=== PATIENT | male | born 1955 | race Caucasian/White ===

== ENCOUNTER 2017-05-30 13:00 | Outpatient (RCR) | payer MEDICARE, SELFPAY ==
--- NOTE | 2017-04-16 14:27 | HP.PTEVAL_ITS ---
Patient's Visit Information FERNIE DVOE SR is a 62 year old M referred to Physical Therapy by Vladislav Colunga DO with a diagnosis of LE weakness. 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 Pt reports he was very functional and mobile until having a surgery secondary to MRSA in R groin that lasted 7 mos until it healed. Since then, Pt reports he has become very weak and has difficulty with transferring from a sitting position to a standing position. Pt also notes he has weakness in the L LE secondary to not walking on it much. Pt reports he feels as though he has generally become debilitated since all of this stuff has happened. No T or N in L LE. Pt does report having phantom pain in his R LE which can become debilitating at times. No pain at rest currently - Pain L knee Pain Intensity (Out of 10): 0 R LE phantom Pain Intensity (Out of 10): 0 - Objective Neuro: B LE sensation is WNL where appropriate. L pat tendon reflex= 1/3. MMT: B LE MMT is grossly 4-/5 throughout with all testing where appropriate. Transfers: Pt is SBA with sit to stand and pivot transfers at this time. Gait: Will be assessed next visit when pt dons prosthetic leg - Goals Goal 1:: Increase B LE strength x 1 grade to aid with improving ease with transfers Goal Time Frame: 4-6 Weeks Goal 2:: Pt will be able to ambulate greater than 400' with WW and prosthetic limb to aid with community ambulation Goal Time Frame: 4-6 Weeks Goal 3:: Pt will be I with all transfers Goal Time Frame: 4-6 Weeks Goal 4:: I with HEP Goal Time Frame: 4-6 Weeks - Rehabilitation Potential Physical Therapy Diagnosis: Pt has LE weakness, difficulty with transfers, and limitations with gait secondary to debilitation Rehabilitation Potential: Good - Anticipated Interventions Patient/Client Instruction: Educate patient on: Condition, Plan of Care For the Purpose of:: To improve self management Therapeutic Exercise to Include: Strength training, Endurance training, Balance training, Postural training, Flexibilty training, Gait and locomotor training, Dynamic Lumbar Stabilization For the Purpose of:: To decrease pain, To increase ROM, To improve muscle performance and motor function Thank you for the opportunity to evaluate your patient. For Medicare and Medicare HMO plans, please review the plan of care and approve it. It will need to be FAXED BACK to us at [phone] for Medicare purposes. Please let me know if there are questions or concerns regarding this plan of care. Physician Signature: Date:
--- NOTE | 2017-05-30 13:53 | HP.PTREVAL_ITS ---
Vladislav Colunga, , It has been my pleasure to treat FERNIE FERNÁNDEZS Sr. over the last 9 visits for LE weakness. Please see the progress note below for an update on the physical therapy plan of care! Subjective: Pt notes pain on his residual limb secondary to walking a lot Objective/Function: Gait: Pt is able to ambulate 309' with SBA and WW untill needing to sit down secondary to R LE pain. Pt is I with all transfers. MMT: B LE grossly 4+/5 throughout. Pt is progressing well toward Rx goals Plan Plan: B LE strengthening, balance and proprio, transfer training, gait training , and HEP Goals Goal 1:: Increase B LE strength x 1 grade to aid with improving ease with transfers Goal Time Frame: 4-6 Weeks Goal Progress: Goal Met Goal 2:: Pt will be able to ambulate greater than 400' with WW and prosthetic limb to aid with community ambulation Goal Time Frame: 4-6 Weeks Goal Progress: Progressing Goal 3:: Pt will be I with all transfers Goal Time Frame: 4-6 Weeks Goal Progress: Goal Met Goal 4:: I with HEP Goal Time Frame: 4-6 Weeks Goal Progress: Progressing Anticipated Interventions Patient/Client Instruction: Educate patient on: Condition, Plan of Care For the Purpose of:: To improve self management Therapeutic Exercise to Include: Strength training, Endurance training, Balance training, Postural training, Flexibilty training, Gait and locomotor training, Dynamic Lumbar Stabilization For the Purpose of:: To decrease pain, To increase ROM, To improve muscle performance and motor function Please do not hesitate to contact me at [phone] by phone or Fax: if you have questions or concerns regarding this new plan of care! Sincerely, Ryan Savage, PT,
--- NOTE | 2017-08-07 15:48 | HP.PT.NRP ---
HP - Discharge Summary (1) - Patient Information FERNIE DOVE SrCraig was seen in my office for initial evaluation on 04/16/17. The following Plan of Care was established for this patient: Initial Frequency: 2-3x /Week Initial Duration: 6 Weeks - Anticipated Interventions Patient/Client Instruction: Educate patient on: Condition, Plan of Care For the Purpose of:: To improve self management Therapeutic Exercise to Include: Strength training, Endurance training, Balance training, Postural training, Flexibilty training, Gait and locomotor training, Dynamic Lumbar Stabilization For the Purpose of:: To decrease pain, To increase ROM, To improve muscle performance and motor function This patient was last seen in our office . Pertinent comments regarding their Physical therapy will appear below: Pt was last treated for gait difficulty on the date of 05/30/17. Pt has not returned through todays date, and is therefore discontinued at this time. At this point I will be discontinuing this patient from physical therapy. I would be happy to see this patient again in the future if found appropriate by the physician. Thank you! Ryan Savage, PT,
== END 2017-05-30 19:00 | disposition home or self-care (01) ==
LOC: PT 13:00
PROVIDERS: Family Provider Family Medicine; PCP Family Medicine; Visit Provider Family Medicine
DX: M17.9 Osteoarthritis of knee, unspecified (principal); Z89.611 Acquired absence of right leg above knee
CPT/HCPCS: 97110; 97162; 97116; 97530; G8978; G8979

== ENCOUNTER 2017-11-18 13:30 | Outpatient (RCR) | payer MEDICARE, SELFPAY ==
--- NOTE | 2017-10-30 14:02 | HP.PTEVAL_ITS ---
Patient's Visit Information FERNIE DOVE Sr. is a 62 year old M referred to Physical Therapy by Vladislav Colunga DO with a diagnosis of L knee OA. Date of Evaluation: 10/30/17 Physical Therapist: Ryan Savage, PT, - Visit Plan Frequency: 2x /Week Duration: 1 Week Plan: Issue HEP for L LE strengthening, core stab, gait training - Subjective Subjective: Pt reports fitting issues with prosthetic on R leg. Pt would like to strengthen LE. Reports a meniscus tear in the L leg. Physician wants to do a cortisone injection. Has pain when twisting and turning the L lower leg when getting out of bed. Pt reports a sharp tearing pain 9/10 in the last week that lasted for a few minutes and went away with straigthening out the leg. Pain is better with rest and not performing provocative movements. Pt has neuropathy in L foot due to diabetes. Pt denies other numbness and tingling. MRI results determined a L medial meniscus tear. - Pain L knee Pain Intensity (Out of 10): 0 Pain Intensity Range: 9 - Objective Neuro: all sensation to light tough intact on L LE. Reflexes 2+. Palpation: TTP on medial joint line, TTP over pes anserine. ROM: knee ext 3-0-114. MMT: limited due to pain, flex: 3+, ext 3. Special tests: McMurrays (-), posterior drawer (-), lachmans (-). Gait training: pt amb for 170' w/ wheeled walker - Goals Goal 1:: I with HEP Goal Time Frame: 1 Week - Rehabilitation Potential Physical Therapy Diagnosis: L knee pain, weakness, and limited ability to ambulate secondary to debilitation Rehabilitation Potential: Good - Anticipated Interventions Patient/Client Instruction: Educate patient on: Condition, Plan of Care Therapeutic Exercise to Include: Strength training, Endurance training, Balance training, Gait and locomotor training, Active ROM, Dynamic Lumbar Stabilization For the Purpose of:: To decrease pain, To increase ROM, To improve muscle performance and motor function Thank you for the opportunity to evaluate your patient. For Medicare and Medicare HMO plans, please review the plan of care and approve it. It will need to be FAXED BACK to us at [phone] for Medicare purposes. Please let me know if there are questions or concerns regarding this plan of care. Physician Signature: Date:
--- NOTE | 2017-11-18 13:30 | DT_ITS ---
This patient was seen during an EMR downtime November 17, 2017 - November 24, 2017. This patient may have a combination of paper and electronic documentation or all paper documentation. All documentation is viewable within the e-chart portion of [facility] for each patient visit.
--- NOTE | 2018-01-15 16:38 | HP.PT.NRP ---
HP - Discharge Summary (1) - Patient Information FERNIE DOVE was seen in my office for initial evaluation on 10/30/17. The following Plan of Care was established for this patient: Initial Frequency: 2x /Week Initial Duration: 1 Week - Anticipated Interventions Patient/Client Instruction: Educate patient on: Condition, Plan of Care Therapeutic Exercise to Include: Strength training, Endurance training, Balance training, Gait and locomotor training, Active ROM, Dynamic Lumbar Stabilization For the Purpose of:: To decrease pain, To increase ROM, To improve muscle performance and motor function This patient was last seen in our office . Pertinent comments regarding their Physical therapy will appear below: Pt was last treated for his knee pain on the date of 11/18/17. Pt has not returned through todays date, and is therefore discontinued at this time. At this point I will be discontinuing this patient from physical therapy. I would be happy to see this patient again in the future if found appropriate by the physician. Thank you! Ryan Savage, PT,
== END 2017-11-18 19:00 | disposition home or self-care (01) ==
LOC: PT 13:30
PROVIDERS: Family Provider Family Medicine; PCP Family Medicine; Visit Provider Family Medicine
DX: M06.9 Rheumatoid arthritis, unspecified (principal); M17.9 Osteoarthritis of knee, unspecified; Z89.611 Acquired absence of right leg above knee
CPT/HCPCS: 97110; 97161

== ENCOUNTER → 2017-12-31 14:15 | Outpatient (CLI) | payer MEDICARE, SELFPAY ==
--- NOTE | 2017-12-31 14:26 | RAD_ITS ---
STUDY: X-RAY - LEFT SHOULDER REASON FOR EXAM: Male, 62 years old. Left shoulder pain TECHNIQUE: 4 view(s) of the shoulder. COMPARISON: None. FINDINGS: There is mild degenerative arthrosis of the glenohumeral articulation. There is degenerative arthrosis of the acromioclavicular joint without inferior osseous spur formation. Normal acromion. Normal humeral head and visualized proximal humerus. The soft tissue structures are unremarkable. Normal visualized pulmonary apex. RAD/Shoulder min 2 Views IMPRESSION: Mild degenerative changes without acute findings Electronically Signed: Ming Cortes DO at 7:18 EDT Tel , Service support ,
--- NOTE | 2017-12-31 14:39 | RAD_ITS ---
STUDY: X-RAY - LEFT KNEE REASON FOR EXAM: Male, 62 years old. Left knee pain TECHNIQUE: 4 view(s) of the knee. COMPARISON: None. FINDINGS: Normal visualized distal femur. Normal visualized proximal tibia and fibula. Normal proximal tibiofibular articulation. There is mild degenerative arthrosis of the medial femorotibial compartment. Normal lateral femorotibial compartment. Normal patellofemoral articulation. Lateral compartment chondrocalcinosis. There are atherosclerotic calcifications. RAD/Knee 4 or More Views IMPRESSION: Degenerative arthrosis. Electronically Signed: Ming Cortes DO at 15:16 EDT Tel , Service support ,
== END ==
PROVIDERS: Family Provider Family Medicine; PCP Family Medicine; Visit Provider Family Medicine
DX: M25.512 Pain in left shoulder (principal); M25.562 Pain in left knee
CPT/HCPCS: 73030; 73564

== ENCOUNTER → 2018-01-14 12:57 | Outpatient (CLI) | payer MEDICARE, SELFPAY ==
[2018-01-14 14:00] LABS: Absolute Lymphocyte Count 0.75 X10^3/ul (0.83-4.51); Absolute Neutrophil Count 3.4 X10^3/uL (2.0-7.7); Basophil# 0.03 X10^3/uL; Basophil% 0.6 % (0-1); Eosinophil# 0.45 X10^3/uL; Eosinophils% 9.2 % (0-5); Hematocrit 43.3 % (40-54); Hemoglobin 14.9 g/dl (13.0-16.5); Lymphocyte # 0.75 X10^3/ul (4.0); Lymphocyte % 15.3 % (19-41); Mean Corp Hgb Conc 34.4 g/gl (32-36); Mean Corpuscular Hgb 32.9 pg (27.0-32.0); Mean Corpuscular Volume 95.6 fL (80-94); Mean Platelet Vol. 10.7 fl (6.2-12.0); Monocyte# 0.31 X10^3/uL; Monocyte% 6.3 % (0-10); Neutrophil # 3.35 X10^3/uL (2.7-7.7); Neutrophil % 68.4 % (47-70); Platelet Count 54 K/mm3 (150-450); RBC Distribution Width CV 14.8 % (11.6-14.6); RBC Distribution Width SD 51.5 fl (35.1-43.9); Red Blood Count 4.53 M/mm3 (4.6-6.2); White Blood Count 4.9 K/mm3 (4.4-11.0)
[2018-01-14 14:02] LABS: POSITIVE COUNT NO; POSITIVE DIFFERENTIAL NO; POSITIVE MORPHOLOGY NO
[2018-01-14 14:19] LABS: Vitamin B12 1341 pg/mL (211-911)
[2018-01-14 14:20] LABS: ALB/GLOB Ratio 0.6 RATIO (0.9-2.4); AST(SGOT) 15 U/L (15-37); Alanine Aminotransfer ALT/SGPT 15 U/L (16-61); Albumin, Serum 2.9 g/dL (3.2-5.0); Alkaline Phosphatase 102 U/L (45-117); Anion Gap 5 (5-15); BUN 23 mg/dL (7-18); BUN/Creat Ratio 13.9 RATIO (10-20); Chloride 100 mmol/L (98-107); Cholesterol 192 mg/dL (200); Creatinine, Serum 1.66 mg/dL (0.70-1.30); EST Glomerular Filtration Rate 45 mL/min (>60); Est Glom Filt Rate - Afr Amer 54 mL/min (>60); Ferritin 50 ng/mL (26-388); Glucose 355 mg/dL (74-106); High Density Lipoprotein 51 mg/dL; Iron 122 ug/dL (65-175); Potassium 4.2 mmol/L (3.5-5.1); Protein, Total 7.9 g/dL (6.4-8.2); Sodium Level 135 mmol/L (136-145); Triglycerides 314 mg/dL; Very Low Density Lipoprotein 63 mg/dL (5-40)
[2018-01-15 12:51] LABS: Microalbumin:Creatinine Ratio 1154.5 mg/g CRE (<30 mg/g CRE)
[2018-01-15 16:51] LABS: AFP, Tumor Marker 1.4 ng/mL (0.0-8.3)
== END ==
PROVIDERS: Family Provider Family Medicine; PCP Family Medicine; Visit Provider Family Medicine
DX: E11.49 Type 2 diabetes mellitus with other diabetic neurological complication (principal); E11.65 Type 2 diabetes mellitus with hyperglycemia; M06.9 Rheumatoid arthritis, unspecified; K74.60 Unspecified cirrhosis of liver; E11.22 Type 2 diabetes mellitus with diabetic chronic kidney disease; N18.3 Chronic kidney disease, stage 3 (moderate); D64.9 Anemia, unspecified; Z51.81 Encounter for therapeutic drug level monitoring; E03.9 Hypothyroidism, unspecified
CPT/HCPCS: 36415; 80053; 80061; 82043; 82105; 82570; 82607; 82728; 83540; 84443; 85025

== ENCOUNTER → 2018-02-13 07:29 | Outpatient (CLI) | payer MEDICARE, SELFPAY ==
[2018-02-13 08:54] LABS: International Normalized Ratio 1.2; Prothrombin Time (Protime)PT. 15.2 SECONDS (11.7-14.9)
[2018-02-13 09:21] LABS: ALB/GLOB Ratio 0.6 RATIO (0.9-2.4); AST(SGOT) 18 U/L (15-37); Alanine Aminotransfer ALT/SGPT 18 U/L (16-61); Albumin, Serum 2.9 g/dL (3.2-5.0); Alkaline Phosphatase 106 U/L (45-117); Anion Gap 8 (5-15); BUN 20 mg/dL (7-18); BUN/Creat Ratio 12.1 RATIO (10-20); Calcium,Total 8.4 mg/dL (8.5-10.1); Chloride 107 mmol/L (98-107); Creatinine, Serum 1.65 mg/dL (0.70-1.30); EST Glomerular Filtration Rate 45 mL/min (>60); Est Glom Filt Rate - Afr Amer 54 mL/min (>60); Glucose 205 mg/dL (74-106); Protein, Total 7.9 g/dL (6.4-8.2); Sodium Level 140 mmol/L (136-145)
[2018-02-16 12:44] LABS: AFP, Tumor Marker 1.4 ng/mL (0.0-8.3)
== END ==
PROVIDERS: Family Provider Family Medicine; PCP Family Medicine; Visit Provider Family Medicine
DX: E11.49 Type 2 diabetes mellitus with other diabetic neurological complication (principal); E11.65 Type 2 diabetes mellitus with hyperglycemia; E11.22 Type 2 diabetes mellitus with diabetic chronic kidney disease; N18.3 Chronic kidney disease, stage 3 (moderate); E03.9 Hypothyroidism, unspecified; G89.4 Chronic pain syndrome
CPT/HCPCS: 36415; 80053; 82105; 84443; 85610

== ENCOUNTER → 2018-07-10 08:28 | Outpatient (CLI) | payer MEDICARE, SELFPAY ==
[2018-07-10 09:03] LABS: Absolute Lymphocyte Count 0.47 X10^3/ul (0.83-4.51); Absolute Neutrophil Count 3.5 X10^3/uL (2.0-7.7); Basophil# 0.02 X10^3/uL; Basophil% 0.5 % (0-1); Eosinophil# 0.16 X10^3/uL; Eosinophils% 3.6 % (0-5); Hematocrit 40.6 % (40-54); Hemoglobin 13.7 g/dl (13.0-16.5); Lymphocyte # 0.47 X10^3/ul (4.0); Lymphocyte % 10.7 % (19-41); Mean Corp Hgb Conc 33.7 g/gl (32-36); Mean Corpuscular Hgb 32.4 pg (27.0-32.0); Mean Platelet Vol. 9.8 fl (6.2-12.0); Monocyte# 0.26 X10^3/uL; Monocyte% 5.9 % (0-10); Neutrophil # 3.47 X10^3/uL (2.7-7.7); Neutrophil % 79.1 % (47-70); Platelet Count 51 K/mm3 (150-450); RBC Distribution Width SD 55.2 fl (35.1-43.9); Red Blood Count 4.23 M/mm3 (4.6-6.2); White Blood Count 4.4 K/mm3 (4.4-11.0)
[2018-07-10 09:04] LABS: Differential Indicated SCAN CRITERIA MET; POSITIVE COUNT NO; POSITIVE DIFFERENTIAL YES; POSITIVE MORPHOLOGY NO
--- NOTE | 2018-07-10 09:10 | RAD_ITS ---
STUDY: X-RAY - CERVICAL SPINE REASON FOR EXAM: Male, 63 years old. Neck pain radiating to left arm. TECHNIQUE: 5 view(s) of the cervical spine were obtained. COMPARISON: None FINDINGS: Normal anterior atlantoaxial articulation. Normal odontoid process. There is straightening of the normal cervical lordosis. There is multi-level endplate spondylosis. There is mild disc space narrowing of C5-C6. There is a 4 mm anterolisthesis of C3 over C4. The neural foramina are grossly unremarkable but suboptimally evaluated on this exam. There is no prevertebral soft tissue swelling. RAD/Cerv Spine 4 or 5 Views IMPRESSION: 1. Straightening of the cervical spine which could be due to muscle spasm. 2. Degenerative changes of the cervical spine as described above. 3. If symptoms persist, MRI of the cervical spine is recommended. Electronically Signed: Burno Vazquez MD at 8:40 EST Tel , Service support ,
[2018-07-10 09:23] LABS: Hemoglobin A1c 7.9 % (4.2-6.3)
[2018-07-10 09:32] LABS: Differential Comment SCANNED
[2018-07-10 09:55] LABS: ALB/GLOB Ratio 0.6 RATIO (0.9-2.4); AST(SGOT) 20 U/L (15-37); Alanine Aminotransfer ALT/SGPT 18 U/L (16-61); Albumin, Serum 2.9 g/dL (3.2-5.0); Alkaline Phosphatase 105 U/L (45-117); Anion Gap 8 (5-15); BUN 21 mg/dL (7-18); BUN/Creat Ratio 12.8 RATIO (10-20); Calcium,Total 8.8 mg/dL (8.5-10.1); Chloride 106 mmol/L (98-107); Creatinine, Serum 1.64 mg/dL (0.70-1.30); EST Glomerular Filtration Rate 45 mL/min (>60); Est Glom Filt Rate - Afr Amer 55 mL/min (>60); Globulin 4.8 g/dL (2.2-4.2); Glucose 213 mg/dL (74-106); Potassium 4.5 mmol/L (3.5-5.1); Protein, Total 7.7 g/dL (6.4-8.2); Rheumatoid Factor < 10.0 IU/mL (<15); Sodium Level 137 mmol/L (136-145); Thyroid Stim Hormone (TSH) 0.14 uIU/mL (0.358-3.74)
== END ==
PROVIDERS: Family Provider Family Medicine; PCP Family Medicine; Referring Provider Family Medicine; Visit Provider Family Medicine
DX: M06.9 Rheumatoid arthritis, unspecified (principal); E11.49 Type 2 diabetes mellitus with other diabetic neurological complication; E11.65 Type 2 diabetes mellitus with hyperglycemia; K74.60 Unspecified cirrhosis of liver; E11.22 Type 2 diabetes mellitus with diabetic chronic kidney disease; I12.9 Hypertensive chronic kidney disease with stage 1 through stage 4 chronic kidney disease, or unspecified chronic kidney disease; N18.3 Chronic kidney disease, stage 3 (moderate); E05.90 Thyrotoxicosis, unspecified without thyrotoxic crisis or storm; M54.12 Radiculopathy, cervical region
CPT/HCPCS: 36415; 72050; 80053; 83036; 84443; 85025; 86140; 86431

== ENCOUNTER 2018-09-25 13:00 | Outpatient (RCR) | payer MEDICARE, SELFPAY ==
--- NOTE | 2018-08-26 16:00 | HP.PTEVAL_ITS ---
Patient's Visit Information FERNIE DOVE Sr. is a 63 year old M referred to Physical Therapy by Vladislav Colunga DO with a diagnosis of L shoulder pain and general debilitation.. Date of Evaluation: 08/26/18 Physical Therapist: Ryan Savage, PT, ATC - Visit Plan Frequency: 2x /Week Duration: 4-6 Weeks Plan: L shoulder strengthening (rot cuff) scap stab ex's, UBE, HEP, ambulation for distance - Subjective Findings: Pt reports he has had L shoulder pain for several months. Pt reports he has had 2 cortisone injectionis into his L shoulder. Pt reports the first injection had no benefit, but pt notes the second injection has taken away all of his pain. Pt reports he has a lot of weakness in his L shoulder at this time. Pt notes he also feels very debilitated overall secondary to not being able to do much activity secondary to pain. Pt reports he has had xrays which revealed rotator cuff damage. No tingling or numbness in L UE. Occasional sleep difficulty secondary to pain. Pt is R hand dominant. 1/10 pain at rest, 9/10 at worst - Pain L shoulder Pain Intensity (Out of 10): 0 Pain Intensity Range: 9 - Objective Neuro: B UE sensation is WNL to light touch. B bicepital reflex= 1/3. ROM: R shoulder flex= 140, abd= 115, ER= 55, IR WNL. L shoulder flex= 85, abd= 80, ER= 25, IR min limited. MMT: L shoulder is grossly rated at 3-/5 and painful with all testing. R shoulder 5/5 throughout. Palpation: Pain is mostly along the distribution of the supraspinatus tendon. No obvious deformity. Gait: - Goals Goal 1:: Decrease L shoulder pain x 50% to aid with sleep Goal Time Frame: 4-6 Weeks Goal 2:: Increase L shoulder strength x 1 grade to aid with IADL's Goal Time Frame: 4-6 Weeks Goal 3:: Increase L shoulder ROM flex and abd x 30 degrees to aid with overhead activity Goal Time Frame: 4-6 Weeks Goal 4:: I with HEP Goal Time Frame: 4-6 Weeks - Rehabilitation Potential Physical Therapy Diagnosis: Pt has L shoulder pain, weakness, and limited ROM secondary to debilitation of L supraspinatus Rehabilitation Potential: Good - Anticipated Interventions Patient/Client Instruction: Educate patient on: Condition, Plan of Care For the Purpose of:: To improve self management Therapeutic Exercise to Include: Strength training, Endurance training, Balance training, Gait and locomotor training, Active ROM, Scapular Strength/Sta bilization For the Purpose of:: To decrease pain, To increase ROM, To improve muscle performance and motor function Cryotherapy (ice pack, ice massage): Yes For the Purpose of:: To decrease pain Thank you for the opportunity to evaluate your patient. For Medicare and Medicare HMO plans, please review the plan of care and approve it. It will need to be FAXED BACK to us at [phone] for Medicare purposes. For Medicare only, by signing this I certify the plan of care. Please let me know if there are questions or concerns regarding this plan of care. Physician Signature: Date:
--- NOTE | 2018-09-16 15:39 | HP.PTEVAL2 ---
Patient's Visit Information FERNIE DOVE Sr. is a 63 year old M referred to Physical Therapy by Vladislav Colunga DO with a diagnosis of L shoulder pain. Date of Evaluation: 09/16/18 Physical Therapist: Ryan Savage, PT, ATC - Visit Plan Frequency: 2x /Week Duration: 3 Weeks Plan: L shoulder strengthening (rot cuff), scap stab ex's, UBE, HEP - Subjective Findings: Pt reports his L shoulder has been sore for 1-2 months. Pt reports he picked up a heavy box and heard something snap. Pt reports it was really sore that night, but even more sore the next day. Pt went tot the dr's 3 weeks later and they told him he maybe has a pinched nerve. Pt reports this date he believes it is coming from the shoulder. Pt is ambidextrious. 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 Pt reports he has difficulty with reaching overhead secondary to pain. Sig sleep difficulty secondary to pain. 2/10 at rest, 10/10 at worst. - Pain L shoulder pain Intensity: 2 Pain Intensity Range: 10 - Objective Objective: Neuro: B UE sensation is WNL to light touch. B bicepital reflex= 2/3. Palpation: Pt is very sore along the distribution of the supraspinatus muscle. No obvious deformity present. ROM: R shoulder flex= 130, abd= 130, ER= 70, IR WNL; L shoulder flex= 50, abd= 50, ER= 60, IR WNL. MMT: R shoulder is 5/5 throughout. L shoulder is 2+/5 and painful with all testing. Special tests: pos empty can - Goals Goal 1:: Decrease L shoulder pain x 50% to aid with sleep Goal Time Frame: 2-4 Weeks Goal 2:: Increase L shoulder flex and abd ROM x 40 degrees to aid with overhead lifting Goal Time Frame: 4-6 Weeks Goal 3:: Increase L shoulder strength x 1 grade to aid with IADL's Goal Time Frame: 2-4 Weeks Goal 4:: I with HEP Goal Time Frame: 4-6 Weeks - Rehabilitation Potential Physical Therapy Diagnosis: L shoulder pain, weakness, and limited ROM secondary to L rot cuff syndrome Rehabilitation Potential: Good - Anticipated Interventions Patient/Client Instruction: Educate patient on: Condition, Plan of Care For the Purpose of:: To improve self management, To prevent re-injury Therapeutic Exercise to Include: Strength training, Endurance training, Active ROM, Scapular Strength/Stabilization For the Purpose of:: To decrease pain, To increase ROM, To improve muscle performance and motor function Cryotherapy (ice pack, ice massage): Yes For the Purpose of:: To decrease pain Thank you for the opportunity to evaluate your patient. For Medicare and Medicare HMO plans, please review the plan of care and approve it. It will need to be FAXED BACK to us at [phone] for Medicare purposes. For Medicare only, by signing this I certify the plan of care. Please let me know if there are questions or concerns regarding this plan of care. Physician Signature: Date:
--- NOTE | 2019-03-10 12:51 | HP.PT.NRP(2) ---
HP - Discharge Summary (2) - Patient Information FERNIE DOVE was seen in my office for initial evaluation on 09/16/18. The following Plan of Care was established for this patient: Initial Frequency: 2x /Week Initial Duration: 3 Weeks Plan from Re-Evaluation: L rot cuff strengthening - Anticipated Interventions Patient/Client Instruction: Educate patient on: Condition, Plan of Care For the Purpose of:: To improve self management, To prevent re-injury Therapeutic Exercise to Include: Strength training, Endurance training, Active ROM, Scapular Strength/Stabilization For the Purpose of:: To decrease pain, To increase ROM, To improve muscle performance and motor function Cryotherapy (ice pack, ice massage): Yes For the Purpose of:: To decrease pain This patient was last seen in our office . Pertinent comments regarding their Physical therapy will appear below: Pt was treated for PT visits for his L shoulder pain and general debility through the date of 10/05/18. Pt has not returned through todays date and is therefore discontinued at this time. At this point I will be discontinuing this patient from physical therapy. I would be happy to see this patient again in the future if found appropriate by the physician. Thank you! Ryan Savage, PT, ATC
== END 2018-09-25 19:00 | disposition home or self-care (01) ==
LOC: PT 13:00
PROVIDERS: Family Provider Family Medicine; PCP Family Medicine; Referring Provider Family Medicine; Visit Provider Family Medicine
DX: R29.818 Other symptoms and signs involving the nervous system (principal); Z89.611 Acquired absence of right leg above knee
CPT/HCPCS: 97110; 97161

== ENCOUNTER 2018-10-27 15:51 | Observation (INO) | payer MEDICARE, SELFPAY ==
[2018-10-27] VITALS (9 sets, daily range): BP systolic 148–184; BP diastolic 69–83; PULSE 68–84; RESP 11–19; TEMP 36.2–36.9; O2SAT 92–97; BMI 25.8; BMI 24.3; BMI 24.4
--- NOTE | 2018-10-27 16:06 | RAD_ITS ---
STUDY: X-RAY CHEST REASON FOR EXAM: Male, 63 years old. Increased weakness and stroke 2 weeks ago. TECHNIQUE: Single AP portable view of the chest. COMPARISON: March 03, 2017. FINDINGS: Telemetry wires overlie the chest. The lungs are clear and expanded. There is no demonstrated pleural abnormality. Normal size heart. Normal mediastinum and douglas. Normal visualized pulmonary arteries. Normal visualized aortic arch and descending thoracic aorta. There are diffuse degenerative changes of the visualized thoracic spine. There is degenerative osteoarthritis of the bilateral shoulders. There is no demonstrated abnormality of the visualized soft tissue structures of the upper abdomen. RAD/Chest 1 View IMPRESSION: 1. Degenerative changes of the shoulders and lumbar spine. 2. No acute cardiopulmonary disease or interval change. Electronically Signed: Chuck Friedman DO at 16:56 EDT Tel [phone], Service support ,
--- NOTE | 2018-10-27 16:06 | EKG12_ITS ---
Test Reason : AM EKG Blood Pressure : / mmHG Vent. Rate : 068 BPM Atrial Rate : 068 BPM P-R Int : 156 ms QRS Dur : 116 ms QT Int : 466 ms P-R-T Axes : 049 -07 069 degrees QTc Int : 495 ms Normal sinus rhythm Incomplete right bundle branch block Nonspecific ST abnormality Prolonged QT Abnormal ECG When compared with ECG of 27-OCT-2018 16:15, MANUAL COMPARISON REQUIRED, DATA IS UNCONFIRMED Confirmed by JENNYFER QUINTERO ([id number]), newspaper or periodical editor DENNYS GRACIA ([id number]) on 11/02/2018 4:46:50 PM Referred By: Parth Tejada Confirmed By:CARLYLE QUINTERO
--- NOTE | 2018-10-27 16:06 | CT_ITS ---
STUDY: CT BRAIN WITHOUT CONTRAST REASON FOR EXAM: Male, 63 years old. Weakness and CVA 2 weeks ago. History of cirrhosis and renal disease. RADIATION DOSAGE (If Supplied By Facility): CTDIvol = ( 44.99 ) mGy, DLP = ( 779.24 ) mGycm TECHNIQUE: Transaxial CT imaging of the brain was performed without administration of intravenous contrast material. Individualized dose optimization techniques were used for this CT. COMPARISON: No relevant priors. FINDINGS: Normal soft tissue structures. Normal calvarium. Normal size ventricles and extra-axial spaces for the patient's age. There are areas of decreased attenuation within the white matter tracts of the supratentorial brain, consistent with microvascular disease changes. Normal basal ganglia and thalami. Normal brainstem. Normal cerebellum. There is a large arachnoid cyst in the left posterior fossa. There is no intracranial hemorrhage. There are no findings of an acute ischemic infarction. There is mucoperiosteal reaction in the right maxillary sinus and ethmoid air cells. CT/Brain/Head without Contrast IMPRESSION: 1. No acute intracranial or calvarial abnormality. 2. Posterior fossa arachnoid cyst. 3. Sinusitis. Electronically Signed: Chuck Friedman DO at 17:24 EDT Tel [phone], Service support ,
[2018-10-27 16:46] LABS: Bedside Glucose 310 mg/dL (70-110)
[2018-10-27 16:52] LABS: Absolute Lymphocyte Count 0.61 X10^3/ul (0.83-4.51); Absolute Neutrophil Count 4.7 X10^3/uL (2.0-7.7); Basophil# 0.03 X10^3/uL; Basophil% 0.5 % (0-1); Eosinophil# 0.33 X10^3/uL; Eosinophils% 5.4 % (0-5); Hematocrit 40.2 % (40-54); Hemoglobin 13.6 g/dl (13.0-16.5); Lymphocyte # 0.61 X10^3/ul (4.0); Mean Corp Hgb Conc 33.8 g/gl (32-36); Mean Corpuscular Hgb 32.7 pg (27.0-32.0); Mean Corpuscular Volume 96.6 fL (80-94); Mean Platelet Vol. 10.4 fl (6.2-12.0); Monocyte# 0.46 X10^3/uL; Monocyte% 7.5 % (0-10); Neutrophil # 4.65 X10^3/uL (2.7-7.7); Neutrophil % 76.1 % (47-70); Platelet Count 74 K/mm3 (150-450); RBC Distribution Width CV 15.8 % (11.6-14.6); RBC Distribution Width SD 53.1 fl (35.1-43.9); Red Blood Count 4.16 M/mm3 (4.6-6.2); White Blood Count 6.1 K/mm3 (4.4-11.0)
[2018-10-27 17:03] LABS: POSITIVE COUNT NO; POSITIVE DIFFERENTIAL NO; POSITIVE MORPHOLOGY NO
[2018-10-27 17:12] LABS: ALB/GLOB Ratio 0.6 RATIO (0.9-2.4); AST(SGOT) 25 U/L (15-37); Alanine Aminotransfer ALT/SGPT 17 U/L (16-61); Albumin, Serum 2.7 g/dL (3.2-5.0); Alkaline Phosphatase 114 U/L (45-117); Anion Gap 4 (5-15); BUN 20 mg/dL (7-18); BUN/Creat Ratio 13.1 RATIO (10-20); Calcium,Total 8.3 mg/dL (8.5-10.1); Chloride 105 mmol/L (98-107); Creatinine, Serum 1.53 mg/dL (0.70-1.30); EST Glomerular Filtration Rate 49 mL/min (>60); Est Glom Filt Rate - Afr Amer 59 mL/min (>60); Estimated Creatinine Clearance 50.36 ml/min; Globulin 4.8 g/dL (2.2-4.2); Glucose 332 mg/dL (74-106); Potassium 3.9 mmol/L (3.5-5.1); Protein, Total 7.5 g/dL (6.4-8.2); Sodium Level 138 mmol/L (136-145)
--- NOTE | 2018-10-27 17:41 | CASEMGMT ---
RN CM Assessment Introduced role of RN CM to patient and patient Christin at bedside.? Patient is alert, oriented and able?to participate in RN CM Assessment. ?Care providers, pharmacy, and demographics verified. Presentation: Weakness Re-Admit: No Barriers/Issues: None PCP: Vladislav Colunga Specialists: None Preferred Pharmacy: [facility] Insurance: [employer] [facility] PPO Rx Benefit:?Yes LNOK: Christin Crocker LW/HPOA: No, Declines offered information Living Arrangements:? Lives with in a [place] home, Ramp to enter ADL?s: Prior to this episode x1 week ago was able to ambulate with walker, the past week has had to use WC. Prior Independent with ADL's, this past week has needed help with all ADL's. Transportation: Patient normally drives, to transport on [place] DME: Walker, WC, Glucometer, Shower Chair, BS Commode, Nebulizer HHC: Past SNF: Past- [facility] Goal: Patient states would like to return home, however is open to what they recommend. States if SNF recommended, no Preference. If HHC recommended, No Preference on Agency. DC PLAN: Home with HH PT Vs SNF. GEORGE Gan
--- NOTE | 2018-10-27 18:00 | ED.VISSUMM ---
- ER Visit Summary Date of Service: 10/27/18 Chief Complaint: Weakness History of Present Illness: The patient is a 63 M with left-sided weakness that started between 1 to 2 weeks ago. It started when he woke up. He notices left arm and left leg were weak. He also reports decreased sensation in his left arm but also some decreased sensation in his right hand. He never had this before. His family doctor thought this might be a stroke, and he referred him to the ED. Patient has a history of diabetes and right leg [id number] amputation. Because of his weakness and prior amputation, he is having difficulty ambulating and transferring. His is having difficulty caring for him. He denies any other symptoms like facial droop, speech changes. He denies any chest pain or shortness of breath. Denies any GI symptoms or urinary symptoms. Physical Examination: Afebrile and vital signs unremarkable. Alert and oriented. No acute distress. Cardiac exam regular. No respiratory distress. Abdomen soft and nontender. Cranial nerves grossly intact. Patient has drift in his left arm but is otherwise unremarkable. He reports subjective decreased sensation in his left arm and left lower leg. Normal neurologic testing otherwise when able. NIH stroke scale is 2. Test Results: Patient has an EKG that shows sinus rhythm at a rate of [address] depression. This appears to be new since 2017. Platelets stable at 74. Glucose 332. BUN 20 and creatinine 1.53. Ammonia 58. Total bilirubin 1.3. Coags pending. Urinalysis pending. Troponin 0 0.176. Chest x-ray showed chronic changes. CT brain noncontrast showed no acute findings. He does have a posterior fossa arachnoid cyst. Emergency Department Course and Treatment: Patient did not meet criteria for a stroke team or TPA. Stroke work-up was pursued. I also checked an ammonia level given his history of alcoholic liver disease. Patient has an indeterminate troponin and nonspecific EKG changes. He will be monitored. No change in his neurologic exam. His CT brain showed no sign of hemorrhage or other acute process. Patient will be admitted for further evaluation. He was advised that he may need placement if he is unable to ambulate at home and cannot arrange for help at home. Treatment Plan: As above Disposition: Admission Impression: 1. Left sided weakness 2. Elevated troponin This note was generated with [employer] software. It may contain incorrect words, spelling, and punctuation that were not noted in review of the chart prior to signing ED Disposition - Plan for ED Patient: Referrals: Vladislav Colunga DO [Primary Care Provider] -
--- NOTE | 2018-10-27 18:04 | ED.DCSUM_ITS ---
- ER Visit Summary Date of Service: 10/27/18 Chief Complaint: Weakness History of Present Illness: The patient is a 63 M with left-sided weakness that started between 1 to 2 weeks ago. It started when he woke up. He notices left arm and left leg were weak. He also reports decreased sensation in his left arm but also some decreased sensation in his right hand. He never had this before. His family doctor thought this might be a stroke, and he referred him to the ED. Patient has a history of diabetes and right leg [id number] amputation. Because of his weakness and prior amputation, he is having difficulty ambulating and transferring. His is having difficulty caring for him. He denies any other symptoms like facial droop, speech changes. He denies any chest pain or shortness of breath. Denies any GI symptoms or urinary symptoms. Physical Examination: Afebrile and vital signs unremarkable. Alert and oriented. No acute distress. Cardiac exam regular. No respiratory distress. Abdomen soft and nontender. Cranial nerves grossly intact. Patient has drift in his left arm but is otherwise unremarkable. He reports subjective decreased sensation in his left arm and left lower leg. Normal neurologic testing otherwise when able. NIH stroke scale is 2. Test Results: Patient has an EKG that shows sinus rhythm at a rate of [address] depression. This appears to be new since 2017. Platelets stable at 74. Glucose 332. BUN 20 and creatinine 1.53. Ammonia 58. Total bilirubin 1.3. Coags pending. Urinalysis pending. Troponin 0 0.176. Chest x-ray showed chronic changes. CT brain noncontrast showed no acute fin dings. He does have a posterior fossa arachnoid cyst. Emergency Department Course and Treatment: Patient did not meet criteria for a stroke team or TPA. Stroke work-up was pursued. I also checked an ammonia level given his history of alcoholic liver disease. Patient has an indeterminate troponin and nonspecific EKG changes. He will be monitored. No change in his neurologic exam. His CT brain showed no sign of hemorrhage or other acute process. Patient will be admitted for further evaluation. He was advised that he may need placement if he is unable to ambulate at home and cannot arrange for help at home. Treatment Plan: As above Disposition: Admission Impression: 1. Left sided weakness 2. Elevated troponin This note was generated with [employer] software. It may contain incorrect words, spelling, and punctuation that were not noted in review of the chart prio r to signing ED Disposition - Plan for ED Patient: Referrals: Vladislav Colunga DO [Primary Care Provider] -
--- NOTE | 2018-10-27 18:05 | ED.RN ---
ATTEMPTED TO OBTAIN URINE, PT UNABLE TO URINATE
[2018-10-27 18:17] LABS: International Normalized Ratio 1.2; Prothrombin Time (Protime)PT. 15.3 SECONDS (11.7-14.9)
--- NOTE | 2018-10-27 18:27 | HP.PCM_ITS ---
Problem List (1) Stage III chronic kidney disease Status: Chronic (2) Status post above knee amputation of right lower extremity Status: Chronic (3) COPD (chronic obstructive pulmonary disease) Status: Chronic (4) TIA (transient ischemic attack) Status: Chronic (5) GERD (gastroesophageal reflux disease) Status: Chronic (6) Alcoholic liver disease Status: Chronic Comment: cirrhosis Portal hypertension esophageal varices stage III (7) DM type 2 (diabetes mellitus, type 2) Status: Chronic (8) Alcohol abuse Status: Chronic Comment: 6-12 drinks/day (9) Hypothyroidism Status: Chronic (10) Chronic blood loss anemia Status: Chronic Comment: required 3 units of PRBC's- prior workup for this showed no etiology History of Present Illness Date of Admission: 10/27/18 Chief Complaint: Left-sided body weakness. The patient is a 63 year old M with past medical history as mentioned above was referred to the emergency department by his PCP for evaluation of left-sided body weakness. The patient symptoms started around 2 weeks ago with left-sided body weakness, both upper and lower extremity, has been having difficulty ambulating and using his left hand and left leg and his primary care physician has been trying to do a CT scan brain as outpatient because he was concerned about stroke. Apparently, there was a problem with the insurance getting the CT scan brain approved and today, patient went to his PCPs office who asked him to come to the emergency department. Since that time, patient has been having difficulties using his left upper and lower extremity. He denies any associated symptoms such as blurred vision, slurred speech or loss of consciousness. He did mention that he has numbness and tingling in both hands from the wrist down. He denies mechanical fall or trauma. He denied chest pain or shortness of breath. He had a history of type 2 diabetes mellitus, has been on NovoLog sliding scale at home and his most recent hemoglobin A1c was 7.9 on June,. He has history of alcoholic liver cirrhosis and he has been on rifampin, Senokot, Colace and Dulcolax. He had a history of hypothyroidism and he has been on very high dose of levothyroxine and his TSH was 0.14 on December,. In the emergency department, his blood pressure was slightly elevated, other vital signs were stable. Routine blood work was remarkable for chronic thrombocytopenia, creatinine of 1.53, otherwise unremarkable. LFT revealed bilirubin of 1.3 which is also chronic, liver transaminases and alkaline phosphatase were normal. Ammonia level was 58. EKG revealed normal sinus rhythm, prolonged QTC, T wave inversion and ST segment depression in leads V1 and V2, T wave inversion in lead V3 and those changes are new compared to EKG from February,. CT scan brain showed no acute infarct or hemorrhage. Chest x-ray showed no acute infiltrate, consolidation or effusion. He is being admitted for left-sided body weakness/strokelike symptoms as well as abnormal cardiac enzymes and EKG changes. 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) COPD (chronic obstructive pulmonary disease) (Chronic) TIA (transient ischemic attack) (Chronic) GERD (gastroesophageal reflux disease) (Chronic) Alcoholic liver disease (Chronic) cirrhosis Portal hypertension esophageal varices stage III DM type 2 (diabetes mellitus, type 2) (Chronic) Alcohol abuse (Chronic) 6-12 drinks/day Hypothyroidism (Chronic) Chronic blood loss anemia (Chronic) required 3 units of PRBC's- prior workup for this showed no etiology Allergies acetaminophen [From Percocet] Allergy (Verified 10/27/18 15:53) Rash codeine Allergy (Verified 10/27/18 15:53) Hives hydrocodone Allergy (Verified 10/27/18 15:53) Hives hydromorphone HCl [From Dilaudid] Allergy (Verified 10/27/18 15:53) Itching oxycodone [From Percocet] Allergy (Verified 10/27/18 15:53) Rash atorvastatin [From Lipitor] Adverse Reaction (Severe, Verified 10/27/18 15:53) RHABDOMYALYSIS Home Medications: Ambulatory Orders Medication Instructions Recorded Amlodipine [Norvasc] 10 mg PO DAILY 06/13/14 Albuterol Aerosols [Ventolin 2.5 mg INHALATION Q2H PRN PRN #0 03/17/15 Aerosols] vial.neb. Ipratropium/Albuterol Sulfate 3 ml INHALATION Q6H.RT ampul.neb 03/17/15 [Duoneb] Alprazolam [Xanax Xr] 0.5 mg PO TID 09/11/16 Bisacodyl [Dulcolax] 10 mg RECTAL DAILY PRN PRN 09/11/16 Rifampin [Rifadin] 150 mg PO BID 09/11/16 Sennosides/Docusate Sodium 2 each PO DAILY 09/11/16 [Senna-Docusate Sodium Tablet] Levothyroxine [Synthroid] 300 mcg PO DAILY 03/03/17 Docusate Sodium [Colace] 100 mg PO BID PRN PRN 10/27/18 Guaifenesin/Dextromethorphan 1 each PO Q12H PRN 10/27/18 [Mucinex Dm ER 600-30 mg Tablet] Hydromorphone HCl 4 mg PO Q6H PRN PRN 10/27/18 Insulin Aspart [Novolog Flexpen See Protocol SC TIDCM 10/27/18 ([facility])] Pantoprazole Sodium [Protonix] 40 mg PO BID 10/27/18 Pregabalin [Lyrica] 100 mg PO BID 10/27/18 Promethazine HCl 25 mg PO TID PRN 10/27/18 Sertraline HCl 25 mg PO DAILY 10/27/18 Sertraline HCl 50 mg PO DAILY 10/27/18 Sertraline HCl 100 mg PO DAILY 10/27/18 Tamsulosin HCl 0.4 mg PO DAILY 10/27/18 Surgical History: tonsillectomy, - - Right above-knee amputation secondary to peripheral vascular disease 2003, knee surgery secondary to torn meniscus Psychiatric History: Depression Lives: Spouse/ Significant Other Smoking Status: Current every day smoker Alcohol: None Drugs: None - *Family History Maternal History Items: No pertinent history Sibling History Items: No pertinent history Paternal History Items: Stroke Review of Systems Constitutional: Reports: Weakness. Denies: Anorexia, Chills, Fever Eyes: Denies: Blurred vision, Double vision, Drainage, Redness, Vision Change HEENT: Denies: Difficulty Hearing, Dysphasia, Ear Pain, Eye Pain, Head Aches, Nasal Congestion, Sore Throat Cardiovascular: Denies: Chest Pain, Chest Pressure, Chest Tightness, Heaviness, Light Headedness, Palpitations, Syncope Respiratory: Denies: Cough, Pleuritic Pain, Shortness of Breath, Sputum production, Wheezing Gastrointestinal: Denies: Abdominal Pain, Constipation, Diarrhea, Nausea, Vomiting Genitourinary: Denies: Dysuria, Frequency, Hematuria Musculoskeletal: Denies: Arm Pain, Back Pain, Foot Pain Skin: Denies: Dryness, Rash Neurological: Reports: Balance problems, Focal weakness, Incoordination. Denies: Double vision, Change in Speech, Slurred speech, Confusion, Numbness Psychiatric: Reports: Depression. Denies: Anxiety Endocrine: Denies: Change in Body Habitus, Polydipsia VTE Information - Inpt Only VTE Present on Admission: No VTE Mechan Device Prophylaxis: SCD's VTE Pharm Prophylaxis ordered?: No - Physical Exam General: Alert, Oriented x3, Cooperative, No apparent distress HEENT: Atraumatic, PERRLA, EOMI, Normocephalic Oral: Moist Mucosa, No Gingival or Mucosal Lesions/ Ulcerations Neck: Supple, No JVD, Negative Carotid Bruits, Trachea Midline, Thyroid Normal Size and Texture Lungs: No rhonchi, No wheeze, No rales, Diminished, - - Decreased breath sounds bilateral, otherwise clear. Cardiovascular: Regular rate, Regular Rhythm, Normal S1, Normal S2, PMI Normal Abdomen: Bowel Sounds Present, Soft, Non Tender, No Hepato-splenomegaly, Distended Extremities: No clubbing, No cyanosis, No edema Skin: No rashes, No breakdown Musculoskeletal: - - Status above right knee amputation. Lymphatic: No Cervical, Supraclavicular, or Inguinal Adenopathy Neurological: Cranial nerves II-XII grossly intact, - - Power on the left upper and lower extremities is 4 x 5. Power on the right side is 5 x 5. Psych/Mental Status: Normal Affect, Appropriate, Alert and oriented to time, place, person, mood and affect Vital Signs Temp Pulse Resp BP Pulse Ox 97.1 F L 78 18 148/75 H 94 10/27/18 15:53 10/27/18 17:30 10/27/18 17:30 10/27/18 17:30 10/27/18 17:30 Oxygen Delivery Method Room Air Weight: 180 lb Body Mass Index (BMI) 25.8 Finger Stick Blood Glucose 310 Laboratory Tests Past 24 Hrs 10/27/18 10/27/18 10/27/18 16:25 16:25 16:25 WBC 6.1 RBC 4.16 L Hgb 13.6 Hct 40.2 MCV 96.6 H MCH 32.7 H MCHC 33.8 RDW 15.8 H RDW Differential 53.1 H Plt Count 74 L MPV 10.4 Immature Gran % (Auto) 0.500 Neut % (Auto) 76.1 H Lymph % (Auto) 10.0 L [place] % (Auto) 7.5 Eos % (Auto) 5.4 H Baso % (Auto) 0.5 Absolute Neuts (auto) 4.7 Absolute Lymphs (auto) 0.61 L Total Counted Not Reportable PT Pending INR Pending APTT Pending Sodium 138 Potassium 3.9 Chloride 105 Carbon Dioxide 29.0 Anion Gap 4 L BUN 20 H Creatinine 1.53 H Estim Creat Clear Calc 50.36 Est GFR (MDRD) Af Amer 59 L Est GFR (MDRD) Non-Af 49 L BUN/Creatinine Ratio 13.1 Glucose 332 H Calcium 8.3 L Total Bilirubin 1.30 H AST 25 ALT 17 Alkaline Phosphatase 114 Ammonia Troponin I 0.176 H Total Protein 7.5 Albumin 2.7 L Globulin 4.8 H Albumin/Globulin Ratio 0.6 L 10/27/18 16:35 WBC RBC Hgb Hct MCV MCH MCHC RDW RDW Differential Plt Count MPV Immature Gran % (Auto) Neut % (Auto) Lymph % (Auto) [place] % (Auto) Eos % (Auto) Baso % (Auto) Absolute Neuts (auto) Absolute Lymphs (auto) Total Counted PT INR APTT Sodium Potassium Chloride Carbon Dioxide Anion Gap BUN Creatinine Estim Creat Clear Calc Est GFR (MDRD) Af Amer Est GFR (MDRD) Non-Af BUN/Creatinine Ratio Glucose Calcium Total Bilirubin AST ALT Alkaline Phosphatase Ammonia 58.0 H Troponin I Total Protein Albumin Globulin Albumin/Globulin Ratio POC Glucose 10/27/18 16:38 POC Glucose 310 H Clinical Impression(s) from Imaging Studies Brain CT 10/27/18 16:06 IMPRESSION: 1. No acute intracranial or calvarial abnormality. 2. Posterior fossa arachnoid cyst. 3. Sinusitis. Electronically Signed: Chuck Friedman DO at 17:24 EDT Tel [phone], Service support , Chest X-Ray 10/27/18 16:06 IMPRESSION: 1. Degenerative changes of the shoulders and lumbar spine. 2. No acute cardiopulmonary disease or interval change. Electronically Signed: Chuck Friedman DO at 16:56 EDT Tel [phone], Service support , Assessment/Plan This is a 63 years old male patient was referred to the ED by his PCP for evaluation of left-sided body weakness that has been going on for 2 weeks with concern of acute stroke, found to have abnormal EKG and abnormal cardiac enzymes and he is being admitted for evaluation and treatment. #1 left-sided body weakness/strokelike symptoms: On examination, he does have left-sided hemiparesis. CT scan brain showed no acute findings. Blood pressure slightly elevated, other vital signs are stable. EKG reviewed as above. Plan: Admit to PCU, cardiac monitoring, NIH stroke scale, start aspirin, patient is allergic to Lipitor, MRI brain, 2D echocardiogram, bilateral carotid Doppler, neurology consult, repeat CBC and BMP tomorrow morning, PT OT evaluation and treatment. #2 abnormal cardiac enzymes/EKG changes: Compared to EKG from February,, no changes are ST segment depression and T wave inversion in leads V1 and V2, more prominent in V2 and also there is T wave inversion in leads V3. Troponin is indeterminate. Patient denies any chest pain. He had no history of CAD or cardiac interventions in the past. Plan: Cardiac enzymes, cardiac monitoring, repeat EKG tomorrow morning, aspirin, 2D echocardiogram, cardiology consult. #3 stage III chronic kidney disease: Baseline creatinine has been around 1.6 to 2.4 mg/dL admission creatinine is 1.53, stable at baseline.. #4 COPD: DuoNeb every 6 hours, albuterol as needed, incentive spirometer. Chest x-ray reviewed as above, no acute findings. #5 alcoholic liver cirrhosis: Ammonia level was 58, no evidence of acute hepatic encephalopathy. Patient is alert and oriented x3. He uses rifampin, Dulcolax, Senokot and Colace at home. He is not on lactulose. Plan to continue rifampin, continue laxative, start lactulose, repeat ammonia tomorrow morning. #6 type 2 diabetes mellitus: ADA diet, Accu-Cheks, insulin sliding scale, continue home doses of NovoLog insulin. #7 hypothyroidism: TSH was 0.24 on June, which is very low. Patient is taking very high dose of levothyroxine. Plan to continue levothyroxine, check TSH. If the TSH still low, we need to decrease the dose of the levothyroxine. #8 peripheral vascular disease/status post above right knee amputation: Stable, start aspirin. #9 DVT prophylaxis: SCDs, no chemical prophylaxis because of thrombocytopenia. This note was generated with [employer] software. It may contain incorrect words, spelling, and punctuation that were not noted in checking the note before signing. Code Visit Inpatient E&M: 42308 Init Hosp L3
--- NOTE | 2018-10-27 18:48 | CDU_ITS ---
Reason For Study: CVA Rt. Velocities/BP Lt. Velocities/BP Prox CCA 92/14 cm/sec. Prox CCA 63/12 cm/sec. Mid CCA 61/10 cm/sec. Mid CCA 53/12 cm/sec. Dist CCA 57/13 cm/sec. Dist CCA 66/15 cm/sec. Prox ICA 71/15 cm/sec. Prox ICA 44/8 cm/sec. Mid ICA 51/14 cm/sec. Mid ICA 52/16 cm/sec. Dist ICA 63/17 cm/sec. Dist ICA 77/26 cm/sec. Rt. ICA/CCA = 1.2. Lt. ICA/CCA = 1.5. Prox ECA 154/14 cm/sec. Prox ECA 397/26 cm/sec. Rt. Vert. 37/9 cm/sec. Lt. Vert. 37/7 cm/sec. Right Extracranial There is heterogeneous, smooth atherosclerotic plaque noted in the right common carotid artery. There is heterogeneous, smooth atherosclerotic plaque noted in the right internal carotid artery. There is heterogeneous, smooth atherosclerotic plaque noted in the right external carotid artery. Antegrade flow is noted in the right vertebral artery. Left Extracranial There is heterogeneous, irregular atherosclerotic plaque noted in the left common carotid artery. There is heterogeneous, irregular atherosclerotic plaque noted in the left internal carotid artery. There is heterogeneous, irregular atherosclerotic plaque noted in the left external carotid artery. Antegrade flow is noted in the left vertebral artery. Procedure Carotid Duplex 85158. Exam performed portable in patient room. 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
--- NOTE | 2018-10-27 18:48 | ECHOD_ITS ---
Reason For Study: TIA/CVA Procedure This was a 2D Doppler, Color Flow transthoracic echocardiogram. Exam performed portable in patient room. Left Ventricle Mild concentric left ventricular hypertrophy. The estimated ejection fraction is 75 %. Stage 1 diastolic dysfunction. No regional wall motion abnormalities noted. Right Ventricle Mildly dilated right ventricle. Normal systolic function. Atria Normal left atrium. Normal right atrium. Normal atrial septum. Mitral Valve The mitral valve is structurally normal. No prolapse or stenosis seen. Tricuspid Valve Normal tricuspid valve. Unable to estimate RV systolic pressure due to inadequate jet, pulmonary artery pressure probably normal. Aortic Valve Trisinus/trileaflet aortic valve. Moderate focal aortic valve thickening. Moderate restriction of the aortic valve. Moderate aortic stenosis. Peak aortic valve gradient 43 mmHg. Mean aortic valve gradient 22 mmHg. Calculated aortic valve area (continuity equation) is 1.3 cm2. Trivial aortic valve insufficiency. Pulmonic Valve Normal pulmonic valve. Great Vessels Normal aortic root. Normal arch. Normal inferior vena cava. Inferior vena cava collapse with sniff. Pericardium/Pleural No pericardial effusion. Medication Previously negative bubble study. MMode/2D Measurements & Calculations LVIDd: 4.4 cm IVSd: 1.3 cm LVOT diam: 2.0 cm LVIDs: 2.7 cm LVPWd: 1.1 cm RVDd: 3.9 cm FS: 39.0 % LVOT area: 3.2 cm2 Ao root diam: 2.5 cm LAV(MOD-bp): 74.1 ml Aortic Valve Planimetry: 1.3 cm2 LAV(MOD-bp) Indexed: 38.1 ml/m2 LAV(MOD-sp2): 81.7 ml LAV(MOD-sp4): 52.2 ml LA dimension(2D): 4.0 cm LA A4 area: 18.2 cm2 RA A4 area: 11.1 cm2 Time Measurements MV dec time: 0.37 sec Doppler Measurements & Calculations MV E max markus: 82.4 cm/sec Ao V2 max: 321.6 cm/sec LV V1 max: 124.0 cm/sec MV A max markus: 115.4 cm/sec Ao max P.4 mmHg LV V1 max P.2 mmHg MV E/A: 0.71 Ao V2 mean: 225.9 cm/sec LV V1 mean P.5 mmHg Ao mean P.7 mmHg LV V1 mean: 88.0 cm/sec Ao V2 VTI: 66.4 cm LV V1 VTI: 29.0 cm SADIA(I,D): 1.4 cm2 SADIA(V,D): 1.2 cm2 SV(LVOT): 91.8 ml Interpretation Summary Mild concentric left ventricular hypertrophy. The estimated ejection fraction is 75 %. Stage 1 diastolic dysfunction. Mildly dilated right ventricle. Unable to estimate RV systolic pressure due to inadequate jet, pulmonary artery pressure probably normal. Moderate restriction of the aortic valve. Moderate aortic stenosis. Peak aortic valve gradient 43 mmHg. Mean aortic valve gradient 22 mmHg. Calculated aortic valve area (continuity equation) is 1.3 cm2. Compared to echo report dated 03/14/2015, LV function has remained the same. Aortic stenosis has gone from mild to moderate. Ordering Physician: Parth Tejada Referring Physician: JOSE ELIAS MAIN Performed By: Yessi Marino, DEVEN, RVT
--- NOTE | 2018-10-27 18:48 | MRI_ITS ---
STUDY: MRI BRAIN WITHOUT CONTRAST REASON FOR EXAM: Male, 63 years old. Left-sided weakness TECHNIQUE: Standardized multiplanar fat and water weighted pulse sequences were obtained. COMPARISON: CT head 10/27/2018 and MRI 06/02/2012. FINDINGS: There is moderate cerebral atrophy with widening of the extra-axial spaces and ventricular dilatation. There are a limited number of small white matter hyperintensities, distributed throughout the deep white matter tracts of the cerebral hemispheres, consistent with mild chronic white matter ischemic changes. Stable left posterior fossa arachnoid cyst measures 5.4 x 2.5 cm. Normal bilateral basal ganglia. Normal thalami. There is no extra-axial fluid accumulation. Normal flow voids within the major intracranial circulation suggesting patency by spin echo criteria. Normal sella turcica, pituitary gland, infundibular stalk, optic chiasm and hypothalamus. Normal tectal plate and pineal gland. Normal midbrain, fidencio and medulla. Normal cerebellum. Normal basal cisterns. Normal bilateral temporal bones. Normal bilateral internal auditory canals. No demonstrated orbital abnormality, within the constraints of a routine brain study. There is marked opacification of the right maxillary sinus. There is mild opacification of the bilateral anterior ethmoid air cells.. Normal calvarium and skull base. Normal visualized soft tissue structures. Normal visualized upper cervical spine. MRI/Brain without Contrast IMPRESSION: No acute intracranial abnormality. Stable chronic findings described above. Electronically Signed: Parul Cr, at 9:58 EDT Tel , Service support ,
[2018-10-27 19:02] LABS: Partial Thromboplast Time 32.1 Seconds (24.1-36.2)
[2018-10-27 19:14] LABS: Thyroid Stim Hormone (TSH) 1.48 uIU/mL (0.358-3.74)
[2018-10-27 19:56] LABS: Bacteria 0 SEEN /hpf (None Seen); Mucous, Urine 0 SEEN /hpf (<or=2+)
[2018-10-27 19:59] LABS: Color, Urine Yellow (Yellow); Glucose, Dipstick 250 mg/dl (Normal); Ketone-Dipstick Negative (Negative); Leukocyte Esterase-Dipstick Negative /ul (Negative); Nitrite-Dipstick Negative (Negative); Occult Blood-Urine 150 /ul (Negative); Protein-Dipstick 100 mg/dl (Negative); Specific Gravity, Urine 1.015 (1.002-1.030); Urine Bilirubin Dipstick 1 mg/dL (Negative); Urine Clarity Clear (Clear); Urine Urobilinogen 4 mg/dl (Normal)
[2018-10-27] MEDS: 0.9% Normal Saline 1,000 ML 75 ML IV (20:02)
[2018-10-27] MEDS: 0.9% NaCl Peripheral Flush Adult/Peds IV (20:03)
[2018-10-27 20:05] LABS: Squamous Epithelial Cells - UA 0-5 SEEN /hpf (0-5)
[2018-10-27 20:06] LABS: Red Blood Cells-Urine 0-5 SEEN /hpf (0-5)
[2018-10-27 20:07] LABS: White Blood Cells 0-5 SEEN /hpf (0-5)
[2018-10-27 20:08] LABS: Hyaline Cast 0-5 SEEN /lpf (0-5)
[2018-10-27] MEDS: Ipratropium/Albuterol Sulfate 3 ML AMPUL.NEB INHALATION (20:24)
[2018-10-27] MEDS: Insulin Lispro 100 UNIT/ML INSULN.PEN SC (22:11)
[2018-10-27] MEDS: Pantoprazole Sodium 40 MG Tablet PO (22:12)
[2018-10-27] MEDS: RIFAMPIN 150 MG CAPSULE PO (22:13)
[2018-10-27] MEDS: Pregabalin 50 MG Capsule 100 MG PO (22:13)
[2018-10-27 22:40] LABS: Bedside Glucose 330 mg/dL (70-110)
[2018-10-28] VITALS (15 sets, daily range): BP systolic 137–174; BP diastolic 71–79; PULSE 67–82; RESP 16–18; TEMP 36.6–37.6; O2SAT 91–94; BMI 24.3
[2018-10-28] MEDS: Ipratropium/Albuterol Sulfate 3 ML AMPUL.NEB INHALATION ×4 (01:24→18:54)
[2018-10-28 05:37] LABS: Absolute Lymphocyte Count 0.56 X10^3/ul (0.83-4.51); Absolute Neutrophil Count 2.9 X10^3/uL (2.0-7.7); Basophil# 0.03 X10^3/uL; Basophil% 0.7 % (0-1); Eosinophil# 0.29 X10^3/uL; Eosinophils% 6.9 % (0-5); Hematocrit 38.7 % (40-54); Hemoglobin 12.9 g/dl (13.0-16.5); Lymphocyte # 0.56 X10^3/ul (4.0); Lymphocyte % 13.3 % (19-41); Mean Corp Hgb Conc 33.3 g/gl (32-36); Mean Corpuscular Hgb 32.4 pg (27.0-32.0); Mean Corpuscular Volume 97.2 fL (80-94); Mean Platelet Vol. 10.2 fl (6.2-12.0); Monocyte# 0.44 X10^3/uL; Monocyte% 10.4 % (0-10); Neutrophil # 2.89 X10^3/uL (2.7-7.7); Neutrophil % 68.5 % (47-70); Platelet Count 69 K/mm3 (150-450); RBC Distribution Width CV 16.1 % (11.6-14.6); RBC Distribution Width SD 53.6 fl (35.1-43.9); Red Blood Count 3.98 M/mm3 (4.6-6.2); White Blood Count 4.2 K/mm3 (4.4-11.0)
[2018-10-28 05:44] LABS: Differential Indicated SCAN CRITERIA MET; POSITIVE COUNT NO; POSITIVE DIFFERENTIAL YES; POSITIVE MORPHOLOGY NO
[2018-10-28 05:51] LABS: Anion Gap 5 (5-15); BUN 18 mg/dL (7-18); BUN/Creat Ratio 13.3 RATIO (10-20); Calcium,Total 8.3 mg/dL (8.5-10.1); Chloride 108 mmol/L (98-107); Cholesterol 166 mg/dL (200); Creatinine, Serum 1.35 mg/dL (0.70-1.30); EST Glomerular Filtration Rate 56 mL/min (>60); Est Glom Filt Rate - Afr Amer 68 mL/min (>60); Estimated Creatinine Clearance 57.08 ml/min; Glucose 246 mg/dL (74-106); High Density Lipoprotein 52 mg/dL; Potassium 3.7 mmol/L (3.5-5.1); Sodium Level 141 mmol/L (136-145); Triglycerides 170 mg/dL; Very Low Density Lipoprotein 34 mg/dL (5-40)
--- NOTE | 2018-10-28 05:55 | EKG12_ITS ---
Test Reason : WEAKNESS Blood Pressure : / mmHG Vent. Rate : 083 BPM Atrial Rate : 083 BPM P-R Int : 156 ms QRS Dur : 110 ms QT Int : 408 ms P-R-T Axes : 031 016 069 degrees QTc Int : 479 ms Sinus rhythm with Fusion complexes Incomplete right bundle branch block Borderline ECG Confirmed by ALEM DUDLEY ([id number]), newspaper editor DENNYS GRACIA ([id number]) on 11/02/2018 3:32:42 PM Referred By: Parth Tejada Confirmed By:ALEM DUDLEY
[2018-10-28] MEDS: Levothyroxine 100 MCG Tablet 300 MCG PO (06:12)
[2018-10-28 06:28] LABS: Differential Comment SCANNED
[2018-10-28] MEDS: Insulin Lispro 100 UNIT/ML INSULN.PEN SC ×4 (06:39→22:00)
[2018-10-28 06:45] LABS: Bedside Glucose 253 mg/dL (70-110)
[2018-10-28] MEDS: Tamsulosin HCl 0.4 MG Capsule PO (08:12)
[2018-10-28] MEDS: Aspirin 81 MG TAB.CHEW PO (08:12)
[2018-10-28] MEDS: Pantoprazole Sodium 40 MG Tablet PO ×2 (08:12→21:57)
[2018-10-28] MEDS: Pregabalin 50 MG Capsule 100 MG PO ×2 (08:12→21:57)
[2018-10-28] MEDS: amLODIPine 10 MG Tablet PO (08:12)
[2018-10-28] MEDS: Sertraline 100 MG Tablet PO (08:13)
[2018-10-28] MEDS: RIFAMPIN 150 MG CAPSULE PO ×2 (08:13→21:58)
[2018-10-28] MEDS: ALPRAZolam 0.5 MG Tablet PO ×2 (08:13→22:03)
--- NOTE | 2018-10-28 08:30 | CON.PCM_ITS ---
Reason for Consult Date of Consultation: 10/28/18 Reason for Consultation: Left-sided weakness History of Present Illness: The patient is a 63 year old M right-handed male who presents for a 2-week history of left-sided weakness. He has multiple medical problems including diabetes, right lower extremity amputation presumably due to diabetes, chronic liver disease ultimately from alcohol but he has been abstinent for a number of years, stable hyperammonemia, who says he awoke with left-sided weakness and found difficulty using his walker. He denies any language, speech, or vision problems, denies any new pain. Denies any loss of sensation except for below the knee intermittently in his left lower extremity. He says his Xanax dose was increased but the increase was made after the symptoms started. He does admit to significant stress and anxiety but may be contributing to all of this but does not think that this is the cause of his left-sided weakness. I evaluated the patient in the MRI hallway immediately after the MRI scan. per admit note:The patient is a 63 year old M with past medical history as mentioned above was referred to the emergency department by his PCP for evaluation of left-sided body weakness. The patient symptoms started around 2 weeks ago with left-sided body weakness, both upper and lower extremity, has been having difficulty ambulating and using his left hand and left leg and his primary care physician has been trying to do a CT scan brain as outpatient because he was concerned about stroke. Apparently, there was a problem with the insurance getting the CT scan brain approved and today, patient went to his PCPs office who asked him to come to the emergency department. Since that time, patient has been having difficulties using his left upper and lower extremity. He denies any associated symptoms such as blurred vision, slurred speech or loss of consciousness. He did mention that he has numbness and tingling in both hands from the wrist down. He denies mechanical fall or trauma. He denied chest pain or shortness of breath. He had a history of type 2 diabetes mellitus, has been on NovoLog sliding scale at home and his most recent hemoglobin A1c was 7.9 on June,. He has history of alcoholic liver cirrhosis and he has been on rifampin, Senokot, Colace and Dulcolax. He had a history of hypothyroidism and he has been on very high dose of levothyroxine and his TSH was 0.14 on December,. In the emergency department, his blood pressure was slightly elevated, other vital signs were stable. Routine blood work was remarkable for chronic thrombocytopenia, creatinine of 1.53, otherwise unremarkable. LFT revealed bilirubin of 1.3 which is also chronic, liver transaminases and alkaline phosphatase were normal. Ammonia level was 58. EKG revealed normal sinus rhythm, prolonged QTC, T wave inversion and ST segment depression in leads V1 and V2, T wave inversion in lead V3 and those changes are new compared to EKG from February,. CT scan brain showed no acute infarct or hemorrhage. Chest x-ray showed no acute infiltrate, consolidation or effusion. He is being admitted for left-sided body weakness/strokelike symptoms as well as abnormal cardiac enzymes and EKG changes. 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) COPD (chronic obstructive pulmonary disease) (Chronic) TIA (transient ischemic attack) (Chronic) GERD (gastroesophageal reflux disease) (Chronic) Alcoholic liver disease (Chronic) cirrhosis Portal hypertension esophageal varices stage III DM type 2 (diabetes mellitus, type 2) (Chronic) Alcohol abuse (Chronic) 6-12 drinks/day Hypothyroidism (Chronic) Chronic blood loss anemia (Chronic) required 3 units of PRBC's- prior workup for this showed no etiology Allergies acetaminophen [From Percocet] Allergy (Verified 10/27/18 15:53) Rash codeine Allergy (Verified 10/27/18 15:53) Hives hydrocodone Allergy (Verified 10/27/18 15:53) Hives hydromorphone HCl [From Dilaudid] Allergy (Verified 10/27/18 15:53) Itching oxycodone [From Percocet] Allergy (Verified 10/27/18 15:53) Rash atorvastatin [From Lipitor] Adverse Reaction (Severe, Verified 10/27/18 15:53) RHABDOMYALYSIS Home Medications: Ambulatory Orders Medication Instructions Recorded Amlodipine [Norvasc] 10 mg PO DAILY 06/13/14 Albuterol Aerosols [Ventolin 2.5 mg INHALATION Q2H PRN PRN #0 03/17/15 Aerosols] vial.neb. Ipratropium/Albuterol Sulfate 3 ml INHALATION Q6H.RT ampul.neb 03/17/15 [Duoneb] Bisacodyl [Dulcolax] 10 mg RECTAL DAILY PRN PRN 09/11/16 Rifampin [Rifadin] 150 mg PO BID 09/11/16 Levothyroxine [Synthroid] 300 mcg PO DAILY 03/03/17 ALPRAZolam [Xanax] 0.5 mg PO TID PRN PRN 10/27/18 DiphenhydrAMINE [Benadryl] 25 mg PO TID PRN PRN 10/27/18 Docusate Sodium [Colace] 100 mg PO BID PRN PRN 10/27/18 Ferrous Sulfate [High Potency Iron] 27 mg PO DAILY 10/27/18 Guaifenesin/Dextromethorphan 1 each PO Q12H PRN 10/27/18 [Mucinex Dm ER 600-30 mg Tablet] Hydromorphone HCl 4 mg PO Q6H PRN PRN 10/27/18 Insulin Aspart [Novolog Flexpen 10 units SC TIDCM 10/27/18 ([facility])] Insulin Aspart [Novolog Flexpen See Protocol SC TIDCM 10/27/18 ([facility])] Pantoprazole Sodium [Protonix] 40 mg PO BID 10/27/18 Pregabalin [Lyrica] 100 mg PO BID 10/27/18 Promethazine HCl 25 mg PO TID PRN 10/27/18 Sertraline HCl 100 mg PO DAILY 10/27/18 Tamsulosin HCl 0.4 mg PO DAILY 10/27/18 Surgical History: tonsillectomy, - - Right above-knee amputation secondary to peripheral vascular disease 2003, knee surgery secondary to torn meniscus Psychiatric History: Depression Lives: Spouse/ Significant Other Smoking Status: Current every day smoker Tobacco Use: Cigarettes Alcohol: None Drugs: None - *Family History Maternal History Items: No pertinent history Sibling History Items: No pertinent history Paternal History Items: Stroke Review of Systems Constitutional: Denies: Chills, Fever, Weight Change HEENT: Denies: Head Aches, Sinus Congestion, Sinus Drainage Cardiovascular: Denies: Chest Pain, Palpitations Respiratory: Denies: Cough, Shortness of breath at rest, Sputum production Gastrointestinal: Denies: Abdominal Pain, Nausea, Vomiting Genitourinary: Denies: Dysuria Musculoskeletal: Reports: Arm Pain, Back Pain, Joint Pain Neurological: Reports: Balance problems, Focal weakness, Numbness. Denies: Blurred vision, Double vision, Change in Speech, Slurred speech, Confusion, Difficulty swallowing, Headaches, Tremor, Seizures Psychiatric: Reports: Anxiety Objective: On examination he is awake and alert, cranial nerves are intact. Both upper extremities are mildly weak but there is no drift. There is mild decreased coordination with finger tapping bilaterally. Sensation is intact in both upper extremities and there is no sensory level. There is a right [id number] amputation The left lower extremity is weak, hip flexors and extensors are 1/5, knee flexors and extensors are 1/5, dorsiflexors are 2/5 and plantar flexors are 4/5 There is decreased sensation in the left leg below the knee to light touch Deep tendon reflexes are suppressed everywhere - Physical Exam Vital Signs Temp Pulse Resp BP Pulse Ox 36.6 C 67 16 164/71 H 92 10/28/18 04:15 10/28/18 07:30 10/28/18 04:15 10/28/18 04:15 10/28/18 04:20 Oxygen Flow Rate (L/min) 1 Oxygen Delivery Method Nasal Cannula Weight: 77.1 kg Body Mass Index (BMI) 24.3 Finger Stick Blood Glucose 310 Intake and Output for Last 24 Hours 10/26/18 10/27/18 10/28/18 23:59 23:59 23:59 Intake Total 519 / 519 480 / 480 Output Total 275 / 275 175 / 175 Balance 244 / 244 305 / 305 Laboratory Tests Past 24 Hrs 10/27/18 10/27/18 10/27/18 16:25 16:25 16:25 WBC 6.1 RBC 4.16 L Hgb 13.6 Hct 40.2 MCV 96.6 H MCH 32.7 H MCHC 33.8 RDW 15.8 H RDW Differential 53.1 H Plt Count 74 L MPV 10.4 Immature Gran % (Auto) 0.500 Neut % (Auto) 76.1 H Lymph % (Auto) 10.0 L [place] % (Auto) 7.5 Eos % (Auto) 5.4 H Baso % (Auto) 0.5 Absolute Neuts (auto) 4.7 Absolute Lymphs (auto) 0.61 L Total Counted Not Reportable Differential Comment Diff Path Review PT 15.3 H INR 1.2 APTT 32.1 Sodium 138 Potassium 3.9 Chloride 105 Carbon Dioxide 29.0 Anion Gap 4 L BUN 20 H Creatinine 1.53 H Estim Creat Clear Calc 50.36 Est GFR (MDRD) Af Amer 59 L Est GFR (MDRD) Non-Af 49 L BUN/Creatinine Ratio 13.1 Glucose 332 H Calcium 8.3 L Total Bilirubin 1.30 H AST 25 ALT 17 Alkaline Phosphatase 114 Ammonia Troponin I 0.176 H Total Protein 7.5 Albumin 2.7 L Globulin 4.8 H Albumin/Globulin Ratio 0.6 L Triglycerides Cholesterol LDL Cholesterol VLDL Cholesterol HDL Cholesterol TSH Urine Color Urine Clarity Urine pH Ur Specific [place] Urine Protein Urine Glucose (UA) Urine Ketones Urine Occult Blood Urine Nitrite Urine Bilirubin Urine Urobilinogen Ur Leukocyte Esterase Urine RBC Urine WBC Ur Squamous Epith Cells Urine Bacteria Hyaline Casts Urine Mucus 10/27/18 10/27/18 10/27/18 16:25 16:35 19:45 WBC RBC Hgb Hct MCV MCH MCHC RDW RDW Differential Plt Count MPV Immature Gran % (Auto) Neut % (Auto) Lymph % (Auto) [place] % (Auto) Eos % (Auto) Baso % (Auto) Absolute Neuts (auto) Absolute Lymphs (auto) Total Counted Differential Comment Diff Path Review PT INR APTT Sodium Potassium Chloride Carbon Dioxide Anion Gap BUN Creatinine Estim Creat Clear Calc Est GFR (MDRD) Af Amer Est GFR (MDRD) Non-Af BUN/Creatinine Ratio Glucose Calcium Total Bilirubin AST ALT Alkaline Phosphatase Ammonia 58.0 H Troponin I Total Protein Albumin Globulin Albumin/Globulin Ratio Triglycerides Cholesterol LDL Cholesterol VLDL Cholesterol HDL Cholesterol TSH 1.48 Urine Color Yellow Urine Clarity Clear Urine pH 6.0 Ur Specific [place] 1.015 Urine Protein 100 H Urine Glucose (UA) 250 H Urine Ketones Negative Urine Occult Blood 150 H Urine Nitrite Negative Urine Bilirubin 1 H Urine Urobilinogen 4 H Ur Leukocyte Esterase Negative Urine RBC 0-5 SEEN Urine WBC 0-5 SEEN Ur Squamous Epith Cells 0-5 SEEN Urine Bacteria 0 SEEN Hyaline Casts 0-5 SEEN Urine Mucus 0 SEEN 10/27/18 10/28/18 10/28/18 19:55 05:15 05:15 WBC RBC Hgb Hct MCV MCH MCHC RDW RDW Differential Plt Count MPV Immature Gran % (Auto) Neut % (Auto) Lymph % (Auto) [place] % (Auto) Eos % (Auto) Baso % (Auto) Absolute Neuts (auto) Absolute Lymphs (auto) Total Counted Differential Comment Diff Path Review PT INR APTT Sodium 141 Potassium 3.7 Chloride 108 H Carbon Dioxide 28.0 Anion Gap 5 BUN 18 Creatinine 1.35 H Estim Creat Clear Calc 57.08 Est GFR (MDRD) Af Amer 68 Est GFR (MDRD) Non-Af 56 L BUN/Creatinine Ratio 13.3 Glucose 246 H Calcium 8.3 L Total Bilirubin AST ALT Alkaline Phosphatase Ammonia 49.0 H Troponin I 0.156 H Total Protein Albumin Globulin Albumin/Globulin Ratio Triglycerides 170 Cholesterol 166 LDL Cholesterol 80 VLDL Cholesterol 34 HDL Cholesterol 52 TSH Urine Color Urine Clarity Urine pH Ur Specific [place] Urine Protein Urine Glucose (UA) Urine Ketones Urine Occult Blood Urine Nitrite Urine Bilirubin Urine Urobilinogen Ur Leukocyte Esterase Urine RBC Urine WBC Ur Squamous Epith Cells Urine Bacteria Hyaline Casts Urine Mucus 10/28/18 05:15 WBC 4.2 L RBC 3.98 L Hgb 12.9 L Hct 38.7 L MCV 97.2 H MCH 32.4 H MCHC 33.3 RDW 16.1 H RDW Differential 53.6 H Plt Count 69 L MPV 10.2 Immature Gran % (Auto) 0.200 Neut % (Auto) 68.5 Lymph % (Auto) 13.3 L [place] % (Auto) 10.4 H Eos % (Auto) 6.9 H Baso % (Auto) 0.7 Absolute Neuts (auto) 2.9 Absolute Lymphs (auto) 0.56 L Total Counted Not Reportable Differential Comment SCANNED Diff Path Review May foll PT INR APTT Sodium Potassium Chloride Carbon Dioxide Anion Gap BUN Creatinine Estim Creat Clear Calc Est GFR (MDRD) Af Amer Est GFR (MDRD) Non-Af BUN/Creatinine Ratio Glucose Calcium Total Bilirubin AST ALT Alkaline Phosphatase Ammonia Troponin I Total Protein Albumin Globulin Albumin/Globulin Ratio Triglycerides Cholesterol LDL Cholesterol VLDL Cholesterol HDL Cholesterol TSH Urine Color Urine Clarity Urine pH Ur Specific [place] Urine Protein Urine Glucose (UA) Urine Ketones Urine Occult Blood Urine Nitrite Urine Bilirubin Urine Urobilinogen Ur Leukocyte Esterase Urine RBC Urine WBC Ur Squamous Epith Cells Urine Bacteria Hyaline Casts Urine Mucus POC Glucose 10/28/18 10/27/18 10/27/18 06:38 22:11 16:38 POC Glucose 253 H 330 H 310 H MRI of the brain reviewed, no acute Assessment/Plan The weakness on my exam is primarily in his left lower extremity, which may be a peroneal neuropathy however there are multiple confounding factors including likely underlying peripheral neuropathy, possible ataxia from his hyperammonemia although his liver disease appears stable, stress and anxiety, and joint pain. The MRI of his brain is negative. The examination of his upper extremities is symmetric, I suspect he may have had a peroneal neuropathy in his left leg. I will ask for a nerve conduction study of the left lower extremity to further evaluate this. This may also be compounded by some of his medications although the Xanax was only increased after the symptoms started. I would recommend physical therapy and Occupational Therapy. He may be a candidate for or ECF placement if he is unable to return home.
--- NOTE | 2018-10-28 12:25 | CASEMGMT ---
Addendum entered by Katja Irby 10/28/18 13:05: Received call from Alaina in TCU and she will have a bed for patient. WILLIAM notified patient and his daughter. Alaina will start the pre-cert. Plan: [facility] pending insurance approval. Katja CANELA Original Note: Patient did not do well with therapy. WILLIAM spoke with patient and his daughter. Introduced self and role at [facility]. Patient was hesitant to going somewhere for rehab, but he was open to [facility]. WILLIAM told him WILLIAM will check to see if they have any available beds. When WILLIAM finds out WILLIAM will notify him. WILLIAM called Alaina in TCU and left her a voice mail with patient's name. Await return call from Alaina. Katja CANELA
--- NOTE | 2018-10-28 12:58 | PCM.CONS.C ---
Problem List (1) Troponin I above reference range Status: Acute (2) Stage III chronic kidney disease Status: Chronic (3) Status post above knee amputation of right lower extremity Status: Chronic (4) Alcoholic liver disease Status: Chronic Comment: cirrhosis Portal hypertension esophageal varices stage III (5) DM type 2 (diabetes mellitus, type 2) Status: Chronic Reason for Consult Date of Consultation: 10/28/18 Reason for Consultation: Indeterminate troponin, aortic stenosis, chronic kidney insufficiency, diabetes, stage IV liver failure History of Present Illness: The patient is a 63 year old M, with diabetes, current smoker, overall [id number] smoker, quit for 16 years but then resumed a couple years ago, previous alcoholic quit alcohol about 4 years ago with subsequent stage IV liver failure, and ascites. He also has chronic renal insufficiency of stage III. He also is a vasculopath requiring several surgeries of his right lower extremity finally giving way to right lower extremity amputation. The patient notes that he has had progressively worsening left lower extremity weakness over the last 2 weeks, getting to the point where his was unable to adequately transfer him from chair to chair. Patient previously walk with a walker, but has difficulty doing so now. He sought medical attention at [facility] ER for possible TIA/CVA. In the emergency room his EKG showed normal sinus rhythm with right bundle branch block and possible old inferior wall myocardial infarction. For some reason, despite him not having any cardiac symptoms, a troponin was obtained as part of his work-up which was found to be 0.156. At no time has the patient had any chest pain, angina, shortness of breath or dyspnea although his mobility is somewhat limited given his amputation and weakened left leg. On further history the patient is known for a while that he has not heart murmur, an echocardiogram done today showed hyperdynamic LV function with an EF of 75%, mild LVH, and at least moderate aortic stenosis with an estimated aortic valve area of around 1.3 to 1.4 cm?. On further history he denies any positional leg tenderness, dizziness, presyncope or syncope. Neurology consult was obtained and a MRI was obtained of his head which was essentially negative for acute CVA. He is being evaluated by Dr. Gaffney and may undergo a nerve conduction study of his left lower extremity. [] Past Medical History Allergies/Adverse Reactions: Allergies acetaminophen [From Percocet] Allergy (Verified 10/27/18 15:53) Rash codeine Allergy (Verified 10/27/18 15:53) Hives hydrocodone Allergy (Verified 10/27/18 15:53) Hives hydromorphone HCl [From Dilaudid] Allergy (Verified 10/27/18 15:53) Itching oxycodone [From Percocet] Allergy (Verified 10/27/18 15:53) Rash atorvastatin [From Lipitor] Adverse Reaction (Severe, Verified 10/27/18 15:53) RHABDOMYALYSIS Home Medications: Ambulatory Orders Medication Instructions Recorded Amlodipine [Norvasc] 10 mg PO DAILY 06/13/14 Albuterol Aerosols [Ventolin 2.5 mg INHALATION Q2H PRN PRN #0 03/17/15 Aerosols] vial.neb. Ipratropium/Albuterol Sulfate 3 ml INHALATION Q6H.RT ampul.neb 03/17/15 [Duoneb] Bisacodyl [Dulcolax] 10 mg RECTAL DAILY PRN PRN 09/11/16 Rifampin [Rifadin] 150 mg PO BID 09/11/16 Levothyroxine [Synthroid] 300 mcg PO DAILY 03/03/17 ALPRAZolam [Xanax] 0.5 mg PO TID PRN PRN 10/27/18 DiphenhydrAMINE [Benadryl] 25 mg PO TID PRN PRN 10/27/18 Docusate Sodium [Colace] 100 mg PO BID PRN PRN 10/27/18 Ferrous Sulfate [High Potency Iron] 27 mg PO DAILY 10/27/18 Guaifenesin/Dextromethorphan 1 each PO Q12H PRN 10/27/18 [Mucinex Dm ER 600-30 mg Tablet] Hydromorphone HCl 4 mg PO Q6H PRN PRN 10/27/18 Insulin Aspart [Novolog Flexpen 10 units SC TIDCM 10/27/18 ([facility])] Insulin Aspart [Novolog Flexpen See Protocol SC TIDCM 10/27/18 ([facility])] Pantoprazole Sodium [Protonix] 40 mg PO BID 10/27/18 Pregabalin [Lyrica] 100 mg PO BID 10/27/18 Promethazine HCl 25 mg PO TID PRN 10/27/18 Sertraline HCl 100 mg PO DAILY 10/27/18 Tamsulosin HCl 0.4 mg PO DAILY 10/27/18 Past Medical History (Chronic Problems): Chronic Problems Stage III chronic kidney disease (Chronic) Status post above knee amputation of right lower extremity (Chronic) COPD (chronic obstructive pulmonary disease) (Chronic) TIA (transient ischemic attack) (Chronic) GERD (gastroesophageal reflux disease) (Chronic) Alcoholic liver disease (Chronic) cirrhosis Portal hypertension esophageal varices stage III DM type 2 (diabetes mellitus, type 2) (Chronic) Alcohol abuse (Chronic) 6-12 drinks/day Hypothyroidism (Chronic) Chronic blood loss anemia (Chronic) required 3 units of PRBC's- prior workup for this showed no etiology Surgical History: tonsillectomy, - - Right above-knee amputation secondary to peripheral vascular disease 2003, knee surgery secondary to torn meniscus Psychiatric History: Depression - *Family History Maternal History Items: No pertinent history Sibling History Items: No pertinent history Paternal History Items: Stroke Lives: Spouse/ Significant Other Smoking Status: Current every day smoker Tobacco Use: Cigarettes Alcohol: None Drugs: None Review of Systems - Review of Systems General: Denies: Fever, Night Sweats, Fatigue Cardiovascular: Denies: Chest Discomfort, Shortness of Breath, Orthopnea, PND, Peripheral Edema, Palpitations, Lightheadedness, Dizziness, Near Syncope, Syncope Respiratory: Denies: Cough, Sputum Production, Hemoptysis Gastrointestinal: Denies: Hematemesis, Hematochezia, Melena Genitourinary: Denies: Dysuria, Hematuria Skin: Denies: Rash Subjectve: Patient resting comfortably, family at the bedside. No acute distress. Objective: Vital Signs Temp Pulse Resp BP Pulse Ox 98.1 F 78 18 155/78 H 93 10/28/18 08:00 10/28/18 08:00 10/28/18 08:00 10/28/18 08:00 10/28/18 08:00 Oxygen Flow Rate (L/min) 1 Oxygen Delivery Method Room Air Weight: 169 lb 15.622 oz Body Mass Index (BMI) 24.3 Finger Stick Blood Glucose 310 Intake and Output for Last 24 Hours 10/26/18 10/27/18 10/28/18 23:59 23:59 23:59 Intake Total 519 / 519 960 / 960 Output Total 275 / 275 350 / 350 Balance 244 / 244 610 / 610 General: Awake, Alert, Oriented x 3 HEENT: PERRL, EOMI, Sclera Non Icteric Neck: Supple, Good ROM, No Lymph Node Enlargement Lungs: Clear to auscultation Cardiovascular: Regular Rhythm, Normal S2, No Rubs, No Gallops Murmur Murmur: Grade 3/6, Crescendo-Decrescendo Vascular: No Carotid Bruits, Normal Femoral Pulses, Normal Radial Pulses, Normal Dorsalis Pedal Pulse, Normal Posterior Tibial Pulses Abdomen: Bowel Sounds Present, Soft, Non Tender, No HSM, No Organomegaly Extremities: No Cyanosis, No Clubbing, No edema Neurological: No Focal Motor or Sensory Deficit 10/27/18 16:25: WBC 6.1, RBC 4.16 L, Hgb 13.6, Hct 40.2, MCV 96.6 H, MCH 32.7 H, MCHC 33.8, RDW 15.8 H, RDW Differential 53.1 H, Plt Count 74 L, MPV 10.4, Immature Gran % (Auto) 0.500, Neut % (Auto) 76.1 H, Lymph % (Auto) 10.0 L, [place] % (Auto) 7.5, Eos % (Auto) 5.4 H, Baso % (Auto) 0.5, Absolute Neuts (auto) 4.7, Total Counted Not Reportable 10/27/18 16:25: PT 15.3 H, INR 1.2, APTT 32.1 10/27/18 16:25: Sodium 138, Potassium 3.9, Chloride 105, Carbon Dioxide 29.0, Anion Gap 4 L, BUN 20 H, Creatinine 1.53 H, Est GFR (MDRD) Af Amer 59 L, Est GFR (MDRD) Non-Af 49 L, BUN/Creatinine Ratio 13.1, Glucose 332 H, Calcium 8.3 L, Total Bilirubin 1.30 H, Troponin I 0.176 H 10/27/18 19:45: Urine Color Yellow, Urine Clarity Clear, Urine pH 6.0, Ur Specific [place] 1.015, Urine Protein 100 H, Urine Glucose (UA) 250 H, Urine Ketones Negative, Urine Occult Blood 150 H, Urine Nitrite Negative, Urine Bilirubin 1 H, Urine Urobilinogen 4 H, Ur Leukocyte Esterase Negative, Urine RBC 0-5 SEEN, Urine WBC 0-5 SEEN 10/27/18 19:55: Troponin I 0.156 H 10/28/18 05:15: Sodium 141, Potassium 3.7, Chloride 108 H, Carbon Dioxide 28.0, Anion Gap 5, BUN 18, Creatinine 1.35 H, Est GFR (MDRD) Af Amer 68, Est GFR (MDRD) Non-Af 56 L, BUN/Creatinine Ratio 13.3, Glucose 246 H, Calcium 8.3 L, Triglycerides 170, Cholesterol 166, LDL Cholesterol 80, VLDL Cholesterol 34, HDL Cholesterol 52 10/28/18 05:15: WBC 4.2 L, RBC 3.98 L, Hgb 12.9 L, Hct 38.7 L, MCV 97.2 H, MCH 32.4 H, MCHC 33.3, RDW 16.1 H, RDW Differential 53.6 H, Plt Count 69 L, MPV 10.2, Immature Gran % (Auto) 0.200, Neut % (Auto) 68.5, Lymph % (Auto) 13.3 L, [place] % (Auto) 10.4 H, Eos % (Auto) 6.9 H, Baso % (Auto) 0.7, Absolute Neuts (auto) 2.9, Total Counted Not Reportable Rhythm: EKG: ECHO: Stress Test: Cardiac Cath: PCI: CT Surgery: Holter monitor: EPS: PPM: CXR: Chest CT Scan: Assessment/Plan 1. Indeterminate troponin: The patient is completely asymptomatic from a anginal standpoint and denies any chest pain, angina, shortness of breath over his baseline, presyncope or syncope. His troponin is 0.156, and his LV function demonstrates that it is hyperdynamic in the face of moderate aortic stenosis. At this point given the patient's lack of cardiac symptoms, normal LV function, peripheral vasculopathy, chronic renal insufficiency, and significant hepatic insufficiency with ascites, I would have a very high threshold for additional evaluation of cardiac abnormalities. I would not recommend stress testing or catheterization at this time. I recommend continuing baby aspirin 81 mg p.o. daily. I would recommend cautious use of beta-blockers given his moderate aortic stenosis. However, should the patient develop any exertional anginal symptoms, chest pain, presyncope or syncope, he may require more aggressive evaluation of his aortic valve in the form of a diagnostic left heart catheterization and right heart catheterization for estimating his pulmonary pressures. At this point the patient is a very poor surgical candidate given his liver disease and chronic hyper ammonium syndrome. 2. Aortic stenosis: The patient has at least moderate aortic stenosis by echocardiogram today but I do not believe he has reached the criteria or threshold for aortic valve replacement. He has essentially a sedentary lifestyle, and has had no sentinel events such as presyncope or syncope. Would not recommend any additional therapy at this time. 3. Hyperlipidemia: His LDL is 80 and his HDL is 52. Given his chronic liver insufficiency I would hold off on aggressive statin based medications to avoid additional liver damage. 4. Thank you very much for the opportunity to participate in the cardiac care of your patient. We will sign off. Please call with any questions. Code Visit Inpatient E&M: 01056 Init Hosp L2
[2018-10-28 13:02] LABS: Bedside Glucose 286 mg/dL (70-110)
--- NOTE | 2018-10-28 13:07 | PN_ITS ---
<Meli Ortiz - Last Filed: 10/28/18 13:08> Patient Problems: Active and Suspected Problems Troponin I above reference range (Acute) Subjective: Patient seen and examined. Drowsy this morning. Left lower extremity with mild weakness. Otherwise denies new neurologic symptoms or focal deficits. Denies chest pain. Denies other complaints. - Physical Exam General: Alert, Oriented x3, Cooperative HEENT: Atraumatic, PERRLA, EOMI, Normocephalic Neck: Supple, No JVD, Negative Carotid Bruits Lungs: Clear to auscultation, Diminished Cardiovascular: Regular rate, Regular Rhythm, Normal S1, Normal S2 Abdomen: Bowel Sounds Present, Soft, Non Tender, Non-Distended Extremities: No clubbing, No cyanosis, No edema, Capillary Refill Less than 3 Seconds Skin: No rashes, No breakdown Musculoskeletal: No Tenderness to Palpation of Joints or Extremities, - - Right AKA Neurological: Cranial nerves II-XII grossly intact, Neuro grossly intact, - - Minimal left lower extremity weakness 4/5. Psych/Mental Status: Normal Affect, Appropriate Vital Signs Temp Pulse Resp BP Pulse Ox 98.1 F 78 18 155/78 H 93 10/28/18 08:00 10/28/18 08:00 10/28/18 08:00 10/28/18 08:00 10/28/18 08:00 Oxygen Flow Rate (L/min) 1 Oxygen Delivery Method Room Air Weight: 169 lb 15.622 oz Body Mass Index (BMI) 24.3 Finger Stick Blood Glucose 310 Intake and Output for Last 24 Hours 10/26/18 10/27/18 10/28/18 23:59 23:59 23:59 Intake Total 519 / 519 960 / 960 Output Total 275 / 275 350 / 350 Balance 244 / 244 610 / 610 Laboratory Tests Past 24 Hrs 10/27/18 10/27/18 10/27/18 16:25 16:25 16:25 WBC 6.1 RBC 4.16 L Hgb 13.6 Hct 40.2 MCV 96.6 H MCH 32.7 H MCHC 33.8 RDW 15.8 H RDW Differential 53.1 H Plt Count 74 L MPV 10.4 Immature Gran % (Auto) 0.500 Neut % (Auto) 76.1 H Lymph % (Auto) 10.0 L [place] % (Auto) 7.5 Eos % (Auto) 5.4 H Baso % (Auto) 0.5 Absolute Neuts (auto) 4.7 Absolute Lymphs (auto) 0.61 L Total Counted Not Reportable Differential Comment Diff Path Review PT 15.3 H INR 1.2 APTT 32.1 Sodium 138 Potassium 3.9 Chloride 105 Carbon Dioxide 29.0 Anion Gap 4 L BUN 20 H Creatinine 1.53 H Estim Creat Clear Calc 50.36 Est GFR (MDRD) Af Amer 59 L Est GFR (MDRD) Non-Af 49 L BUN/Creatinine Ratio 13.1 Glucose 332 H Calcium 8.3 L Total Bilirubin 1.30 H AST 25 ALT 17 Alkaline Phosphatase 114 Ammonia Troponin I 0.176 H Total Protein 7.5 Albumin 2.7 L Globulin 4.8 H Albumin/Globulin Ratio 0.6 L Triglycerides Cholesterol LDL Cholesterol VLDL Cholesterol HDL Cholesterol TSH Urine Color Urine Clarity Urine pH Ur Specific [place] Urine Protein Urine Glucose (UA) Urine Ketones Urine Occult Blood Urine Nitrite Urine Bilirubin Urine Urobilinogen Ur Leukocyte Esterase Urine RBC Urine WBC Ur Squamous Epith Cells Urine Bacteria Hyaline Casts Urine Mucus 10/27/18 10/27/18 10/27/18 16:25 16:35 19:45 WBC RBC Hgb Hct MCV MCH MCHC RDW RDW Differential Plt Count MPV Immature Gran % (Auto) Neut % (Auto) Lymph % (Auto) [place] % (Auto) Eos % (Auto) Baso % (Auto) Absolute Neuts (auto) Absolute Lymphs (auto) Total Counted Differential Comment Diff Path Review PT INR APTT Sodium Potassium Chloride Carbon Dioxide Anion Gap BUN Creatinine Estim Creat Clear Calc Est GFR (MDRD) Af Amer Est GFR (MDRD) Non-Af BUN/Creatinine Ratio Glucose Calcium Total Bilirubin AST ALT Alkaline Phosphatase Ammonia 58.0 H Troponin I Total Protein Albumin Globulin Albumin/Globulin Ratio Triglycerides Cholesterol LDL Cholesterol VLDL Cholesterol HDL Cholesterol TSH 1.48 Urine Color Yellow Urine Clarity Clear Urine pH 6.0 Ur Specific [place] 1.015 Urine Protein 100 H Urine Glucose (UA) 250 H Urine Ketones Negative Urine Occult Blood 150 H Urine Nitrite Negative Urine Bilirubin 1 H Urine Urobilinogen 4 H Ur Leukocyte Esterase Negative Urine RBC 0-5 SEEN Urine WBC 0-5 SEEN Ur Squamous Epith Cells 0-5 SEEN Urine Bacteria 0 SEEN Hyaline Casts 0-5 SEEN Urine Mucus 0 SEEN 10/27/18 10/28/1819 19:55 05:15 05:15 WBC RBC Hgb Hct MCV MCH MCHC RDW RDW Differential Plt Count MPV Immature Gran % (Auto) Neut % (Auto) Lymph % (Auto) [place] % (Auto) Eos % (Auto) Baso % (Auto) Absolute Neuts (auto) Absolute Lymphs (auto) Total Counted Differential Comment Diff Path Review PT INR APTT Sodium 141 Potassium 3.7 Chloride 108 H Carbon Dioxide 28.0 Anion Gap 5 BUN 18 Creatinine 1.35 H Estim Creat Clear Calc 57.08 Est GFR (MDRD) Af Amer 68 Est GFR (MDRD) Non-Af 56 L BUN/Creatinine Ratio 13.3 Glucose 246 H Calcium 8.3 L Total Bilirubin AST ALT Alkaline Phosphatase Ammonia 49.0 H Troponin I 0.156 H Total Protein Albumin Globulin Albumin/Globulin Ratio Triglycerides 170 Cholesterol 166 LDL Cholesterol 80 VLDL Cholesterol 34 HDL Cholesterol 52 TSH Urine Color Urine Clarity Urine pH Ur Specific [place] Urine Protein Urine Glucose (UA) Urine Ketones Urine Occult Blood Urine Nitrite Urine Bilirubin Urine Urobilinogen Ur Leukocyte Esterase Urine RBC Urine WBC Ur Squamous Epith Cells Urine Bacteria Hyaline Casts Urine Mucus 10/28/18 05:15 WBC 4.2 L RBC 3.98 L Hgb 12.9 L Hct 38.7 L MCV 97.2 H MCH 32.4 H MCHC 33.3 RDW 16.1 H RDW Differential 53.6 H Plt Count 69 L MPV 10.2 Immature Gran % (Auto) 0.200 Neut % (Auto) 68.5 Lymph % (Auto) 13.3 L [place] % (Auto) 10.4 H Eos % (Auto) 6.9 H Baso % (Auto) 0.7 Absolute Neuts (auto) 2.9 Absolute Lymphs (auto) 0.56 L Total Counted Not Reportable Differential Comment SCANNED Diff Path Review May foll PT INR APTT Sodium Potassium Chloride Carbon Dioxide Anion Gap BUN Creatinine Estim Creat Clear Calc Est GFR (MDRD) Af Amer Est GFR (MDRD) Non-Af BUN/Creatinine Ratio Glucose Calcium Total Bilirubin AST ALT Alkaline Phosphatase Ammonia Troponin I Total Protein Albumin Globulin Albumin/Globulin Ratio Triglycerides Cholesterol LDL Cholesterol VLDL Cholesterol HDL Cholesterol TSH Urine Color Urine Clarity Urine pH Ur Specific [place] Urine Protein Urine Glucose (UA) Urine Ketones Urine Occult Blood Urine Nitrite Urine Bilirubin Urine Urobilinogen Ur Leukocyte Esterase Urine RBC Urine WBC Ur Squamous Epith Cells Urine Bacteria Hyaline Casts Urine Mucus POC Glucose 10/28/18 10/27/18 10/27/18 06:38 22:11 16:38 POC Glucose 253 H 330 H 310 H Medical Necessity - Tobacco Use Smoking Status: Current every day smoker Tobacco Use: Cigarettes Assessment/Plan All Active Problems Troponin I above reference range (Acute) 1. Left-sided weakness, CVA ruled out-neurology following. MRI of brain showed no acute abnormality. Echocardiogram with EF 75%, stage I diastolic dysfunction , moderate aortic stenosis. Compared to prior study in 2015, LV function is the same, aortic stenosis has gone from mild to moderate. 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 Neurology recommending nerve conduction studies. Carotid ultrasound pending. PT/OT. 2. Abnormal troponin-echocardiogram as noted above. Cardiology consult pending. Continue aspirin. Patient denies chest pain. 3. Stage III chronic kidney disease-at baseline, trend BMP. 4. Chronic COPD-no acute exacerbation. Chest x-ray admission without acute process. 5. Chronic alcoholic liver cirrhosis-continue home rifampin, Dulcolax, Senokot and Colace regimen. Initiated on lactulose. Ammonia improved. No evidence of encephalopathy. 6. Type 2 diabetes [id number] AC at bedtime with sliding scale insulin. 7. Hypothyroidism-continue Synthroid regimen. 8. Peripheral vascular disease/status post right [id number] amputation- 9. BPH-continue Flomax regimen. 10. Hypertension-stable, continue home amlodipine regimen. 11. Depression/anxiety-continue sertraline, as needed Xanax regimen. DVT prophylaxis- SCDs Discharge planning: TCU pending further cardiac evaluation and pre-cert. This patient was seen by ALIDA Raya under the supervision of Dr. Ibrahim. <Blake Ibrahim F - Last Filed: 10/28/18 15:24> - Physical Exam Vital Signs Temp Pulse Resp BP Pulse Ox 98.1 F 75 18 137/72 H 94 10/28/18 14:00 10/28/18 14:00 10/28/18 14:00 10/28/18 14:00 10/28/18 14:00 Oxygen Flow Rate (L/min) 1 Oxygen Delivery Method Room Air Weight: 169 lb 15.622 oz Body Mass Index (BMI) 24.3 Finger Stick Blood Glucose 310 Intake and Output for Last 24 Hours 10/26/18 10/27/18 10/28/18 23:59 23:59 23:59 Intake Total 519 / 519 960 / 960 Output Total 275 / 275 350 / 350 Balance 244 / 244 610 / 610 Laboratory Tests Past 24 Hrs 10/27/18 10/27/18 10/27/18 16:25 16:25 16:25 WBC 6.1 RBC 4.16 L Hgb 13.6 Hct 40.2 MCV 96.6 H MCH 32.7 H MCHC 33.8 RDW 15.8 H RDW Differential 53.1 H Plt Count 74 L MPV 10.4 Immature Gran % (Auto) 0.500 Neut % (Auto) 76.1 H Lymph % (Auto) 10.0 L [place] % (Auto) 7.5 Eos % (Auto) 5.4 H Baso % (Auto) 0.5 Absolute Neuts (auto) 4.7 Absolute Lymphs (auto) 0.61 L Total Counted Not Reportable Differential Comment Diff Path Review PT 15.3 H INR 1.2 APTT 32.1 Sodium 138 Potassium 3.9 Chloride 105 Carbon Dioxide 29.0 Anion Gap 4 L BUN 20 H Creatinine 1.53 H Estim Creat Clear Calc 50.36 Est GFR (MDRD) Af Amer 59 L Est GFR (MDRD) Non-Af 49 L BUN/Creatinine Ratio 13.1 Glucose 332 H Calcium 8.3 L Total Bilirubin 1.30 H AST 25 ALT 17 Alkaline Phosphatase 114 Ammonia Troponin I 0.176 H Total Protein 7.5 Albumin 2.7 L Globulin 4.8 H Albumin/Globulin Ratio 0.6 L Triglycerides Cholesterol LDL Cholesterol VLDL Cholesterol HDL Cholesterol TSH Urine Color Urine Clarity Urine pH Ur Specific [place] Urine Protein Urine Glucose (UA) Urine Ketones Urine Occult Blood Urine Nitrite Urine Bilirubin Urine Urobilinogen Ur Leukocyte Esterase Urine RBC Urine WBC Ur Squamous Epith Cells Urine Bacteria Hyaline Casts Urine Mucus 10/27/18 10/27/18 10/27/18 16:25 16:35 19:45 WBC RBC Hgb Hct MCV MCH MCHC RDW RDW Differential Plt Count MPV Immature Gran % (Auto) Neut % (Auto) Lymph % (Auto) [place] % (Auto) Eos % (Auto) Baso % (Auto) Absolute Neuts (auto) Absolute Lymphs (auto) Total Counted Differential Comment Diff Path Review PT INR APTT Sodium Potassium Chloride Carbon Dioxide Anion Gap BUN Creatinine Estim Creat Clear Calc Est GFR (MDRD) Af Amer Est GFR (MDRD) Non-Af BUN/Creatinine Ratio Glucose Calcium Total Bilirubin AST ALT Alkaline Phosphatase Ammonia 58.0 H Troponin I Total Protein Albumin Globulin Albumin/Globulin Ratio Triglycerides Cholesterol LDL Cholesterol VLDL Cholesterol HDL Cholesterol TSH 1.48 Urine Color Yellow Urine Clarity Clear Urine pH 6.0 Ur Specific [place] 1.015 Urine Protein 100 H Urine Glucose (UA) 250 H Urine Ketones Negative Urine Occult Blood 150 H Urine Nitrite Negative Urine Bilirubin 1 H Urine Urobilinogen 4 H Ur Leukocyte Esterase Negative Urine RBC 0-5 SEEN Urine WBC 0-5 SEEN Ur Squamous Epith Cells 0-5 SEEN Urine Bacteria 0 SEEN Hyaline Casts 0-5 SEEN Urine Mucus 0 SEEN 10/27/18 10/28/18 10/28/18 19:55 05:15 05:15 WBC RBC Hgb Hct MCV MCH MCHC RDW RDW Differential Plt Count MPV Immature Gran % (Auto) Neut % (Auto) Lymph % (Auto) [place] % (Auto) Eos % (Auto) Baso % (Auto) Absolute Neuts (auto) Absolute Lymphs (auto) Total Counted Differential Comment Diff Path Review PT INR APTT Sodium 141 Potassium 3.7 Chloride 108 H Carbon Dioxide 28.0 Anion Gap 5 BUN 18 Creatinine 1.35 H Estim Creat Clear Calc 57.08 Est GFR (MDRD) Af Amer 68 Est GFR (MDRD) Non-Af 56 L BUN/Creatinine Ratio 13.3 Glucose 246 H Calcium 8.3 L Total Bilirubin AST ALT Alkaline Phosphatase Ammonia 49.0 H Troponin I 0.156 H Total Protein Albumin Globulin Albumin/Globulin Ratio Triglycerides 170 Cholesterol 166 LDL Cholesterol 80 VLDL Cholesterol 34 HDL Cholesterol 52 TSH Urine Color Urine Clarity Urine pH Ur Specific [place] Urine Protein Urine Glucose (UA) Urine Ketones Urine Occult Blood Urine Nitrite Urine Bilirubin Urine Urobilinogen Ur Leukocyte Esterase Urine RBC Urine WBC Ur Squamous Epith Cells Urine Bacteria Hyaline Casts Urine Mucus 10/28/18 05:15 WBC 4.2 L RBC 3.98 L Hgb 12.9 L Hct 38.7 L MCV 97.2 H MCH 32.4 H MCHC 33.3 RDW 16.1 H RDW Differential 53.6 H Plt Count 69 L MPV 10.2 Immature Gran % (Auto) 0.200 Neut % (Auto) 68.5 Lymph % (Auto) 13.3 L [place] % (Auto) 10.4 H Eos % (Auto) 6.9 H Baso % (Auto) 0.7 Absolute Neuts (auto) 2.9 Absolute Lymphs (auto) 0.56 L Total Counted Not Reportable Differential Comment SCANNED Diff Path Review Reviewed PT INR APTT Sodium Potassium Chloride Carbon Dioxide Anion Gap BUN Creatinine Estim Creat Clear Calc Est GFR (MDRD) Af Amer Est GFR (MDRD) Non-Af BUN/Creatinine Ratio Glucose Calcium Total Bilirubin AST ALT Alkaline Phosphatase Ammonia Troponin I Total Protein Albumin Globulin Albumin/Globulin Ratio Triglycerides Cholesterol LDL Cholesterol VLDL Cholesterol HDL Cholesterol TSH Urine Color Urine Clarity Urine pH Ur Specific [place] Urine Protein Urine Glucose (UA) Urine Ketones Urine Occult Blood Urine Nitrite Urine Bilirubin Urine Urobilinogen Ur Leukocyte Esterase Urine RBC Urine WBC Ur Squamous Epith Cells Urine Bacteria Hyaline Casts Urine Mucus POC Glucose 10/28/18 10/28/18 10/27/18 11:32 06:38 22:11 POC Glucose 286 H 253 H 330 H 10/27/18 16:38 POC Glucose 310 H Code Visit Addendum: Dr. Ibrahim I personally examined the patient and reviewed the chart. I agree with the above. 63-year-old male who presented to the emergency department from his PCP for evaluation of his left body weakness. He states there is been about 2 weeks. He had an MRI on admission which was normal and an elevated troponin which given the fact that he is asymptomatic from a chest pain and his echo did not show any wall motion abnormality, no further intervention was performed. He does have some left-sided deficits and will likely need to be transferred [place] a [place] [facility] for [facility] as an outpatient. His care is complicated by his moderate aortic stenosis as well as his chronic elevated liver function tests with an elevated total bilirubin and chronically elevated ammonia. Neurology feels that he could have a peroneal neuropathy and may need a nerve conduction study. OBSV E&M: [id number] Initial observation care L2
[2018-10-28 13:23] LABS: Pathologist Review Reviewed
[2018-10-28 18:20] LABS: Bedside Glucose 329 mg/dL (70-110)
[2018-10-28 22:20] LABS: Bedside Glucose 225 mg/dL (70-110)
[2018-10-29] VITALS (15 sets, daily range): BP systolic 159–176; BP diastolic 60–80; PULSE 73–85; RESP 16–20; TEMP 37.1–37.6; O2SAT 92–96
[2018-10-29] MEDS: Levothyroxine 100 MCG Tablet 300 MCG PO (05:22)
[2018-10-29 06:10] LABS: Hematocrit 38.6 % (40-54); Hemoglobin 12.9 g/dl (13.0-16.5); Mean Corp Hgb Conc 33.4 g/gl (32-36); Mean Corpuscular Hgb 32.3 pg (27.0-32.0); Mean Corpuscular Volume 96.5 fL (80-94); Platelet Count 73 K/mm3 (150-450); RBC Distribution Width CV 15.7 % (11.6-14.6); RBC Distribution Width SD 53.2 fl (35.1-43.9); White Blood Count 4.7 K/mm3 (4.4-11.0)
[2018-10-29 06:21] LABS: Scan Indicated on CBC? Y/N NO
[2018-10-29 06:34] LABS: Anion Gap 5 (5-15); BUN 18 mg/dL (7-18); BUN/Creat Ratio 12.7 RATIO (10-20); Calcium,Total 8.7 mg/dL (8.5-10.1); Chloride 110 mmol/L (98-107); Creatinine, Serum 1.42 mg/dL (0.70-1.30); EST Glomerular Filtration Rate 53 mL/min (>60); Est Glom Filt Rate - Afr Amer 64 mL/min (>60); Estimated Creatinine Clearance 54.26 ml/min; Glucose 171 mg/dL (74-106); Potassium 3.8 mmol/L (3.5-5.1); Sodium Level 143 mmol/L (136-145)
[2018-10-29] MEDS: Insulin Lispro 100 UNIT/ML INSULN.PEN SC ×4 (06:53→21:57)
[2018-10-29] MEDS: Ipratropium/Albuterol Sulfate 3 ML AMPUL.NEB INHALATION ×2 (06:54→19:42)
[2018-10-29 07:06] LABS: Bedside Glucose 195 mg/dL (70-110)
[2018-10-29] MEDS: Aspirin 81 MG TAB.CHEW PO (07:41)
[2018-10-29] MEDS: Tamsulosin HCl 0.4 MG Capsule PO (07:41)
[2018-10-29] MEDS: RIFAMPIN 150 MG CAPSULE PO ×2 (09:19→21:53)
[2018-10-29] MEDS: Pantoprazole Sodium 40 MG Tablet PO ×2 (09:19→21:53)
[2018-10-29] MEDS: amLODIPine 10 MG Tablet PO (09:19)
[2018-10-29] MEDS: Sertraline 100 MG Tablet PO (09:19)
[2018-10-29] MEDS: Pregabalin 50 MG Capsule 100 MG PO ×2 (10:04→21:53)
[2018-10-29 10:40] LABS: Bedside Glucose 351 mg/dL (70-110)
--- NOTE | 2018-10-29 12:29 | CASEMGMT ---
This RN CM to room with DAVIES form, explanation done-pt voices understanding, and consents to assessment at this time. Original to chart and copy to pt at this time. Pt voices no further questions/concerns/needs at this time. SStaten VALARIE CM
--- NOTE | 2018-10-29 14:00 | PCM.DC.SUM ---
<Fred Otero - Last Filed: 10/30/18 10:00> Discharge Date and Diagnosis - Problem List Patient Problems: Active and Suspected Problems Troponin I above reference range (Acute) Date of Admission: 10/27/18 Date of Discharge: 10/29/18 - Primary Discharge Diagnosis Active and Suspected Problems Left sided weakness, unclear etiology CVA ruled out Abnormal troponin, unclear etiology, doubt cardiac Carotid stenosis CKDIII Moderate HLD DMt2 with peripheral neuropathy BPH PVD, prior AKA right Depression/Anx HTN COPD no exacerbation Alcoholic liver cirrhosis - Secondary Discharge Diagnosis Chronic Problems Stage III chronic kidney disease (Chronic) 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 The estimated ejection fraction is 75 %. Stage 1 diastolic dysfunction. Mildly dilated right ventricle. Unable to estimate RV systolic pressure due to inadequate jet, pulmonary artery pressure probably normal. Moderate restriction of the aortic valve. Moderate aortic stenosis. Peak aortic valve gradient 43 mmHg. Mean aortic valve gradient 22 mmHg. Calculated aortic valve area (continuity equation) is 1.3 cm2. Compared to echo report dated 03/14/2015, LV function has remained the same. Aortic stenosis has gone from mild to moderate. MRI/Brain without Contrast IMPRESSION: No acute intracranial abnormality. Stable chronic findings described above. Carotid US Interpretation Summary Heterogenous plague at the proximal right internal and external carotid arteries <50% stenosis right internal carotid <50% stenosis right external carotid Calcific irregular plague left common carotid Irregular plague at the proximal left internal and external carotids <50% stenosis left proximal internal carotid 50-99% stenosis left external carotid Patent and antegrade vertebrals bilaterally Consults: Sheets - neuro Pisano - cardiology Operations: None Procedures: 2-D Echocardiogram Summary of Care Provided: Hospital course: The patient is a 63 year old M with past medical history of alcoholic liver cirrhosis, CKD stage III, COPD, type 2 diabetes with peripheral neuropathy, peripheral vascular disease with prior right-sided AKA, BPH, hypertension, hyperlipidemia, depression anxiety, who presented to the emergency room with left-sided weakness worsening for about 2 weeks, upper and lower extremity, with difficulty ambulating, and increased numbness and tingling in the stocking glove distribution. CT the brain was negative in the ER. Troponin was indeterminate. Ammonia was somewhat elevated. He did not appear to have encephalopathy. He is admitted to the PCU on telemetry for suspected CVA. Neurology and cardiology were consulted. MRI of the brain was obtained which did not show stroke. Carotid ultrasound demonstrated 50 to 99% stenosis of the left external carotid. Neurology felt this might be a peripheral neuropathy. The patient's symptoms are improving without further intervention. Echocardiogram was obtained which demonstrated moderate aortic stenosis and EF of 75%. Cardiology did not feel that further cardiac work-up is indicated at this time. Patient remained without chest pain or other cardiac symptoms. As the patient remains significantly debilitated is felt that he would benefit from placement in prison. Patient was agreeable. He was discharged to prison in stable condition. He will need follow-up with cardiology as directed, follow-up with neurology in 3 to 4 weeks. He will need to follow-up with his PCP in 2 weeks as well. This patient was seen by Fred Otero PA-C under the supervision of Doctor Ibrahim. [] Patient Problems: Active and Suspected Problems Troponin I above reference range (Acute) - Physical Exam General: Alert, Oriented x3, Cooperative HEENT: Atraumatic, PERRLA, EOMI, Normocephalic Neck: Supple, No JVD, Negative Carotid Bruits Lungs: Clear to auscultation, Normal air movement Cardiovascular: Regular rate, Murmur - 3 out of 6 systolic murmur best heard over the left sternal border at second intercostal space Abdomen: Bowel Sounds Present, Soft, Non Tender Extremities: No edema, Capillary Refill Less than 3 Seconds Skin: No rashes, No breakdown Musculoskeletal: No Tenderness to Palpation of Joints or Extremities, - - Right sided AKA Neurological: Cranial nerves II-XII grossly intact Psych/Mental Status: Normal Affect, Appropriate, Alert and oriented to time, place, person, mood and affect Vital Signs Temp Pulse Resp BP Pulse Ox 99.0 F 82 16 159/80 H 92 05/16/19 09:54 10/29/18 11:53 10/29/18 09:54 10/29/18 09:54 10/29/18 09:54 Oxygen Flow Rate (L/min) 1 Oxygen Delivery Method Room Air Weight: 169 lb 15.622 oz Body Mass Index (BMI) 24.3 Finger Stick Blood Glucose 310 Intake and Output for Last 24 Hours 10/27/18 10/28/18 10/29/18 23:59 23:59 23:59 Intake Total 519 / 519 1440 / 1440 420 / 420 Output Total 275 / 275 725 / 725 Balance 244 / 244 715 / 715 420 / 420 Laboratory Tests Past 24 Hrs 10/29/18 10/29/18 05:15 05:15 WBC 4.7 RBC 4.00 L Hgb 12.9 L Hct 38.6 L MCV 96.5 H MCH 32.3 H MCHC 33.4 RDW 15.7 H RDW Differential 53.2 H Plt Count 73 L MPV 10.0 Sodium 143 Potassium 3.8 Chloride 110 H Carbon Dioxide 28.0 Anion Gap 5 BUN 18 Creatinine 1.42 H Estim Creat Clear Calc 54.26 Est GFR (MDRD) Af Amer 64 Est GFR (MDRD) Non-Af 53 L BUN/Creatinine Ratio 12.7 Glucose 171 H Calcium 8.7 Iron Cancelled Ferritin Cancelled POC Glucose 10/29/18 10/29/18 10/28/18 10:37 06:51 21:55 POC Glucose 351 H 195 H 225 H 10/28/18 18:05 POC Glucose 329 H Discharge Diet: Low fat/ Low Cholesterol, 1800 Calorie Control Diet, 2000 mg Sodium Diet Discharge Activity: Return to Normal Activity Home Medications: Medications to take at Discharge Amlodipine [Norvasc] 10 mg PO DAILY 06/13/14 Ipratropium/Albuterol Sulfate [Duoneb] 3 ml INHALATION Q6H.RT ampul.neb 03/17/15 Bisacodyl [Dulcolax] 10 mg RECTAL DAILY PRN PRN 09/11/16 Rifampin [Rifadin] 150 mg PO BID 09/11/16 Levothyroxine [Synthroid] 300 mcg PO DAILY 03/03/17 Docusate Sodium [Colace] 100 mg PO BID PRN PRN 10/27/18 Ferrous Sulfate [High Potency Iron] 27 mg PO DAILY 10/27/18 Insulin Aspart [Novolog Flexpen] 10 units SC TIDCM 10/27/18 Pantoprazole Sodium [Protonix] 40 mg PO BID 10/27/18 Pregabalin [Lyrica] 100 mg PO BID 10/27/18 Promethazine HCl 25 mg PO TID PRN 10/27/18 Sertraline HCl 100 mg PO DAILY 10/27/18 Tamsulosin HCl 0.4 mg PO DAILY 10/27/18 ALPRAZolam [Xanax] 0.5 mg PO TID PRN 3 Days #9 tab 10/30/18 Albuterol Aerosols [Ventolin Aerosols] 2.5 mg INHALATION Q2H PRN PRN vial.neb. 10/30/18 Glucerna Shake 120 ml PO 4X/DAY liquid 10/30/18 Insulin Lispro [Humalog KwikPen] See Protocol SC ACHS #0 insuln.pen 10/30/18 Lactulose [Chronulac] 20 gm PO BID udc 10/30/18 Following Prescrptions Were Given to Patient: ALPRAZolam [Xanax] 0.5 mg PO TID PRN 3 Days #9 tab PRN Reason: ANXIETY Primary Care Physician: Vladislav Colunga DO [Primary Care Provider] - Please follow up with your Primary Care Physician in: 2 weeks Please Follow Up With: Huang Sheets MD When: 3-4 weeks Please Follow Up With: Roni Pisano MD When: As directed Disposition: Long Term facility Minutes spent on discharge:: 40 Patient Condition:: Stable Medical Necessity - Tobacco Use Smoking Status: Current every day smoker Tobacco Use: Cigarettes Meaningful Use Info Meaningful Use Diagnoses (Choose all that apply): None applicable <Blake Ibrahim - Last Filed: 10/30/18 11:01> Discharge Date and Diagnosis - Primary Discharge Diagnosis Active and Suspected Problems Troponin I above reference range (Acute) - Secondary Discharge Diagnosis Chronic Problems Iron deficiency (Chronic) Peripheral neuropathy (Chronic) BPH (benign prostatic hyperplasia) (Chronic) Carotid stenosis (Chronic) Aortic stenosis (Chronic) HLD (hyperlipidemia) (Chronic) Anxiety (Chronic) HTN (hypertension) (Chronic) Stage III chronic kidney disease (Chronic) Status post above knee amputation of right lower extremity (Chronic) COPD (chronic obstructive pulmonary disease) (Chronic) TIA (transient ischemic attack) (Chronic) GERD (gastroesophageal reflux disease) (Chronic) Alcoholic liver disease (Chronic) cirrhosis Portal hypertension esophageal varices stage III DM type 2 (diabetes mellitus, type 2) (Chronic) Alcohol abuse (Chronic) 6-12 drinks/day Hypothyroidism (Chronic) Chronic blood loss anemia (Chronic) required 3 units of PRBC's- prior workup for this showed no etiology Hospital Course and Treatment Summary of Care Provided: The patient is a 63 year old M [] - Physical Exam Vital Signs Temp Pulse Resp BP Pulse Ox 98.3 F 79 16 135/79 H 94 10/30/18 08:50 10/30/18 08:50 10/30/18 08:50 10/30/18 08:50 10/30/18 08:50 Oxygen Flow Rate (L/min) 1 Oxygen Delivery Method Room Air Weight: 169 lb 15.622 oz Body Mass Index (BMI) 24.3 Finger Stick Blood Glucose 310 Intake and Output for Last 24 Hours 10/28/18 10/29/18 10/30/18 23:59 23:59 23:59 Intake Total 1440 / 1440 1020 / 1020 120 / 120 Output Total 725 / 725 400 / 400 500 / 500 Balance 715 / 715 620 / 620 -380 / -380 POC Glucose 10/30/18 10/29/18 10/29/18 06:50 21:56 15:52 POC Glucose 187 H 202 H 338 H Code Visit Addendum: Dr. Ibrahim I personally examined the patient and reviewed the chart. I agree with the above. 63-year-old male who presented to the emergency department from his PCP for evaluation of his left body weakness. He states there is been about 2 weeks. He had an MRI on admission which was normal and an elevated troponin which given the fact that he is asymptomatic from a chest pain and his echo did not show any wall motion abnormality, no further intervention was performed. He does have some left-sided deficits and will likely need to be transferred to a prison facility for rehab as an outpatient. His care is complicated by his moderate aortic stenosis as well as his chronic elevated liver function tests with an elevated total bilirubin and chronically elevated ammonia. Neurology feels that he could have a peroneal neuropathy and may need a nerve conduction study. Plan will be to discharge to transitional care unit for rehab today. OBSV E&M: 70446 Observation care discharge
--- NOTE | 2018-10-29 14:08 | DS.PCM_ITS ---
Addendum entered and electronically signed by HENRY Meadows 10/30/18 10:01: Code Visit Addendum: Discharge occurred on 10/30, this Summary will serve for this date instead of 10/29. Original Note: <Fred Otero - Last Filed: 10/30/18 10:00> Discharge Date and Diagnosis - Problem List Patient Problems: Active and Suspected Problems Troponin I above reference range (Acute) Date of Admission: 10/27/18 Date of Discharge: 10/29/18 - Primary Discharge Diagnosis Active and Suspected Problems Left sided weakness, unclear etiology CVA ruled out Abnormal troponin, unclear etiology, doubt cardiac Carotid stenosis CKDIII Moderate HLD DMt2 with peripheral neuropathy BPH PVD, prior AKA right Depression/Anx HTN COPD no exacerbation Alcoholic liver cirrhosis - Secondary Discharge Diagnosis Chronic Problems Stage III chronic kidney disease (Chronic) 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 The estimated ejection fraction is 75 %. Stage 1 diastolic dysfunction. Mildly dilated right ventricle. Unable to estimate RV systolic pressure due to inadequate jet, pulmonary artery pressure probably normal. Moderate restriction of the aortic valve. Moderate aortic stenosis. Peak aortic valve gradient 43 mmHg. Mean aortic valve gradient 22 mmHg. Calculated aortic valve area (continuity equation) is 1.3 cm2. Compared to echo report dated 03/14/2015, LV function has remained the same. Aortic stenosis has gone from mild to moderate. MRI/Brain without Contrast IMPRESSION: No acute intracranial abnormality. Stable chronic findings described above. Carotid US Interpretation Summary Heterogenous plague at the proximal right internal and external carotid arteries <50% stenosis right internal carotid <50% stenosis right external carotid Calcific irregular plague left common carotid Irregular plague at the proximal left internal and external carotids <50% stenosis left proximal internal carotid 50-99% stenosis left external carotid Patent and antegrade vertebrals bilaterally Consults: Sudeep - neuro Pisano - cardiology Operations: None Procedures: 2-D Echocardiogram Summary of Care Provided: Hospital course: The patient is a 63 year old M with past medical history of alcoholic liver cirrhosis, CKD stage III, COPD, type 2 diabetes with peripheral neuropathy, peripheral vascular disease with prior right-sided AKA, BPH, hypertension, hyperlipidemia, depression anxiety, who presented to the emergency room with left-sided weakness worsening for about 2 weeks, upper and lower extremity, with difficulty ambulating, and increased numbness and tingling in the stocking glove distribution. CT the brain was negative in the ER. Troponin was indeterminate. Ammonia was somewhat elevated. He did not appear to have encephalopathy. He is admitted to the PCU on telemetry for suspected CVA. Neurology and cardiology were consulted. MRI of the brain was obtained which did not show stroke. Carotid ultrasound demonstrated 50 to 99% stenosis of the left external carotid. Neurology felt this might be a peripheral neuropathy. The patient's symptoms are improving without further intervention. Echocardiogram was obtained which demonstrated moderate aortic stenosis and EF of 75%. Cardiology did not feel that further cardiac work-up is indicated at this time. Patient remained without chest pain or other cardiac symptoms. As the patient remains significantly debilitated is felt that he would benefit from placement in residential. Patient was agreeable. He was discharged to residential in stable condition. He will need follow-up with cardiology as directed, follow-up with neurology in 3 to 4 weeks. He will need to follow-up with his PCP in 2 weeks as well. This patient was seen by Fred Otero PA-C under the supervision of Doctor Ibrahim. [] Patient Problems: Active and Suspected Problems Troponin I above reference range (Acute) - Physical Exam General: Alert, Oriented x3, Cooperative HEENT: Atraumatic, PERRLA, EOMI, Normocephalic Neck: Supple, No JVD, Negative Carotid Bruits Lungs: Clear to auscultation, Normal air movement Cardiovascular: Regular rate, Murmur - 3 out of 6 systolic murmur best heard over the left sternal border at second intercostal space Abdomen: Bowel Sounds Present, Soft, Non Tender Extremities: No edema, Capillary Refill Less than 3 Seconds Skin: No rashes, No breakdown Musculoskeletal: No Tenderness to Palpation of Joints or Extremities, - - Right sided AKA Neurological: Cranial nerves II-XII grossly intact Psych/Mental Status: Normal Affect, Appropriate, Alert and oriented to time, place, person, mood and affect Vital Signs Temp Pulse Resp BP Pulse Ox 99.0 F 82 16 159/80 H 92 10/29/18 09:54 10/29/18 11:53 10/29/18 09:54 10/29/18 09:54 10/29/18 09:54 Oxygen Flow Rate (L/min) 1 Oxygen Delivery Method Room Air Weight: 169 lb 15.622 oz Body Mass Index (BMI) 24.3 Finger Stick Blood Glucose 310 Intake and Output for Last 24 Hours 10/27/18 10/28/18 10/29/18 23:59 23:59 23:59 Intake Total 519 / 519 1440 / 1440 420 / 420 Output Total 275 / 275 725 / 725 Balance 244 / 244 715 / 715 420 / 420 Laboratory Tests Past 24 Hrs 10/29/18 10/29/18 05:15 05:15 WBC 4.7 RBC 4.00 L Hgb 12.9 L Hct 38.6 L MCV 96.5 H MCH 32.3 H MCHC 33.4 RDW 15.7 H RDW Differential 53.2 H Plt Count 73 L MPV 10.0 Sodium 143 Potassium 3.8 Chloride 110 H Carbon Dioxide 28.0 Anion Gap 5 BUN 18 Creatinine 1.42 H Estim Creat Clear Calc 54.26 Est GFR (MDRD) Af Amer 64 Est GFR (MDRD) Non-Af 53 L BUN/Creatinine Ratio 12.7 Glucose 171 H Calcium 8.7 Iron Cancelled Ferritin Cancelled POC Glucose 10/29/18 10/29/18 10/28/18 10:37 06:51 21:55 POC Glucose 351 H 195 H 225 H 10/28/18 18:05 POC Glucose 329 H Discharge Diet: Low fat/ Low Cholesterol, 1800 Calorie Control Diet, 2000 mg Sodium Diet Discharge Activity: Return to Normal Activity Home Medications: Medications to take at Discharge Amlodipine [Norvasc] 10 mg PO DAILY 06/13/14 Ipratropium/Albuterol Sulfate [Duoneb] 3 ml INHALATION Q6H.RT ampul.neb 10/0 07/31 Bisacodyl [Dulcolax] 10 mg RECTAL DAILY PRN PRN 09/11/16 Rifampin [Rifadin] 150 mg PO BID 09/11/16 Levothyroxine [Synthroid] 300 mcg PO DAILY 03/03/17 Docusate Sodium [Colace] 100 mg PO BID PRN PRN 10/27/18 Ferrous Sulfate [High Potency Iron] 27 mg PO DAILY 10/27/18 Insulin Aspart [Novolog Flexpen] 10 units SC TIDCM 10/27/18 Pantoprazole Sodium [Protonix] 40 mg PO BID 10/27/18 Pregabalin [Lyrica] 100 mg PO BID 10/27/18 Promethazine HCl 25 mg PO TID PRN 10/27/18 Sertraline HCl 100 mg PO DAILY 10/27/18 Tamsulosin HCl 0.4 mg PO DAILY 10/27/18 ALPRAZolam [Xanax] 0.5 mg PO TID PRN 3 Days #9 tab 10/30/18 Albuterol Aerosols [Ventolin Aerosols] 2.5 mg INHALATION Q2H PRN PRN vial.neb. 10/30/18 Glucerna Shake 120 ml PO 4X/DAY liquid 10/30/18 Insulin Lispro [Humalog KwikPen] See Protocol SC ACHS #0 insuln.pen 10/30/18 Lactulose [Chronulac] 20 gm PO BID udc 10/30/18 Following Prescrptions Were Given to Patient: ALPRAZolam [Xanax] 0.5 mg PO TID PRN 3 Days #9 tab PRN Reason: ANXIETY Primary Care Physician: Vladislav Colunga DO [Primary Care Provider] - Please follow up with your Primary Care Physician in: 2 weeks Please Follow Up With: Huang Sheets MD When: 3-4 weeks Please Follow Up With: Roni Pisano MD When: As directed Disposition: Assisted facility Minutes spent on discharge:: 40 Patient Condition:: Stable Medical Necessity - Tobacco Use Smoking Status: Current every day smoker Tobacco Use: Cigarettes Meaningful Use Info Meaningful Use Diagnoses (Choose all that apply): None applicable <Blake Ibrahim - Last Filed: 10/30/18 11:01> Discharge Date and Diagnosis - Primary Discharge Diagnosis Active and Suspected Problems Troponin I above reference range (Acute) - Secondary Discharge Diagnosis Chronic Problems Iron deficiency (Chronic) Peripheral neuropathy (Chronic) BPH (benign prostatic hyperplasia) (Chronic) Carotid stenosis (Chronic) Aortic stenosis (Chronic) HLD (hyperlipidemia) (Chronic) Anxiety (Chronic) HTN (hypertension) (Chronic) Stage III chronic kidney disease (Chronic) Status post above knee amputation of right lower extremity (Chronic) COPD (chronic obstructive pulmonary disease) (Chronic) TIA (transient ischemic attack) (Chronic) GERD (gastroesophageal reflux disease) (Chronic) Alcoholic liver disease (Chronic) cirrhosis Portal hypertension esophageal varices stage III DM type 2 (diabetes mellitus, type 2) (Chronic) Alcohol abuse (Chronic) 6-12 drinks/day Hypothyroidism (Chronic) Chronic blood loss anemia (Chronic) required 3 units of PRBC's- prior workup for this showed no etiology Hospital Course and Treatment Summary of Care Provided: The patient is a 63 year old M [] - Physical Exam Vital Signs Temp Pulse Resp BP Pulse Ox 98.3 F 79 16 135/79 H 94 10/30/18 08:50 10/30/18 08:50 10/30/18 08:50 10/30/18 08:50 10/30/18 08:50 Oxygen Flow Rate (L/min) 1 Oxygen Delivery Method Room Air Weight: 169 lb 15.622 oz Body Mass Index (BMI) 24.3 Finger Stick Blood Glucose 310 Intake and Output for Last 24 Hours 10/28/18 10/29/18 10/30/18 23:59 23:59 23:59 Intake Total 1440 / 1440 1020 / 1020 120 / 120 Output Total 725 / 725 400 / 400 500 / 500 Balance 715 / 715 620 / 620 -380 / -380 POC Glucose 10/30/18 10/29/18 10/29/18 06:50 21:56 15:52 POC Glucose 187 H 202 H 338 H Code Visit Addendum: Dr. Ibrahim I personally examined the patient and reviewed the chart. I agree with the above. 63-year-old male who presented to the emergency department from his PCP for evaluation of his left body weakness. He states there is been about 2 weeks. He had an MRI on admission which was normal and an elevated troponin which given the fact that he is asymptomatic from a chest pain and his echo did not show any wall motion abnormality, no further intervention was performed. He does have some left-sided deficits and will likely need to be transferred to a residential facility for rehab as an outpatient. His care is complicated by his moderate aortic stenosis as well as his chronic elevated liver function tests with an elevated total bilirubin and chronically elevated ammonia. Neurology feels that he could have a peroneal neuropathy and may need a nerve conduction study. Plan will be to discharge to transitional care unit for rehab today. OBSV E&M: [id number] Observation care discharge
--- NOTE | 2018-10-29 14:14 | PN_ITS ---
<Fred Otero - Last Filed: 10/29/18 14:10> Patient Problems: Active and Suspected Problems Troponin I above reference range (Acute) Subjective: No complaints. Resting comfortably in bed semi-romo no acute distress. No shortness of breath, chest pain, lightheadedness or dizziness, palpitations. No abdominal pain. He does not appear confused. Son is present he has no questions. He does complain of ongoing peripheral neuropathy in his fingertips and toes. He states this is somewhat improved. He feels like his Lyrica is no longer working as well as it used to. He is trialed gabapentin the past with no success. His weakness in his left lower extremity has improved, he does not feel it is back to normal completely. He has no double vision, headache, slurred speech, difficulty swallowing. No abdominal pain. - Physical Exam General: Alert, Oriented x3, Cooperative HEENT: Atraumatic, PERRLA, EOMI, Normocephalic Neck: Supple, No JVD, Negative Carotid Bruits Lungs: Clear to auscultation, Normal air movement Cardiovascular: Regular rate, Murmur - 3 out of 6 systolic murmur best over the left sternal border at the second intercostal space. Abdomen: Bowel Sounds Present, Soft, Non Tender Extremities: No edema, Capillary Refill Less than 3 Seconds Skin: No rashes, No breakdown Musculoskeletal: No Tenderness to Palpation of Joints or Extremities Neurological: Cranial nerves II-XII grossly intact Psych/Mental Status: Normal Affect, Appropriate, Alert and oriented to time, place, person, mood and affect Vital Signs Temp Pulse Resp BP Pulse Ox 99.0 F 82 16 159/80 H 92 10/29/18 09:54 10/29/18 11:53 10/29/18 09:54 10/29/18 09:54 10/29/18 09:54 Oxygen Flow Rate (L/min) 1 Oxygen Delivery Method Room Air Weight: 169 lb 15.622 oz Body Mass Index (BMI) 24.3 Finger Stick Blood Glucose 310 Intake and Output for Last 24 Hours 10/27/18 10/28/18 10/29/18 23:59 23:59 23:59 Intake Total 519 / 519 1440 / 1440 420 / 420 Output Total 275 / 275 725 / 725 Balance 244 / 244 715 / 715 420 / 420 Laboratory Tests Past 24 Hrs 10/29/18 10/29/18 05:15 05:15 WBC 4.7 RBC 4.00 L Hgb 12.9 L Hct 38.6 L MCV 96.5 H MCH 32.3 H MCHC 33.4 RDW 15.7 H RDW Differential 53.2 H Plt Count 73 L MPV 10.0 Sodium 143 Potassium 3.8 Chloride 110 H Carbon Dioxide 28.0 Anion Gap 5 BUN 18 Creatinine 1.42 H Estim Creat Clear Calc 54.26 Est GFR (MDRD) Af Amer 64 Est GFR (MDRD) Non-Af 53 L BUN/Creatinine Ratio 12.7 Glucose 171 H Calcium 8.7 Iron Cancelled Ferritin Cancelled POC Glucose 10/29/18 10/29/18 10/28/18 10:37 06:51 21:55 POC Glucose 351 H 195 H 225 H 10/28/18 18:05 POC Glucose 329 H Medical Necessity - Tobacco Use Smoking Status: Current every day smoker Tobacco Use: Cigarettes Assessment/Plan All Active Problems Troponin I above reference range (Acute) 1. CVA-ruled out. Neurology following. Presumed peripheral neuropathy. Continue Lyrica. 2. Elevated troponin-no further work-up or cardiology. Continue aspirin. 3. alcoholic liver cirrhosis-continue lactulose, rifampin. 4. CKD stage III-stable 5. Moderate aortic stenosis-we will need follow-up echo. 6. COPD-no acute exacerbation. PRN albuterol 7. Type 2 diabetes-continue current therapy. 8. BPH-Flomax 9. Peripheral vascular disease with prior AKA. 10. Per carotid ultrasound external carotid stenosis. This will need work-up as an outpatient 11. Depression anxiety-stable 12. Hypertension-running high-monitor and adjust if needed. DVT prophylaxis: SCDs Discharge planning he is waiting for presurgical to TCU. This patient was seen by Fred Otero PA-C under the supervision of Doctor Elodia chaudhary. <Blake Ibrahim F - Last Filed: 10/29/18 15:44> - Physical Exam Vital Signs Temp Pulse Resp BP Pulse Ox 99.2 F H 82 16 164/66 H 96 10/29/18 15:12 10/29/18 15:12 10/29/18 15:12 10/29/18 15:12 10/29/18 15:12 Oxygen Flow Rate (L/min) 1 Oxygen Delivery Method Room Air Weight: 169 lb 15.622 oz Body Mass Index (BMI) 24.3 Finger Stick Blood Glucose 310 Intake and Output for Last 24 Hours 10/27/18 10/28/18 10/29/18 23:59 23:59 23:59 Intake Total 519 / 519 1440 / 1440 420 / 420 Output Total 275 / 275 725 / 725 Balance 244 / 244 715 / 715 420 / 420 Laboratory Tests Past 24 Hrs 10/29/18 10/29/18 05:15 05:15 WBC 4.7 RBC 4.00 L Hgb 12.9 L Hct 38.6 L MCV 96.5 H MCH 32.3 H MCHC 33.4 RDW 15.7 H RDW Differential 53.2 H Plt Count 73 L MPV 10.0 Sodium 143 Potassium 3.8 Chloride 110 H Carbon Dioxide 28.0 Anion Gap 5 BUN 18 Creatinine 1.42 H Estim Creat Clear Calc 54.26 Est GFR (MDRD) Af Amer 64 Est GFR (MDRD) Non-Af 53 L BUN/Creatinine Ratio 12.7 Glucose 171 H Calcium 8.7 Iron Cancelled Ferritin Cancelled POC Glucose 10/29/18 10/29/18 10/28/18 10:37 06:51 21:55 POC Glucose 351 H 195 H 225 H 10/28/18 18:05 POC Glucose 329 H Code Visit Addendum: Dr. Ibrahim I personally examined the patient and reviewed the chart. I agree with the above. 63-year-old male who presented to the emergency department from his PCP for evaluation of his left body weakness. He states there is been about 2 weeks. He had an MRI on admission which was normal and an elevated troponin which given the fact that he is asymptomatic from a chest pain and his echo did not show any wall motion abnormality, no further intervention was performed. He does have some left-sided deficits and will likely need to be transferred to a [facility] facility for rehab as an outpatient. His care is complicated by his moderate aortic stenosis as well as his chronic elevated liver function tests with an elevated total bilirubin and chronically elevated ammonia. Neurology feels that he could have a peroneal neuropathy and may need a nerve co nduction study. Plan will be to discharge to transitional care unit for rehab following pre-CERT. OBSV E&M: [id number] Initial observation care L2
[2018-10-29 16:00] LABS: Bedside Glucose 338 mg/dL (70-110)
[2018-10-29 22:05] LABS: Bedside Glucose 202 mg/dL (70-110)
[2018-10-30 03:00] VITALS: BP 181/83; PULSE 75; RESP 16; TEMP 36.7; O2SAT 92
[2018-10-30 03:32] VITALS: PULSE 72
[2018-10-30] MEDS: ALPRAZolam 0.5 MG Tablet PO (05:32)
[2018-10-30] MEDS: Levothyroxine 100 MCG Tablet 300 MCG PO (05:32)
[2018-10-30] MEDS: Insulin Lispro 100 UNIT/ML INSULN.PEN SC ×2 (06:51→11:35)
[2018-10-30 06:55] LABS: Bedside Glucose 187 mg/dL (70-110)
[2018-10-30 07:00] VITALS: PULSE 71
[2018-10-30] MEDS: Ipratropium/Albuterol Sulfate 3 ML AMPUL.NEB INHALATION (07:05)
[2018-10-30 07:06] VITALS: PULSE 74; RESP 16; O2SAT 95
[2018-10-30 08:50] VITALS: BP 135/79; PULSE 79; RESP 16; TEMP 36.8; O2SAT 94
[2018-10-30] MEDS: Aspirin 81 MG TAB.CHEW PO (09:44)
[2018-10-30] MEDS: Tamsulosin HCl 0.4 MG Capsule PO (09:44)
[2018-10-30] MEDS: amLODIPine 10 MG Tablet PO (09:45)
[2018-10-30] MEDS: RIFAMPIN 150 MG CAPSULE PO (09:46)
[2018-10-30] MEDS: Sertraline 100 MG Tablet PO (09:46)
[2018-10-30] MEDS: Pantoprazole Sodium 40 MG Tablet PO (09:48)
[2018-10-30] MEDS: Pregabalin 50 MG Capsule 100 MG PO (09:51)
--- NOTE | 2018-10-30 10:01 | CASEMGMT ---
Patient was approved to go to [facility] TCU. SW notified PA. Await orders. Katja CANELA
--- NOTE | 2018-10-30 10:27 | TREXTCA.CO_ITS ---
Addendum entered and electronically signed by HENRY Meadows 10/30/18 11:31: Code Visit Addendum: please also follow up with Dr. King (vascular surgery) as an outpatient in 1-2 weeks. Original Note: - Diet 10/27/18 18:48 Diet: Cardiac: Calorie-Controlled Food consistency:: Regular Liquid Consistency:: Regular/Thin How many daily calories?: 1800 calorie - Routine Orders/Code Status Suppository Type: Dulcolax 10mg Suppository Frequency: Daily PRN Routine Lab Work: CBC - 5 days, BMP - 5 days - Wound(s) left knee Wound Type: Skin Tear left coccyx Wound Type: Pressure Injury - Therapies Physical Therapy: Eval and Treat Occupational Therapy: Eval and Treat - Problem/Diagnosis (1) Troponin I above reference range Status: Acute Current Visit: Yes (2) Peripheral neuropathy Status: Chronic Current Visit: Yes (3) Iron deficiency Status: Chronic Current Visit: Yes (4) BPH (benign prostatic hyperplasia) Status: Chronic Current Visit: Yes (5) Carotid stenosis Status: Chronic Current Visit: Yes (6) Aortic stenosis Status: Chronic Current Visit: Yes (7) HLD (hyperlipidemia) Status: Chronic Current Visit: Yes (8) Anxiety Status: Chronic Current Visit: Yes (9) HTN (hypertension) Status: Chronic Current Visit: Yes (10) Stage III chronic kidney disease Status: Chronic Current Visit: Yes (11) Status post above knee amputation of right lower extremity Status: Chronic Current Visit: Yes (12) COPD (chronic obstructive pulmonary disease) Status: Chronic Current Visit: Yes (13) GERD (gastroesophageal reflux disease) Status: Chronic Current Visit: No (14) Alcoholic liver disease Status: Chronic Comment: cirrhosis Portal hypertension esophageal varices stage III Current Visit: No (15) DM type 2 (diabetes mellitus, type 2) Status: Chronic Current Visit: No (16) Hypothyroidism Status: Chronic Current Visit: No - Allergies/Procedures Done in Hospital Allergies/Adverse Reactions: Allergies acetaminophen [From Percocet] Allergy (Verified 10/27/18 15:53) Rash codeine Allergy (Verified 10/27/18 15:53) Hives hydrocodone Allergy (Verified 10/27/18 15:53) Hives hydromorphone HCl [From Dilaudid] Allergy (Verified 10/27/18 15:53) Itching oxycodone [From Percocet] Allergy (Verified 10/27/18 15:53) Rash atorvastatin [From Lipitor] Adverse Reaction (Severe, Verified 10/27/18 15:53) RHABDOMYALYSIS Procedures: 2-D Echocardiogram - Type of Care/Length of Stay Estimated LOS: Convalescent Care Less Than 30 days Type of Care Needed: Skilled Rehab Potential: Fair Prognosis: Fair - Additional Orders/Day of Discharge Day of Discharge: 10/30/18 - Dietary and Speech Recommendations Dietitian Recommendations/Changes: Rec diet change to CHO Controlled, low sodium. Encourge Glucerna ONS w/ medpass if PO intake at meals remains poor. - Follow Up Care Primary Care Physician: Vladislav Colunga DO [Primary Care Provider] - Please follow up with your Primary Care Physician in: 2 weeks Please Follow Up With: Huang Sheets MD When: 3-4 weeks Please Follow Up With: Roni Pisano MD When: As directed
--- NOTE | 2018-10-30 10:51 | CASEMGMT ---
SW went to let patient know he was approved to go to TCU. When SW went into the room patient was crying. SW asked what was wrong and he said he is Depressed. SW sat down and talked with patient for awhile. SW listened and provided emotional support. SW encouraged him and let him know he was approved to go to TCU. WILLIAM explained now he is 1 step closer to getting home. He was pleased to hear this. He said he would call his . He told SW about his dogs and how much he loves them. SW encouraged him to keep his chin up and work hard in TCU so he can get home. He thanked WILLIAM. Plan: [facility] TCU under skilled level of care. Katja AMARO MSW
--- NOTE | 2018-10-30 11:25 | PHA.DC.MR ---
Pharmacy Service has performed discharge medication reconciliation for this patient for transfer to TCU The patient's discharge medication list was reviewed for discrepancies and discrepancies were resolved. Home Medications Amlodipine [Norvasc] 10 mg PO DAILY 06/13/14 Ipratropium/Albuterol Sulfate [Duoneb] 3 ml INHALATION Q6H.RT ampul.neb 03/17/15 Bisacodyl [Dulcolax] 10 mg RECTAL DAILY PRN PRN 09/11/16 Rifampin [Rifadin] 150 mg PO BID 09/11/16 Levothyroxine [Synthroid] 300 mcg PO DAILY 03/03/17 Docusate Sodium [Colace] 100 mg PO BID PRN PRN 10/27/18 Ferrous Sulfate [High Potency Iron] 27 mg PO DAILY 10/27/18 Insulin Aspart [Novolog Flexpen] 10 units SC TIDCM 10/27/18 Pantoprazole Sodium [Protonix] 40 mg PO BID 10/27/18 Pregabalin [Lyrica] 100 mg PO BID 10/27/18 Promethazine HCl 25 mg PO TID PRN 10/27/18 Sertraline HCl 100 mg PO DAILY 10/27/18 Tamsulosin HCl 0.4 mg PO DAILY 10/27/18 ALPRAZolam [Xanax] 0.5 mg PO TID PRN 3 Days #9 tab 10/30/18 Albuterol Aerosols [Ventolin Aerosols] 2.5 mg INHALATION Q2H PRN PRN vial.neb. 10/30/18 Glucerna Shake 120 ml PO 4X/DAY liquid 10/30/18 Insulin Lispro [Humalog KwikPen] See Protocol SC ACHS #0 insuln.pen 10/30/18 Lactulose [Chronulac] 20 gm PO BID udc 10/30/18
--- NOTE | 2018-10-30 11:29 | NURSING ---
REPORT CALLED TO EARL SHEPPARD ON TCU. EARL REQUESTED THAT PATIENT EAT LUNCH HERE ON PCU AND THEN TRANSFER.
[2018-10-30 11:46] LABS: Bedside Glucose 330 mg/dL (70-110)
== END 2018-10-30 10:27 | disposition skilled nursing facility (03) ==
LOC: ED 16:36 → PCU 10-28 07:20
PROVIDERS: Nurse Practitioner Family; Admitting Provider Hospitalist; Emergency Provider Emergency Medicine; Family Provider Family Medicine; PCP Family Medicine; Referring Provider Hospitalist; Visit Provider Family Medicine
DX: R53.1 Weakness (principal); E11.22 Type 2 diabetes mellitus with diabetic chronic kidney disease; E78.5 Hyperlipidemia, unspecified; E11.51 Type 2 diabetes mellitus with diabetic peripheral angiopathy without gangrene; N18.3 Chronic kidney disease, stage 3 (moderate); J44.9 Chronic obstructive pulmonary disease, unspecified; N40.0 Benign prostatic hyperplasia without lower urinary tract symptoms; I12.9 Hypertensive chronic kidney disease with stage 1 through stage 4 chronic kidney disease, or unspecified chronic kidney disease; F32.9 Major depressive disorder, single episode, unspecified; F41.9 Anxiety disorder, unspecified; K70.30 Alcoholic cirrhosis of liver without ascites; K21.9 Gastro-esophageal reflux disease without esophagitis; D50.0 Iron deficiency anemia secondary to blood loss (chronic); E03.9 Hypothyroidism, unspecified; I85.00 Esophageal varices without bleeding; Z79.899 Other long term (current) drug therapy; Z79.4 Long term (current) use of insulin; Z89.611 Acquired absence of right leg above knee; K76.6 Portal hypertension; D69.6 Thrombocytopenia, unspecified; F17.210 Nicotine dependence, cigarettes, uncomplicated; E11.40 Type 2 diabetes mellitus with diabetic neuropathy, unspecified; I35.0 Nonrheumatic aortic (valve) stenosis; I65.23 Occlusion and stenosis of bilateral carotid arteries
CPT/HCPCS: 36415; 70450; 70551; 71045; 80048; 80053; 80061; 81001; 82140; 82962; 84443; 84484; 85025; 85027; 85610; 85730; 93005; 93306; 93880; 94640; 96360; 96361; 97163; 97166; 97530; 97802; 99218; 99285; 99406; J7030; A4216; G0378

== ENCOUNTER 2018-10-30 13:29 | Inpatient (IN) | payer MEDICARE, SELFPAY ==
[2018-10-28 02:21] VITALS: BMI 24.3
[2018-10-30 14:03] VITALS: BP 130/67; PULSE 80; RESP 16; TEMP 37; O2SAT 94
--- NOTE | 2018-10-30 14:05 | NURSING ---
pt arrived from PCU via bed at [id number]
--- NOTE | 2018-10-30 14:14 | PCM.HP.STD ---
Problem List (1) TIA (transient ischemic attack) Status: Acute (2) Left hemiparesis Status: Acute (3) Neuropathy of left peroneal nerve Status: Acute (4) Chronic kidney disease Status: Chronic (5) Alcohol dependence Status: Chronic (6) Benzodiazepine dependence Status: Chronic (7) Opioid dependence Status: Chronic (8) Diabetic polyneuropathy Status: Chronic (9) Depression Status: Chronic (10) PAOD (peripheral arterial occlusive disease) Status: Chronic (11) BPH (benign prostatic hyperplasia) Status: Chronic (12) COPD (chronic obstructive pulmonary disease) Status: Chronic (13) GERD (gastroesophageal reflux disease) Status: Chronic (14) Alcoholic liver disease Status: Chronic Comment: cirrhosis Portal hypertension esophageal varices stage III (15) DM type 2 (diabetes mellitus, type 2) Status: Chronic (16) Hypothyroidism Status: Chronic History of Present Illness Date of Admission: 10/30/18 Chief Complaint: Here for rehabilitation, strengthening, prior to discharge home with spouse. The patient is a 63 year old Male with below past medical history presented to [facility] Emergency Department 10/27/2018 with weakness. 10/27/2018 CT brain posterior fossa arachnoid cyst, sinusitis. 10/27/2018 Chest X-ray showed shoulder, lumbar spine arthritis. Left sided weakness x 1 to 2 weeks. Decreased sensation left arm, right hand. EKG normal sinus rhythm, nonspecific ST depression. Platelet 74, Glucose 332, BUN 20, Cr 1.53. Ammonia 58, history of alcoholic liver disease. Troponin 0.0176. Does not meet criteria for TPA. 10/27/2018 Admit to Hospital. Consult Neurology for stroke. Rule out ME with cardiac enzymes. 10/27/2018 MRI brain no acute findings. 10/27/2018 Carotid doppler showed mild to moderate carotid stenosis. 10/28/2018 Echo showed mild concentric left ventricular hypertrophy. EF 75% Stage 1 diastolic dysfunction. Moderate aortic stenosis. 10/28/2018 Dr. Sheets thought symptoms related to left peroneal neuropathy. 10/28/2018 Dr. Pisano recommended medical management of indeterminate troponin. 10/30/2018 Admit to TCU with debility, here for rehabilitation, strengthening, prior to discharge home with spouse. Past Medical History Past Medical History (Chronic Problems): Chronic Problems Iron deficiency (Chronic) Peripheral neuropathy (Chronic) BPH (benign prostatic hyperplasia) (Chronic) Carotid stenosis (Chronic) Aortic stenosis (Chronic) HLD (hyperlipidemia) (Chronic) Anxiety (Chronic) HTN (hypertension) (Chronic) Chronic kidney disease (Chronic) Alcohol dependence (Chronic) Benzodiazepine dependence (Chronic) Opioid dependence (Chronic) Diabetic polyneuropathy (Chronic) Depression (Chronic) PAOD (peripheral arterial occlusive disease) (Chronic) Stage III chronic kidney disease (Chronic) Status post above knee amputation of right lower extremity (Chronic) COPD (chronic obstructive pulmonary disease) (Chronic) TIA (transient ischemic attack) (Chronic) GERD (gastroesophageal reflux disease) (Chronic) Alcoholic liver disease (Chronic) cirrhosis Portal hypertension esophageal varices stage III DM type 2 (diabetes mellitus, type 2) (Chronic) Alcohol abuse (Chronic) 6-12 drinks/day Hypothyroidism (Chronic) Chronic blood loss anemia (Chronic) required 3 units of PRBC's- prior workup for this showed no etiology Allergies acetaminophen [From Percocet] Allergy (Verified 10/27/18 15:53) Rash codeine Allergy (Verified 10/27/18 15:53) Hives hydrocodone Allergy (Verified 10/27/18 15:53) Hives hydromorphone HCl [From Dilaudid] Allergy (Verified 10/27/18 15:53) Itching oxycodone [From Percocet] Allergy (Verified 10/27/18 15:53) Rash atorvastatin [From Lipitor] Adverse Reaction (Severe, Verified 10/27/18 15:53) RHABDOMYALYSIS Home Medications: Ambulatory Orders Medication Instructions Recorded Amlodipine [Norvasc] 10 mg PO DAILY 06/13/14 Bisacodyl [Dulcolax] 10 mg RECTAL DAILY PRN PRN 09/11/16 Rifampin [Rifadin] 150 mg PO BID 09/11/16 Levothyroxine [Synthroid] 300 mcg PO DAILY 03/03/17 Docusate Sodium [Colace] 100 mg PO BID PRN PRN 10/27/18 Ferrous Sulfate [High Potency Iron] 27 mg PO DAILY 10/27/18 Insulin Aspart [Novolog Flexpen] 10 units SC TIDCM 10/27/18 Pantoprazole Sodium [Protonix] 40 mg PO BID 10/27/18 Pregabalin [Lyrica] 100 mg PO BID 10/27/18 Promethazine HCl 25 mg PO TID PRN 10/27/18 Sertraline HCl 100 mg PO DAILY 10/27/18 Tamsulosin HCl 0.4 mg PO DAILY 10/27/18 ALPRAZolam [Xanax] 0.5 mg PO TID PRN 3 Days #9 tab 10/30/18 Albuterol Aerosols [Ventolin 2.5 mg INHALATION Q2H PRN PRN 10/30/18 Aerosols] vial.neb. Glucerna Shake 120 ml PO 4X/DAY 10/30/18 Ipratropium/Albuterol Sulfate 3 ml INHALATION Q6H.RT 10/30/18 [Duoneb] Lactulose [Chronulac] 20 gm PO BID 10/30/18 Surgical History: tonsillectomy, - - Right above-knee amputation secondary to peripheral vascular disease 2003, knee surgery secondary to torn meniscus Psychiatric History: Depression Lives: Spouse/ Significant Other Smoking Status: Current every day smoker Tobacco Use: Cigarettes Alcohol: None Drugs: None - *Family History Maternal History Items: No pertinent history Sibling History Items: No pertinent history Paternal History Items: Stroke Review of Systems Constitutional: Denies: Chills, Fever, Weight Change HEENT: Denies: Head Aches, Sinus Congestion, Sinus Drainage Cardiovascular: Denies: Chest Pain, Palpitations Respiratory: Denies: Cough, Shortness of breath at rest, Sputum production Gastrointestinal: Denies: Abdominal Pain, Nausea, Vomiting Genitourinary: Denies: Dysuria Musculoskeletal: Denies: Joint Pain, Joint Tenderness Skin: Denies: Rash, Wounds Neurological: Denies: Numbness, Tingling, Focal weakness Psychiatric: Denies: Anxiety, Depression, Homicidal Ideations, Suicidal Ideations Hematologic/ Lymphatic: Denies: Easy Bruising, Easy Bleeding VTE Information - Inpt Only VTE Present on Admission: No VTE Mechan Device Prophylaxis: Knee High BULMARO Hose VTE Pharm Prophylaxis ordered?: Yes Patient Problems: Active and Suspected Problems TIA (transient ischemic attack) (Acute) Left hemiparesis (Acute) Neuropathy of left peroneal nerve (Acute) - Physical Exam General: Alert, Oriented x3, Cooperative HEENT: Atraumatic, PERRLA, EOMI, Normocephalic Neck: Supple, No JVD, Negative Carotid Bruits Lungs: Clear to auscultation, Normal air movement Cardiovascular: Regular rate, No murmurs Abdomen: Bowel Sounds Present, Soft, Non Tender, Distended Extremities: No edema, Capillary Refill Less than 3 Seconds, - - Right above knee amputation. Skin: No rashes, No breakdown Musculoskeletal: No Tenderness to Palpation of Joints or Extremities Neurological: Cranial nerves II-XII grossly intact Psych/Mental Status: Normal Affect, Appropriate Vital Signs Temp Pulse Resp BP Pulse Ox 98.6 F 80 16 130/67 H 94 10/30/18 14:03 10/30/18 14:03 10/30/18 14:03 10/30/18 14:03 10/30/18 14:03 Oxygen Delivery Method Room Air Weight: 75.7 kg Body Mass Index (BMI) 24.3 Finger Stick Blood Glucose 310 Assessment/Plan All Active Problems Troponin I above reference range (Acute) TIA (transient ischemic attack) (Acute) Left hemiparesis (Acute) Neuropathy of left peroneal nerve (Acute) 63 year old male with below past medical history hospitalized for left hemiparesis, secondary to TIA versus left peroneal neuropathy, complicated by indeterminate troponin, admitted to TCU with debility, here for rehabilitation, strengthening, prior to discharge home with spouse. Debility - PT/OT. Pain - monitor. Bowel - Miralax 17GM daily, Senokot 1 tablet BID, Dulcolax 10MG FL daily PRN. Pneumonia vaccination - Administer Prevnar 13 and/or Pneumovax 23 as necessary. DVT prophylaxis - Lovenox 40MG SC daily. COPD - Duoneb 3ML Q6H, Albuterol 2.5MG Q2H PRN. 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 Hypertension - Amlodipine 10MG daily. Iron deficiency anemia - Ferrex 150MG daily. Nutrition - Glucerna 120ML 4x/day. Diabetes Mellitus II - Humalog 10 units TIDAC. Hepatic encephalopathy - Xifaxan 550MG twice daily, stop Lactulose due to resident unable to tolerate. Hypothyroidism - Levothyroxine 300MCG daily. GERD - Pantoprazole 40MG twice daily. Diabetic Neuropathy - Lyrica 100MG BID. Nausea - Phenergan 25MG TID PRN. Depression - Sertraline 100MG daily. BPH - Tamsulosin 0.4MG daily. Left peroneal neuropathy - Medrol dose nayana. Left rotator cuff syndrome - Medrol dose nayana.
--- NOTE | 2018-10-30 14:23 | HP.PCM_ITS ---
Problem List (1) TIA (transient ischemic attack) Status: Acute (2) Left hemiparesis Status: Acute (3) Neuropathy of left peroneal nerve Status: Acute (4) Chronic kidney disease Status: Chronic (5) Alcohol dependence Status: Chronic (6) Benzodiazepine dependence Status: Chronic (7) Opioid dependence Status: Chronic (8) Diabetic polyneuropathy Status: Chronic (9) Depression Status: Chronic (10) PAOD (peripheral arterial occlusive disease) Status: Chronic (11) BPH (benign prostatic hyperplasia) Status: Chronic (12) COPD (chronic obstructive pulmonary disease) Status: Chronic (13) GERD (gastroesophageal reflux disease) Status: Chronic (14) Alcoholic liver disease Status: Chronic Comment: cirrhosis Portal hypertension esophageal varices stage III (15) DM type 2 (diabetes mellitus, type 2) Status: Chronic (16) Hypothyroidism Status: Chronic History of Present Illness Date of Admission: 10/30/18 Chief Complaint: Here for rehabilitation, strengthening, prior to discharge home with spouse. The patient is a 63 year old Male with below past medical history presented to [facility] Emergency Department 10/27/2018 with weakness. 10/27/2018 CT brain posterior fossa arachnoid cyst, sinusitis. 10/27/2018 Chest X-ray showed shoulder, lumbar spine arthritis. Left sided weakness x 1 to 2 weeks. Decreased sensation left arm, right hand. EKG normal sinus rhythm, nonspecific ST depression. Platelet 74, Glucose 332, BUN 20, Cr 1.53. Ammonia 58, history of alcoholic liver disease. Troponin 0.0176. Does not meet criteria for TPA. 10/27/2018 Admit to Hospital. Consult Neurology for stroke. Rule out PA with cardiac enzymes. 10/27/2018 MRI brain no acute findings. 10/27/2018 Carotid doppler showed mild to moderate carotid stenosis. 10/28/2018 Echo showed mild concentric left ventricular hypertrophy. EF 75% Stage 1 diastolic dysfunction. Moderate aortic stenosis. 10/28/2018 Dr. Sheets thought symptoms related to left peroneal neuropathy. 10/28/2018 Dr. Pisano recommended medical management of indeterminate troponin. 10/30/2018 Admit to TCU with debility, here for rehabilitation, strengthening, prior to discharge home with spouse. Past Medical History Past Medical History (Chronic Problems): Chronic Problems Iron deficiency (Chronic) Peripheral neuropathy (Chronic) BPH (benign prostatic hyperplasia) (Chronic) Carotid stenosis (Chronic) Aortic stenosis (Chronic) HLD (hyperlipidemia) (Chronic) Anxiety (Chronic) HTN (hypertension) (Chronic) Chronic kidney disease (Chronic) Alcohol dependence (Chronic) Benzodiazepine dependence (Chronic) Opioid dependence (Chronic) Diabetic polyneuropathy (Chronic) Depression (Chronic) PAOD (peripheral arterial occlusive disease) (Chronic) Stage III chronic kidney disease (Chronic) Status post above knee amputation of right lower extremity (Chronic) COPD (chronic obstructive pulmonary disease) (Chronic) TIA (transient ischemic attack) (Chronic) GERD (gastroesophageal reflux disease) (Chronic) Alcoholic liver disease (Chronic) cirrhosis Portal hypertension esophageal varices stage III DM type 2 (diabetes mellitus, type 2) (Chronic) Alcohol abuse (Chronic) 6-12 drinks/day Hypothyroidism (Chronic) Chronic blood loss anemia (Chronic) required 3 units of PRBC's- prior workup for this showed no etiology Allergies acetaminophen [From Percocet] Allergy (Verified 10/27/18 15:53) Rash codeine Allergy (Verified 10/27/18 15:53) Hives hydrocodone Allergy (Verified 10/27/18 15:53) Hives hydromorphone HCl [From Dilaudid] Allergy (Verified 10/27/18 15:53) Itching oxycodone [From Percocet] Allergy (Verified 10/27/18 15:53) Rash atorvastatin [From Lipitor] Adverse Reaction (Severe, Verified 10/27/18 15:53) RHABDOMYALYSIS Home Medications: Ambulatory Orders Medication Instructions Recorded Amlodipine [Norvasc] 10 mg PO DAILY 06/13/14 Bisacodyl [Dulcolax] 10 mg RECTAL DAILY PRN PRN 09/11/16 Rifampin [Rifadin] 150 mg PO BID 09/11/16 Levothyroxine [Synthroid] 300 mcg PO DAILY 03/03/17 Docusate Sodium [Colace] 100 mg PO BID PRN PRN 10/27/18 Ferrous Sulfate [High Potency Iron] 27 mg PO DAILY 10/27/18 Insulin Aspart [Novolog Flexpen] 10 units SC TIDCM 10/27/18 Pantoprazole Sodium [Protonix] 40 mg PO BID 10/27/18 Pregabalin [Lyrica] 100 mg PO BID 10/27/18 Promethazine HCl 25 mg PO TID PRN 10/27/18 Sertraline HCl 100 mg PO DAILY 10/27/18 Tamsulosin HCl 0.4 mg PO DAILY 10/27/18 ALPRAZolam [Xanax] 0.5 mg PO TID PRN 3 Days #9 tab 10/30/18 Albuterol Aerosols [Ventolin 2.5 mg INHALATION Q2H PRN PRN 10/30/18 Aerosols] vial.neb. Glucerna Shake 120 ml PO 4X/DAY 10/30/18 Ipratropium/Albuterol Sulfate 3 ml INHALATION Q6H.RT 10/30/18 [Duoneb] Lactulose [Chronulac] 20 gm PO BID 10/30/18 Surgical History: tonsillectomy, - - Right above-knee amputation secondary to peripheral vascular disease 2003, knee surgery secondary to torn meniscus Psychiatric History: Depression Lives: Spouse/ Significant Other Smoking Status: Current every day smoker Tobacco Use: Cigarettes Alcohol: None Drugs: None - *Family History Maternal History Items: No pertinent history Sibling History Items: No pertinent history Paternal History Items: Stroke Review of Systems Constitutional: Denies: Chills, Fever, Weight Change HEENT: Denies: Head Aches, Sinus Congestion, Sinus Drainage Cardiovascular: Denies: Chest Pain, Palpitations Respiratory: Denies: Cough, Shortness of breath at rest, Sputum production Gastrointestinal: Denies: Abdominal Pain, Nausea, Vomiting Genitourinary: Denies: Dysuria Musculoskeletal: Denies: Joint Pain, Joint Tenderness Skin: Denies: Rash, Wounds Neurological: Denies: Numbness, Tingling, Focal weakness Psychiatric: Denies: Anxiety, Depression, Homicidal Ideations, Suicidal Ideations Hematologic/ Lymphatic: Denies: Easy Bruising, Easy Bleeding VTE Information - Inpt Only VTE Present on Admission: No VTE Mechan Device Prophylaxis: Knee High BULMARO Hose VTE Pharm Prophylaxis ordered?: Yes Patient Problems: Active and Suspected Problems TIA (transient ischemic attack) (Acute) Left hemiparesis (Acute) Neuropathy of left peroneal nerve (Acute) - Physical Exam General: Alert, Oriented x3, Cooperative HEENT: Atraumatic, PERRLA, EOMI, Normocephalic Neck: Supple, No JVD, Negative Carotid Bruits Lungs: Clear to auscultation, Normal air movement Cardiovascular: Regular rate, No murmurs Abdomen: Bowel Sounds Present, Soft, Non Tender, Distended Extremities: No edema, Capillary Refill Less than 3 Seconds, - - Right above knee amputation. Skin: No rashes, No breakdown Musculoskeletal: No Tenderness to Palpation of Joints or Extremities Neurological: Cranial nerves II-XII grossly intact Psych/Mental Status: Normal Affect, Appropriate Vital Signs Temp Pulse Resp BP Pulse Ox 98.6 F 80 16 130/67 H 94 10/30/18 14:03 10/30/18 14:03 10/30/18 14:03 10/30/18 14:03 10/30/18 14:03 Oxygen Delivery Method Room Air Weight: 75.7 kg Body Mass Index (BMI) 24.3 Finger Stick Blood Glucose 310 Assessment/Plan All Active Problems Troponin I above reference range (Acute) TIA (transient ischemic attack) (Acute) Left hemiparesis (Acute) Neuropathy of left peroneal nerve (Acute) 63 year old male with below past medical history hospitalized for left hemiparesis, secondary to TIA versus left peroneal neuropathy, complicated by indeterminate troponin, admitted to TCU with debility, here for rehabilitation, strengthening, prior to discharge home with spouse. * Debility - PT/OT. * Pain - monitor. * Bowel - Miralax 17GM daily, Senokot 1 tablet BID, Dulcolax 10MG LA daily PRN. * Pneumonia vaccination - Administer Prevnar 13 and/or Pneumovax 23 as necessary. * DVT prophylaxis - Lovenox 40MG SC daily. * COPD - Duoneb 3ML Q6H, Albuterol 2.5MG Q2H PRN. * Anxiety - Xanax 0.5MG TID PRN, chronic [facility] use of [facility], consider [facility] as outpatient. * Hypertension - Amlodipine 10MG daily. * Iron deficiency anemia - Ferrex 150MG daily. * Nutrition - Glucerna 120ML 4x/day. * Diabetes Mellitus II - Humalog 10 units TIDAC. * Hepatic encephalopathy - Xifaxan 550MG twice daily, stop Lactulose due to resident unable to tolerate. * Hypothyroidism - Levothyroxine 300MCG daily. * GERD - Pantoprazole 40MG twice daily. * Diabetic Neuropathy - Lyrica 100MG BID. * Nausea - Phenergan 25MG TID PRN. * Depression - Sertraline 100MG daily. * BPH - Tamsulosin 0.4MG daily. * Left peroneal neuropathy - Medrol dose nayana. * Left rotator cuff syndrome - Medrol dose nayana.
[2018-10-30 14:29] VITALS: BMI 23.9
[2018-10-30 14:36] VITALS: BMI 23.9
[2018-10-30 16:45] LABS: Bedside Glucose 187 mg/dL (70-110)
[2018-10-30] MEDS: MethylPREDNISolone DosePak 4 MG BOX PO ×2 (17:39→20:37)
[2018-10-30] MEDS: Pantoprazole Sodium 40 MG Tablet PO (17:40)
[2018-10-30] MEDS: Senna Tablet 1 TABLET PO (17:41)
[2018-10-30] MEDS: rifAXIMin 550 MG Tablet PO (17:41)
[2018-10-30] MEDS: Glucerna Shake 120 ML LIQUID PO (17:50)
[2018-10-30] MEDS: Pregabalin 50 MG Capsule 100 MG PO (17:50)
[2018-10-30] MEDS: Insulin Lispro 100 UNIT/ML INSULN.PEN 10 UNIT SC (17:51)
[2018-10-30 18:44] VITALS: PULSE 88; RESP 20
[2018-10-30] MEDS: Ipratropium/Albuterol Sulfate 3 ML AMPUL.NEB INHALATION (18:44)
[2018-10-30] MEDS: Menthol/Lanolin/Calamine/Znox 113 GM Tube 1 APPLIC TOPICAL (20:35)
[2018-10-30 20:51] LABS: Bedside Glucose 213 mg/dL (70-110)
[2018-10-30] MEDS: morphine (oral solution) 10MG/0.5ML Syringe 5 MG PO (21:57)
[2018-10-31] MEDS: ALPRAZolam 0.5 MG Tablet PO ×2 (01:56→23:38)
[2018-10-31] MEDS: Menthol/Lanolin/Calamine/Znox 113 GM Tube 1 APPLIC TOPICAL ×2 (05:05→21:18)
[2018-10-31] MEDS: Polyethylene Glycol 3350 17 GM PACKET PO (05:05)
[2018-10-31] MEDS: Levothyroxine 100 MCG Tablet 300 MCG PO (05:07)
[2018-10-31] MEDS: rifAXIMin 550 MG Tablet PO ×2 (05:08→17:59)
[2018-10-31] MEDS: Sertraline 100 MG Tablet PO (05:08)
[2018-10-31] MEDS: Senna Tablet 1 TABLET PO ×2 (05:08→17:59)
[2018-10-31] MEDS: amLODIPine 10 MG Tablet PO (05:08)
[2018-10-31] MEDS: Enoxaparin 40 MG/0.4 ML Syringe SC (05:09)
[2018-10-31] MEDS: Pantoprazole Sodium 40 MG Tablet PO ×2 (05:09→17:58)
[2018-10-31 06:41] LABS: Bedside Glucose 220 mg/dL (70-110)
[2018-10-31 06:59] VITALS: PULSE 68; RESP 20
[2018-10-31] MEDS: Ipratropium/Albuterol Sulfate 3 ML AMPUL.NEB INHALATION ×3 (06:59→20:05)
[2018-10-31 07:37] LABS: Absolute Lymphocyte Count 0.67 X10^3/ul (0.83-4.51); Basophil# 0.02 X10^3/uL; Basophil% 0.4 % (0-1); Eosinophils% 3.8 % (0-5); Hematocrit 37.8 % (40-54); Hemoglobin 12.7 g/dl (13.0-16.5); Lymphocyte # 0.67 X10^3/ul (4.0); Lymphocyte % 12.6 % (19-41); Mean Corp Hgb Conc 33.6 g/gl (32-36); Mean Corpuscular Hgb 32.4 pg (27.0-32.0); Mean Corpuscular Volume 96.4 fL (80-94); Monocyte# 0.39 X10^3/uL; Monocyte% 7.3 % (0-10); Neutrophil # 4.04 X10^3/uL (2.7-7.7); Neutrophil % 75.7 % (47-70); Platelet Count 64 K/mm3 (150-450); RBC Distribution Width CV 15.1 % (11.6-14.6); RBC Distribution Width SD 52.8 fl (35.1-43.9); Red Blood Count 3.92 M/mm3 (4.6-6.2); White Blood Count 5.3 K/mm3 (4.4-11.0)
[2018-10-31 07:40] LABS: POSITIVE COUNT NO; POSITIVE DIFFERENTIAL NO; POSITIVE MORPHOLOGY NO
[2018-10-31 07:49] LABS: Anion Gap 5 (5-15); BUN 28 mg/dL (7-18); BUN/Creat Ratio 21.1 RATIO (10-20); Calcium,Total 8.4 mg/dL (8.5-10.1); Chloride 107 mmol/L (98-107); Creatinine, Serum 1.33 mg/dL (0.70-1.30); EST Glomerular Filtration Rate 57 mL/min (>60); Est Glom Filt Rate - Afr Amer 69 mL/min (>60); Estimated Creatinine Clearance 57.94 ml/min; Glucose 184 mg/dL (74-106); Potassium 4.1 mmol/L (3.5-5.1); Sodium Level 137 mmol/L (136-145)
[2018-10-31] MEDS: Iron Polysaccharide Complex 150 MG CAPSULE PO (08:01)
[2018-10-31] MEDS: Insulin Lispro 100 UNIT/ML INSULN.PEN 10 UNIT SC ×3 (08:01→17:52)
[2018-10-31] MEDS: Tamsulosin HCl 0.4 MG Capsule PO (08:02)
[2018-10-31] MEDS: MethylPREDNISolone DosePak 4 MG BOX PO ×4 (08:15→21:17)
[2018-10-31] MEDS: Tuberculin,Purif.prot.deriv. 50 TU/ML Vial 5 ML ID (10:32)
[2018-10-31 11:20] LABS: Bedside Glucose 293 mg/dL (70-110)
[2018-10-31 13:19] VITALS: PULSE 70; RESP 20
[2018-10-31 14:09] VITALS: BP 131/68; PULSE 78; RESP 20; TEMP 37.2; O2SAT 90
[2018-10-31 16:46] LABS: Bedside Glucose 311 mg/dL (70-110)
[2018-10-31] MEDS: Pregabalin 50 MG Capsule 100 MG PO (17:58)
[2018-10-31 20:05] VITALS: PULSE 73; RESP 18; O2SAT 93
[2018-10-31 20:46] LABS: Bedside Glucose 291 mg/dL (70-110)
[2018-10-31] MEDS: morphine (oral solution) 10MG/0.5ML Syringe 5 MG PO (21:13)
--- NOTE | 2018-10-31 21:25 | NURSING ---
5ml Roxanol wasted with Ab Barr RN.
[2018-11-01] MEDS: morphine (oral solution) 10MG/0.5ML Syringe 5 MG PO ×2 (03:21→21:06)
[2018-11-01] MEDS: Menthol/Lanolin/Calamine/Znox 113 GM Tube 1 APPLIC TOPICAL ×2 (06:18→21:05)
[2018-11-01] MEDS: Pregabalin 50 MG Capsule 100 MG PO ×2 (06:18→17:32)
[2018-11-01] MEDS: Levothyroxine 100 MCG Tablet 300 MCG PO (06:19)
[2018-11-01] MEDS: Pantoprazole Sodium 40 MG Tablet PO ×2 (06:20→17:32)
[2018-11-01] MEDS: amLODIPine 10 MG Tablet PO (06:20)
[2018-11-01] MEDS: Sertraline 100 MG Tablet PO (06:21)
[2018-11-01] MEDS: rifAXIMin 550 MG Tablet PO ×2 (06:21→17:32)
[2018-11-01] MEDS: Senna Tablet 1 TABLET PO ×2 (06:21→17:32)
[2018-11-01] MEDS: Insulin Lispro 100 UNIT/ML INSULN.PEN 10 UNIT SC ×2 (06:26→11:58)
[2018-11-01 06:36] LABS: Bedside Glucose 217 mg/dL (70-110)
[2018-11-01 06:54] VITALS: PULSE 69; RESP 18
[2018-11-01] MEDS: Ipratropium/Albuterol Sulfate 3 ML AMPUL.NEB INHALATION ×3 (06:54→19:45)
[2018-11-01] MEDS: Tamsulosin HCl 0.4 MG Capsule PO (07:37)
[2018-11-01] MEDS: Iron Polysaccharide Complex 150 MG CAPSULE PO (07:37)
[2018-11-01] MEDS: MethylPREDNISolone DosePak 4 MG BOX PO ×4 (07:38→21:05)
[2018-11-01 10:00] VITALS: PULSE 70; RESP 18; O2SAT 94
[2018-11-01 11:06] LABS: Bedside Glucose 277 mg/dL (70-110)
[2018-11-01 13:16] VITALS: PULSE 67; RESP 18
[2018-11-01 16:00] VITALS: BP 163/79; PULSE 71; RESP 18; TEMP 37; O2SAT 91
[2018-11-01 17:11] LABS: Bedside Glucose 298 mg/dL (70-110)
[2018-11-01] MEDS: Insulin Lispro 100 UNIT/ML INSULN.PEN 13 UNIT SC (17:31)
[2018-11-01 19:45] VITALS: PULSE 70; RESP 16; O2SAT 91
[2018-11-01 21:11] LABS: Bedside Glucose 333 mg/dL (70-110)
[2018-11-01] MEDS: ALPRAZolam 0.5 MG Tablet PO (23:19)
[2018-11-01 23:30] LABS: Bedside Glucose 305 mg/dL (70-110)
[2018-11-02] MEDS: morphine (oral solution) 10MG/0.5ML Syringe 5 MG PO ×4 (03:50→21:26)
[2018-11-02] MEDS: Pregabalin 50 MG Capsule 100 MG PO ×2 (05:25→17:45)
[2018-11-02] MEDS: Menthol/Lanolin/Calamine/Znox 113 GM Tube 1 APPLIC TOPICAL ×2 (05:25→21:28)
[2018-11-02] MEDS: Levothyroxine 100 MCG Tablet 300 MCG PO (05:27)
[2018-11-02] MEDS: rifAXIMin 550 MG Tablet PO ×2 (05:27→17:47)
[2018-11-02] MEDS: Pantoprazole Sodium 40 MG Tablet PO ×2 (05:27→17:46)
[2018-11-02] MEDS: amLODIPine 10 MG Tablet PO (05:28)
[2018-11-02] MEDS: Senna Tablet 1 TABLET PO ×2 (05:28→17:46)
[2018-11-02] MEDS: Sertraline 100 MG Tablet PO (05:28)
[2018-11-02 06:30] LABS: Bedside Glucose 242 mg/dL (70-110)
[2018-11-02] MEDS: Insulin Lispro 100 UNIT/ML INSULN.PEN 13 UNIT SC (06:33)
[2018-11-02 07:10] VITALS: PULSE 68; RESP 18; O2SAT 92
[2018-11-02] MEDS: Ipratropium/Albuterol Sulfate 3 ML AMPUL.NEB INHALATION (07:10)
[2018-11-02] MEDS: MethylPREDNISolone DosePak 4 MG BOX PO ×3 (08:23→21:28)
[2018-11-02] MEDS: Iron Polysaccharide Complex 150 MG CAPSULE PO (08:24)
[2018-11-02] MEDS: Tamsulosin HCl 0.4 MG Capsule PO (08:24)
--- NOTE | 2018-11-02 10:45 | PCM.PN.RX ---
<Darshan Lopez D - Last Filed: 11/02/18 10:45> Progress Note - Pharmacy Subjective: TCU Admission Objective: Allergies acetaminophen [From Percocet] Allergy (Verified 10/27/18 15:53) Rash codeine Allergy (Verified 10/27/18 15:53) Hives hydrocodone Allergy (Verified 10/27/18 15:53) Hives hydromorphone HCl [From Dilaudid] Allergy (Verified 10/27/18 15:53) Itching oxycodone [From Percocet] Allergy (Verified 10/27/18 15:53) Rash atorvastatin [From Lipitor] Adverse Reaction (Severe, Verified 10/27/18 15:53) RHABDOMYALYSIS Current Medications Generic Name Dose Route Start Last Admin Trade Name Freq PRN Reason Stop Dose Admin Albuterol Sulfate 2.5 mg 10/30/18 14:00 Ventolin Aerosols INHALATION Q2H PRN PRN Shortness of breath, wheezing Albuterol Sulfate 2 puff 11/02/18 07:45 Ventolin Hfa (Sp) INHALATION Q4H PRN PRN sob/wheezing Alprazolam 0.5 mg 10/30/18 14:00 11/01/18 23:19 Xanax PO 0.5 mg TID PRN Administration ANXIETY Amlodipine Besylate 10 mg 10/31/18 06:00 11/02/18 05:28 Norvasc PO 10 mg DAILY [facility] Administration Bisacodyl 10 mg 10/30/18 14:00 Dulcolax RECTAL DAILY PRN PRN Constipation Calamine/Phenol 1 applic 10/30/18 22:00 11/02/18 05:25 Calmoseptine Ointment TOPICAL 1 applicatio 0600,2200 [facility] Administration Protocol Insulin Glargine 25 units 11/02/18 16:30 11/02/18 08:29 Lantus (Bk) SC 25 u BIDAC [facility] Administration Insulin Human Lispro 17 unit 11/02/18 11:45 Humalog Kwikpen ([facility]) SC TIDAC [facility] Levothyroxine Sodium 300 mcg 10/31/18 06:00 11/02/18 05:27 Synthroid PO 300 mcg DAILY [facility] Administration Methylprednisolone 4 mg 10/30/18 17:00 11/02/18 08:23 Medrol Dosepak PO 11/04/18 08:59 4 mg 0800,1200,2200 [facility] Administration Taper Morphine Sulfate 5 mg 10/30/18 21:22 11/02/18 09:45 Roxanol (Ir Oral Solution) PO 5 mg Q4H PRN PRN Administration SEVERE PAIN (6-10/10) Pantoprazole Sodium 40 mg 10/30/18 18:00 11/02/18 05:27 Protonix PO 40 mg BID [facility] Administration Polyethylene Glycol 17 gm 10/31/18 06:00 11/02/18 05:26 Miralax PO Not Given DAILY [facility] Polysaccharide Iron Complex 150 mg 10/31/18 08:00 11/02/18 08:24 Ferrex 150 PO 150 mg DAILYCM [facility] Administration Pregabalin 100 mg 10/30/18 18:00 11/02/18 05:25 Lyrica PO 100 mg BID [facility] Administration Promethazine HCl 25 mg 10/30/18 14:00 Phenergan Tablet PO TID PRN NAUSEA Rifaximin 550 mg 10/30/18 18:00 11/02/18 05:27 Xifaxan PO 550 mg BID [facility] Administration Senna 1 tablet 10/30/18 18:00 11/02/18 05:28 Senokot PO 1 tablet BID [facility] Administration Sertraline HCl 100 mg 10/31/18 06:00 11/02/18 05:28 Zoloft PO 100 mg DAILY [facility] Administration Tamsulosin HCl 0.4 mg 10/31/18 08:30 11/02/18 08:24 Flomax PO 0.4 mg DAILY@0830 [facility] Administration Tuberculin PPD 5 tu 11/07/18 10:00 Tubersol, Aplisol, Ppd ID 11/07/18 10:01 X1 ONE Problem List TIA (transient ischemic attack) (Acute) Left hemiparesis (Acute) Neuropathy of left peroneal nerve (Acute) Chronic kidney disease (Chronic) Alcohol dependence (Chronic) Benzodiazepine dependence (Chronic) Opioid dependence (Chronic) Diabetic polyneuropathy (Chronic) Depression (Chronic) PAOD (peripheral arterial occlusive disease) (Chronic) Vital Signs Temp Pulse Resp BP Pulse Ox 98.6 F 68 18 163/79 H 92 11/01/18 16:00 11/02/18 07:10 11/02/18 07:10 11/01/18 16:00 11/02/18 07:10 Oxygen Delivery Method Room Air Weight: 75.7 kg Body Mass Index (BMI) 23.9 Finger Stick Blood Glucose 310 Sodium 137 mmol/L (136-145) 10/31/18 06:53 Potassium 4.1 mmol/L (3.5-5.1) 10/31/18 06:53 Chloride 107 mmol/L (98-107) 10/31/18 06:53 Carbon Dioxide 25.0 mmol/L (21.0-32.0) 10/31/18 06:53 Anion Gap 5 (5-15) 10/31/18 06:53 BUN 28 mg/dL (7-18) H 10/31/18 06:53 Creatinine 1.33 mg/dL (0.70-1.30) H 10/31/18 06:53 Est GFR (MDRD) Af Amer 69 mL/min (>60) 10/31/18 06:53 Est GFR (MDRD) Non-Af 57 mL/min (>60) L 10/31/18 06:53 BUN/Creatinine Ratio 21.1 RATIO (10-20) H 10/31/18 06:53 Glucose 184 mg/dL (74-106) H 10/31/18 06:53 Assessment/Plan: 1) Pain Pregabalin, methylprednisolone, morphine for severe pain. Continue to monitor daily pain scores, prn medication use. 2) HTN Amlodipine. Continue to monitor BP/HR. 3) DM2 Insulin glargine, lispro with meals. Continue to monitor BGT, s/s hyper/hypoglycemia. 4) Tamsulosin. Continue to monitor for urinary symptoms. 5) GI Pantoprazole, promethazine for nausea. Continue to monitor prn medication use, s/s GI distress. 6) Hypothyroidism Levothyroxine. Continue to monitor s/s hyper/hypothyroidism. 7) Encephalopathy Rifaximin. Continue to monitor clinically. Psychotropic Medications: 8) Depression/Anxiety Sertraline, alprazolam prn. Continue to monitor s/s depression/anxiety, prn medication use. Unnecessary Medications: None Bowel Regimen: 9) Senna, PEG, prn bisacodyl. Continue to monitor prn mediation use, for constipation/diarrhea. Date of Note:: 11/02/18 - Provider Comments Provider responsibility: Provider responsible to enter orders to implement recommendations <Victorino,Ant Chi - Last Filed: 11/02/18 17:04> Progress Note - Pharmacy Subjective: [] Objective: Allergies acetaminophen [From Percocet] Allergy (Verified 10/27/18 15:53) Rash codeine Allergy (Verified 10/27/18 15:53) Hives hydrocodone Allergy (Verified 10/27/18 15:53) Hives hydromorphone HCl [From Dilaudid] Allergy (Verified 10/27/18 15:53) Itching oxycodone [From Percocet] Allergy (Verified 10/27/18 15:53) Rash atorvastatin [From Lipitor] Adverse Reaction (Severe, Verified 10/27/18 15:53) RHABDOMYALYSIS Current Medications Generic Name Dose Route Start Last Admin Trade Name Freq PRN Reason Stop Dose Admin Albuterol Sulfate 2.5 mg 10/30/18 14:00 Ventolin Aerosols INHALATION Q2H PRN PRN Shortness of breath, wheezing Albuterol Sulfate 2 puff 11/02/18 07:45 11/02/18 10:46 Ventolin Hfa (Sp) INHALATION 2 puff Q4H PRN PRN Administration sob/wheezing Alprazolam 0.5 mg 10/30/18 14:00 11/01/18 23:19 Xanax PO 0.5 mg TID PRN Administration ANXIETY Amlodipine Besylate 10 mg 10/31/18 06:00 11/02/18 05:28 Norvasc PO 10 mg DAILY [facility] Administration Bisacodyl 10 mg 10/30/18 14:00 Dulcolax RECTAL DAILY PRN PRN Constipation Calamine/Phenol 1 applic 10/30/18 22:00 11/02/18 05:25 Calmoseptine Ointment TOPICAL 1 applicatio 0600,2200 [facility] Administration Protocol Insulin Glargine 25 units 11/02/18 16:30 11/02/18 08:29 Lantus (Bk) SC 25 u BIDAC [facility] Administration Insulin Human Lispro 17 unit 11/02/18 11:45 11/02/18 11:31 Humalog Kwikpen (Bk) SC 17 u TIDAC [facility] Administration Levothyroxine Sodium 300 mcg 10/31/18 06:00 11/02/18 05:27 Synthroid PO 300 mcg DAILY [facility] Administration Methylprednisolone 4 mg 10/30/18 17:00 11/02/18 11:29 Medrol Dosepak PO 11/04/18 08:59 4 mg 0800,1200,2200 [facility] Administration Taper Morphine Sulfate 5 mg 10/30/18 21:22 11/02/18 13:49 Roxanol (Ir Oral Solution) PO 5 mg Q4H PRN PRN Administration SEVERE PAIN (6-10/10) Nutritional Formula (Lactose Free) 120 ml 11/02/18 12:00 11/02/18 11:29 Ensure Enlive PO Not Given 4X/DAY [facility] Pantoprazole Sodium 40 mg 10/30/18 18:00 11/02/18 05:27 Protonix PO 40 mg BID [facility] Administration Polyethylene Glycol 17 gm 10/31/18 06:00 11/02/18 05:26 Miralax PO Not Given DAILY [facility] Polysaccharide Iron Complex 150 mg 10/31/18 08:00 11/02/18 08:24 Ferrex 150 PO 150 mg DAILYCM [facility] Administration Pregabalin 100 mg 10/30/18 18:00 11/02/18 05:25 Lyrica PO 100 mg BID [facility] Administration Promethazine HCl 25 mg 10/30/18 14:00 Phenergan Tablet PO TID PRN NAUSEA Rifaximin 550 mg 10/30/18 18:00 11/02/18 05:27 Xifaxan PO 550 mg BID [facility] Administration Senna 1 tablet 10/30/18 18:00 11/02/18 05:28 Senokot PO 1 tablet BID [facility] Administration Sertraline HCl 100 mg 10/31/18 06:00 11/02/18 05:28 Zoloft PO 100 mg DAILY [facility] Administration Tamsulosin HCl 0.4 mg 10/31/18 08:30 11/02/18 08:24 Flomax PO 0.4 mg DAILY@0830 [facility] Administration Tuberculin PPD 5 tu 11/07/18 10:00 Tubersol, Aplisol, Ppd ID 11/07/18 10:01 X1 ONE Problem List TIA (transient ischemic attack) (Acute) Left hemiparesis (Acute) Neuropathy of left peroneal nerve (Acute) Chronic kidney disease (Chronic) Alcohol dependence (Chronic) Benzodiazepine dependence (Chronic) Opioid dependence (Chronic) Diabetic polyneuropathy (Chronic) Depression (Chronic) PAOD (peripheral arterial occlusive disease) (Chronic) Vital Signs Temp Pulse Resp BP Pulse Ox 97.7 F L 69 18 139/68 H 92 11/02/18 15:38 11/02/18 15:38 11/02/18 15:38 11/02/18 15:38 11/02/18 15:38 Oxygen Delivery Method Room Air Weight: 75.7 kg Body Mass Index (BMI) 23.9 Finger Stick Blood Glucose 310 Sodium 137 mmol/L (136-145) 10/31/18 06:53 Potassium 4.1 mmol/L (3.5-5.1) 10/31/18 06:53 Chloride 107 mmol/L (98-107) 10/31/18 06:53 Carbon Dioxide 25.0 mmol/L (21.0-32.0) 10/31/18 06:53 Anion Gap 5 (5-15) 10/31/18 06:53 BUN 28 mg/dL (7-18) H 10/31/18 06:53 Creatinine 1.33 mg/dL (0.70-1.30) H 10/31/18 06:53 Est GFR (MDRD) Af Amer 69 mL/min (>60) 10/31/18 06:53 Est GFR (MDRD) Non-Af 57 mL/min (>60) L 10/31/18 06:53 BUN/Creatinine Ratio 21.1 RATIO (10-20) H 10/31/18 06:53 Glucose 184 mg/dL (74-106) H 10/31/18 06:53 Assessment/Plan: Psychotropic Medications: Unnecessary Medications: Bowel Regimen: - Provider Comments Provider responsibility: Provider responsible to enter orders to implement recommendations Provider Comments to Recommendations by Pharmacy: Agree
[2018-11-02 10:55] LABS: Bedside Glucose 287 mg/dL (70-110)
--- NOTE | 2018-11-02 10:56 | PHA.CONS_ITS ---
<Darshan Lopez D - Last Filed: 11/02/18 10:45> Progress Note - Pharmacy Subjective: TCU Admission Objective: Allergies acetaminophen [From Percocet] Allergy (Verified 10/27/18 15:53) Rash codeine Allergy (Verified 10/27/18 15:53) Hives hydrocodone Allergy (Verified 10/27/18 15:53) Hives hydromorphone HCl [From Dilaudid] Allergy (Verified 10/27/18 15:53) Itching oxycodone [From Percocet] Allergy (Verified 10/27/18 15:53) Rash atorvastatin [From Lipitor] Adverse Reaction (Severe, Verified 10/27/18 15:53) RHABDOMYALYSIS Current Medications Generic Name Dose Route Start Last Admin Trade Name Freq PRN Reason Stop Dose Admin Albuterol Sulfate 2.5 mg 10/30/18 14:00 Ventolin Aerosols INHALATION Q2H PRN PRN Shortness of breath, wheezing Albuterol Sulfate 2 puff 11/02/18 07:45 Ventolin Hfa (Sp) INHALATION Q4H PRN PRN sob/wheezing Alprazolam 0.5 mg 10/30/18 14:00 11/01/18 23:19 Xanax PO 0.5 mg TID PRN Administration ANXIETY Amlodipine Besylate 10 mg 10/31/18 06:00 11/02/18 05:28 Norvasc PO 10 mg DAILY [facility] Administration Bisacodyl 10 mg 10/30/18 14:00 Dulcolax RECTAL DAILY PRN PRN Constipation Calamine/Phenol 1 applic 10/30/18 22:00 11/02/18 05:25 Calmoseptine Ointment TOPICAL 1 applicatio 0600,2200 [facility] Administration Protocol Insulin Glargine 25 units 11/02/18 16:30 11/02/18 08:29 Lantus (Bk) SC 25 u BIDAC [facility] Administration Insulin Human Lispro 17 unit 11/02/18 11:45 Humalog Kwikpen ([facility]) SC TIDAC [facility] Levothyroxine Sodium 300 mcg 10/31/18 06:00 11/02/18 05:27 Synthroid PO 300 mcg DAILY [facility] Administration Methylprednisolone 4 mg 10/30/18 17:00 11/02/18 08:23 Medrol Dosepak PO 11/04/18 08:59 4 mg 0800,1200,2200 [facility] Administration Taper Morphine Sulfate 5 mg 10/30/18 21:22 11/02/18 09:45 Roxanol (Ir Oral Solution) PO 5 mg Q4H PRN PRN Administration SEVERE PAIN (6-10/10) Pantoprazole Sodium 40 mg 10/30/18 18:00 11/02/18 05:27 Protonix PO 40 mg BID [facility] Administration Polyethylene Glycol 17 gm 10/31/18 06:00 11/02/18 05:26 Miralax PO Not Given DAILY [facility] Polysaccharide Iron Complex 150 mg 10/31/18 08:00 11/02/18 08:24 Ferrex 150 PO 150 mg DAILYCM [facility] Administration Pregabalin 100 mg 10/30/18 18:00 11/02/18 05:25 Lyrica PO 100 mg BID [facility] Administration Promethazine HCl 25 mg 10/30/18 14:00 Phenergan Tablet PO TID PRN NAUSEA Rifaximin 550 mg 10/30/18 18:00 11/02/18 05:27 Xifaxan PO 550 mg BID [facility] Administration Senna 1 tablet 10/30/18 18:00 11/02/18 05:28 Senokot PO 1 tablet BID [facility] Administration Sertraline HCl 100 mg 10/31/18 06:00 11/02/18 05:28 Zoloft PO 100 mg DAILY [facility] Administration Tamsulosin HCl 0.4 mg 10/31/18 08:30 11/02/18 08:24 Flomax PO 0.4 mg DAILY@0830 [facility] Administration Tuberculin PPD 5 tu 11/07/18 10:00 Tubersol, Aplisol, Ppd ID 11/07/18 10:01 X1 ONE Problem List TIA (transient ischemic attack) (Acute) Left hemiparesis (Acute) Neuropathy of left peroneal nerve (Acute) Chronic kidney disease (Chronic) Alcohol dependence (Chronic) Benzodiazepine dependence (Chronic) Opioid dependence (Chronic) Diabetic polyneuropathy (Chronic) Depression (Chronic) PAOD (peripheral arterial occlusive disease) (Chronic) Vital Signs Temp Pulse Resp BP Pulse Ox 98.6 F 68 18 163/79 H 92 11/01/18 16:00 11/02/18 07:10 11/02/18 07:10 11/01/18 16:00 11/02/18 07:10 Oxygen Delivery Method Room Air Weight: 75.7 kg Body Mass Index (BMI) 23.9 Finger Stick Blood Glucose 310 Sodium 137 mmol/L (136-145) 10/31/18 06:53 Potassium 4.1 mmol/L (3.5-5.1) 10/31/18 06:53 Chloride 107 mmol/L (98-107) 10/31/18 06:53 Carbon Dioxide 25.0 mmol/L (21.0-32.0) 10/31/18 06:53 Anion Gap 5 (5-15) 10/31/18 06:53 BUN 28 mg/dL (7-18) H 10/31/18 06:53 Creatinine 1.33 mg/dL (0.70-1.30) H 10/31/18 06:53 Est GFR (MDRD) Af Amer 69 mL/min (>60) 10/31/18 06:53 Est GFR (MDRD) Non-Af 57 mL/min (>60) L 10/31/18 06:53 BUN/Creatinine Ratio 21.1 RATIO (10-20) H 10/31/18 06:53 Glucose 184 mg/dL (74-106) H 10/31/18 06:53 Assessment/Plan: 1) Pain Pregabalin, methylprednisolone, morphine for severe pain. Continue to monitor daily pain scores, prn medication use. 2) HTN Amlodipine. Continue to monitor BP/HR. 3) DM2 Insulin glargine, lispro with meals. Continue to monitor BGT, s/s h yper/hypoglycemia. 4) Tamsulosin. Continue to monitor for urinary symptoms. 5) GI Pantoprazole, promethazine for nausea. Continue to monitor prn medication use, s/s GI distress. 6) Hypothyroidism Levothyroxine. Continue to monitor s/s hyper/hypothyroidism. 7) Encephalopathy Rifaximin. Continue to monitor clinically. Psychotropic Medications: 8) Depression/Anxiety Sertraline, alprazolam prn. Continue to monitor s/s depression/anxiety, prn medication use. Unnecessary Medications: None Bowel Regimen: 9) Senna, PEG, prn bisacodyl. Continue to monitor prn mediation use, for constipation/diarrhea. Date of Note:: 11/02/18 - Provider Comments Provider responsibility: Provider responsible to enter orders to implement recommendations <Victorino,Ant Chi - Last Filed: 11/02/18 17:04> Progress Note - Pharmacy Subjective: [] Objective: Allergies acetaminophen [From Percocet] Allergy (Verified 10/27/18 15:53) Rash codeine Allergy (Verified 10/27/18 15:53) Hives hydrocodone Allergy (Verified 10/27/18 15:53) Hives hydromorphone HCl [From Dilaudid] Allergy (Verified 10/27/18 15:53) Itching oxycodone [From Percocet] Allergy (Verified 10/27/18 15:53) Rash atorvastatin [From Lipitor] Adverse Reaction (Severe, Verified 10/27/18 15:53) RHABDOMYALYSIS Current Medications Generic Name Dose Route Start Last Admin Trade Name Freq PRN Reason Stop Dose Admin Albuterol Sulfate 2.5 mg 10/30/18 14:00 Ventolin Aerosols INHALATION Q2H PRN PRN Shortness of breath, wheezing Albuterol Sulfate 2 puff 11/02/18 07:45 11/02/18 10:46 Ventolin Hfa (Sp) INHALATION 2 puff Q4H PRN PRN Administration sob/wheezing Alprazolam 0.5 mg 10/30/18 14:00 11/01/18 23:19 Xanax PO 0.5 mg TID PRN Administration ANXIETY Amlodipine Besylate 10 mg 10/31/18 06:00 11/02/18 05:28 Norvasc PO 10 mg DAILY [facility] Administration Bisacodyl 10 mg 10/30/18 14:00 Dulcolax RECTAL DAILY PRN PRN Constipation Calamine/Phenol 1 applic 10/30/18 22:00 11/02/18 05:25 Calmoseptine Ointment TOPICAL 1 applicatio 0600,2200 [facility] Administration Protocol Insulin Glargine 25 units 11/02/18 16:30 11/02/18 08:29 Lantus (Bk) SC 25 u BIDAC [facility] Administration Insulin Human Lispro 17 unit 11/02/18 11:45 11/02/18 11:31 Humalog Kwikpen (Bk) SC 17 u TIDAC [facility] Administration Levothyroxine Sodium 300 mcg 10/31/18 06:00 11/02/18 05:27 Synthroid PO 300 mcg DAILY [facility] Administration Methylprednisolone 4 mg 10/30/18 17:00 11/02/18 11:29 Medrol Dosepak PO 11/04/18 08:59 4 mg 0800,1200,2200 [facility] Administration Taper Morphine Sulfate 5 mg 10/30/18 21:22 11/02/18 13:49 Roxanol (Ir Oral Solution) PO 5 mg Q4H PRN PRN Administration SEVERE PAIN (6-10/10) Nutritional Formula (Lactose Free) 120 ml 11/02/18 12:00 11/02/18 11:29 Ensure Enlive PO Not Given 4X/DAY [facility] Pantoprazole Sodium 40 mg 10/30/18 18:00 11/02/18 05:27 Protonix PO 40 mg BID [facility] Administration Polyethylene Glycol 17 gm 10/31/18 06:00 11/02/18 05:26 Miralax PO Not Given DAILY [facility] Polysaccharide Iron Complex 150 mg 10/31/18 08:00 11/02/18 08:24 [facility] Pregabalin 100 mg 10/30/18 18:00 11/02/18 05:25 Lyrica PO 100 mg BID [facility] Administration Promethazine HCl 25 mg 10/30/18 14:00 Phenergan Tablet PO TID PRN NAUSEA Rifaximin 550 mg 10/30/18 18:00 11/02/18 05:27 Xifaxan PO 550 mg BID [facility] Administration Senna 1 tablet 10/30/18 18:00 11/02/18 05:28 Senokot PO 1 tablet BID [facility] Administration Sertraline HCl 100 mg 10/31/18 06:00 11/02/18 05:28 Zoloft PO 100 mg DAILY [facility] Administration Tamsulosin HCl 0.4 mg 10/31/18 08:30 11/02/18 08:24 Flomax PO 0.4 mg DAILY@0830 [facility] Administration Tuberculin PPD 5 tu 11/07/18 10:00 Tubersol, Aplisol, Ppd ID 11/07/18 10:01 X1 ONE Problem List TIA (transient ischemic attack) (Acute) Left hemiparesis (Acute) Neuropathy of left peroneal nerve (Acute) Chronic kidney disease (Chronic) Alcohol dependence (Chronic) Benzodiazepine dependence (Chronic) Opioid dependence (Chronic) Diabetic polyneuropathy (Chronic) Depression (Chronic) PAOD (peripheral arterial occlusive disease) (Chronic) Vital Signs Temp Pulse Resp BP Pulse Ox 97.7 F L 69 18 139/68 H 92 11/02/18 15:38 11/02/18 15:38 11/02/18 15:38 11/02/18 15:38 11/02/18 15:38 Oxygen Delivery Method Room Air Weight: 75.7 kg Body Mass Index (BMI) 23.9 Finger Stick Blood Glucose 310 Sodium 137 mmol/L (136-145) 10/31/18 06:53 Potassium 4.1 mmol/L (3.5-5.1) 10/31/18 06:53 Chloride 107 mmol/L (98-107) 10/31/18 06:53 Carbon Dioxide 25.0 mmol/L (21.0-32.0) 10/31/18 06:53 Anion Gap 5 (5-15) 10/31/18 06:53 BUN 28 mg/dL (7-18) H 10/31/18 06:53 Creatinine 1.33 mg/dL (0.70-1.30) H 10/31/18 06:53 Est GFR (MDRD) Af Amer 69 mL/min (>60) 10/31/18 06:53 Est GFR (MDRD) Non-Af 57 mL/min (>60) L 10/31/18 06:53 BUN/Creatinine Ratio 21.1 RATIO (10-20) H 10/31/18 06:53 Glucose 184 mg/dL (74-106) H 10/31/18 06:53 Assessment/Plan: Psychotropic Medications: Unnecessary Medications: Bowel Regimen: - Provider Comments Provider responsibility: Provider responsible to enter orders to implement recommendations Provider Comments to Recommendations by Pharmacy: Agree
--- NOTE | 2018-11-02 10:59 | NURSING ---
MEPILEX CHANGED TO PT LEFT HEEL AND BOTTOM. BANDAID TO LEFT KNEE. REPORTED TO VAALRIE ESPINOZA
[2018-11-02] MEDS: Insulin Lispro 100 UNIT/ML INSULN.PEN 17 UNIT SC ×2 (11:31→17:50)
[2018-11-02 13:40] VITALS: PULSE 76; RESP 18; O2SAT 92
[2018-11-02 15:38] VITALS: BP 139/68; PULSE 69; RESP 18; TEMP 36.5; O2SAT 92
--- NOTE | 2018-11-02 16:25 | CHAPLAIN ---
Type of Pastoral Visit _x__ Initial Visit ___ Follow-up Visit ___ On-call Visit ___ General Patient Visit ___ Spiritual Assessment ___ Family Conference ___ Bereavement ___ Rapid Response ___ Code Blue ___ Other (describe below) Pastoral Care Referral From _x__ Patient ___ Family ___ Nurse ___ Physician ___ Management Services Technician ___ Erp Business Analyst ___ Other (describe below) Sacrament/Intervention _x__ Active listening ___ Anointing ___ Mandaen ___ Bereavement ___ Communion _x__ Amber exploration ___ ___ Life review _x__ Prayer ___ Reconciliation ___ Sacrament of Sick ___ Supportive presence ___ Wedding ___ Other (describe below) Pastoral Comments
[2018-11-02 17:46] LABS: Bedside Glucose 170 mg/dL (70-110)
[2018-11-02 21:01] LABS: Bedside Glucose 163 mg/dL (70-110)
[2018-11-03] MEDS: ALPRAZolam 0.5 MG Tablet PO ×2 (00:14→20:58)
[2018-11-03] MEDS: Pregabalin 50 MG Capsule 100 MG PO ×2 (06:02→17:44)
[2018-11-03] MEDS: amLODIPine 10 MG Tablet PO (06:03)
[2018-11-03] MEDS: Senna Tablet 1 TABLET PO ×2 (06:03→17:44)
[2018-11-03] MEDS: Pantoprazole Sodium 40 MG Tablet PO ×2 (06:03→17:44)
[2018-11-03] MEDS: Sertraline 100 MG Tablet PO (06:03)
[2018-11-03] MEDS: rifAXIMin 550 MG Tablet PO ×2 (06:03→17:50)
[2018-11-03] MEDS: Levothyroxine 100 MCG Tablet 300 MCG PO (06:03)
[2018-11-03] MEDS: Menthol/Lanolin/Calamine/Znox 113 GM Tube 1 APPLIC TOPICAL ×2 (06:04→20:53)
[2018-11-03 06:46] LABS: Bedside Glucose 117 mg/dL (70-110)
[2018-11-03] MEDS: Insulin Lispro 100 UNIT/ML INSULN.PEN 13 UNIT SC ×3 (08:50→17:46)
[2018-11-03] MEDS: MethylPREDNISolone DosePak 4 MG BOX PO ×2 (08:53→20:54)
[2018-11-03] MEDS: Tamsulosin HCl 0.4 MG Capsule PO (08:53)
[2018-11-03] MEDS: Iron Polysaccharide Complex 150 MG CAPSULE PO (08:53)
[2018-11-03] MEDS: morphine (oral solution) 10MG/0.5ML Syringe 5 MG PO ×2 (09:35→14:08)
[2018-11-03 10:55] LABS: Bedside Glucose 138 mg/dL (70-110)
[2018-11-03 16:00] VITALS: BP 144/71; PULSE 72; RESP 18; TEMP 36.7; O2SAT 93
[2018-11-03 16:51] LABS: Bedside Glucose 139 mg/dL (70-110)
[2018-11-03 20:15] LABS: Bedside Glucose 60 mg/dL (70-110)
--- NOTE | 2018-11-03 20:29 | NURSING ---
Addendum entered by Shirley Woods 11/03/18 21:43: BS rechecked 84 pt states, feeling better. 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 Stated felt jittering and starving and I usually feel like this when my blood sugar low. INSURANCE COUNSELOR checked BS 60 given protein to eat and will recheck. INSURANCE COUNSELOR notified this nurse.
[2018-11-03 20:41] LABS: Bedside Glucose 84 mg/dL (70-110)
[2018-11-03 21:00] VITALS: PULSE 72; RESP 18; O2SAT 96
[2018-11-04 02:21] LABS: Bedside Glucose 212 mg/dL (70-110)
[2018-11-04] MEDS: rifAXIMin 550 MG Tablet PO ×2 (04:59→17:03)
[2018-11-04] MEDS: Pregabalin 50 MG Capsule 100 MG PO ×2 (04:59→17:03)
[2018-11-04] MEDS: Menthol/Lanolin/Calamine/Znox 113 GM Tube 1 APPLIC TOPICAL ×2 (04:59→20:11)
[2018-11-04] MEDS: Senna Tablet 1 TABLET PO (05:00)
[2018-11-04] MEDS: Levothyroxine 100 MCG Tablet 300 MCG PO (05:00)
[2018-11-04] MEDS: Sertraline 100 MG Tablet PO (05:00)
[2018-11-04] MEDS: amLODIPine 10 MG Tablet PO (05:00)
[2018-11-04] MEDS: Pantoprazole Sodium 40 MG Tablet PO ×2 (05:00→17:03)
[2018-11-04 07:00] LABS: Bedside Glucose 209 mg/dL (70-110)
[2018-11-04] MEDS: MethylPREDNISolone DosePak 4 MG BOX PO (08:45)
[2018-11-04] MEDS: Iron Polysaccharide Complex 150 MG CAPSULE PO (08:45)
[2018-11-04] MEDS: Tamsulosin HCl 0.4 MG Capsule PO (08:46)
--- NOTE | 2018-11-04 10:30 | CASEMGMT ---
Social Work Plan of care meeting held today with pt and present. Pt is receiving PT/OT and progressing. Pt continues to required Mod A x2 for transfers, ambulation and toileting. PT lives at home with his and plans to return there upon d/c. Pt uses a wheelchair in the home for mobility however, pt and stating chair was purchased in 2003 and is falling apart. SW will work with therapy and family to order pt new and appropriate wheelchair at time of d/c. Pt stating he would like to complete HCPOA while here. SW will follow up. No d/c date set at this time. Pt and notified that insurance update is due 11/06 and continued stay is not guaranteed. Will continue with treatment plan at this time. LEANA Saleem
[2018-11-04 11:35] LABS: Bedside Glucose 254 mg/dL (70-110)
--- NOTE | 2018-11-04 15:07 | NURSING ---
wound photo: left heel
[2018-11-04 15:33] VITALS: BP 126/59; PULSE 60; RESP 14; TEMP 36.5; O2SAT 91
[2018-11-04 16:56] LABS: Bedside Glucose 235 mg/dL (70-110)
[2018-11-04] MEDS: morphine (oral solution) 10MG/0.5ML Syringe 5 MG PO (20:11)
[2018-11-04 20:40] VITALS: PULSE 70; RESP 18; O2SAT 93
[2018-11-04] MEDS: Albuterol 2.5 MG/3 ML VIAL.NEB. INHALATION (20:40)
[2018-11-04 21:11] LABS: Bedside Glucose 284 mg/dL (70-110)
[2018-11-04 22:10] VITALS: PULSE 76; RESP 16; O2SAT 97
[2018-11-04] MEDS: ALPRAZolam 0.5 MG Tablet PO (23:36)
[2018-11-05] MEDS: morphine (oral solution) 10MG/0.5ML Syringe 5 MG PO ×2 (01:18→11:12)
[2018-11-05] MEDS: Senna Tablet 1 TABLET PO ×2 (05:55→17:27)
[2018-11-05] MEDS: Pregabalin 50 MG Capsule 100 MG PO ×2 (05:55→17:26)
[2018-11-05] MEDS: Levothyroxine 100 MCG Tablet 300 MCG PO (05:56)
[2018-11-05] MEDS: rifAXIMin 550 MG Tablet PO ×2 (05:56→17:27)
[2018-11-05] MEDS: Pantoprazole Sodium 40 MG Tablet PO ×2 (05:56→17:27)
[2018-11-05] MEDS: amLODIPine 10 MG Tablet PO (05:56)
[2018-11-05] MEDS: Sertraline 100 MG Tablet PO (05:58)
[2018-11-05] MEDS: Menthol/Lanolin/Calamine/Znox 113 GM Tube 1 APPLIC TOPICAL ×2 (05:59→20:09)
[2018-11-05 06:46] LABS: Bedside Glucose 189 mg/dL (70-110)
[2018-11-05] MEDS: Tamsulosin HCl 0.4 MG Capsule PO (08:13)
[2018-11-05] MEDS: Iron Polysaccharide Complex 150 MG CAPSULE PO (08:13)
[2018-11-05 10:00] VITALS: PULSE 70; RESP 18; O2SAT 95
[2018-11-05 11:11] LABS: Bedside Glucose 229 mg/dL (70-110)
[2018-11-05 15:51] VITALS: BP 128/63; PULSE 63; RESP 16; TEMP 36.6; O2SAT 92
[2018-11-05 17:31] LABS: Bedside Glucose 275 mg/dL (70-110)
[2018-11-05 21:16] LABS: Bedside Glucose 164 mg/dL (70-110)
[2018-11-06] MEDS: Menthol/Lanolin/Calamine/Znox 113 GM Tube 1 APPLIC TOPICAL ×2 (05:17→20:08)
[2018-11-06] MEDS: Pregabalin 50 MG Capsule 100 MG PO ×2 (05:17→18:03)
[2018-11-06] MEDS: Sertraline 100 MG Tablet PO (05:17)
[2018-11-06] MEDS: Pantoprazole Sodium 40 MG Tablet PO ×2 (05:18→18:02)
[2018-11-06] MEDS: Senna Tablet 1 TABLET PO ×2 (05:18→18:02)
[2018-11-06] MEDS: amLODIPine 10 MG Tablet PO (05:18)
[2018-11-06] MEDS: Levothyroxine 100 MCG Tablet 300 MCG PO (05:18)
[2018-11-06] MEDS: rifAXIMin 550 MG Tablet PO ×2 (05:20→18:02)
[2018-11-06 06:26] LABS: Bedside Glucose 203 mg/dL (70-110)
[2018-11-06] MEDS: Tamsulosin HCl 0.4 MG Capsule PO (08:21)
[2018-11-06] MEDS: Iron Polysaccharide Complex 150 MG CAPSULE PO (08:21)
[2018-11-06] MEDS: Acetaminophen 500 MG Tablet 1000 MG PO ×2 (08:53→20:14)
[2018-11-06] MEDS: traMADol 50 MG Tablet PO ×2 (08:54→20:14)
--- NOTE | 2018-11-06 09:54 | NURSING ---
NEW MEPILEX TO BOTTOM APPLIED BY THIS NURSE.
[2018-11-06 10:51] LABS: Bedside Glucose 207 mg/dL (70-110)
--- NOTE | 2018-11-06 12:04 | CASEMGMT ---
Insurance Clinical update faxed. Will await continued stay determination. Auth# [id number] LEANA Saleem
[2018-11-06 14:30] VITALS: PULSE 63; RESP 18; O2SAT 95
--- NOTE | 2018-11-06 14:38 | NURSING ---
Sertaline increased to 150mg.
--- NOTE | 2018-11-06 14:54 | CASEMGMT ---
Social Work SW met with pt in the room and completed the PHQ9. Pt stating he is depressed and this is mainly related to his debility and loss of function and independence. Pt was open to talking with SW and expressed feelings regarding family and home situation. Pt indicated that he has thought of suicide but denies intent. SW encouraged verbalization of feelings. Pt has seen a counselor in the past with his and states he had been taking anti depressant at home. Pt inquiring if he is still getting this medication. SW spoke with physician about anti depressant and inforrmed of pts feelings of depression. Discussed with pt advance directives. Explained both living will and health care POA. Pt stating that he is interested in completing the documents but would like time to think about it. Card with AD information provided to pt and SW will followup with pt at a later time. SW will continue to follow for support. LEANA Saleem
[2018-11-06 16:00] VITALS: BP 143/66; PULSE 59; RESP 16; TEMP 36.8; O2SAT 91
--- NOTE | 2018-11-06 16:06 | NURSING ---
Patient with rhonchi to BL lung silverio, reports moist, productive cough with brown sputum. Dr. Gleason updated, NO for CXR, duonebs 3mL [id number] routinely, sputum culture and Zpack.
[2018-11-06 16:40] LABS: Bedside Glucose 257 mg/dL (70-110)
[2018-11-06] MEDS: Azithromycin 250 MG Tablet 500 MG PO (16:44)
--- NOTE | 2018-11-06 17:01 | RAD_ITS ---
STUDY: X-RAY CHEST REASON FOR EXAM: Male, 63 years old. Cough. TECHNIQUE: PA and lateral views of the chest. COMPARISON: October 27, 2018. FINDINGS: The lungs are clear and expanded. There is no demonstrated pleural abnormality. Normal size heart. Normal mediastinum and douglas. Normal visualized pulmonary arteries. Normal visualized aortic arch and descending thoracic aorta. There are diffuse degenerative changes of the visualized thoracic spine. There is degenerative osteoarthritis of the bilateral shoulders. There is no demonstrated abnormality of the visualized soft tissue structures of the upper abdomen. RAD/Chest PA and Lateral IMPRESSION: No acute cardiopulmonary disease or interval change. Electronically Signed: Chuck Friedman DO at 17:49 EDT Tel [phone], Service support ,
[2018-11-06] MEDS: Cefdinir 300 MG Capsule PO (18:02)
[2018-11-06 19:07] VITALS: PULSE 68; RESP 15
[2018-11-06] MEDS: Ipratropium/Albuterol Sulfate 3 ML AMPUL.NEB INHALATION (19:07)
[2018-11-06 22:11] LABS: Bedside Glucose 201 mg/dL (70-110)
[2018-11-06] MEDS: ALPRAZolam 0.5 MG Tablet PO (23:55)
[2018-11-07] MEDS: Pregabalin 50 MG Capsule 100 MG PO ×2 (05:37→17:10)
[2018-11-07] MEDS: Menthol/Lanolin/Calamine/Znox 113 GM Tube 1 APPLIC TOPICAL ×2 (05:38→20:11)
[2018-11-07] MEDS: Cefdinir 300 MG Capsule PO ×2 (05:39→17:10)
[2018-11-07] MEDS: Senna Tablet 1 TABLET PO ×2 (05:39→17:10)
[2018-11-07] MEDS: Pantoprazole Sodium 40 MG Tablet PO ×2 (05:39→17:10)
[2018-11-07] MEDS: Sertraline 100 MG Tablet 150 MG PO (05:40)
[2018-11-07] MEDS: Levothyroxine 100 MCG Tablet 300 MCG PO (05:41)
[2018-11-07] MEDS: amLODIPine 10 MG Tablet PO (05:41)
[2018-11-07] MEDS: rifAXIMin 550 MG Tablet PO ×2 (05:41→17:10)
[2018-11-07 06:02] LABS: Absolute Lymphocyte Count 0.65 X10^3/ul (0.83-4.51); Absolute Neutrophil Count 2.4 X10^3/uL (2.0-7.7); Basophil# 0.02 X10^3/uL; Basophil% 0.5 % (0-1); Eosinophil# 0.23 X10^3/uL; Eosinophils% 6.1 % (0-5); Hematocrit 36.2 % (40-54); Lymphocyte # 0.65 X10^3/ul (4.0); Lymphocyte % 17.2 % (19-41); Mean Corp Hgb Conc 33.1 g/gl (32-36); Mean Corpuscular Hgb 31.9 pg (27.0-32.0); Mean Corpuscular Volume 96.3 fL (80-94); Mean Platelet Vol. 11.1 fl (6.2-12.0); Monocyte# 0.45 X10^3/uL; Monocyte% 11.9 % (0-10); Neutrophil % 63.5 % (47-70); Platelet Count 82 K/mm3 (150-450); RBC Distribution Width CV 14.7 % (11.6-14.6); RBC Distribution Width SD 49.3 fl (35.1-43.9); Red Blood Count 3.76 M/mm3 (4.6-6.2); White Blood Count 3.8 K/mm3 (4.4-11.0)
[2018-11-07 06:03] LABS: POSITIVE COUNT NO; POSITIVE DIFFERENTIAL NO; POSITIVE MORPHOLOGY NO
[2018-11-07 06:34] LABS: Anion Gap 5 (5-15); BUN 44 mg/dL (7-18); BUN/Creat Ratio 30.1 RATIO (10-20); Calcium,Total 8.4 mg/dL (8.5-10.1); Chloride 111 mmol/L (98-107); Creatinine, Serum 1.46 mg/dL (0.70-1.30); EST Glomerular Filtration Rate 52 mL/min (>60); Est Glom Filt Rate - Afr Amer 62 mL/min (>60); Estimated Creatinine Clearance 52.78 ml/min; Glucose 189 mg/dL (74-106); Potassium 4.1 mmol/L (3.5-5.1); Sodium Level 142 mmol/L (136-145)
[2018-11-07 06:35] VITALS: PULSE 60; RESP 18; O2SAT 93
[2018-11-07] MEDS: Ipratropium/Albuterol Sulfate 3 ML AMPUL.NEB INHALATION (06:35)
[2018-11-07 06:45] LABS: Bedside Glucose 198 mg/dL (70-110)
[2018-11-07] MEDS: Tamsulosin HCl 0.4 MG Capsule PO (08:19)
[2018-11-07] MEDS: Iron Polysaccharide Complex 150 MG CAPSULE PO (08:19)
[2018-11-07] MEDS: Azithromycin 250 MG Tablet PO (09:42)
[2018-11-07] MEDS: Tuberculin,Purif.prot.deriv. 50 TU/ML Vial 5 ML ID (10:38)
[2018-11-07 10:46] LABS: Bedside Glucose 313 mg/dL (70-110)
[2018-11-07] MEDS: traMADol 50 MG Tablet PO (15:09)
[2018-11-07] MEDS: Acetaminophen 500 MG Tablet 1000 MG PO (15:11)
[2018-11-07 15:34] VITALS: BP 132/69; PULSE 63; RESP 16; TEMP 36.4; O2SAT 93
[2018-11-07 17:00] LABS: Bedside Glucose 245 mg/dL (70-110)
[2018-11-07 20:00] VITALS: PULSE 66; RESP 18; O2SAT 95
--- NOTE | 2018-11-07 20:38 | NURSING ---
Addendum entered by Christiane Burris 11/07/18 20:44: Also to consult Dr. Dent if pt would like. Pt updated on all. Pt stating does not want to see Jaielne d/t using him in the past with no relief. Pt stating he is suppose to set up an appt with Dr. Brower. Original Note: Pt requesting to have Roxanol back for a pain level of 7/[address] Gleason updated. New order for Baclofen 10mg TID. Toradol 60mg IM x1 and Noflex 60mg IM x1.
[2018-11-07] MEDS: Baclofen 10 MG Tablet PO (20:58)
[2018-11-07] MEDS: Ketorolac 60 MG/2 ML Vial IM (20:59)
[2018-11-07] MEDS: Orphenadrine 60 MG/2 ML Ampul IM (21:03)
--- NOTE | 2018-11-07 21:05 | NURSING ---
Patient requesting something stronger for pain. States ultram doesn't work unless I take tylenol with it and that doesn't help much. Same reported to Padilla SHEPPARD. Dr Gleason notified and orders received. Patient given Toradol 60 IM Lot [id number] exp 02/2020 and Norlfex 60 IM lot [id number] exp 06/2020. Will cont to monitor. Patient thought Dr would order morphine. Advised patient to let meds work and we will cont to monitor.
[2018-11-07 21:40] LABS: Bedside Glucose 223 mg/dL (70-110)
[2018-11-08] MEDS: Pregabalin 50 MG Capsule 100 MG PO ×2 (05:35→17:00)
[2018-11-08] MEDS: Menthol/Lanolin/Calamine/Znox 113 GM Tube 1 APPLIC TOPICAL ×2 (05:35→20:32)
[2018-11-08] MEDS: Baclofen 10 MG Tablet PO ×3 (05:36→20:32)
[2018-11-08] MEDS: Senna Tablet 1 TABLET PO ×2 (05:37→17:00)
[2018-11-08] MEDS: Levothyroxine 100 MCG Tablet 300 MCG PO (05:37)
[2018-11-08] MEDS: Sertraline 100 MG Tablet 150 MG PO (05:37)
[2018-11-08] MEDS: Pantoprazole Sodium 40 MG Tablet PO ×2 (05:38→17:00)
[2018-11-08] MEDS: rifAXIMin 550 MG Tablet PO ×2 (05:38→17:00)
[2018-11-08] MEDS: amLODIPine 10 MG Tablet PO (05:38)
[2018-11-08] MEDS: Cefdinir 300 MG Capsule PO ×2 (05:38→17:00)
[2018-11-08 06:56] LABS: Bedside Glucose 200 mg/dL (70-110)
--- NOTE | 2018-11-08 07:18 | NURSING ---
During assessment patient stated that I am seeing a floater in my right eye but my said it's no big deal. This nurse suggest he calls his eye Dr Hernandez at [facility]. When asked how long he has been seeing this floater Patient said O about a week. Will cont to monitor. Same reported to VALARIE Causey. Reminded patient to call eye center at first opportunity.
[2018-11-08] MEDS: Iron Polysaccharide Complex 150 MG CAPSULE PO (08:08)
[2018-11-08] MEDS: Tamsulosin HCl 0.4 MG Capsule PO (08:08)
[2018-11-08] MEDS: Azithromycin 250 MG Tablet PO (08:08)
[2018-11-08 10:51] LABS: Bedside Glucose 312 mg/dL (70-110)
--- NOTE | 2018-11-08 11:29 | NURSING ---
transfered pt from bed to BSC with slide board. Staff doing all work, very difficult. x3 assist to get pt back to bed with much difficulty as well. Pt changed to kaia for staff and pt safety. Pt unable to bear weight on LLE and he is not strong enough to assist with slide board.
[2018-11-08 12:35] VITALS: PULSE 68; RESP 16
[2018-11-08] MEDS: Ipratropium/Albuterol Sulfate 3 ML AMPUL.NEB INHALATION ×2 (12:35→20:04)
[2018-11-08 15:29] VITALS: BP 132/67; PULSE 78; RESP 16; TEMP 36.8; O2SAT 88
[2018-11-08 17:00] LABS: Bedside Glucose 229 mg/dL (70-110)
[2018-11-08 20:00] VITALS: PULSE 78; RESP 18; O2SAT 95
[2018-11-08 20:04] VITALS: PULSE 78; RESP 18; O2SAT 93
[2018-11-08 21:11] LABS: Bedside Glucose 249 mg/dL (70-110)
[2018-11-09] MEDS: ALPRAZolam 0.5 MG Tablet PO (02:38)
[2018-11-09] MEDS: Baclofen 10 MG Tablet PO ×2 (06:21→14:45)
[2018-11-09] MEDS: Pantoprazole Sodium 40 MG Tablet PO ×2 (06:21→17:57)
[2018-11-09] MEDS: Menthol/Lanolin/Calamine/Znox 113 GM Tube 1 APPLIC TOPICAL ×2 (06:21→20:08)
[2018-11-09] MEDS: Cefdinir 300 MG Capsule PO ×2 (06:22→17:57)
[2018-11-09] MEDS: Sertraline 100 MG Tablet 150 MG PO (06:22)
[2018-11-09] MEDS: Levothyroxine 100 MCG Tablet 300 MCG PO (06:23)
[2018-11-09] MEDS: Senna Tablet 1 TABLET PO ×2 (06:23→17:57)
[2018-11-09] MEDS: amLODIPine 10 MG Tablet PO (06:23)
[2018-11-09] MEDS: rifAXIMin 550 MG Tablet PO ×2 (06:23→17:57)
[2018-11-09] MEDS: Pregabalin 50 MG Capsule 100 MG PO ×2 (06:35→18:01)
[2018-11-09 06:36] LABS: Bedside Glucose 231 mg/dL (70-110)
[2018-11-09 07:00] VITALS: PULSE 68; RESP 18; O2SAT 96
[2018-11-09] MEDS: Insulin Lispro 100 UNIT/ML INSULN.PEN 10 UNIT SC ×3 (07:03→17:56)
[2018-11-09] MEDS: Tamsulosin HCl 0.4 MG Capsule PO (08:15)
[2018-11-09] MEDS: Iron Polysaccharide Complex 150 MG CAPSULE PO (08:15)
[2018-11-09] MEDS: Azithromycin 250 MG Tablet PO (09:21)
--- NOTE | 2018-11-09 10:06 | NURSING ---
PT SEEMS TO BE A LITTLE WEAKER TODAY AND ALSO TIRED. PT STATED HE DID NOT SLEEP WELL LAST NIGHT. REPORTED TO VALARIE ESPINOZA
[2018-11-09 11:00] LABS: Bedside Glucose 332 mg/dL (70-110)
[2018-11-09 15:39] VITALS: BP 156/73; PULSE 72; RESP 16; TEMP 36.7; O2SAT 93
[2018-11-09 17:01] LABS: Bedside Glucose 280 mg/dL (70-110)
--- NOTE | 2018-11-09 17:11 | NURSING ---
PT CAME TO THIS NURSE AND STATED THAT THE PT CANT SEEM TO WRITE HIS NAME. THIS NURSE INTO ROOM HAD PT TRY TO WRITE AND PT TRIED AND STATED I CANT DO IT. WRITING LOOKED LIKE CHICKEN SCRATCH,PT ALSO A/O X2. PT ALSO STILL VERY WEAK AND TIERED AFTER SLEEPING MOST OF DAY. VITALS DONE. REPORTED TO FAITH BEASLEY NDRN.
--- NOTE | 2018-11-09 18:07 | NURSING ---
PT HAVING TROUBLE HOLDING ON TO HIS URINAL AND CUPS. VALARIE ESPINOZA AWARE
[2018-11-09 18:12] LABS: Hematocrit 36.6 % (40-54); Hemoglobin 12.4 g/dl (13.0-16.5); Mean Corp Hgb Conc 33.9 g/gl (32-36); Mean Corpuscular Hgb 32.7 pg (27.0-32.0); Mean Corpuscular Volume 96.6 fL (80-94); Mean Platelet Vol. 10.6 fl (6.2-12.0); Platelet Count 82 K/mm3 (150-450); RBC Distribution Width CV 14.9 % (11.6-14.6); Red Blood Count 3.79 M/mm3 (4.6-6.2); White Blood Count 4.7 K/mm3 (4.4-11.0)
[2018-11-09 18:13] LABS: Scan Indicated on CBC? Y/N NO
[2018-11-09 18:25] LABS: Anion Gap 9 (5-15); BUN 46 mg/dL (7-18); BUN/Creat Ratio 28.2 RATIO (10-20); Calcium,Total 8.9 mg/dL (8.5-10.1); Chloride 111 mmol/L (98-107); Creatinine, Serum 1.63 mg/dL (0.70-1.30); EST Glomerular Filtration Rate 45 mL/min (>60); Est Glom Filt Rate - Afr Amer 55 mL/min (>60); Estimated Creatinine Clearance 47.27 ml/min; Glucose 300 mg/dL (74-106); Potassium 4.6 mmol/L (3.5-5.1); Sodium Level 145 mmol/L (136-145)
[2018-11-09] MEDS: Ipratropium/Albuterol Sulfate 3 ML AMPUL.NEB INHALATION (19:58)
[2018-11-09 19:59] VITALS: PULSE 71; RESP 18; O2SAT 94
[2018-11-09 20:30] VITALS: PULSE 79; RESP 18; O2SAT 94
[2018-11-09 21:06] LABS: Bedside Glucose 240 mg/dL (70-110)
[2018-11-09 21:28] VITALS: BP 166/74; PULSE 78; RESP 18; TEMP 36.8; O2SAT 93
[2018-11-09] MEDS: Albuterol 2.5 MG/3 ML VIAL.NEB. INHALATION (22:10)
[2018-11-09 22:11] VITALS: PULSE 73; RESP 18
--- NOTE | 2018-11-09 22:13 | CPS ---
albuterol mdi also given by nurse 20 min after duoneb aero tx.
[2018-11-10] VITALS (7 sets, daily range): BP systolic 147–156; BP diastolic 69–85; PULSE 69–86; RESP 18–20; TEMP 36.4–36.7; O2SAT 88–94
[2018-11-10] MEDS: Pregabalin 50 MG Capsule 100 MG PO ×2 (06:36→17:46)
[2018-11-10] MEDS: Cefdinir 300 MG Capsule PO ×2 (06:37→17:46)
[2018-11-10] MEDS: Sertraline 100 MG Tablet 150 MG PO (06:37)
[2018-11-10] MEDS: Ipratropium/Albuterol Sulfate 3 ML AMPUL.NEB INHALATION ×3 (06:38→19:40)
[2018-11-10] MEDS: Pantoprazole Sodium 40 MG Tablet PO ×2 (06:38→17:46)
[2018-11-10] MEDS: Levothyroxine 100 MCG Tablet 300 MCG PO (06:38)
[2018-11-10] MEDS: amLODIPine 10 MG Tablet PO (06:38)
[2018-11-10] MEDS: Senna Tablet 1 TABLET PO ×2 (06:38→17:46)
[2018-11-10] MEDS: rifAXIMin 550 MG Tablet PO ×2 (06:39→17:46)
[2018-11-10] MEDS: Menthol/Lanolin/Calamine/Znox 113 GM Tube 1 APPLIC TOPICAL ×2 (06:40→20:15)
[2018-11-10 06:50] LABS: Bedside Glucose 230 mg/dL (70-110)
[2018-11-10] MEDS: Insulin Lispro 100 UNIT/ML INSULN.PEN 10 UNIT SC ×3 (07:53→17:45)
[2018-11-10] MEDS: Tamsulosin HCl 0.4 MG Capsule PO (07:53)
[2018-11-10] MEDS: Iron Polysaccharide Complex 150 MG CAPSULE PO (07:53)
--- NOTE | 2018-11-10 08:36 | RAD_ITS ---
STUDY: X-RAY CHEST REASON FOR EXAM: Male, 63 years old. Cough and weakness. TECHNIQUE: AP and lateral views of the chest. COMPARISON: Comparison is made with prior examination dated November 06, 2018. FINDINGS: Mild increased markings at the lung bases suggestive of mild bibasilar atelectasis. There is no demonstrated pleural abnormality. Normal size heart. Normal mediastinum and douglas. Normal visualized pulmonary arteries. There is atherosclerotic tortuosity of the aortic arch and descending thoracic aorta. There are diffuse degenerative changes of the visualized thoracic spine. Normal visualized ribs, clavicles, and shoulders. There is no demonstrated abnormality of the visualized soft tissue structures of the upper abdomen. RAD/Chest PA and Lateral IMPRESSION: Mild degree of increased markings at the lung bases suggestive of bibasilar linear atelectasis Electronically Signed: Boby Rose, at 10:53 EDT , Service support ,
--- NOTE | 2018-11-10 08:37 | RAD_ITS ---
STUDY: X-RAY - ABDOMEN/PELVIS REASON FOR EXAM: Male, 63 years old. Abdominal pain. TECHNIQUE: AP supine and upright views of the abdomen and pelvis. COMPARISON: None. FINDINGS: Mild degree of increased markings at the lung bases suggestive of atelectasis. There is a moderate amount of colonic fecal material. There is no demonstrated free abdominal air. The visualized liver, spleen and kidneys are grossly normal in size and morphology. Normal soft tissue structures. There are diffuse degenerative changes of the visualized lumbar spine. RAD/Abd Decub and/or Erect(Portabl IMPRESSION: Moderate amount of fecal material is seen in the colon. Mild degree of increased markings at the lung bases suggestive of atelectasis. Electronically Signed: Boby Rose, at 10:54 EDT , Service support ,
--- NOTE | 2018-11-10 08:39 | NURSING ---
Addendum entered by Martha Meier 11/10/18 12:16: Lab and Xray results reviewed with Dr. Gleason, new order for magnesium citrate x1 now. Original Note: Patient noted to have increased confusion, weakness, wheezing and incontinence, Dr. Gleason updated. New order for CBC with diff, CMP, UA C&S, CXR, KUB, MRI of brain and 1L bolus NS.
--- NOTE | 2018-11-10 08:50 | NURSING ---
pt remains on ra, c/o slight pain with deep breathS. pulse ox 88%. PLACED ON 2L VIA NASAL CANNULA. RN MADE AWARE.
[2018-11-10 09:22] LABS: Absolute Lymphocyte Count 0.47 X10^3/ul (0.83-4.51); Absolute Neutrophil Count 3.8 X10^3/uL (2.0-7.7); Basophil# 0.02 X10^3/uL; Basophil% 0.4 % (0-1); Eosinophil# 0.11 X10^3/uL; Eosinophils% 2.3 % (0-5); Hematocrit 37.6 % (40-54); Hemoglobin 12.5 g/dl (13.0-16.5); Lymphocyte # 0.47 X10^3/ul (4.0); Mean Corp Hgb Conc 33.2 g/gl (32-36); Mean Corpuscular Hgb 32.4 pg (27.0-32.0); Mean Corpuscular Volume 97.4 fL (80-94); Mean Platelet Vol. 10.5 fl (6.2-12.0); Monocyte# 0.36 X10^3/uL; Monocyte% 7.6 % (0-10); Neutrophil # 3.75 X10^3/uL (2.7-7.7); Neutrophil % 79.5 % (47-70); Platelet Count 75 K/mm3 (150-450); RBC Distribution Width SD 53.6 fl (35.1-43.9); Red Blood Count 3.86 M/mm3 (4.6-6.2); White Blood Count 4.7 K/mm3 (4.4-11.0)
[2018-11-10 09:27] LABS: Differential Indicated SCAN CRITERIA MET; POSITIVE COUNT NO; POSITIVE DIFFERENTIAL YES; POSITIVE MORPHOLOGY NO
--- NOTE | 2018-11-10 09:30 | NURSING ---
93% ON 2L VIA NASAL CANNULA. NO SOB NOTED AT THIS TIME. DENIES PAIN.
--- NOTE | 2018-11-10 09:36 | NURSING ---
off floor to cxray via bed
[2018-11-10 09:42] LABS: ALB/GLOB Ratio 0.6 RATIO (0.9-2.4); AST(SGOT) 23 U/L (15-37); Alanine Aminotransfer ALT/SGPT 27 U/L (16-61); Albumin, Serum 2.9 g/dL (3.2-5.0); Alkaline Phosphatase 87 U/L (45-117); Anion Gap 5 (5-15); BUN 40 mg/dL (7-18); Calcium,Total 9.2 mg/dL (8.5-10.1); Chloride 111 mmol/L (98-107); EST Glomerular Filtration Rate 46 mL/min (>60); Est Glom Filt Rate - Afr Amer 56 mL/min (>60); Estimated Creatinine Clearance 48.16 ml/min; Glucose 293 mg/dL (74-106); Potassium 4.2 mmol/L (3.5-5.1); Protein, Total 7.9 g/dL (6.4-8.2); Sodium Level 142 mmol/L (136-145)
[2018-11-10] MEDS: 0.9% Normal Saline 1,000 ML 500 ML IV (10:54)
[2018-11-10 11:01] LABS: Bedside Glucose 273 mg/dL (70-110)
[2018-11-10] MEDS: Azithromycin 250 MG Tablet PO (11:03)
[2018-11-10 12:16] LABS: Bacteria 0 SEEN /hpf (None Seen); Mucous, Urine 0 SEEN /hpf (<or=2+); Squamous Epithelial Cells - UA 0 SEEN /hpf (0-5); White Blood Cells 0 SEEN /hpf (0-5)
[2018-11-10 12:20] LABS: Color, Urine Yellow (Yellow); Glucose, Dipstick 100 mg/dl (Normal); Ketone-Dipstick Negative (Negative); Leukocyte Esterase-Dipstick Negative /ul (Negative); Nitrite-Dipstick Negative (Negative); Occult Blood-Urine 25 /ul (Negative); Protein-Dipstick 100 mg/dl (Negative); Urine Bilirubin Dipstick Negative (Negative); Urine Clarity Clear (Clear); Urine Urobilinogen Normal (Normal)
[2018-11-10 12:26] LABS: Red Blood Cells-Urine 0-5 SEEN /hpf (0-5)
--- NOTE | 2018-11-10 12:30 | NURSING ---
mepilex soiled. New one applied at this time.
[2018-11-10] MEDS: Magnesium Citrate 300 ML PO (16:36)
[2018-11-10 16:40] LABS: Bedside Glucose 264 mg/dL (70-110)
--- NOTE | 2018-11-10 18:09 | NURSING ---
New order for soap suds enema.
--- NOTE | 2018-11-10 18:10 | NURSING ---
Dr. Gleason reviewed MRI, NNO.
[2018-11-10] MEDS: Acetaminophen 500 MG Tablet 1000 MG PO (20:23)
[2018-11-10 21:10] LABS: Bedside Glucose 277 mg/dL (70-110)
[2018-11-11] MEDS: Pregabalin 50 MG Capsule 100 MG PO ×2 (04:18→17:54)
[2018-11-11] MEDS: Menthol/Lanolin/Calamine/Znox 113 GM Tube 1 APPLIC TOPICAL ×2 (04:18→20:40)
[2018-11-11] MEDS: Polyethylene Glycol 3350 17 GM PACKET PO (04:19)
[2018-11-11] MEDS: Sertraline 100 MG Tablet 150 MG PO (04:20)
[2018-11-11] MEDS: Pantoprazole Sodium 40 MG Tablet PO ×2 (04:21→17:54)
[2018-11-11] MEDS: amLODIPine 10 MG Tablet PO (04:21)
[2018-11-11] MEDS: Levothyroxine 100 MCG Tablet 300 MCG PO (04:21)
[2018-11-11] MEDS: Cefdinir 300 MG Capsule PO ×2 (04:21→17:54)
[2018-11-11] MEDS: Senna Tablet 1 TABLET PO ×2 (04:21→17:54)
[2018-11-11] MEDS: rifAXIMin 550 MG Tablet PO ×2 (04:22→17:54)
[2018-11-11 06:36] LABS: Bedside Glucose 396 mg/dL (70-110)
[2018-11-11] MEDS: Ipratropium/Albuterol Sulfate 3 ML AMPUL.NEB INHALATION ×3 (07:04→20:00)
[2018-11-11 07:05] VITALS: PULSE 74; RESP 18
[2018-11-11] MEDS: Insulin Lispro 100 UNIT/ML INSULN.PEN 10 UNIT SC (07:34)
--- NOTE | 2018-11-11 07:59 | MDS.RN ---
Information for the mds was obtained from review of the medical record, interview of resident, staff, and direct observation of resident's care.
[2018-11-11] MEDS: Tamsulosin HCl 0.4 MG Capsule PO (08:21)
[2018-11-11] MEDS: Iron Polysaccharide Complex 150 MG CAPSULE PO (08:22)
--- NOTE | 2018-11-11 09:39 | NURSING ---
Dr laura MENESES'd sputum culture, unable to produce any sputum
[2018-11-11 11:16] LABS: Bedside Glucose 291 mg/dL (70-110)
[2018-11-11] MEDS: Insulin Lispro 100 UNIT/ML INSULN.PEN 13 UNIT SC ×2 (11:51→17:56)
[2018-11-11 13:10] VITALS: PULSE 71; RESP 16
--- NOTE | 2018-11-11 13:32 | CASEMGMT ---
Insurance Continued stay approved with update due 11/17/18/ Auth # [id number] LEANA Saleem
[2018-11-11 14:44] VITALS: PULSE 79; RESP 18; O2SAT 94
[2018-11-11 15:10] VITALS: BP 130/60; PULSE 81; RESP 16; TEMP 36.9; O2SAT 95
[2018-11-11 16:55] LABS: Bedside Glucose 194 mg/dL (70-110)
[2018-11-11 20:05] VITALS: PULSE 80; RESP 16; O2SAT 96
[2018-11-11] MEDS: Acetaminophen 500 MG Tablet 1000 MG PO (20:47)
[2018-11-11 21:01] LABS: Bedside Glucose 231 mg/dL (70-110)
[2018-11-11] MEDS: ALPRAZolam 0.5 MG Tablet PO (22:20)
[2018-11-12] MEDS: Menthol/Lanolin/Calamine/Znox 113 GM Tube 1 APPLIC TOPICAL ×2 (05:20→21:48)
[2018-11-12] MEDS: Polyethylene Glycol 3350 17 GM PACKET PO (05:21)
[2018-11-12] MEDS: Sertraline 100 MG Tablet 150 MG PO (05:22)
[2018-11-12] MEDS: Levothyroxine 100 MCG Tablet 300 MCG PO (05:23)
[2018-11-12] MEDS: rifAXIMin 550 MG Tablet PO ×2 (05:24→18:11)
[2018-11-12] MEDS: amLODIPine 10 MG Tablet PO (05:24)
[2018-11-12] MEDS: Senna Tablet 1 TABLET PO ×2 (05:24→18:11)
[2018-11-12] MEDS: Cefdinir 300 MG Capsule PO ×2 (05:24→18:10)
[2018-11-12] MEDS: Pantoprazole Sodium 40 MG Tablet PO ×2 (05:25→18:11)
[2018-11-12 06:28] VITALS: PULSE 78; RESP 20
[2018-11-12] MEDS: Ipratropium/Albuterol Sulfate 3 ML AMPUL.NEB INHALATION (06:28)
[2018-11-12] MEDS: Pregabalin 50 MG Capsule 100 MG PO ×2 (06:41→18:10)
[2018-11-12 06:50] LABS: Bedside Glucose 190 mg/dL (70-110)
[2018-11-12] MEDS: Insulin Lispro 100 UNIT/ML INSULN.PEN 13 UNIT SC ×3 (08:21→18:07)
[2018-11-12] MEDS: Iron Polysaccharide Complex 150 MG CAPSULE PO (08:22)
[2018-11-12] MEDS: Tamsulosin HCl 0.4 MG Capsule PO (08:22)
[2018-11-12 11:11] LABS: Bedside Glucose 177 mg/dL (70-110)
--- NOTE | 2018-11-12 14:42 | MDS.RN ---
Pain interview for maddie 11/13/18 completed.
--- NOTE | 2018-11-12 15:32 | CHAPLAIN ---
Type of Pastoral Visit ___ Initial Visit _x__ Follow-up Visit ___ On-call Visit ___ General Patient Visit ___ Spiritual Assessment ___ Family Conference ___ Bereavement ___ Rapid Response ___ Code Blue ___ Other (describe below) Pastoral Care Referral From _x__ Patient ___ Family ___ Nurse ___ Physician ___ Painting And Coating Worker ___ Manager Research ___ Other (describe below) Sacrament/Intervention _x__ Active listening ___ Anointing ___ Alevism ___ Bereavement ___ Communion ___ Amber exploration ___ _x__ Life review _x__ Prayer ___ Reconciliation ___ Sacrament of Sick ___ Supportive presence ___ Wedding ___ Other (describe below) Pastoral Comments
[2018-11-12 15:42] VITALS: BP 126/60; PULSE 79; RESP 16; TEMP 36.4; O2SAT 94
[2018-11-12 17:00] LABS: Bedside Glucose 206 mg/dL (70-110)
[2018-11-12] MEDS: Acetaminophen 500 MG Tablet 1000 MG PO (18:11)
[2018-11-12 21:11] LABS: Bedside Glucose 245 mg/dL (70-110)
[2018-11-12 22:39] VITALS: PULSE 86; RESP 18; O2SAT 93
[2018-11-13] MEDS: Menthol/Lanolin/Calamine/Znox 113 GM Tube 1 APPLIC TOPICAL ×2 (04:56→20:16)
[2018-11-13] MEDS: Polyethylene Glycol 3350 17 GM PACKET PO (04:57)
[2018-11-13] MEDS: amLODIPine 10 MG Tablet PO (04:57)
[2018-11-13] MEDS: Levothyroxine 100 MCG Tablet 300 MCG PO (04:58)
[2018-11-13] MEDS: Senna Tablet 1 TABLET PO ×2 (04:58→17:10)
[2018-11-13] MEDS: Pantoprazole Sodium 40 MG Tablet PO ×2 (04:58→17:10)
[2018-11-13] MEDS: Sertraline 100 MG Tablet 150 MG PO (04:59)
[2018-11-13] MEDS: rifAXIMin 550 MG Tablet PO ×2 (04:59→17:10)
[2018-11-13] MEDS: Cefdinir 300 MG Capsule PO ×2 (05:00→17:10)
[2018-11-13] MEDS: Pregabalin 50 MG Capsule 100 MG PO ×2 (05:00→17:10)
[2018-11-13 06:00] LABS: Bedside Glucose 166 mg/dL (70-110)
[2018-11-13 06:26] VITALS: PULSE 82; RESP 16
[2018-11-13] MEDS: Ipratropium/Albuterol Sulfate 3 ML AMPUL.NEB INHALATION ×3 (06:26→19:50)
[2018-11-13] MEDS: Insulin Lispro 100 UNIT/ML INSULN.PEN 13 UNIT SC ×3 (08:34→18:15)
[2018-11-13] MEDS: Iron Polysaccharide Complex 150 MG CAPSULE PO (08:34)
[2018-11-13] MEDS: Tamsulosin HCl 0.4 MG Capsule PO (08:34)
[2018-11-13 10:00] VITALS: PULSE 84; RESP 18; O2SAT 94
[2018-11-13 11:16] LABS: Bedside Glucose 258 mg/dL (70-110)
[2018-11-13 13:04] VITALS: PULSE 85; RESP 20
--- NOTE | 2018-11-13 15:37 | CASEMGMT ---
Social Work SW met with pt and discussed advance directives. SW assisted pt in completing living will and health care POA. Copy placed on pt chart and originals given to pt with direction to give copy to PCP. BIMS and PHQ9 interviews completed on this date for MDS assessment. LEANA Saleem
[2018-11-13 16:00] VITALS: BP 127/61; PULSE 85; RESP 20; TEMP 37.1; O2SAT 95
[2018-11-13 16:55] LABS: Bedside Glucose 263 mg/dL (70-110)
[2018-11-13 19:50] VITALS: PULSE 82; RESP 18
[2018-11-13] MEDS: Acetaminophen 500 MG Tablet 1000 MG PO (20:14)
[2018-11-13 21:25] LABS: Bedside Glucose 227 mg/dL (70-110)
[2018-11-13] MEDS: ALPRAZolam 0.5 MG Tablet PO (23:09)
[2018-11-14] MEDS: Menthol/Lanolin/Calamine/Znox 113 GM Tube 1 APPLIC TOPICAL ×2 (06:08→22:28)
[2018-11-14] MEDS: Pregabalin 50 MG Capsule 100 MG PO ×2 (06:08→18:05)
[2018-11-14] MEDS: rifAXIMin 550 MG Tablet PO ×2 (06:08→18:01)
[2018-11-14] MEDS: Sertraline 100 MG Tablet 150 MG PO (06:09)
[2018-11-14] MEDS: Pantoprazole Sodium 40 MG Tablet PO ×2 (06:09→18:01)
[2018-11-14] MEDS: Senna Tablet 1 TABLET PO ×2 (06:09→18:01)
[2018-11-14] MEDS: amLODIPine 10 MG Tablet PO (06:09)
[2018-11-14] MEDS: Levothyroxine 100 MCG Tablet 300 MCG PO (06:10)
[2018-11-14 06:31] LABS: Bedside Glucose 168 mg/dL (70-110)
[2018-11-14 07:30] VITALS: PULSE 70; RESP 16
[2018-11-14] MEDS: Ipratropium/Albuterol Sulfate 3 ML AMPUL.NEB INHALATION ×3 (07:30→18:30)
[2018-11-14] MEDS: Iron Polysaccharide Complex 150 MG CAPSULE PO (08:03)
[2018-11-14] MEDS: Tamsulosin HCl 0.4 MG Capsule PO (08:03)
[2018-11-14] MEDS: Insulin Lispro 100 UNIT/ML INSULN.PEN 13 UNIT SC ×3 (08:03→18:01)
[2018-11-14 08:09] LABS: Absolute Neutrophil Count 2.6 X10^3/uL (2.0-7.7); Basophil# 0.02 X10^3/uL; Basophil% 0.5 % (0-1); Differential Indicated SCAN CRITERIA MET; Eosinophil# 0.27 X10^3/uL; Eosinophils% 7.1 % (0-5); Hematocrit 34.4 % (40-54); Hemoglobin 11.5 g/dl (13.0-16.5); Lymphocyte % 13.2 % (19-41); Mean Corp Hgb Conc 33.4 g/gl (32-36); Mean Corpuscular Hgb 32.5 pg (27.0-32.0); Mean Corpuscular Volume 97.2 fL (80-94); Mean Platelet Vol. 11.2 fl (6.2-12.0); Monocyte% 10.5 % (0-10); Neutrophil % 68.4 % (47-70); POSITIVE COUNT NO; POSITIVE DIFFERENTIAL YES; POSITIVE MORPHOLOGY NO; Platelet Count 64 K/mm3 (150-450); RBC Distribution Width CV 14.5 % (11.6-14.6); RBC Distribution Width SD 51.8 fl (35.1-43.9); Red Blood Count 3.54 M/mm3 (4.6-6.2); White Blood Count 3.8 K/mm3 (4.4-11.0)
[2018-11-14 08:17] LABS: Anion Gap 4 (5-15); BUN 57 mg/dL (7-18); Calcium,Total 8.9 mg/dL (8.5-10.1); Chloride 110 mmol/L (98-107); Creatinine, Serum 1.63 mg/dL (0.70-1.30); EST Glomerular Filtration Rate 45 mL/min (>60); Est Glom Filt Rate - Afr Amer 55 mL/min (>60); Estimated Creatinine Clearance 47.27 ml/min; Glucose 165 mg/dL (74-106); Potassium 3.9 mmol/L (3.5-5.1); Sodium Level 142 mmol/L (136-145)
[2018-11-14 11:40] LABS: Bedside Glucose 195 mg/dL (70-110)
[2018-11-14 13:15] VITALS: PULSE 71; RESP 16
[2018-11-14 15:14] VITALS: BP 148/60; PULSE 70; RESP 20; TEMP 36.3; O2SAT 95
[2018-11-14 17:06] LABS: Bedside Glucose 220 mg/dL (70-110)
[2018-11-14 18:30] VITALS: PULSE 79; RESP 18
[2018-11-14 21:25] LABS: Bedside Glucose 178 mg/dL (70-110)
[2018-11-14] MEDS: Acetaminophen 500 MG Tablet 1000 MG PO (22:34)
[2018-11-14] MEDS: ALPRAZolam 0.5 MG Tablet PO (22:34)
[2018-11-15] MEDS: Bisacodyl 10 MG Suppository RECTAL (05:54)
[2018-11-15] MEDS: Pregabalin 50 MG Capsule 100 MG PO ×2 (05:55→18:03)
[2018-11-15] MEDS: rifAXIMin 550 MG Tablet PO ×2 (05:57→17:59)
[2018-11-15] MEDS: Sertraline 100 MG Tablet 150 MG PO (05:57)
[2018-11-15] MEDS: Senna Tablet 1 TABLET PO ×2 (05:58→17:59)
[2018-11-15] MEDS: Pantoprazole Sodium 40 MG Tablet PO ×2 (05:58→17:59)
[2018-11-15] MEDS: Levothyroxine 100 MCG Tablet 300 MCG PO (05:58)
[2018-11-15] MEDS: amLODIPine 10 MG Tablet PO (05:59)
[2018-11-15] MEDS: Menthol/Lanolin/Calamine/Znox 113 GM Tube 1 APPLIC TOPICAL ×2 (05:59→20:24)
[2018-11-15 06:31] LABS: Bedside Glucose 120 mg/dL (70-110)
[2018-11-15 07:53] VITALS: PULSE 81; RESP 16
[2018-11-15] MEDS: Ipratropium/Albuterol Sulfate 3 ML AMPUL.NEB INHALATION ×3 (07:53→19:05)
--- NOTE | 2018-11-15 08:19 | NURSING ---
NEW MEPILEX TO BOTTOM. RASH TO PT LEFT SIDE GROIN AND TESTICLES, PT STATED IT IS ITCHY. REPORTED TO VALARIE ESPINOZA
[2018-11-15] MEDS: Tamsulosin HCl 0.4 MG Capsule PO (08:21)
[2018-11-15] MEDS: Iron Polysaccharide Complex 150 MG CAPSULE PO (08:21)
[2018-11-15] MEDS: Insulin Lispro 100 UNIT/ML INSULN.PEN 13 UNIT SC ×3 (09:00→17:59)
[2018-11-15 10:35] VITALS: PULSE 88; RESP 18; O2SAT 95
[2018-11-15] MEDS: Nystatin Powder 15gm Bottle 1 APPLIC TOPICAL ×2 (10:39→20:26)
[2018-11-15 11:21] LABS: Bedside Glucose 191 mg/dL (70-110)
[2018-11-15 13:35] VITALS: PULSE 72; RESP 16
[2018-11-15 14:05] VITALS: BP 122/62; PULSE 73; RESP 16; TEMP 36.6; O2SAT 92
[2018-11-15 17:11] LABS: Bedside Glucose 200 mg/dL (70-110)
[2018-11-15 19:05] VITALS: PULSE 80; RESP 20
[2018-11-15] MEDS: Acetaminophen 500 MG Tablet 1000 MG PO (20:25)
[2018-11-15] MEDS: ALPRAZolam 0.5 MG Tablet PO (21:46)
[2018-11-16 05:10] LABS: Bedside Glucose 136 mg/dL (70-110)
[2018-11-16] MEDS: Pregabalin 50 MG Capsule 100 MG PO ×2 (05:37→17:00)
[2018-11-16] MEDS: rifAXIMin 550 MG Tablet PO ×2 (05:38→17:01)
[2018-11-16] MEDS: amLODIPine 10 MG Tablet PO (05:38)
[2018-11-16] MEDS: Sertraline 100 MG Tablet 150 MG PO (05:38)
[2018-11-16] MEDS: Pantoprazole Sodium 40 MG Tablet PO ×2 (05:39→17:00)
[2018-11-16] MEDS: Levothyroxine 100 MCG Tablet 300 MCG PO (05:39)
[2018-11-16] MEDS: Senna Tablet 1 TABLET PO ×2 (05:39→17:01)
[2018-11-16] MEDS: Nystatin Powder 15gm Bottle 1 APPLIC TOPICAL ×2 (05:51→20:35)
[2018-11-16] MEDS: Menthol/Lanolin/Calamine/Znox 113 GM Tube 1 APPLIC TOPICAL ×2 (05:51→20:34)
[2018-11-16 06:25] VITALS: PULSE 78; RESP 16
[2018-11-16] MEDS: Ipratropium/Albuterol Sulfate 3 ML AMPUL.NEB INHALATION ×2 (06:25→19:50)
[2018-11-16 06:31] LABS: Bedside Glucose 121 mg/dL (70-110)
[2018-11-16] MEDS: Iron Polysaccharide Complex 150 MG CAPSULE PO (08:20)
[2018-11-16] MEDS: Tamsulosin HCl 0.4 MG Capsule PO (08:20)
[2018-11-16] MEDS: Insulin Lispro 100 UNIT/ML INSULN.PEN 13 UNIT SC ×3 (08:39→18:36)
--- NOTE | 2018-11-16 09:30 | NURSING ---
attempted to call family to notify of changes to Dr. King appt, no voicemail set up
[2018-11-16 11:01] LABS: Bedside Glucose 290 mg/dL (70-110)
[2018-11-16 15:20] VITALS: BP 116/57; PULSE 78; RESP 16; TEMP 36.4; O2SAT 96
[2018-11-16 16:46] LABS: Bedside Glucose 268 mg/dL (70-110)
[2018-11-16] MEDS: Acetaminophen 500 MG Tablet 1000 MG PO (17:18)
[2018-11-16 19:50] VITALS: PULSE 76; RESP 18
[2018-11-16 20:30] VITALS: PULSE 77; RESP 16; O2SAT 95
[2018-11-16 21:16] LABS: Bedside Glucose 185 mg/dL (70-110)
[2018-11-17] MEDS: rifAMPin 300 MG Capsule PO (05:46)
[2018-11-17] MEDS: Pregabalin 50 MG Capsule 100 MG PO ×2 (05:46→17:35)
[2018-11-17] MEDS: Sertraline 100 MG Tablet 150 MG PO (05:46)
[2018-11-17] MEDS: Pantoprazole Sodium 40 MG Tablet PO ×2 (05:48→17:35)
[2018-11-17] MEDS: amLODIPine 10 MG Tablet PO (05:48)
[2018-11-17] MEDS: Levothyroxine 100 MCG Tablet 300 MCG PO (05:51)
[2018-11-17] MEDS: Senna Tablet 1 TABLET PO ×2 (05:52→17:35)
[2018-11-17] MEDS: Nystatin Powder 15gm Bottle 1 APPLIC TOPICAL ×2 (05:52→20:15)
[2018-11-17] MEDS: Menthol/Lanolin/Calamine/Znox 113 GM Tube 1 APPLIC TOPICAL ×2 (05:52→20:14)
[2018-11-17 06:40] VITALS: PULSE 82; RESP 18; O2SAT 95
[2018-11-17] MEDS: Ipratropium/Albuterol Sulfate 3 ML AMPUL.NEB INHALATION (06:40)
[2018-11-17 06:51] LABS: Bedside Glucose 106 mg/dL (70-110)
[2018-11-17] MEDS: Iron Polysaccharide Complex 150 MG CAPSULE PO (08:01)
[2018-11-17] MEDS: Tamsulosin HCl 0.4 MG Capsule PO (08:01)
[2018-11-17] MEDS: Insulin Lispro 100 UNIT/ML INSULN.PEN 7 UNIT SC ×3 (08:47→18:02)
[2018-11-17 11:10] LABS: Bedside Glucose 196 mg/dL (70-110)
--- NOTE | 2018-11-17 11:59 | CASEMGMT ---
Insurance Clinical update faxed on 11/17/18. Will await continued stay determination. Auth #[id number] LEANA Saleem
--- NOTE | 2018-11-17 12:53 | NURSING ---
New Mepilex applied to coccyx per Tan SHEPPARD.
[2018-11-17 15:28] VITALS: BP 139/42; PULSE 77; RESP 18; O2SAT 95
[2018-11-17 17:11] LABS: Bedside Glucose 170 mg/dL (70-110)
[2018-11-17] MEDS: Acetaminophen 500 MG Tablet 1000 MG PO (20:13)
[2018-11-17 21:31] LABS: Bedside Glucose 221 mg/dL (70-110)
[2018-11-17 22:25] VITALS: PULSE 70; RESP 16; O2SAT 95
[2018-11-17] MEDS: ALPRAZolam 0.5 MG Tablet PO (23:28)
[2018-11-18] MEDS: Pregabalin 50 MG Capsule 100 MG PO ×2 (05:50→18:15)
[2018-11-18] MEDS: Menthol/Lanolin/Calamine/Znox 113 GM Tube 1 APPLIC TOPICAL ×2 (05:50→20:58)
[2018-11-18] MEDS: Lactulose 20 GM/30 ML UDC 10 GM PO ×2 (05:51→18:13)
[2018-11-18] MEDS: Polyethylene Glycol 3350 17 GM PACKET PO (05:52)
[2018-11-18] MEDS: amLODIPine 10 MG Tablet PO (05:53)
[2018-11-18] MEDS: Sertraline 100 MG Tablet 150 MG PO (05:53)
[2018-11-18] MEDS: Senna Tablet 1 TABLET PO ×2 (05:53→18:14)
[2018-11-18] MEDS: Levothyroxine 100 MCG Tablet 300 MCG PO (05:53)
[2018-11-18] MEDS: Nystatin Powder 15gm Bottle 1 APPLIC TOPICAL ×2 (05:57→20:58)
[2018-11-18] MEDS: Pantoprazole Sodium 40 MG Tablet PO ×2 (05:58→18:15)
[2018-11-18 06:45] LABS: Bedside Glucose 125 mg/dL (70-110)
[2018-11-18 07:00] VITALS: PULSE 76; RESP 14; O2SAT 94
[2018-11-18] MEDS: Insulin Lispro 100 UNIT/ML INSULN.PEN 7 UNIT SC ×3 (08:32→18:16)
[2018-11-18] MEDS: Iron Polysaccharide Complex 150 MG CAPSULE PO (08:34)
[2018-11-18] MEDS: Tamsulosin HCl 0.4 MG Capsule PO (08:34)
--- NOTE | 2018-11-18 09:43 | NURSING ---
Dr. Gleason reviewed ammonia level, new order to recheck tomorrow.
[2018-11-18 11:05] LABS: Bedside Glucose 169 mg/dL (70-110)
--- NOTE | 2018-11-18 12:45 | CASEMGMT ---
Insurance: Continued stay approved. Next review due 11/25/18. Auth #[id number]
[2018-11-18 15:21] VITALS: BP 148/76; PULSE 72; RESP 18; TEMP 36.7; O2SAT 97
[2018-11-18 16:55] LABS: Bedside Glucose 127 mg/dL (70-110)
[2018-11-18] MEDS: rifAMPin 300 MG Capsule PO (18:15)
[2018-11-18 20:56] LABS: Bedside Glucose 220 mg/dL (70-110)
[2018-11-18] MEDS: Acetaminophen 500 MG Tablet 1000 MG PO (22:07)
[2018-11-18] MEDS: ALPRAZolam 0.5 MG Tablet PO (22:51)
[2018-11-19] MEDS: Pregabalin 50 MG Capsule 100 MG PO ×2 (06:07→17:42)
[2018-11-19] MEDS: Levothyroxine 100 MCG Tablet 300 MCG PO (06:07)
[2018-11-19] MEDS: Sertraline 100 MG Tablet 150 MG PO (06:08)
[2018-11-19] MEDS: amLODIPine 10 MG Tablet PO (06:08)
[2018-11-19] MEDS: Senna Tablet 1 TABLET PO ×2 (06:08→17:43)
[2018-11-19] MEDS: Pantoprazole Sodium 40 MG Tablet PO ×2 (06:08→17:42)
[2018-11-19] MEDS: Menthol/Lanolin/Calamine/Znox 113 GM Tube 1 APPLIC TOPICAL ×2 (06:09→20:55)
[2018-11-19] MEDS: Nystatin Powder 15gm Bottle 1 APPLIC TOPICAL ×2 (06:09→20:19)
[2018-11-19] MEDS: Lactulose 20 GM/30 ML UDC 10 GM PO (06:11)
[2018-11-19 06:55] LABS: Bedside Glucose 99 mg/dL (70-110)
[2018-11-19] MEDS: Iron Polysaccharide Complex 150 MG CAPSULE PO (08:14)
[2018-11-19] MEDS: Tamsulosin HCl 0.4 MG Capsule PO (08:14)
[2018-11-19 10:00] VITALS: PULSE 80; RESP 16; O2SAT 94
[2018-11-19] MEDS: Insulin Lispro 100 UNIT/ML INSULN.PEN 7 UNIT SC ×2 (11:48→17:41)
[2018-11-19 11:50] LABS: Bedside Glucose 159 mg/dL (70-110)
[2018-11-19 15:05] VITALS: BP 144/72; PULSE 68; RESP 16; TEMP 36.3; O2SAT 96
[2018-11-19 17:01] LABS: Bedside Glucose 203 mg/dL (70-110)
[2018-11-19] MEDS: Lactulose 20 GM/30 ML UDC PO (17:41)
[2018-11-19] MEDS: rifAMPin 300 MG Capsule PO (17:42)
[2018-11-19] MEDS: Lactulose 20 GM/30 ML UDC 200 GM RECTAL (20:19)
[2018-11-19 21:10] LABS: Bedside Glucose 182 mg/dL (70-110)
--- NOTE | 2018-11-19 21:35 | NURSING ---
One time lactulose rectal given per doctor order a positive result from it.
[2018-11-20] MEDS: ALPRAZolam 0.5 MG Tablet PO ×2 (02:23→22:06)
[2018-11-20] MEDS: Pregabalin 50 MG Capsule 100 MG PO ×2 (06:28→17:51)
[2018-11-20] MEDS: Polyethylene Glycol 3350 17 GM PACKET PO (06:29)
[2018-11-20] MEDS: Lactulose 20 GM/30 ML UDC PO ×2 (06:29→17:45)
[2018-11-20] MEDS: Levothyroxine 100 MCG Tablet 300 MCG PO (06:33)
[2018-11-20] MEDS: Sertraline 100 MG Tablet 150 MG PO (06:34)
[2018-11-20] MEDS: amLODIPine 10 MG Tablet PO (06:34)
[2018-11-20] MEDS: Senna Tablet 1 TABLET PO ×2 (06:35→17:54)
[2018-11-20] MEDS: Pantoprazole Sodium 40 MG Tablet PO ×2 (06:35→17:46)
[2018-11-20] MEDS: Menthol/Lanolin/Calamine/Znox 113 GM Tube 1 APPLIC TOPICAL ×2 (06:40→20:02)
[2018-11-20] MEDS: Nystatin Powder 15gm Bottle 1 APPLIC TOPICAL ×2 (06:41→20:03)
[2018-11-20 06:46] LABS: Bedside Glucose 123 mg/dL (70-110)
[2018-11-20] MEDS: Iron Polysaccharide Complex 150 MG CAPSULE PO (08:55)
[2018-11-20] MEDS: Insulin Lispro 100 UNIT/ML INSULN.PEN 7 UNIT SC ×3 (08:55→17:53)
[2018-11-20] MEDS: Tamsulosin HCl 0.4 MG Capsule PO (08:55)
--- NOTE | 2018-11-20 10:44 | MDS.RN ---
Information for the mds was obtained from review of the clinical record, interview of resident, staff and direct observation of resident's care.
[2018-11-20 11:16] LABS: Bedside Glucose 141 mg/dL (70-110)
[2018-11-20 12:50] VITALS: PULSE 61; RESP 18; O2SAT 98
[2018-11-20 13:00] VITALS: PULSE 84; RESP 18
[2018-11-20] MEDS: Albuterol 2.5 MG/3 ML VIAL.NEB. INHALATION (13:00)
[2018-11-20 15:01] VITALS: BP 135/63; PULSE 76; RESP 18; TEMP 36.8; O2SAT 94
[2018-11-20 17:01] LABS: Bedside Glucose 151 mg/dL (70-110)
[2018-11-20] MEDS: rifAMPin 300 MG Capsule PO (17:46)
[2018-11-20] MEDS: Acetaminophen 500 MG Tablet 1000 MG PO (20:09)
[2018-11-20 21:16] LABS: Bedside Glucose 177 mg/dL (70-110)
[2018-11-21] MEDS: Polyethylene Glycol 3350 17 GM PACKET PO (05:37)
[2018-11-21] MEDS: Menthol/Lanolin/Calamine/Znox 113 GM Tube 1 APPLIC TOPICAL ×2 (05:37→20:55)
[2018-11-21] MEDS: Pregabalin 50 MG Capsule 100 MG PO ×2 (05:37→18:01)
[2018-11-21] MEDS: Lactulose 20 GM/30 ML UDC PO ×2 (05:37→18:00)
[2018-11-21] MEDS: Levothyroxine 100 MCG Tablet 300 MCG PO (05:38)
[2018-11-21] MEDS: Nystatin Powder 15gm Bottle 1 APPLIC TOPICAL ×2 (05:38→20:55)
[2018-11-21] MEDS: Senna Tablet 1 TABLET PO ×2 (05:38→18:01)
[2018-11-21] MEDS: Pantoprazole Sodium 40 MG Tablet PO ×2 (05:38→18:01)
[2018-11-21] MEDS: Sertraline 100 MG Tablet 150 MG PO (05:39)
[2018-11-21] MEDS: amLODIPine 10 MG Tablet PO (05:41)
[2018-11-21 06:46] LABS: Bedside Glucose 131 mg/dL (70-110)
[2018-11-21] MEDS: Tamsulosin HCl 0.4 MG Capsule PO (07:58)
[2018-11-21] MEDS: Iron Polysaccharide Complex 150 MG CAPSULE PO (07:58)
[2018-11-21] MEDS: Insulin Lispro 100 UNIT/ML INSULN.PEN 7 UNIT SC ×3 (08:25→18:00)
[2018-11-21 09:14] VITALS: PULSE 74; RESP 18; O2SAT 97
[2018-11-21 09:31] VITALS: PULSE 72; RESP 16; O2SAT 96
[2018-11-21] MEDS: Albuterol 2.5 MG/3 ML VIAL.NEB. INHALATION (09:31)
[2018-11-21 10:50] LABS: Bedside Glucose 206 mg/dL (70-110)
--- NOTE | 2018-11-21 11:11 | NURSING ---
Mepilex applied to coccyx per Martha SHEPPARD.
[2018-11-21 15:14] VITALS: BP 143/73; PULSE 78; RESP 16; TEMP 36.7; O2SAT 96
[2018-11-21 16:51] LABS: Bedside Glucose 153 mg/dL (70-110)
[2018-11-21] MEDS: rifAMPin 300 MG Capsule PO (18:01)
[2018-11-21 21:30] LABS: Bedside Glucose 184 mg/dL (70-110)
[2018-11-21] MEDS: ALPRAZolam 0.5 MG Tablet PO (21:58)
[2018-11-21] MEDS: Acetaminophen 500 MG Tablet 1000 MG PO (21:59)
[2018-11-22] MEDS: Menthol/Lanolin/Calamine/Znox 113 GM Tube 1 APPLIC TOPICAL ×2 (05:23→19:48)
[2018-11-22] MEDS: Polyethylene Glycol 3350 17 GM PACKET PO (05:24)
[2018-11-22] MEDS: Pregabalin 50 MG Capsule 100 MG PO ×2 (05:24→17:39)
[2018-11-22] MEDS: Nystatin Powder 15gm Bottle 1 APPLIC TOPICAL ×2 (05:24→19:49)
[2018-11-22] MEDS: Levothyroxine 100 MCG Tablet 300 MCG PO (05:24)
[2018-11-22] MEDS: Sertraline 100 MG Tablet 150 MG PO (05:25)
[2018-11-22] MEDS: Senna Tablet 1 TABLET PO ×2 (05:26→17:38)
[2018-11-22] MEDS: amLODIPine 10 MG Tablet PO (05:26)
[2018-11-22] MEDS: Pantoprazole Sodium 40 MG Tablet PO ×2 (05:26→17:38)
[2018-11-22] MEDS: Lactulose 20 GM/30 ML UDC PO ×2 (05:28→17:36)
[2018-11-22 06:46] LABS: Bedside Glucose 153 mg/dL (70-110)
[2018-11-22] MEDS: Insulin Lispro 100 UNIT/ML INSULN.PEN 7 UNIT SC ×3 (08:01→17:41)
[2018-11-22] MEDS: Tamsulosin HCl 0.4 MG Capsule PO (08:02)
[2018-11-22] MEDS: Iron Polysaccharide Complex 150 MG CAPSULE PO (08:02)
[2018-11-22 10:51] LABS: Bedside Glucose 272 mg/dL (70-110)
[2018-11-22] MEDS: Acetaminophen 500 MG Tablet 1000 MG PO ×2 (13:29→23:06)
[2018-11-22 14:54] VITALS: BP 143/62; PULSE 71; RESP 16; TEMP 36.8; O2SAT 97
[2018-11-22 17:01] LABS: Bedside Glucose 202 mg/dL (70-110)
[2018-11-22] MEDS: rifAMPin 300 MG Capsule PO (17:38)
--- NOTE | 2018-11-22 18:12 | NURSING ---
New order to check ammonia level in morning.
[2018-11-22 20:02] VITALS: PULSE 71; RESP 16; O2SAT 97
[2018-11-22 20:15] LABS: Bedside Glucose 198 mg/dL (70-110)
[2018-11-22 21:25] LABS: Bedside Glucose 174 mg/dL (70-110)
[2018-11-23] MEDS: Pregabalin 50 MG Capsule 100 MG PO ×2 (05:43→18:02)
[2018-11-23] MEDS: Senna Tablet 1 TABLET PO ×2 (05:44→17:56)
[2018-11-23] MEDS: Lactulose 20 GM/30 ML UDC PO ×2 (05:44→17:59)
[2018-11-23] MEDS: Sertraline 100 MG Tablet 150 MG PO (05:44)
[2018-11-23] MEDS: Polyethylene Glycol 3350 17 GM PACKET PO (05:45)
[2018-11-23] MEDS: amLODIPine 10 MG Tablet PO (05:45)
[2018-11-23] MEDS: Levothyroxine 100 MCG Tablet 300 MCG PO (05:45)
[2018-11-23] MEDS: Menthol/Lanolin/Calamine/Znox 113 GM Tube 1 APPLIC TOPICAL ×2 (05:45→20:29)
[2018-11-23] MEDS: Pantoprazole Sodium 40 MG Tablet PO ×2 (05:45→17:56)
[2018-11-23] MEDS: Nystatin Powder 15gm Bottle 1 APPLIC TOPICAL ×2 (05:46→20:29)
[2018-11-23 06:41] LABS: Bedside Glucose 145 mg/dL (70-110)
[2018-11-23] MEDS: Tamsulosin HCl 0.4 MG Capsule PO (08:05)
[2018-11-23] MEDS: Iron Polysaccharide Complex 150 MG CAPSULE PO (08:06)
[2018-11-23] MEDS: Acetaminophen 500 MG Tablet 1000 MG PO ×2 (08:09→20:28)
[2018-11-23] MEDS: Insulin Lispro 100 UNIT/ML INSULN.PEN 7 UNIT SC ×3 (08:10→17:57)
[2018-11-23 10:00] VITALS: PULSE 76; RESP 18; O2SAT 97
[2018-11-23 10:45] LABS: Bedside Glucose 176 mg/dL (70-110)
--- NOTE | 2018-11-23 14:48 | CASEMGMT ---
Social Work Patient requesting to DC this week. Informed pt insurance update 11/25 and continued stay is not guaranteed - pt understood. Therapy is stating pt requires 2 person assist with all ADLs/transfers/bed mobility. Pt lives at home with who is unable to provide hands-on assistance. Discussed Medicaid options or private duty caregiving - pt refused ECF placement. Pt agreeable to private duty care - provided pt list of agencies to call for pricing and availability to set up prior to discharging. Will continue to follow. ROLA CoxW
[2018-11-23 15:08] VITALS: BP 148/70; PULSE 67; RESP 16; TEMP 36.3; O2SAT 97
[2018-11-23 16:50] LABS: Bedside Glucose 127 mg/dL (70-110)
[2018-11-23] MEDS: rifAMPin 300 MG Capsule PO (17:56)
--- NOTE | 2018-11-23 20:24 | PCM.TCUNOT ---
Subjective: Resident seen in room, lying in bed. Resident progressing with therapy, although still requiring moderate to maximal assistance depending on activity. Rifampin has been restarted per request for high ammonia levels. His ammonia levels are elevated but there was little response to Lactulose therapy. Resident eager to go home, crying because she knows she will not be able to care for him. I let resident know he should not leave until insurance cuts him or therapy feels he is no longer progressing. Vitals/I&O's: Vital Signs Temp Pulse Resp BP Pulse Ox 97.3 F L 67 16 148/70 H 97 11/23/18 15:08 11/23/18 15:08 11/23/18 15:08 11/23/18 15:08 11/23/18 15:08 Oxygen Flow Rate (L/min) 2 Oxygen Delivery Method Room Air Weight: 76.43 kg Body Mass Index (BMI) 23.9 Finger Stick Blood Glucose 310 Intake and Output for Last 24 Hours 11/21/18 11/22/18 11/23/18 23:59 23:59 23:59 Intake Total 960 / 960 1560 / 1560 480 / 480 Output Total 400 / 400 425 / 425 Balance 560 / 560 1135 / 1135 480 / 480 Laboratory Results 11/22/18 21:19: POC Glucose 174 H 11/23/18 05:10: Ammonia 87.0 H 11/23/18 06:17: POC Glucose 145 H 11/23/18 10:30: POC Glucose 176 H 11/23/18 16:42: POC Glucose 127 H Past Medical History Past Medical History (Chronic Problems): Chronic Problems (Last Reviewed 11/17/18 @ 11:30 by Elaine Rangel) Iron deficiency (Chronic) Peripheral neuropathy (Chronic) BPH (benign prostatic hyperplasia) (Chronic) Carotid stenosis (Chronic) Aortic stenosis (Chronic) HLD (hyperlipidemia) (Chronic) Anxiety (Chronic) HTN (hypertension) (Chronic) Benzodiazepine dependence (Chronic) Opioid dependence (Chronic) Diabetic polyneuropathy (Chronic) Depression (Chronic) PAOD (peripheral arterial occlusive disease) (Chronic) Stage III chronic kidney disease (Chronic) Status post above knee amputation of right lower extremity (Chronic) COPD (chronic obstructive pulmonary disease) (Chronic) TIA (transient ischemic attack) (Chronic) GERD (gastroesophageal reflux disease) (Chronic) Alcoholic liver disease (Chronic) cirrhosis Portal hypertension esophageal varices stage III DM type 2 (diabetes mellitus, type 2) (Chronic) Alcohol abuse (Chronic) 6-12 drinks/day Hypothyroidism (Chronic) Chronic blood loss anemia (Chronic) required 3 units of PRBC's- prior workup for this showed no etiology Medical History: Medical History (Last Reviewed 11/17/18 @ 11:30 by Elaine Rangel) Troponin I above reference range (Acute) R74.8 Iron deficiency (Chronic) E61.1 Peripheral neuropathy (Chronic) G62.9 Carotid stenosis (Chronic) I65.29 Aortic stenosis (Chronic) I35.0 HLD (hyperlipidemia) (Chronic) E78.5 HTN (hypertension) (Chronic) I10 Left hemiparesis (Acute) G81.94 Benzodiazepine dependence (Chronic) F13.20 Opioid dependence (Chronic) F11.20 Diabetic polyneuropathy (Chronic) E11.42 PAOD (peripheral arterial occlusive disease) (Chronic) I77.9 Stage III chronic kidney disease (Chronic) N18.3 COPD (chronic obstructive pulmonary disease) (Chronic) J44.9 GERD (gastroesophageal reflux disease) (Chronic) K21.9 Alcoholic liver disease (Chronic) K70.9 cirrhosis Portal hypertension esophageal varices stage III DM type 2 (diabetes mellitus, type 2) (Chronic) E11.9 Alcohol abuse (Chronic) F10.10 6-12 drinks/day Hypothyroidism (Chronic) E03.9 Chronic blood loss anemia (Chronic) D50.0 required 3 units of PRBC's- prior workup for this showed no etiology Allergies codeine Allergy (Verified 11/17/18 11:42) Hives hydrocodone Allergy (Verified 11/17/18 11:42) Hives hydromorphone HCl [From Dilaudid] Allergy (Verified 11/17/18 11:42) Itching oxycodone [From Percocet] Allergy (Verified 11/17/18 11:42) Rash atorvastatin [From Lipitor] Adverse Reaction (Severe, Verified 11/17/18 11:42) RHABDOMYALYSIS Home Medications: Ambulatory Orders Medication Instructions Recorded Amlodipine [Norvasc] 10 mg PO DAILY 06/13/14 Bisacodyl [Dulcolax] 10 mg RECTAL DAILY PRN PRN 09/11/16 Rifampin [Rifadin] 150 mg PO BID 09/11/16 Levothyroxine [Synthroid] 300 mcg PO DAILY 03/03/17 Docusate Sodium [Colace] 100 mg PO BID PRN PRN 10/27/18 Ferrous Sulfate [High Potency Iron] 27 mg PO DAILY 10/27/18 Pantoprazole Sodium [Protonix] 40 mg PO BID 10/27/18 Promethazine HCl 25 mg PO TID PRN 10/27/18 Sertraline HCl 100 mg PO DAILY 10/27/18 Tamsulosin HCl 0.4 mg PO DAILY 10/27/18 Albuterol Aerosols [Ventolin 2.5 mg INHALATION Q2H PRN PRN 10/30/18 Aerosols] vial.neb. Glucerna Shake 120 ml PO 4X/DAY 10/30/18 Ipratropium/Albuterol Sulfate 3 ml INHALATION Q6H.RT 10/30/18 [Duoneb] Lactulose [Chronulac] 20 gm PO BID 10/30/18 insulin glargine (U-100) 100 20 unit SC DAILY 11/17/18 unit/mL (3 mL) subcutaneous pen insulin lispro (U- 100) 100 13 unit SC .before meals ml 11/17/18 unit/mL subcutaneous pen pregabalin 50 mg capsule 50 mg PO TID 11/17/18 Surgical History: Surgical History (Last Reviewed 11/17/18 @ 11:30 by Elaine Rangel) Status post above knee amputation of right lower extremity (Chronic) Z89.611 Surgical History: tonsillectomy, - - Right above-knee amputation secondary to peripheral vascular disease 2003, knee surgery secondary to torn meniscus Psychiatric History: Depression Lives: Spouse/ Significant Other Smoking Status: Current every day smoker Tobacco Use: Cigarettes Alcohol: None Drugs: None - *Family History Maternal History Items: No pertinent history Sibling History Items: No pertinent history Paternal History Items: Stroke Capacity - Capacity Assessment Tool Can the patient make a choice & communicate that choice?: Yes Can the patient understand benefits, risks and alternatives?: Yes Can the patient make a logical, rational choice?: Yes Is the choice the patient makes consistent w/ their values?: Yes Is there an impending, emergent risk to the patient?: No Does the patient have an Advance Directive?: No Is there a Surrogate Available?: Yes i.e. HCPOA: Yes i.e. close relative (spouse, child, parent, sibling)?: Yes Review of Systems Constitutional: Denies: Chills, Fever, Weight Change HEENT: Denies: Head Aches, Sinus Congestion, Sinus Drainage Cardiovascular: Denies: Chest Pain, Palpitations Respiratory: Denies: Cough, Shortness of breath at rest, Sputum production Gastrointestinal: Denies: Abdominal Pain, Nausea, Vomiting Genitourinary: Denies: Dysuria Musculoskeletal: Denies: Joint Pain, Joint Tenderness Skin: Denies: Rash, Wounds Neurological: Denies: Numbness, Tingling, Focal weakness Psychiatric: Denies: Anxiety, Depression, Homicidal Ideations, Suicidal Ideations Hematologic/ Lymphatic: Denies: Easy Bruising, Easy Bleeding Patient Problems: Active and Suspected Problems (Last Reviewed 11/17/18 @ 11:30 by Elaine Rangel) Left hemiparesis (Acute) Neuropathy of left peroneal nerve (Acute) - Physical Exam General: Alert, Oriented x3, Cooperative HEENT: Atraumatic, PERRLA, EOMI, Normocephalic Neck: Supple, No JVD, Negative Carotid Bruits Lungs: Clear to auscultation, Normal air movement Cardiovascular: Regular rate, No murmurs Abdomen: Bowel Sounds Present, Soft, Non Tender Extremities: No edema, Capillary Refill Less than 3 Seconds, - - Right above knee amputation. Skin: No rashes, No breakdown Musculoskeletal: No Tenderness to Palpation of Joints or Extremities Neurological: Cranial nerves II-XII grossly intact, - - Left hemiparesis. Psych/Mental Status: Normal Affect, Appropriate Vital Signs Temp Pulse Resp BP Pulse Ox 97.3 F L 67 16 148/70 H 97 11/23/18 15:08 11/23/18 15:08 11/23/18 15:08 11/23/18 15:08 11/23/18 15:08 Oxygen Flow Rate (L/min) 2 Oxygen Delivery Method Room Air Weight: 76.43 kg Body Mass Index (BMI) 23.9 Finger Stick Blood Glucose 310 Intake and Output for Last 24 Hours 11/21/18 11/22/18 11/23/18 23:59 23:59 23:59 Intake Total 960 / 960 1560 / 1560 480 / 480 Output Total 400 / 400 425 / 425 Balance 560 / 560 1135 / 1135 480 / 480 Laboratory Tests Past 24 Hrs 11/23/18 05:10 Ammonia 87.0 H POC Glucose 11/23/18 11/23/18 11/23/18 16:42 10:30 06:17 POC Glucose 127 H 176 H 145 H 11/22/18 21:19 POC Glucose 174 H Assessment/Plan All Active Problems (Last Reviewed 11/17/18 @ 11:30 by Elaine Rangel) Troponin I above reference range (Acute) TIA (transient ischemic attack) (Ruled-out) Left hemiparesis (Acute) Neuropathy of left peroneal nerve (Acute) 63 year old male with below past medical history hospitalized for left hemiparesis, secondary to TIA versus left peroneal neuropathy, complicated by indeterminate troponin, admitted to TCU with debility, here for rehabilitation, strengthening, prior to discharge home with spouse. Debility - PT/OT. Pain - Tylenol 1000MG Q8H PRN mild pain. Bowel - Miralax 17GM daily, Senokot 1 tablet BID, Dulcolax 10MG [place] daily PRN. Pneumonia vaccination - Administer Prevnar 13 and/or Pneumovax 23 as necessary. DVT prophylaxis - Off Lovenox. COPD - Albuterol 2.5MG Q2H PRN, Albuterol MDI 2 puffs BID, 2 puffs Q4H PRN. Anxiety - Xanax 0.5MG TID PRN, chronic penitentiary use of [employer] drug, consider GDR as outpatient. Hypertension - Amlodipine 10MG daily. Iron deficiency anemia - Ferrex 150MG daily. Nutrition - Glucerna 120ML 4x/day, Soren 1 packet BID. Diabetes Mellitus II - Lantus 10 units BID, Humalog 7 units TIDAC. Hepatic encephalopathy - Rifampin 300MG daily, off Lactulose, follow ammonia level. Hypothyroidism - Levothyroxine 300MCG daily. GERD - Pantoprazole 40MG twice daily. Diabetic Neuropathy - Lyrica 100MG BID. Nausea - Phenergan 25MG TID PRN. Depression - Sertraline increased to 150MG daily. BPH - Tamsulosin 0.4MG daily. Tinea Corporis - Nystatin powder BID.
--- NOTE | 2018-11-23 20:29 | PN_ITS ---
Subjective: Resident seen in room, lying in bed. Resident progressing with therapy, although still requiring moderate to maximal assistance depending on activity. Rifampin has been restarted per request for high ammonia levels. His ammonia levels are elevated but there was little response to Lactulose therapy. Resident eager to go home, crying because she knows she will not be able to care for him. I let resident know he should not leave until insurance cuts him or therapy feels he is no longer progressing. Vitals/I&O's: Vital Signs Temp Pulse Resp BP Pulse Ox 97.3 F L 67 16 148/70 H 97 11/23/18 15:08 11/23/18 15:08 11/23/18 15:08 11/23/18 15:08 11/23/18 15:08 Oxygen Flow Rate (L/min) 2 Oxygen Delivery Method Room Air Weight: 76.43 kg Body Mass Index (BMI) 23.9 Finger Stick Blood Glucose 310 Intake and Output for Last 24 Hours 11/21/18 11/22/18 11/23/18 23:59 23:59 23:59 Intake Total 960 / 960 1560 / 1560 480 / 480 Output Total 400 / 400 425 / 425 Balance 560 / 560 1135 / 1135 480 / 480 Laboratory Results 11/22/18 21:19: POC Glucose 174 H 11/23/18 05:10: Ammonia 87.0 H 11/23/18 06:17: POC Glucose 145 H 11/23/18 10:30: POC Glucose 176 H 11/23/18 16:42: POC Glucose 127 H Past Medical History Past Medical History (Chronic Problems): Chronic Problems (Last Reviewed 11/17/18 @ 11:30 by Elaine Rangel) Iron deficiency (Chronic) Peripheral neuropathy (Chronic) BPH (benign prostatic hyperplasia) (Chronic) Carotid stenosis (Chronic) Aortic stenosis (Chronic) HLD (hyperlipidemia) (Chronic) Anxiety (Chronic) HTN (hypertension) (Chronic) Benzodiazepine dependence (Chronic) Opioid dependence (Chronic) Diabetic polyneuropathy (Chronic) Depression (Chronic) PAOD (peripheral arterial occlusive disease) (Chronic) Stage III chronic kidney disease (Chronic) Status post above knee amputation of right lower extremity (Chronic) COPD (chronic obstructive pulmonary disease) (Chronic) TIA (transient ischemic attack) (Chronic) GERD (gastroesophageal reflux disease) (Chronic) Alcoholic liver disease (Chronic) cirrhosis Portal hypertension esophageal varices stage III DM type 2 (diabetes mellitus, type 2) (Chronic) Alcohol abuse (Chronic) 6-12 drinks/day Hypothyroidism (Chronic) Chronic blood loss anemia (Chronic) required 3 units of PRBC's- prior workup for this showed no etiology Medical History: Medical History (Last Reviewed 11/17/18 @ 11:30 by Elaine Rangel) Troponin I above reference range (Acute) R74.8 Iron deficiency (Chronic) E61.1 Peripheral neuropathy (Chronic) G62.9 Carotid stenosis (Chronic) I65.29 Aortic stenosis (Chronic) I35.0 HLD (hyperlipidemia) (Chronic) E78.5 HTN (hypertension) (Chronic) I10 Left hemiparesis (Acute) G81.94 Benzodiazepine dependence (Chronic) F13.20 Opioid dependence (Chronic) F11.20 Diabetic polyneuropathy (Chronic) E11.42 PAOD (peripheral arterial occlusive disease) (Chronic) I77.9 Stage III chronic kidney disease (Chronic) N18.3 COPD (chronic obstructive pulmonary disease) (Chronic) J44.9 GERD (gastroesophageal reflux disease) (Chronic) K21.9 Alcoholic liver disease (Chronic) K70.9 cirrhosis Portal hypertension esophageal varices stage III DM type 2 (diabetes mellitus, type 2) (Chronic) E11.9 Alcohol abuse (Chronic) F10.10 6-12 drinks/day Hypothyroidism (Chronic) E03.9 Chronic blood loss anemia (Chronic) D50.0 required 3 units of PRBC's- prior workup for this showed no etiology Allergies codeine Allergy (Verified 11/17/18 11:42) Hives hydrocodone Allergy (Verified 11/17/18 11:42) Hives hydromorphone HCl [From Dilaudid] Allergy (Verified 11/17/18 11:42) Itching oxycodone [From Percocet] Allergy (Verified 11/17/18 11:42) Rash atorvastatin [From Lipitor] Adverse Reaction (Severe, Verified 11/17/18 11:42) RHABDOMYALYSIS Home Medications: Ambulatory Orders Medication Instructions Recorded Amlodipine [Norvasc] 10 mg PO DAILY 06/13/14 Bisacodyl [Dulcolax] 10 mg RECTAL DAILY PRN PRN 09/11/16 Rifampin [Rifadin] 150 mg PO BID 09/11/16 Levothyroxine [Synthroid] 300 mcg PO DAILY 03/03/17 Docusate Sodium [Colace] 100 mg PO BID PRN PRN 10/27/18 Ferrous Sulfate [High Potency Iron] 27 mg PO DAILY 10/27/18 Pantoprazole Sodium [Protonix] 40 mg PO BID 10/27/18 Promethazine HCl 25 mg PO TID PRN 10/27/18 Sertraline HCl 100 mg PO DAILY 10/27/18 Tamsulosin HCl 0.4 mg PO DAILY 10/27/18 Albuterol Aerosols [Ventolin 2.5 mg INHALATION Q2H PRN PRN 10/30/18 Aerosols] vial.neb. Glucerna Shake 120 ml PO 4X/DAY 10/30/18 Ipratropium/Albuterol Sulfate 3 ml INHALATION Q6H.RT 10/30/18 [Duoneb] Lactulose [Chronulac] 20 gm PO BID 10/30/18 insulin glargine (U-100) 100 20 unit SC DAILY 11/17/18 unit/mL (3 mL) subcutaneous pen insulin lispro (U- 100) 100 13 unit SC .before meals ml 11/17/18 unit/mL subcutaneous pen pregabalin 50 mg capsule 50 mg PO TID 11/17/18 Surgical History: Surgical History (Last Reviewed 11/17/18 @ 11:30 by Elaine Rangel) Status post above knee amputation of right lower extremity (Chronic) Z89.611 Surgical History: tonsillectomy, - - Right above-knee amputation secondary to peripheral vascular disease 2003, knee surgery secondary to torn meniscus Psychiatric History: Depression Lives: Spouse/ Significant Other Smoking Status: Current every day smoker Tobacco Use: Cigarettes Alcohol: None Drugs: None - *Family History Maternal History Items: No pertinent history Sibling History Items: No pertinent history Paternal History Items: Stroke Capacity - Capacity Assessment Tool Can the patient make a choice & communicate that choice?: Yes Can the patient understand benefits, risks and alternatives?: Yes Can the patient make a logical, rational choice?: Yes Is the choice the patient makes consistent w/ their values?: Yes Is there an impending, emergent risk to the patient?: No Does the patient have an Advance Directive?: No Is there a Surrogate Available?: Yes i.e. HCPOA: Yes i.e. close relative (spouse, child, parent, sibling)?: Yes Review of Systems Constitutional: Denies: Chills, Fever, Weight Change HEENT: Denies: Head Aches, Sinus Congestion, Sinus Drainage Cardiovascular: Denies: Chest Pain, Palpitations Respiratory: Denies: Cough, Shortness of breath at rest, Sputum production Gastrointestinal: Denies: Abdominal Pain, Nausea, Vomiting Genitourinary: Denies: Dysuria Musculoskeletal: Denies: Joint Pain, Joint Tenderness Skin: Denies: Rash, Wounds Neurological: Denies: Numbness, Tingling, Focal weakness Psychiatric: Denies: Anxiety, Depression, Homicidal Ideations, Suicidal Ideations Hematologic/ Lymphatic: Denies: Easy Bruising, Easy Bleeding Patient Problems: Active and Suspected Problems (Last Reviewed 11/17/18 @ 11:30 by Elaine Rangel) Left hemiparesis (Acute) Neuropathy of left peroneal nerve (Acute) - Physical Exam General: Alert, Oriented x3, Cooperative HEENT: Atraumatic, PERRLA, EOMI, Normocephalic Neck: Supple, No JVD, Negative Carotid Bruits Lungs: Clear to auscultation, Normal air movement Cardiovascular: Regular rate, No murmurs Abdomen: Bowel Sounds Present, Soft, Non Tender Extremities: No edema, Capillary Refill Less than 3 Seconds, - - Right above knee amputation. Skin: No rashes, No breakdown Musculoskeletal: No Tenderness to Palpation of Joints or Extremities Neurological: Cranial nerves II-XII grossly intact, - - Left hemiparesis. Psych/Mental Status: Normal Affect, Appropriate Vital Signs Temp Pulse Resp BP Pulse Ox 97.3 F L 67 16 148/70 H 97 11/23/18 15:08 11/23/18 15:08 11/23/18 15:08 11/23/18 15:08 11/23/18 15:08 Oxygen Flow Rate (L/min) 2 Oxygen Delivery Method Room Air Weight: 76.43 kg Body Mass Index (BMI) 23.9 Finger Stick Blood Glucose 310 Intake and Output for Last 24 Hours 11/21/18 11/22/18 11/23/18 23:59 23:59 23:59 Intake Total 960 / 960 1560 / 1560 480 / 480 Output Total 400 / 400 425 / 425 Balance 560 / 560 1135 / 1135 480 / 480 Laboratory Tests Past 24 Hrs 11/23/18 05:10 Ammonia 87.0 H POC Glucose 11/23/18 11/23/18 11/23/18 16:42 10:30 06:17 POC Glucose 127 H 176 H 145 H 11/22/18 21:19 POC Glucose 174 H Assessment/Plan All Active Problems (Last Reviewed 11/17/18 @ 11:30 by Elaine Rangel) Troponin I above reference range (Acute) TIA (transient ischemic attack) (Ruled-out) Left hemiparesis (Acute) Neuropathy of left peroneal nerve (Acute) 63 year old male with below past medical history hospitalized for left hemiparesis, secondary to TIA versus left peroneal neuropathy, complicated by indeterminate troponin, admitted to TCU with debility, here for rehabilitation, strengthening, prior to discharge home with spouse. * Debility - PT/OT. * Pain - Tylenol 1000MG Q8H PRN mild pain. * Bowel - Miralax 17GM daily, Senokot 1 tablet BID, Dulcolax 10MG [place] daily PRN. * Pneumonia vaccination - Administer Prevnar 13 and/or Pneumovax 23 as necessary. * DVT prophylaxis - Off Lovenox. * COPD - Albuterol 2.5MG Q2H PRN, Albuterol MDI 2 puffs BID, 2 puffs Q4H PRN. 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 * Hypertension - Amlodipine 10MG daily. * Iron deficiency anemia - Ferrex 150MG daily. * Nutrition - Glucerna 120ML 4x/day, Soren 1 packet BID. * Diabetes Mellitus II - Lantus 10 units BID, Humalog 7 units TIDAC. * Hepatic encephalopathy - Rifampin 300MG daily, off Lactulose, follow ammonia level. * Hypothyroidism - Levothyroxine 300MCG daily. * GERD - Pantoprazole 40MG twice daily. * Diabetic Neuropathy - Lyrica 100MG BID. * Nausea - Phenergan 25MG TID PRN. * Depression - Sertraline increased to 150MG daily. * BPH - Tamsulosin 0.4MG daily. * Tinea Corporis - Nystatin powder BID.
[2018-11-23 21:46] LABS: Bedside Glucose 213 mg/dL (70-110)
[2018-11-24] MEDS: Pregabalin 50 MG Capsule 100 MG PO ×2 (05:03→17:39)
[2018-11-24] MEDS: Pantoprazole Sodium 40 MG Tablet PO ×2 (05:04→17:39)
[2018-11-24] MEDS: amLODIPine 10 MG Tablet PO (05:04)
[2018-11-24] MEDS: Menthol/Lanolin/Calamine/Znox 113 GM Tube 1 APPLIC TOPICAL ×2 (05:04→19:47)
[2018-11-24] MEDS: Sertraline 100 MG Tablet 150 MG PO (05:04)
[2018-11-24] MEDS: Senna Tablet 1 TABLET PO ×2 (05:04→17:39)
[2018-11-24] MEDS: Levothyroxine 100 MCG Tablet 300 MCG PO (05:06)
[2018-11-24] MEDS: Nystatin Powder 15gm Bottle 1 APPLIC TOPICAL ×2 (05:08→19:47)
[2018-11-24 06:41] LABS: Bedside Glucose 144 mg/dL (70-110)
[2018-11-24 07:19] LABS: Absolute Lymphocyte Count 0.56 X10^3/ul (0.83-4.51); Absolute Neutrophil Count 2.3 X10^3/uL (2.0-7.7); Basophil# 0.02 X10^3/uL; Basophil% 0.6 % (0-1); Eosinophil# 0.23 X10^3/uL; Eosinophils% 6.7 % (0-5); Hematocrit 35.5 % (40-54); Hemoglobin 11.7 g/dl (13.0-16.5); Lymphocyte # 0.56 X10^3/ul (4.0); Lymphocyte % 16.2 % (19-41); Mean Corpuscular Hgb 31.6 pg (27.0-32.0); Mean Corpuscular Volume 95.9 fL (80-94); Mean Platelet Vol. 10.6 fl (6.2-12.0); Monocyte# 0.35 X10^3/uL; Monocyte% 10.1 % (0-10); Neutrophil # 2.29 X10^3/uL (2.7-7.7); Neutrophil % 66.4 % (47-70); Platelet Count 66 K/mm3 (150-450); RBC Distribution Width CV 14.4 % (11.6-14.6); RBC Distribution Width SD 50.4 fl (35.1-43.9); White Blood Count 3.5 K/mm3 (4.4-11.0)
[2018-11-24 07:26] LABS: Anion Gap 6 (5-15); BUN 46 mg/dL (7-18); BUN/Creat Ratio 38.7 RATIO (10-20); Calcium,Total 9.2 mg/dL (8.5-10.1); Chloride 112 mmol/L (98-107); Creatinine, Serum 1.19 mg/dL (0.70-1.30); Differential Indicated SCAN CRITERIA MET; EST Glomerular Filtration Rate 65 mL/min (>60); Est Glom Filt Rate - Afr Amer 79 mL/min (>60); Estimated Creatinine Clearance 64.75 ml/min; Glucose 130 mg/dL (74-106); POSITIVE COUNT NO; POSITIVE DIFFERENTIAL YES; POSITIVE MORPHOLOGY NO; Potassium 3.7 mmol/L (3.5-5.1); Sodium Level 144 mmol/L (136-145)
[2018-11-24 07:44] LABS: Platelet Estimate MOD DEC (ADEQ)
[2018-11-24] MEDS: Acetaminophen 500 MG Tablet 1000 MG PO ×2 (08:20→19:45)
[2018-11-24] MEDS: Iron Polysaccharide Complex 150 MG CAPSULE PO (08:20)
[2018-11-24] MEDS: Insulin Lispro 100 UNIT/ML INSULN.PEN 7 UNIT SC ×3 (08:20→17:40)
[2018-11-24] MEDS: Tamsulosin HCl 0.4 MG Capsule PO (08:20)
[2018-11-24 12:06] LABS: Bedside Glucose 138 mg/dL (70-110)
[2018-11-24 16:00] VITALS: BP 145/71; PULSE 96; RESP 16; TEMP 36.4; O2SAT 97
[2018-11-24 17:11] LABS: Bedside Glucose 169 mg/dL (70-110)
[2018-11-24] MEDS: rifAMPin 300 MG Capsule PO (17:39)
[2018-11-24 19:50] VITALS: PULSE 86; RESP 18; O2SAT 97
[2018-11-24 21:01] LABS: Bedside Glucose 272 mg/dL (70-110)
[2018-11-25] MEDS: Menthol/Lanolin/Calamine/Znox 113 GM Tube 1 APPLIC TOPICAL (05:06)
[2018-11-25] MEDS: Pregabalin 50 MG Capsule 100 MG PO (05:06)
[2018-11-25] MEDS: Polyethylene Glycol 3350 17 GM PACKET PO (05:08)
[2018-11-25] MEDS: Levothyroxine 100 MCG Tablet 300 MCG PO (05:08)
[2018-11-25] MEDS: Sertraline 100 MG Tablet 150 MG PO (05:09)
[2018-11-25] MEDS: Senna Tablet 1 TABLET PO (05:10)
[2018-11-25] MEDS: Pantoprazole Sodium 40 MG Tablet PO (05:10)
[2018-11-25] MEDS: Nystatin Powder 15gm Bottle 1 APPLIC TOPICAL (05:10)
[2018-11-25] MEDS: amLODIPine 10 MG Tablet PO (05:10)
[2018-11-25 07:31] LABS: Bedside Glucose 120 mg/dL (70-110)
[2018-11-25] MEDS: Iron Polysaccharide Complex 150 MG CAPSULE PO (08:00)
[2018-11-25] MEDS: Tamsulosin HCl 0.4 MG Capsule PO (08:00)
[2018-11-25] MEDS: Insulin Lispro 100 UNIT/ML INSULN.PEN 7 UNIT SC (08:54)
[2018-11-25 09:19] VITALS: BP 143/84; PULSE 80; RESP 18; TEMP 37; O2SAT 95
--- NOTE | 2018-11-25 09:36 | NURSING ---
Pt noted to have dark red bleeding from rectal, just runs out. pt having brown stool. with large amts of blood in attends and dripping out of rectum. Dr Gleason updated, new order to send to ER. Report called to VALARIE Verde. Vitals stable, pt alert and oriented. updated and will be in.
--- NOTE | 2018-11-25 09:43 | NURSING ---
Pt changed before going to the ER. Pt noted to have large amount of incontinent stool in brief with 2 visible long, dark red clots. Lorie SHEPPARD updated.
--- NOTE | 2018-11-25 17:30 | NURSING ---
Pt on acute side as observation pt at this time
[2018-11-26] MEDS: Menthol/Lanolin/Calamine/Znox 113 GM Tube 1 APPLIC TOPICAL ×2 (09:08→22:12)
[2018-11-26] MEDS: Nystatin Powder 15gm Bottle 1 APPLIC TOPICAL ×2 (09:09→22:11)
[2018-11-26] MEDS: Pantoprazole Sodium 40 MG Tablet PO ×2 (09:12→17:47)
[2018-11-26] MEDS: Polyethylene Glycol 3350 17 GM PACKET PO (09:12)
[2018-11-26] MEDS: amLODIPine 10 MG Tablet PO (09:12)
[2018-11-26] MEDS: Senna Tablet 1 TABLET PO ×2 (09:13→17:48)
[2018-11-26] MEDS: Iron Polysaccharide Complex 150 MG CAPSULE PO (09:13)
[2018-11-26] MEDS: Tamsulosin HCl 0.4 MG Capsule PO (09:13)
[2018-11-26] MEDS: Sertraline 100 MG Tablet 150 MG PO (09:13)
--- NOTE | 2018-11-26 09:17 | NURSING ---
Pt returned from Med Surg unit. Ok to give 6am missed pills at this time per Martha SHEPPARD.
--- NOTE | 2018-11-26 09:43 | NURSING ---
Patient returned from [facility] at 0840.
[2018-11-26 10:56] LABS: Bedside Glucose 190 mg/dL (70-110)
[2018-11-26] MEDS: Insulin Lispro 100 UNIT/ML INSULN.PEN 7 UNIT SC (11:31)
--- NOTE | 2018-11-26 13:25 | CASEMGMT ---
Insurance: Continued stay approved. Next review date due 12/02/18. Auth # [id number].
[2018-11-26 13:55] VITALS: BP 129/65; PULSE 66; RESP 16; TEMP 36.7; O2SAT 95
--- NOTE | 2018-11-26 14:38 | MDS.RN ---
Pain interview for maddie 11/27/18 completed.
--- NOTE | 2018-11-26 16:26 | CASEMGMT ---
Social Work BIMS and PHQ-9 completed on this date for BAKARI 11/27/18. Mayi Horta, COMMUNICATIONS CONTROLLER TAB CARD PRESS OPERATOR
[2018-11-26 17:05] LABS: Bedside Glucose 199 mg/dL (70-110)
--- NOTE | 2018-11-26 17:27 | NURSING ---
Dr. Gleason updated on all medication changes from stay on [facility] for observation.
[2018-11-26] MEDS: Acetaminophen 500 MG Tablet 1000 MG PO (17:51)
[2018-11-26 18:30] VITALS: PULSE 66; RESP 18; O2SAT 99
[2018-11-26] MEDS: Ipratropium/Albuterol Sulfate 3 ML AMPUL.NEB INHALATION (18:30)
[2018-11-26 21:21] LABS: Bedside Glucose 203 mg/dL (70-110)
[2018-11-26] MEDS: Pregabalin 50 MG Capsule PO (22:11)
[2018-11-27] MEDS: ALPRAZolam 0.5 MG Tablet PO ×2 (00:22→22:34)
[2018-11-27] MEDS: Levothyroxine 100 MCG Tablet 300 MCG PO (05:57)
[2018-11-27] MEDS: Pantoprazole Sodium 40 MG Tablet PO ×2 (05:58→18:05)
[2018-11-27] MEDS: Pregabalin 50 MG Capsule PO ×3 (05:58→20:25)
[2018-11-27] MEDS: rifAMPin 300 MG Capsule PO (05:58)
[2018-11-27] MEDS: amLODIPine 10 MG Tablet PO (05:58)
[2018-11-27] MEDS: Senna Tablet 1 TABLET PO ×2 (05:58→18:05)
[2018-11-27] MEDS: Polyethylene Glycol 3350 17 GM PACKET PO (05:58)
[2018-11-27] MEDS: Sertraline 100 MG Tablet PO (05:59)
[2018-11-27] MEDS: Menthol/Lanolin/Calamine/Znox 113 GM Tube 1 APPLIC TOPICAL ×2 (06:02→20:19)
[2018-11-27] MEDS: Nystatin Powder 15gm Bottle 1 APPLIC TOPICAL ×2 (06:03→20:18)
[2018-11-27 06:20] VITALS: PULSE 69; RESP 16
[2018-11-27] MEDS: Ipratropium/Albuterol Sulfate 3 ML AMPUL.NEB INHALATION ×3 (06:20→19:07)
[2018-11-27 06:35] LABS: Bedside Glucose 149 mg/dL (70-110)
[2018-11-27] MEDS: Tamsulosin HCl 0.4 MG Capsule PO (08:37)
[2018-11-27] MEDS: Iron Polysaccharide Complex 150 MG CAPSULE PO (08:37)
[2018-11-27] MEDS: Acetaminophen 500 MG Tablet 1000 MG PO ×2 (08:39→22:33)
[2018-11-27] MEDS: Insulin Lispro 100 UNIT/ML INSULN.PEN 13 UNIT SC ×3 (08:40→18:05)
[2018-11-27 10:46] LABS: Bedside Glucose 121 mg/dL (70-110)
--- NOTE | 2018-11-27 12:13 | CASEMGMT ---
Social Work Spoke with pt and about discharge plans. will receive training on slide board transfers Thursday 11/30 - pt will DC home with on 12/02. Provided pt with Passport resources and Medicaid application to complete to determine eligibility for Medicaid and services in the community/home. Referral made to [facility] for PT/OT/SN and [employer] for specialty cushion, w/c, and leg rests. Plan: DC home w/ 12/02 with C and DME. ROLA CoxW
[2018-11-27 13:15] VITALS: PULSE 72; RESP 16
--- NOTE | 2018-11-27 14:50 | DCINST_ITS ---
- Discharge Diagnoses Current Active Problems: Current Active and Chronic Problems (Last Reviewed 11/25/18 @ 15:45 by Lynette Schmitz PA-C) Left hemiparesis (Acute) Neuropathy of left peroneal nerve (Acute) Benzodiazepine dependence (Chronic) Opioid dependence (Chronic) Diabetic polyneuropathy (Chronic) Depression (Chronic) PAOD (peripheral arterial occlusive disease) (Chronic) You will use the following diet at home:: No restrictions, Regular Your food should be the consistency of: Regular Your liquids should be the consistency of: Regular/Thin Discharge Activity: Return to Normal Activity, May Shower, Use Crutches Weight Bearing Status: Weight bearing as tolerated Call your doctor if you observe: Fever of 101 or Higher, Inability to urinate, Inability to have a bowel movement, Shortness of breath, Chest pain, Uncontrolled pain Allergies/Adverse Reactions: Allergies codeine Allergy (Verified 11/25/18 09:48) Hives hydrocodone Allergy (Verified 11/25/18 09:48) Hives hydromorphone HCl [From Dilaudid] Allergy (Verified 11/25/18 09:48) Itching oxycodone [From Percocet] Allergy (Verified 11/25/18 09:48) Rash atorvastatin [From Lipitor] Adverse Reaction (Severe, Verified 11/25/18 09:48) RHABDOMYALYSIS Medications to take at Discharge Amlodipine [Norvasc] 10 mg PO DAILY 06/13/14 Bisacodyl [Dulcolax] 10 mg RECTAL DAILY PRN PRN 09/11/16 Rifampin [Rifadin] 150 mg PO BID 09/11/16 Levothyroxine [Synthroid] 300 mcg PO DAILY 03/03/17 Pantoprazole Sodium [Protonix] 40 mg PO BID 10/27/18 Promethazine HCl 25 mg PO TID PRN 10/27/18 Sertraline HCl 100 mg PO DAILY 10/27/18 Tamsulosin HCl 0.4 mg PO DAILY 10/27/18 Albuterol Aerosols [Ventolin Aerosols] 2.5 mg INHALATION Q2H PRN PRN vial.neb. 10/30/18 Ipratropium/Albuterol Sulfate [Duoneb] 3 ml INHALATION Q6H.RT 10/30/18 Lactulose [Chronulac] 20 gm PO BID 10/30/18 pregabalin 50 mg capsule 50 mg PO TID 11/17/18 ALPRAZolam [Xanax] 0.5 mg PO TID PRN PRN #21 tab 11/27/18 Acetaminophen [Tylenol] 1,000 mg PO Q8H PRN PRN tablet 11/27/18 Docusate Sodium [Colace] 100 mg PO BID PRN PRN capsule 11/27/18 Insulin Glargine [Lantus SoloStar Pen] 20 units SC BID #1 pen 11/27/18 Insulin Lispro [Humalog KwikPen] 13 unit SC TIDAC #1 insuln.pen 11/27/18 Ipratropium/Albuterol Sulfate [Duoneb] 3 ml INHALATION Q6H.RT ampul.neb 11/27/18 Iron Polysaccharide Complex [Ferrex 150] 150 mg PO DAILYCM #30 capsule 11/27/18 Lactulose [Chronulac] 20 gm PO BID #60 udc 11/27/18 Menthol/Lanolin/Calamine/Znox [Calmoseptine Ointment] 1 applic TOPICAL 0600,2200 tube 11/27/18 Nystatin Powder [Mycostatin Powder] 1 applic TOPICAL 0600,2200 bottle 11/27/18 Polyethylene Glycol 3350 [Miralax] 17 gm PO DAILY #30 packet 11/27/18 Pregabalin [Lyrica] 50 mg PO TID capsule 11/27/18 Rifampin [Rifadin] 300 mg PO DAILY capsule 11/27/18 Senna [Senokot] 1 tablet PO BID tablet 11/27/18 The following prescriptions were given: ALPRAZolam [Xanax] 0.5 mg PO TID PRN PRN #21 tab PRN Reason: ANXIETY Insulin Lispro [Humalog KwikPen] 13 unit SC TIDAC #1 insuln.pen Iron Polysaccharide Complex [Ferrex 150] 150 mg PO DAILYCM #30 capsule Polyethylene Glycol 3350 [Miralax] 17 gm PO DAILY #30 packet Insulin Glargine [Lantus SoloStar Pen] 20 units SC BID #1 pen Lactulose [Chronulac] 20 gm PO BID #60 udc Primary Care Physician: Vladislav Colunga DO [Primary Care Provider] - Please follow up with your Primary Care Physician in: 1 week. Test Results: Test results from this visit will be discussed in further detail at your follow- up appointment, if applicable. Please Follow Up With: Tyrone King MD When: 2 weeks. Please Follow Up With: Huang Sheets MD When: 2 weeks. Please Follow Up With: Roni Pisano MD When: 2 weeks. Proposed Discharge Date: 12/02/18
--- NOTE | 2018-11-27 14:50 | PCM.DC.SUM ---
Discharge Date and Diagnosis - Problem List Patient Problems: Active and Suspected Problems (Last Reviewed 11/25/18 @ 15:45 by Lynette Schmitz PA-C) Left hemiparesis (Acute) Neuropathy of left peroneal nerve (Acute) Date of Admission: 10/30/18 Date of Discharge: 12/02/18 - Primary Discharge Diagnosis Active and Suspected Problems (Last Reviewed 11/25/18 @ 15:45 by Lynette Schmitz PA-C) Left hemiparesis (Acute) Neuropathy of left peroneal nerve (Acute) - Secondary Discharge Diagnosis Chronic Problems (Last Reviewed 11/25/18 @ 15:45 by Lynette Schmitz PA-C) Chronic disease anemia (Chronic) Iron deficiency (Chronic) Peripheral neuropathy (Chronic) BPH (benign prostatic hyperplasia) (Chronic) Carotid stenosis (Chronic) Aortic stenosis (Chronic) HLD (hyperlipidemia) (Chronic) Anxiety (Chronic) HTN (hypertension) (Chronic) Benzodiazepine dependence (Chronic) Opioid dependence (Chronic) Diabetic polyneuropathy (Chronic) Depression (Chronic) PAOD (peripheral arterial occlusive disease) (Chronic) Stage III chronic kidney disease (Chronic) Status post above knee amputation of right lower extremity (Chronic) COPD (chronic obstructive pulmonary disease) (Chronic) TIA (transient ischemic attack) (Chronic) GERD (gastroesophageal reflux disease) (Chronic) Alcoholic liver disease (Chronic) cirrhosis Portal hypertension esophageal varices stage III DM type 2 (diabetes mellitus, type 2) (Chronic) Alcohol abuse (Chronic) 6-12 drinks/day Hypothyroidism (Chronic) Chronic blood loss anemia (Chronic) required 3 units of PRBC's- prior workup for this showed no etiology Hospital Course and Treatment Imaging Results: 10/30/18 14:08 Diet: Cardiac: Calorie-Controlled Food consistency:: Regular Liquid Consistency:: Regular/Thin Is pt able to select menu?: Yes How many daily calories?: 1800 calorie Clinical Impression(s) from Imaging Studies Chest X-Ray 11/10/18 08:36 IMPRESSION: Mild degree of increased markings at the lung bases suggestive of bibasilar linear atelectasis Electronically Signed: Boby Rose, at 10:53 EDT , Service support , Abdomen X-Ray 11/10/18 08:37 IMPRESSION: Moderate amount of fecal material is seen in the colon. Mild degree of increased markings at the lung bases suggestive of atelectasis. Electronically Signed: Boby Rose, at 10:54 EDT , Service support , Labs (Last 48 Hours) 11/26/18 11/26/18 11/26/18 10:49 16:55 21:10 Ammonia POC Glucose 190 H 199 H 203 H 11/27/18 11/27/18 11/27/18 05:30 06:10 10:31 Ammonia 73.0 H POC Glucose 149 H 121 H Consultations 10/30/18 17:33 Consult: Onc/Wound/product marketer Routine Comment: Reason for Consult:: old LT heel injury & open wound to buttocksx2 Operations: None Procedures: None Summary of Care Provided: The patient is a 63 year old Male with below past medical history hospitalized for left hemiparesis, secondary to TIA versus left peroneal neuropathy, complicated by indeterminate troponin, admitted to TCU with debility, here for rehabilitation, strengthening, prior to discharge home with spouse. On TCU, resident had problems with elevated ammonia level, improved with lactulose administration. 11/25/2018 Resident developed rectal bleeding, he was hospitalized under observation, hemoglobin stable, rectal bleeding resolved, treated for fecal impaction. Resident needs wheelchair, unable to ambulate with a cane or walker and requires wheelchair for mobility. Discharge home with spouse, Home Health Services for PT/OT/SN, [employer] for specialty cushion, wheelchair, leg rests. Requires nebuizer for aerosol treatment. Patient Problems: Active and Suspected Problems (Last Reviewed 11/25/18 @ 15:45 by Lynette Schmitz PA-C) Left hemiparesis (Acute) Neuropathy of left peroneal nerve (Acute) - Physical Exam Vital Signs Temp Pulse Resp BP Pulse Ox 98.0 F 72 16 129/65 H 99 11/26/18 13:55 11/27/18 13:15 11/27/18 13:15 11/26/18 13:55 11/26/18 18:30 Oxygen Flow Rate (L/min) 2 Oxygen Delivery Method Room Air Weight: 73.936 kg Body Mass Index (BMI) 23.9 Finger Stick Blood Glucose 310 Intake and Output for Last 24 Hours 11/25/18 11/26/18 11/27/18 23:59 23:59 23:59 Intake Total 480 / 480 280 / 280 480 / 480 Output Total 300 / 300 300 / 300 Balance 180 / 180 280 / 280 180 / 180 Laboratory Tests Past 24 Hrs 11/27/18 05:30 Ammonia 73.0 H POC Glucose 11/27/18 11/27/18 11/26/18 10:31 06:10 21:10 POC Glucose 121 H 149 H 203 H 11/26/18 16:55 POC Glucose 199 H Discharge Diet: No Restrictions Discharge Activity: Return to Normal Activity, May Shower, Use Crutches Weight Bearing Status: Weight bearing as tolerated Call your doctor if you observe: Fever of 101 or Higher, Inability to urinate, Inability to have a bowel movement, Shortness of breath, Chest pain, Uncontrolled pain Home Medications: Medications to take at Discharge Amlodipine [Norvasc] 10 mg PO DAILY 06/13/14 Bisacodyl [Dulcolax] 10 mg RECTAL DAILY PRN PRN 09/11/16 Rifampin [Rifadin] 150 mg PO BID 09/11/16 Levothyroxine [Synthroid] 300 mcg PO DAILY 03/03/17 Pantoprazole Sodium [Protonix] 40 mg PO BID 10/27/18 Promethazine HCl 25 mg PO TID PRN 10/27/18 Sertraline HCl 100 mg PO DAILY 10/27/18 Tamsulosin HCl 0.4 mg PO DAILY 10/27/18 Albuterol Aerosols [Ventolin Aerosols] 2.5 mg INHALATION Q2H PRN PRN vial.neb. 10/30/18 Ipratropium/Albuterol Sulfate [Duoneb] 3 ml INHALATION Q6H.RT 10/30/18 Lactulose [Chronulac] 20 gm PO BID 10/30/18 pregabalin 50 mg capsule 50 mg PO TID 11/17/18 ALPRAZolam [Xanax] 0.5 mg PO TID PRN PRN #21 tab 11/27/18 Acetaminophen [Tylenol] 1,000 mg PO Q8H PRN PRN tablet 11/27/18 Docusate Sodium [Colace] 100 mg PO BID PRN PRN capsule 11/27/18 Insulin Glargine [Lantus SoloStar Pen] 20 units SC BID #1 pen 11/27/18 Insulin Lispro [Humalog KwikPen] 13 unit SC TIDAC #1 insuln.pen 11/27/18 Ipratropium/Albuterol Sulfate [Duoneb] 3 ml INHALATION Q6H.RT ampul.neb 11/27/18 Iron Polysaccharide Complex [Ferrex 150] 150 mg PO DAILYCM #30 capsule 11/27/18 Lactulose [Chronulac] 20 gm PO BID #60 udc 11/27/18 Menthol/Lanolin/Calamine/Znox [Calmoseptine Ointment] 1 applic TOPICAL 0600,2200 tube 11/27/18 Nystatin Powder [Mycostatin Powder] 1 applic TOPICAL 0600,2200 bottle 11/27/18 Polyethylene Glycol 3350 [Miralax] 17 gm PO DAILY #30 packet 11/27/18 Pregabalin [Lyrica] 50 mg PO TID capsule 11/27/18 Rifampin [Rifadin] 300 mg PO DAILY capsule 11/27/18 Senna [Senokot] 1 tablet PO BID tablet 11/27/18 Following Prescrptions Were Given to Patient: ALPRAZolam [Xanax] 0.5 mg PO TID PRN PRN #21 tab PRN Reason: ANXIETY Insulin Lispro [Humalog KwikPen] 13 unit SC TIDAC #1 insuln.pen Iron Polysaccharide Complex [Ferrex 150] 150 mg PO DAILYCM #30 capsule Polyethylene Glycol 3350 [Miralax] 17 gm PO DAILY #30 packet Insulin Glargine [Lantus SoloStar Pen] 20 units SC BID #1 pen Lactulose [Chronulac] 20 gm PO BID #60 udc Primary Care Physician: Vladislav Colunga DO [Primary Care Provider] - Please follow up with your Primary Care Physician in: 1 week. Please Follow Up With: Tyrone King MD When: 2 weeks. Please Follow Up With: Huang Sheets MD When: 2 weeks. Please Follow Up With: Roni Pisano MD When: 2 weeks. Disposition: Home with Home Health Minutes spent on discharge:: 35 Patient Condition:: Stable Medical Necessity - Tobacco Use Smoking Status: Current every day smoker Tobacco Use: Cigarettes Meaningful Use Info Meaningful Use Diagnoses (Choose all that apply): None applicable
--- NOTE | 2018-11-27 14:53 | PCM.PN.HH ---
Home Health Note - Plan Overview of reason of hospitalization: The patient is a 63 year old Male with below past medical history hospitalized for left hemiparesis, secondary to TIA versus left peroneal neuropathy, complicated by indeterminate troponin, admitted to TCU with debility, here for rehabilitation, strengthening, prior to discharge home with spouse. On TCU, resident had problems with elevated ammonia level, improved with lactulose administration. 11/25/2018 Resident developed rectal bleeding, he was hospitalized under observation, hemoglobin stable, rectal bleeding resolved, treated for fecal impaction. Resident needs wheelchair, unable to ambulate with a cane or walker and requires wheelchair for mobility. Discharge home with spouse, Home Health Services for PT/OT/SN, [employer] for specialty cushion, wheelchair, leg rests. Requires nebuizer for aerosol treatment. Problems: Patient was seen for (Last Reviewed 11/25/18 @ 15:45 by Lynette Schmitz PA-C) Left hemiparesis (Acute) Neuropathy of left peroneal nerve (Acute) Benzodiazepine dependence (Chronic) Opioid dependence (Chronic) Diabetic polyneuropathy (Chronic) Depression (Chronic) PAOD (peripheral arterial occlusive disease) (Chronic) Complete List of Medical Problems (Last Reviewed 11/25/18 @ 15:45 by Lynette Schmitz PA-C) Lower GI bleed (Acute) Chronic disease anemia (Chronic) Renal insufficiency (Acute) Troponin I above reference range (Acute) Iron deficiency (Chronic) Peripheral neuropathy (Chronic) BPH (benign prostatic hyperplasia) (Chronic) Carotid stenosis (Chronic) Aortic stenosis (Chronic) HLD (hyperlipidemia) (Chronic) Anxiety (Chronic) HTN (hypertension) (Chronic) Left hemiparesis (Acute) Neuropathy of left peroneal nerve (Acute) Benzodiazepine dependence (Chronic) Opioid dependence (Chronic) Diabetic polyneuropathy (Chronic) Depression (Chronic) PAOD (peripheral arterial occlusive disease) (Chronic) Stage III chronic kidney disease (Chronic) Status post above knee amputation of right lower extremity (Chronic) COPD (chronic obstructive pulmonary disease) (Chronic) TIA (transient ischemic attack) (Chronic) GERD (gastroesophageal reflux disease) (Chronic) Alcoholic liver disease (Chronic) DM type 2 (diabetes mellitus, type 2) (Chronic) Alcohol abuse (Chronic) Hypothyroidism (Chronic) Chronic blood loss anemia (Chronic) - Requirements and Reasons Disciplines Needed/Ordered: [facility], Physical Therapy Reason for Disciplines: Disease Specific Monitoring/education, Medication Management/Knowledge Deficit, Gait Training, Stair Training, Fall Prevention, Home Safety/Equipment Instruction, Balance and/or Posture Training, Transfer Training Related To: Change in Medical Treatment Plan, Limited/Poor Endurance, Shortness of Breath with Activity, Physical Impairments, Unsteady Gait/Balance, Fall Risk Patient is unable to leave the home: Without Aid of Supportive Devices (crutches, cane, wheelchair, walker), Without the assistance of another person - Additional Disciplines Additional Disciplines Needed/Ordered: Occupational Therapy
[2018-11-27 15:26] VITALS: BP 124/57; PULSE 70; RESP 16; TEMP 37.2; O2SAT 93
[2018-11-27 17:01] LABS: Bedside Glucose 155 mg/dL (70-110)
[2018-11-27 19:07] VITALS: PULSE 64; RESP 14
[2018-11-27 21:16] LABS: Bedside Glucose 119 mg/dL (70-110)
[2018-11-28 06:31] LABS: Bedside Glucose 100 mg/dL (70-110)
[2018-11-28] MEDS: Pregabalin 50 MG Capsule PO ×3 (06:51→20:36)
[2018-11-28] MEDS: Pantoprazole Sodium 40 MG Tablet PO ×2 (06:51→17:40)
[2018-11-28] MEDS: amLODIPine 10 MG Tablet PO (06:51)
[2018-11-28] MEDS: rifAMPin 300 MG Capsule PO (06:52)
[2018-11-28] MEDS: Senna Tablet 1 TABLET PO ×2 (06:53→17:40)
[2018-11-28] MEDS: Levothyroxine 100 MCG Tablet 300 MCG PO (06:53)
[2018-11-28] MEDS: Sertraline 100 MG Tablet PO (06:54)
[2018-11-28] MEDS: Nystatin Powder 15gm Bottle 1 APPLIC TOPICAL ×2 (06:55→20:37)
[2018-11-28] MEDS: Menthol/Lanolin/Calamine/Znox 113 GM Tube 1 APPLIC TOPICAL ×2 (06:57→20:36)
[2018-11-28 07:07] VITALS: PULSE 68; RESP 14; O2SAT 96
[2018-11-28] MEDS: Ipratropium/Albuterol Sulfate 3 ML AMPUL.NEB INHALATION ×3 (07:07→18:50)
[2018-11-28] MEDS: Insulin Lispro 100 UNIT/ML INSULN.PEN 13 UNIT SC ×3 (08:56→17:39)
[2018-11-28] MEDS: Tamsulosin HCl 0.4 MG Capsule PO (08:56)
[2018-11-28] MEDS: Iron Polysaccharide Complex 150 MG CAPSULE PO (08:56)
[2018-11-28 11:00] LABS: Bedside Glucose 183 mg/dL (70-110)
[2018-11-28 13:01] VITALS: PULSE 73; RESP 22
[2018-11-28] MEDS: Acetaminophen 500 MG Tablet 1000 MG PO ×2 (13:57→23:04)
[2018-11-28 16:00] VITALS: BP 130/70; PULSE 75; RESP 18; TEMP 37.1; O2SAT 92
[2018-11-28 17:11] LABS: Bedside Glucose 113 mg/dL (70-110)
[2018-11-28 18:50] VITALS: PULSE 70; RESP 20
[2018-11-28 21:50] LABS: Bedside Glucose 156 mg/dL (70-110)
[2018-11-28] MEDS: ALPRAZolam 0.5 MG Tablet PO (23:03)
[2018-11-29] MEDS: Menthol/Lanolin/Calamine/Znox 113 GM Tube 1 APPLIC TOPICAL ×2 (05:22→05:26)
[2018-11-29] MEDS: Pregabalin 50 MG Capsule PO ×3 (05:22→20:04)
[2018-11-29] MEDS: rifAMPin 300 MG Capsule PO (05:25)
[2018-11-29] MEDS: Pantoprazole Sodium 40 MG Tablet PO ×2 (05:26→17:34)
[2018-11-29] MEDS: Sertraline 100 MG Tablet PO (05:26)
[2018-11-29] MEDS: Levothyroxine 100 MCG Tablet 300 MCG PO (05:26)
[2018-11-29] MEDS: Senna Tablet 1 TABLET PO (05:26)
[2018-11-29] MEDS: amLODIPine 10 MG Tablet PO (05:26)
[2018-11-29] MEDS: Nystatin Powder 15gm Bottle 1 APPLIC TOPICAL ×2 (05:27→20:05)
[2018-11-29 06:21] LABS: Bedside Glucose 108 mg/dL (70-110)
[2018-11-29 07:23] VITALS: PULSE 71; RESP 18
[2018-11-29] MEDS: Ipratropium/Albuterol Sulfate 3 ML AMPUL.NEB INHALATION (07:23)
[2018-11-29] MEDS: Iron Polysaccharide Complex 150 MG CAPSULE PO (07:51)
[2018-11-29] MEDS: Tamsulosin HCl 0.4 MG Capsule PO (07:51)
[2018-11-29] MEDS: Acetaminophen 500 MG Tablet 1000 MG PO ×2 (09:41→18:48)
[2018-11-29 11:36] LABS: Bedside Glucose 218 mg/dL (70-110)
[2018-11-29] MEDS: Insulin Lispro 100 UNIT/ML INSULN.PEN 13 UNIT SC (11:49)
[2018-11-29 15:54] VITALS: BP 157/75; PULSE 70; RESP 18; TEMP 36.9; O2SAT 90
[2018-11-29 17:11] LABS: Bedside Glucose 119 mg/dL (70-110)
[2018-11-29 19:30] VITALS: PULSE 74; RESP 18
[2018-11-29 20:00] VITALS: PULSE 86; RESP 18; O2SAT 99
[2018-11-29] MEDS: ALPRAZolam 0.5 MG Tablet PO (23:52)
[2018-11-30] MEDS: Pregabalin 50 MG Capsule PO ×3 (04:56→20:59)
[2018-11-30] MEDS: Sertraline 100 MG Tablet PO (04:57)
[2018-11-30] MEDS: rifAMPin 300 MG Capsule PO (04:57)
[2018-11-30] MEDS: Pantoprazole Sodium 40 MG Tablet PO ×2 (04:57→17:40)
[2018-11-30] MEDS: amLODIPine 10 MG Tablet PO (04:58)
[2018-11-30] MEDS: Senna Tablet 1 TABLET PO ×2 (04:58→17:40)
[2018-11-30] MEDS: Levothyroxine 100 MCG Tablet 300 MCG PO (04:58)
[2018-11-30] MEDS: Menthol/Lanolin/Calamine/Znox 113 GM Tube 1 APPLIC TOPICAL ×2 (04:59→20:59)
[2018-11-30] MEDS: Nystatin Powder 15gm Bottle 1 APPLIC TOPICAL ×2 (04:59→20:59)
[2018-11-30 06:21] LABS: Bedside Glucose 125 mg/dL (70-110)
[2018-11-30 06:57] VITALS: PULSE 68; RESP 18; O2SAT 94
[2018-11-30] MEDS: Ipratropium/Albuterol Sulfate 3 ML AMPUL.NEB INHALATION (06:57)
[2018-11-30 07:00] VITALS: PULSE 68; RESP 18; O2SAT 98
[2018-11-30] MEDS: Tamsulosin HCl 0.4 MG Capsule PO (08:32)
[2018-11-30] MEDS: Iron Polysaccharide Complex 150 MG CAPSULE PO (08:32)
[2018-11-30] MEDS: Insulin Lispro 100 UNIT/ML INSULN.PEN 13 UNIT SC ×3 (08:37→18:16)
[2018-11-30 11:00] LABS: Bedside Glucose 229 mg/dL (70-110)
[2018-11-30 15:11] VITALS: BP 145/75; PULSE 61; RESP 16; TEMP 36.3; O2SAT 96
[2018-11-30 17:15] LABS: Bedside Glucose 123 mg/dL (70-110)
--- NOTE | 2018-11-30 17:44 | NURSING ---
Pt refused scheduled 1800 Lactulose. Martha SHEPPARD made aware.
[2018-11-30 21:55] LABS: Bedside Glucose 238 mg/dL (70-110)
[2018-11-30] MEDS: Acetaminophen 500 MG Tablet 1000 MG PO (22:43)
[2018-11-30] MEDS: ALPRAZolam 0.5 MG Tablet PO (22:43)
[2018-12-01] MEDS: Nystatin Powder 15gm Bottle 1 APPLIC TOPICAL ×2 (05:10→19:54)
[2018-12-01] MEDS: Menthol/Lanolin/Calamine/Znox 113 GM Tube 1 APPLIC TOPICAL ×2 (05:10→19:54)
[2018-12-01] MEDS: Levothyroxine 100 MCG Tablet 300 MCG PO (05:10)
[2018-12-01] MEDS: Pantoprazole Sodium 40 MG Tablet PO ×2 (05:10→18:01)
[2018-12-01] MEDS: Sertraline 100 MG Tablet PO (05:10)
[2018-12-01] MEDS: Pregabalin 50 MG Capsule PO ×3 (05:10→19:53)
[2018-12-01] MEDS: rifAMPin 300 MG Capsule PO (05:10)
[2018-12-01] MEDS: Senna Tablet 1 TABLET PO ×2 (05:10→18:00)
[2018-12-01] MEDS: amLODIPine 10 MG Tablet PO (06:10)
[2018-12-01 06:35] LABS: Bedside Glucose 128 mg/dL (70-110)
[2018-12-01] MEDS: Insulin Lispro 100 UNIT/ML INSULN.PEN 13 UNIT SC ×3 (08:15→18:02)
[2018-12-01] MEDS: Iron Polysaccharide Complex 150 MG CAPSULE PO (08:15)
[2018-12-01] MEDS: Tamsulosin HCl 0.4 MG Capsule PO (08:15)
[2018-12-01 10:35] VITALS: PULSE 74; RESP 18; O2SAT 98
[2018-12-01] MEDS: Acetaminophen 500 MG Tablet 1000 MG PO ×2 (10:43→19:53)
[2018-12-01 11:01] LABS: Bedside Glucose 111 mg/dL (70-110)
--- NOTE | 2018-12-01 12:35 | CASEMGMT ---
Addendum entered by Mayi Horta 12/01/18 16:54: in to visit pt. Spoke with - provided update on all DME and HHC. Will belt picker pt about 2 pm 12/02. No issues noted. Addendum entered by Mayi Horta 12/01/18 14:42: [facility] only able to provide drop arm BSC. Pt states he has a month supply of aerosols and a nebulizer at home. Cancelled that order with [facility]. [facility] to deliver BSC to home once pt discharges. Contacted [facility] whom is able to provide pt with the remaining DME. Will deliver to hospital prior to pt discharging. Insurance does not cover half bedside rail for a regular bed - pt okay with private paying for that from retail store. Spoke with pt about the above info - attempting to contact , but no voicemail is set up. Advised pt to have call SW if she calls him. Educated pt to utilizing PCP and HHC once in the community for any issues/questions. Pt understood. Original Note: Social Work Patient required 3 person assist this morning for toilet transfer an hygiene. Therapists concerned with safety of discharge. Spoke with patient about completed Medicaid/Passport referrals for additional help in the home - patient still working on the paperwork. Offered assistance but pt stated he can complete on his own. Reiterated safety concerns with pt discharging home with and needing 2 people to assist. Pt continues to refuse remaining longer and getting more therapy or discharging to an ECF due to safety concerns at home. Pt still choosing to discharge 12/02 with . has particiapted in slide board transfer training twice thus far. Therapy recommending [facility] - notified [facility], and removable arm rests on w/c, drop arm BSC, and half bedside rail for assistance with transfers. [employer] unable to accept [employer] and forwarded referral to [facility]. [facility] is unsure they can provide all of the speciality DME. Pt does have to purchase slide board upon DC - Called [facility] for pricing. PT assisted pt looking for pricing in stores as well. Pt is okay with purchasing. Awaiting response from [facility] for other DME. Addendum Plan: DC with [facility] PT/OT/ST/SN. [facility] for drop arm BSC, removable arm rests and leg rests for w/c, half bedside rail, amputee w/c cushion, nebulizer and aerosol medication. Private pay slide board. ROLA CoxW
[2018-12-01 15:19] VITALS: BP 129/79; PULSE 68; RESP 18; TEMP 36.6; O2SAT 96
[2018-12-01 17:11] LABS: Bedside Glucose 131 mg/dL (70-110)
[2018-12-01 21:45] LABS: Bedside Glucose 84 mg/dL (70-110)
[2018-12-02] MEDS: ALPRAZolam 0.5 MG Tablet PO (01:25)
[2018-12-02] MEDS: Levothyroxine 100 MCG Tablet 300 MCG PO (05:16)
[2018-12-02] MEDS: Senna Tablet 1 TABLET PO (05:17)
[2018-12-02] MEDS: Sertraline 100 MG Tablet PO (05:17)
[2018-12-02] MEDS: amLODIPine 10 MG Tablet PO (05:17)
[2018-12-02] MEDS: Nystatin Powder 15gm Bottle 1 APPLIC TOPICAL (05:17)
[2018-12-02] MEDS: rifAMPin 300 MG Capsule PO (05:17)
[2018-12-02] MEDS: Pantoprazole Sodium 40 MG Tablet PO (05:17)
[2018-12-02] MEDS: Menthol/Lanolin/Calamine/Znox 113 GM Tube 1 APPLIC TOPICAL (05:18)
[2018-12-02] MEDS: Pregabalin 50 MG Capsule PO ×2 (05:20→13:00)
[2018-12-02 06:31] LABS: Bedside Glucose 143 mg/dL (70-110)
[2018-12-02] MEDS: Iron Polysaccharide Complex 150 MG CAPSULE PO (08:10)
[2018-12-02] MEDS: Tamsulosin HCl 0.4 MG Capsule PO (08:10)
[2018-12-02] MEDS: Insulin Lispro 100 UNIT/ML INSULN.PEN 13 UNIT SC (08:11)
[2018-12-02 10:00] VITALS: PULSE 68; RESP 18; O2SAT 97
[2018-12-02 11:11] LABS: Bedside Glucose 91 mg/dL (70-110)
[2018-12-02 13:32] VITALS: BP 141/68; PULSE 69; RESP 16; TEMP 36.7; O2SAT 96
--- NOTE | 2018-12-09 11:52 | MDS.RN ---
Information for the mds was obtained from review of the clinical record, interview of resident, staff, and direct observation of resident's care.
== END 2018-12-02 14:00 | disposition home health service (06) | DRG 57 ==
PROVIDERS: Admitting Provider Family Medicine Geriatric Medicine; Family Provider Family Medicine; PCP Family Medicine; Referring Provider Family Medicine Geriatric Medicine; Visit Provider Family Medicine Geriatric Medicine
DX: G81.94 Hemiplegia, unspecified affecting left nondominant side (principal); F11.20 Opioid dependence, uncomplicated; F13.20 Sedative, hypnotic or anxiolytic dependence, uncomplicated; K76.6 Portal hypertension; G57.32 Lesion of lateral popliteal nerve, left lower limb; E03.9 Hypothyroidism, unspecified; K21.9 Gastro-esophageal reflux disease without esophagitis; N40.0 Benign prostatic hyperplasia without lower urinary tract symptoms; F32.9 Major depressive disorder, single episode, unspecified; F41.9 Anxiety disorder, unspecified; J44.9 Chronic obstructive pulmonary disease, unspecified; E11.42 Type 2 diabetes mellitus with diabetic polyneuropathy; E11.22 Type 2 diabetes mellitus with diabetic chronic kidney disease; I12.9 Hypertensive chronic kidney disease with stage 1 through stage 4 chronic kidney disease, or unspecified chronic kidney disease; N18.3 Chronic kidney disease, stage 3 (moderate); E11.51 Type 2 diabetes mellitus with diabetic peripheral angiopathy without gangrene; F10.20 Alcohol dependence, uncomplicated; K70.40 Alcoholic hepatic failure without coma; E78.5 Hyperlipidemia, unspecified; Z86.73 Personal history of transient ischemic attack (TIA), and cerebral infarction without residual deficits; D50.0 Iron deficiency anemia secondary to blood loss (chronic); F17.210 Nicotine dependence, cigarettes, uncomplicated; M75.102 Unspecified rotator cuff tear or rupture of left shoulder, not specified as traumatic; Z89.611 Acquired absence of right leg above knee; M46.96 Unspecified inflammatory spondylopathy, lumbar region; L89.621 Pressure ulcer of left heel, stage 1; L89.301 Pressure ulcer of unspecified buttock, stage 1
CPT/HCPCS: 36415; 71046; 74019; 80048; 80053; 81001; 82140; 82962; 85025; 85027; 87086; 92507; 92523; 94640; 97110; 97116; 97162; 97166; 97530; 97535; 97542; 97763; 97802; J7030

== ENCOUNTER → 2018-11-10 13:18 | Outpatient (CLI) | payer MEDICARE, SELFPAY ==
[2018-10-30 14:29] VITALS: BMI 23.9
--- NOTE | 2018-11-10 14:00 | MRI_ITS ---
STUDY: MRI BRAIN WITHOUT CONTRAST REASON FOR EXAM: Male, 63 years old. Altered mental status, increased left weakness TECHNIQUE: Standardized multiplanar fat and water weighted pulse sequences were obtained. COMPARISON: Brain MRI 10/28/2018. FINDINGS: There is moderate cerebral atrophy with widening of the extra-axial spaces and ventricular dilatation. There are a limited number of small white matter hyperintensities, distributed throughout the deep white matter tracts of the cerebral hemispheres, consistent with mild chronic white matter ischemic changes. Stable left posterior fossa arachnoid cyst measures 5.4 x 2.5 cm. Normal bilateral basal ganglia. Normal thalami. There is no extra-axial fluid accumulation. Normal flow voids within the major intracranial circulation suggesting patency by spin echo criteria. Normal sella turcica, pituitary gland, infundibular stalk, optic chiasm and hypothalamus. Normal tectal plate and pineal gland. Normal midbrain, fidencio and medulla. Normal cerebellum. Normal basal cisterns. Normal bilateral temporal bones. Normal bilateral internal auditory canals. No demonstrated orbital abnormality, within the constraints of a routine brain study. Normal visualized paranasal sinuses. Normal calvarium and skull base. Normal visualized soft tissue structures. Normal visualized upper cervical spine. MRI/Brain without Contrast IMPRESSION: No acute intracranial abnormality. Stable chronic findings described above. No interval change since 10/28/2018. Electronically Signed: Parul Cr, at 15:32 EDT Tel , Service support ,
== END ==
PROVIDERS: Family Provider Family Medicine; PCP Family Medicine; Referring Provider Family Medicine Geriatric Medicine; Visit Provider Family Medicine Geriatric Medicine
DX: R41.82 Altered mental status, unspecified (principal)
CPT/HCPCS: 70551

== ENCOUNTER 2018-11-25 09:45 | Observation (INO) | payer MEDICARE, SELFPAY ==
[2018-11-25] VITALS (7 sets, daily range): BP systolic 138–178; BP diastolic 67–83; PULSE 63–81; RESP 16–18; TEMP 36.7–37.1; O2SAT 94–98; BMI 24.3; BMI 22.9; BMI 23.0
--- NOTE | 2018-11-25 10:07 | EKG12_ITS ---
Test Reason : GI BLEED Blood Pressure : / mmHG Vent. Rate : 073 BPM Atrial Rate : 073 BPM P-R Int : 160 ms QRS Dur : 110 ms QT Int : 418 ms P-R-T Axes : 054 -17 055 degrees QTc Int : 460 ms Normal sinus rhythm Incomplete right bundle branch block Borderline ECG Confirmed by MISTY OVALLE, FAUSTO ([id number]), television news video editor BLAKE FLAHERTY ([id number]) on 11/27/2018 9:03:07 AM Referred By: Ant Gleason Confirmed By:FAUSTO JAY MD
[2018-11-25 10:15] LABS: Absolute Lymphocyte Count 0.42 X10^3/ul (0.83-4.51); Absolute Neutrophil Count 2.7 X10^3/uL (2.0-7.7); Basophil# 0.02 X10^3/uL; Basophil% 0.6 % (0-1); Eosinophil# 0.21 X10^3/uL; Eosinophils% 5.8 % (0-5); Hematocrit 34.7 % (40-54); Hemoglobin 11.8 g/dl (13.0-16.5); Lymphocyte # 0.42 X10^3/ul (4.0); Lymphocyte % 11.6 % (19-41); Mean Corpuscular Hgb 32.6 pg (27.0-32.0); Mean Corpuscular Volume 95.9 fL (80-94); Mean Platelet Vol. 10.8 fl (6.2-12.0); Monocyte# 0.29 X10^3/uL; Neutrophil # 2.69 X10^3/uL (2.7-7.7); Platelet Count 72 K/mm3 (150-450); RBC Distribution Width CV 14.5 % (11.6-14.6); RBC Distribution Width SD 50.5 fl (35.1-43.9); Red Blood Count 3.62 M/mm3 (4.6-6.2); White Blood Count 3.6 K/mm3 (4.4-11.0)
[2018-11-25 10:17] LABS: Differential Indicated SCAN CRITERIA MET; POSITIVE COUNT NO; POSITIVE DIFFERENTIAL YES; POSITIVE MORPHOLOGY NO
[2018-11-25 10:23] LABS: International Normalized Ratio 1.3; Prothrombin Time (Protime)PT. 16.3 SECONDS (11.7-14.9)
[2018-11-25 10:24] LABS: Partial Thromboplast Time 33.2 Seconds (24.1-36.2)
[2018-11-25 10:26] LABS: Anion Gap 4 (5-15); BUN 48 mg/dL (7-18); BUN/Creat Ratio 33.8 RATIO (10-20); Calcium,Total 9.1 mg/dL (8.5-10.1); Chloride 112 mmol/L (98-107); Creatinine, Serum 1.42 mg/dL (0.70-1.30); EST Glomerular Filtration Rate 53 mL/min (>60); Est Glom Filt Rate - Afr Amer 64 mL/min (>60); Estimated Creatinine Clearance 54.26 ml/min; Glucose 244 mg/dL (74-106); Sodium Level 142 mmol/L (136-145)
--- NOTE | 2018-11-25 11:05 | ED.VIS.GEN ---
History of Present Illness Chief Complaint: GI Bleed Informant: Patient, Significant Other, - - Nursing staff from TCU Onset: Today Context: Sudden Onset Quality: Blood per rectum Location: Lower GI Current Severity: Mild Maximum Severity: Moderate Worsened by: Nothing Relieved by: Nothing Associated Symptoms: Patient states she has no symptoms Narrative: Patient TCU because of rectal bleeding. He has history of alcoholic liver disease. He states he did not have a bowel movement 3 days. Had a bowel movement today which he was told was bloody. He is on no anticoagulant per initial review of records. He denies orthostatic symptoms, he denies nausea, vomiting or hematemesis. He does have history of GERD. He believes he had a gastric ulcer in the past. Prior similar symptoms: No Recent Illness/Hospitalization: Yes - Past Medical History (1) Depression Status: Chronic (2) Diabetic polyneuropathy Status: Chronic (3) PAOD (peripheral arterial occlusive disease) Status: Chronic (4) TIA (transient ischemic attack) Status: Ruled-out (5) Alcoholic liver disease Status: Chronic Comment: cirrhosis Portal hypertension esophageal varices stage III (6) Aortic stenosis Status: Chronic (7) BPH (benign prostatic hyperplasia) Status: Chronic (8) COPD (chronic obstructive pulmonary disease) Status: Chronic (9) Carotid stenosis Status: Chronic (10) Chronic blood loss anemia Status: Chronic Comment: required 3 units of PRBC's- prior workup for this showed no etiology (11) DM type 2 (diabetes mellitus, type 2) Status: Chronic (12) HLD (hyperlipidemia) Status: Chronic (13) Hypothyroidism Status: Chronic (14) Stage III chronic kidney disease Status: Chronic Past Medical History - Allergies and Home Meds Allergies/Adverse Reactions: Allergies codeine Allergy (Verified 11/25/18 09:48) Hives hydrocodone Allergy (Verified 11/25/18 09:48) Hives hydromorphone HCl [From Dilaudid] Allergy (Verified 11/25/18 09:48) Itching oxycodone [From Percocet] Allergy (Verified 11/25/18 09:48) Rash atorvastatin [From Lipitor] Adverse Reaction (Severe, Verified 11/25/18 09:48) RHABDOMYALYSIS Primary Care Physician: Vladislav Colunga DO [Primary Care Provider] - Prior records reviewed: Yes - Reviewed Dr. Gleason's H&P Surgical History: tonsillectomy, - - Right above-knee amputation secondary to peripheral vascular disease 2003, knee surgery secondary to torn meniscus Lives: Spouse/ Significant Other Smoking Status: Current every day smoker Alcohol: Heavy - Family History Maternal Family History: Reports: No pertinent history Sibling Family History: Reports: No pertinent history Paternal Family History: Reports: Stroke Review of Systems General: Denies: Chills, Fever, Malaise, Sweats Eyes: Denies: Visual changes - bilaterally, Blurred Vision - bilaterally, Diplopia ENT: Denies: Rhinorrhea, Sore throat Cardiovascular: Denies: Chest pain, Palpitations Respiratory: Denies: Dyspnea, Cough, Dyspnea on exertion Gastrointestinal: Reports: Hematochezia. Denies: Abdominal pain, Nausea, Vomiting, Diarrhea, Constipation, Melena, -, - Genitourinary: Denies: Dysuria, Hematuria, Frequency Musculoskeletal: Denies: Myalgias, Arthralgias, Neck pain, Back pain, Extremity Pain Skin: Denies: Rash, Wounds Neurological: Denies: Headache, Weakness, Numbness Hematologic: Denies: Easy bruising, Easy bleeding Physical Exam Vital Signs/Narrative: Vital Signs Temp Pulse Resp BP Pulse Ox 11/25/18 10:55 69 16 143/70 H 95 11/25/18 09:46 98.8 F 81 16 178/72 H 94 Inital Vital Signs reviewed: Yes General: Well nourished, Well developed Head: Normocephalic, Atraumatic Eyes: Perrl, EOMI. Negative for: Pale conjunctiva, Scleral icterus ENT: Moist mucous membranes, No rhinorrhea Neck: Negative for: Supple, Nontender, No lymphadenopathy, No JVD, - Cardiovascular: Regular rate, Regular rhythm, No murmurs, Normal S1, Normal S2 Respiratory: No distress, CTA bilaterally, Chest nontender Abdomen: Soft, Nontender, No masses, Hyperactive bowel sounds. Negative for: Nondistended Rectal: - - Bloody brown Back: Nontender, Normal Inspection Extremities: Nontender, Edema Skin: Normal color, No rash, No Trauma. Negative for: Cyanosis, Diaphoresis, Jaundice Neurological: Alert, Oriented x3, Cranial nerves II-XII grossly intact, Normal Strength, Normal Sensation. Negative for: Normal Gait Psychological: Normal affect Diagnostic/Tx/Re-eval Laboratory Results 11/25/18 11/25/18 11/25/18 09:58 09:58 09:58 WBC 3.6 L RBC 3.62 L Hgb 11.8 L Hct 34.7 L MCV 95.9 H MCH 32.6 H MCHC 34.0 RDW 14.5 RDW Differential 50.5 H Plt Count 72 L MPV 10.8 Immature Gran % (Auto) 0.000 Neut % (Auto) 74.0 H Lymph % (Auto) 11.6 L [place] % (Auto) 8.0 Eos % (Auto) 5.8 H Baso % (Auto) 0.6 Absolute Neuts (auto) 2.7 Absolute Lymphs (auto) 0.42 L Total Counted Not Reportable PT 16.3 H INR 1.3 APTT 33.2 Sodium 142 Potassium 4.0 Chloride 112 H Carbon Dioxide 26.0 Anion Gap 4 L BUN 48 H Creatinine 1.42 H Estim Creat Clear Calc 54.26 Est GFR (MDRD) Af Amer 64 Est GFR (MDRD) Non-Af 53 L BUN/Creatinine Ratio 33.8 H Glucose 244 H Calcium 9.1 Blood Type Antibody Screen 11/25/18 09:58 WBC RBC Hgb Hct MCV MCH MCHC RDW RDW Differential Plt Count MPV Immature Gran % (Auto) Neut % (Auto) Lymph % (Auto) [place] % (Auto) Eos % (Auto) Baso % (Auto) Absolute Neuts (auto) Absolute Lymphs (auto) Total Counted PT INR APTT Sodium Potassium Chloride Carbon Dioxide Anion Gap BUN Creatinine Estim Creat Clear Calc Est GFR (MDRD) Af Amer Est GFR (MDRD) Non-Af BUN/Creatinine Ratio Glucose Calcium Blood Type A POSITIVE Antibody Screen NEGATIVE - Medical Decision Making Patient has evidence of lower GI bleed. Do not suspect upper GI bleed since he has no nausea vomiting and one would expect with the amount of bloody stool noted he would be hypotensive. Will obtain baseline blood work to assess BUN to creatinine ratio and renal function since he has history of end-stage renal disease. Also to assess H&H compared to blood work from earlier in the week. He was typed and screened. Because of the history of alcoholic use coags were obtained. Case was discussed with surgery, Dr. Georgia Robin. She requested a KUB. She will follow patient with the hospitalist. ED Disposition - Plan for ED Patient: Disposition: Acute Care Hospital [facility] Diagnosis: Lower GI bleed, Chronic disease anemia, Renal insufficiency Referrals: Vladislav Colunga DO [Primary Care Provider] -
--- NOTE | 2018-11-25 11:18 | RAD_ITS ---
STUDY: X-RAY - ABDOMEN/PELVIS REASON FOR EXAM: Male, 63 years old. Abdominal distention. Rectal bleeding. TECHNIQUE: Single AP view of the abdomen / pelvis. COMPARISON: None. FINDINGS: There is an unremarkable bowel gas pattern. There is thickening of the haustral markings involving the transverse colon. Colitis should be ruled out. The visualized liver, spleen and kidneys are grossly normal in size and morphology. Vascular calcification. Degenerative changes in both hip joints. RAD/Abdomen Single View IMPRESSION: Thickening of the haustral markings of the transverse colon. Colitis should be ruled out. Electronically Signed: Boby Rose, at 12:08 EDT , Service support ,
--- NOTE | 2018-11-25 12:58 | PCM.HP.STD ---
Problem List (1) Lower GI bleed Status: Acute (2) Chronic disease anemia Status: Chronic (3) Renal insufficiency Status: Acute (4) Iron deficiency Status: Chronic (5) Peripheral neuropathy Status: Chronic (6) BPH (benign prostatic hyperplasia) Status: Chronic (7) Carotid stenosis Status: Chronic (8) HLD (hyperlipidemia) Status: Chronic (9) Anxiety Status: Chronic (10) HTN (hypertension) Status: Chronic (11) TIA (transient ischemic attack) Status: Ruled-out (12) TIA (transient ischemic attack) Status: Chronic (13) GERD (gastroesophageal reflux disease) Status: Chronic (14) Alcoholic liver disease Status: Chronic Comment: cirrhosis Portal hypertension esophageal varices stage III (15) DM type 2 (diabetes mellitus, type 2) Status: Chronic (16) Hypothyroidism Status: Chronic History of Present Illness Date of Admission: 11/25/18 Chief Complaint: Bright red blood per rectum The patient is a 63 year old M with a PMH as below who presents from the TCU with bright red blood per rectum. He is completely asymptomatic, has not had any lightheadedness or dizziness and was told that he had blood in his stool today. He denies any abdominal pain or fevers and chills. No recent illnesses. In the ER his hemoglobin was actually 11.8 which is 0.1 higher than yesterday. Vital signs were unremarkable and he had no change to his baseline labs. He is on no anticoagulants denies even noticing that he had had a bowel movement. Per report from the TCU he had also had blood clots and blood was pouring out of his rectum. Past Medical History Past Medical History (Chronic Problems): Chronic Problems (Last Reviewed 11/17/18 @ 11:30 by Elaine Rangel) Chronic disease anemia (Chronic) Iron deficiency (Chronic) Peripheral neuropathy (Chronic) BPH (benign prostatic hyperplasia) (Chronic) Carotid stenosis (Chronic) Aortic stenosis (Chronic) HLD (hyperlipidemia) (Chronic) Anxiety (Chronic) HTN (hypertension) (Chronic) Benzodiazepine dependence (Chronic) Opioid dependence (Chronic) Diabetic polyneuropathy (Chronic) Depression (Chronic) PAOD (peripheral arterial occlusive disease) (Chronic) Stage III chronic kidney disease (Chronic) Status post above knee amputation of right lower extremity (Chronic) COPD (chronic obstructive pulmonary disease) (Chronic) TIA (transient ischemic attack) (Chronic) GERD (gastroesophageal reflux disease) (Chronic) Alcoholic liver disease (Chronic) cirrhosis Portal hypertension esophageal varices stage III DM type 2 (diabetes mellitus, type 2) (Chronic) Alcohol abuse (Chronic) 6-12 drinks/day Hypothyroidism (Chronic) Chronic blood loss anemia (Chronic) required 3 units of PRBC's- prior workup for this showed no etiology Medical History: Medical History (Last Reviewed 11/17/18 @ 11:30 by Elaine Rangel) Troponin I above reference range (Acute) R74.8 Iron deficiency (Chronic) E61.1 Peripheral neuropathy (Chronic) G62.9 Carotid stenosis (Chronic) I65.29 Aortic stenosis (Chronic) I35.0 HLD (hyperlipidemia) (Chronic) E78.5 HTN (hypertension) (Chronic) I10 Left hemiparesis (Acute) G81.94 Benzodiazepine dependence (Chronic) F13.20 Opioid dependence (Chronic) F11.20 Diabetic polyneuropathy (Chronic) E11.42 PAOD (peripheral arterial occlusive disease) (Chronic) I77.9 Stage III chronic kidney disease (Chronic) N18.3 COPD (chronic obstructive pulmonary disease) (Chronic) J44.9 GERD (gastroesophageal reflux disease) (Chronic) K21.9 Alcoholic liver disease (Chronic) K70.9 cirrhosis Portal hypertension esophageal varices stage III DM type 2 (diabetes mellitus, type 2) (Chronic) E11.9 Alcohol abuse (Chronic) F10.10 6-12 drinks/day Hypothyroidism (Chronic) E03.9 Chronic blood loss anemia (Chronic) D50.0 required 3 units of PRBC's- prior workup for this showed no etiology Allergies codeine Allergy (Verified 11/25/18 09:48) Hives hydrocodone Allergy (Verified 11/25/18 09:48) Hives hydromorphone HCl [From Dilaudid] Allergy (Verified 11/25/18 09:48) Itching oxycodone [From Percocet] Allergy (Verified 11/25/18 09:48) Rash atorvastatin [From Lipitor] Adverse Reaction (Severe, Verified 11/25/18 09:48) RHABDOMYALYSIS Home Medications: Ambulatory Orders Medication Instructions Recorded Amlodipine [Norvasc] 10 mg PO DAILY 06/13/14 Bisacodyl [Dulcolax] 10 mg RECTAL DAILY PRN PRN 09/11/16 Rifampin [Rifadin] 150 mg PO BID 09/11/16 Levothyroxine [Synthroid] 300 mcg PO DAILY 03/03/17 Docusate Sodium [Colace] 100 mg PO BID PRN PRN 10/27/18 Ferrous Sulfate [High Potency Iron] 27 mg PO DAILY 10/27/18 Pantoprazole Sodium [Protonix] 40 mg PO BID 10/27/18 Promethazine HCl 25 mg PO TID PRN 10/27/18 Sertraline HCl 100 mg PO DAILY 10/27/18 Tamsulosin HCl 0.4 mg PO DAILY 10/27/18 Albuterol Aerosols [Ventolin 2.5 mg INHALATION Q2H PRN PRN 10/30/18 Aerosols] vial.neb. Glucerna Shake 120 ml PO 4X/DAY 10/30/18 Ipratropium/Albuterol Sulfate 3 ml INHALATION Q6H.RT 10/30/18 [Duoneb] Lactulose [Chronulac] 20 gm PO BID 10/30/18 insulin glargine (U-100) 100 20 unit SC DAILY 11/17/18 unit/mL (3 mL) subcutaneous pen insulin lispro (U- 100) 100 13 unit SC .before meals ml 11/17/18 unit/mL subcutaneous pen pregabalin 50 mg capsule 50 mg PO TID 11/17/18 Surgical History: Surgical History (Last Reviewed 11/17/18 @ 11:30 by Elanie Rangel) Status post above knee amputation of right lower extremity (Chronic) Z89.611 Surgical History: tonsillectomy, - - Right above-knee amputation secondary to peripheral vascular disease 2003, knee surgery secondary to torn meniscus Lives: Spouse/ Significant Other Smoking Status: Current every day smoker Tobacco Use: Cigarettes Alcohol: Heavy - None while in TCU Drugs: None - *Family History Maternal History Items: No pertinent history Sibling History Items: No pertinent history Paternal History Items: Stroke Review of Systems Constitutional: Denies: Chills, Fever, Weight Change HEENT: Denies: Head Aches, Sinus Congestion, Sinus Drainage Cardiovascular: Denies: Chest Pain, Palpitations Respiratory: Denies: Cough, Shortness of breath at rest, Sputum production Gastrointestinal: Reports: Hematochezia. Denies: Abdominal Pain, Nausea, Vomiting Genitourinary: Denies: Dysuria Musculoskeletal: Denies: Joint Pain, Joint Tenderness Skin: Denies: Rash, Wounds Neurological: Denies: Numbness, Tingling, Focal weakness Psychiatric: Denies: Anxiety, Depression Hematologic/ Lymphatic: Denies: Easy Bruising, Easy Bleeding VTE Information - Inpt Only VTE Present on Admission: No Patient Problems: Active and Suspected Problems (Last Reviewed 11/17/18 @ 11:30 by Elaine Rangel) Lower GI bleed (Acute) Renal insufficiency (Acute) Left hemiparesis (Acute) Neuropathy of left peroneal nerve (Acute) - Physical Exam General: Alert, Oriented x3, Cooperative, No apparent distress HEENT: Atraumatic, PERRLA, EOMI, Normocephalic Oral: Moist Mucosa Neck: Supple, No JVD Lungs: Clear to auscultation, Normal air movement, No rhonchi, No wheeze, No rales, Diminished Cardiovascular: Regular rate, Regular Rhythm, Normal S1, Normal S2, Murmur - 3 out of 6 right upper sternal border centimeters Abdomen: Soft, Non Tender, Distended, - - Ascites Extremities: No edema, Capillary Refill Less than 3 Seconds Skin: No rashes, No breakdown Neurological: Neuro grossly intact, Sensory exam intact to light touch and pain Psych/Mental Status: Normal Affect, Appropriate Vital Signs Temp Pulse Resp BP Pulse Ox 98.8 F 69 18 142/67 H 95 11/25/18 09:46 11/25/18 11:21 11/25/18 12:14 11/25/18 11:21 11/25/18 11:21 Oxygen Delivery Method Room Air Weight: 160 lb 0.889 oz Body Mass Index (BMI) 22.9 Finger Stick Blood Glucose 310 Laboratory Tests Past 24 Hrs 11/25/18 11/25/18 11/25/18 09:58 09:58 09:58 WBC 3.6 L RBC 3.62 L Hgb 11.8 L Hct 34.7 L MCV 95.9 H MCH 32.6 H MCHC 34.0 RDW 14.5 RDW Differential 50.5 H Plt Count 72 L MPV 10.8 Immature Gran % (Auto) 0.000 Neut % (Auto) 74.0 H Lymph % (Auto) 11.6 L [place] % (Auto) 8.0 Eos % (Auto) 5.8 H Baso % (Auto) 0.6 Absolute Neuts (auto) 2.7 Absolute Lymphs (auto) 0.42 L Total Counted Not Reportable PT 16.3 H INR 1.3 APTT 33.2 Sodium 142 Potassium 4.0 Chloride 112 H Carbon Dioxide 26.0 Anion Gap 4 L BUN 48 H Creatinine 1.42 H Estim Creat Clear Calc 54.26 Est GFR (MDRD) Af Amer 64 Est GFR (MDRD) Non-Af 53 L BUN/Creatinine Ratio 33.8 H Glucose 244 H Calcium 9.1 Blood Type Antibody Screen 11/25/18 09:58 WBC RBC Hgb Hct MCV MCH MCHC RDW RDW Differential Plt Count MPV Immature Gran % (Auto) Neut % (Auto) Lymph % (Auto) [place] % (Auto) Eos % (Auto) Baso % (Auto) Absolute Neuts (auto) Absolute Lymphs (auto) Total Counted PT INR APTT Sodium Potassium Chloride Carbon Dioxide Anion Gap BUN Creatinine Estim Creat Clear Calc Est GFR (MDRD) Af Amer Est GFR (MDRD) Non-Af BUN/Creatinine Ratio Glucose Calcium Blood Type A POSITIVE Antibody Screen NEGATIVE Assessment/Plan All Active Problems (Last Reviewed 11/17/18 @ 11:30 by Elaine Rangel) Lower GI bleed (Acute) Renal insufficiency (Acute) Troponin I above reference range (Acute) TIA (transient ischemic attack) (Ruled-out) Left hemiparesis (Acute) Neuropathy of left peroneal nerve (Acute) 1. Lower GI bleed/chronic anemia -Asymptomatic and completely stable -Hemoglobin is 11.8 which is higher than what it was yesterday -He is on anti-anticoagulants including aspirin or Plavix -His last colonoscopy was 8 to 10 years ago -Continue with iron replacement, and will repeat CBC in the morning unless he becomes symptomatic -Tinea with a clear liquid diet in case colonoscopy tomorrow by surgery otherwise if his hemoglobin is stable tomorrow morning we will plan to return to TCU and can have colonoscopy as an outpatient 2. DM 2/neuropathy/CKD 3 -He is currently on a clear liquid diet for his lower GI bleed, will place on a sliding scale insulin and monitor -ACHS Accu-Cheks, continue with Lyrica -Creatinine and BUN are at baseline 3. Hypothyroidism -Stable -Synthroid 4. GERD/alcoholic liver disease with cirrhosis -He has not been drinking while he is been in TCU -Continue with PPI -Continue with his lactulose and rifampin 5. HTN -Stable for now, will monitor -We will hold his blood pressure occasions for now 6. COPD -Currently not in an exacerbation -Can resume his home aerosols 7. Depression/anxiety -Stable -Continue with Zoloft 8. BPH -Stable -Continue with Flomax VT: SCDs Code Visit OBSV E&M: [id number] Initial observation care L3
--- NOTE | 2018-11-25 13:31 | CASEMGMT ---
Social Work Note Pt came to ED from TCU. Pt is in observation status and could potentially, if medically stable, discharge tomorrow. WILLIAM placed a call to Alaina in TCU, left message, asking if pt is in observation and discharges back to TCU within 24 hours if pt is able to return without pre-cert or if pre-cert will be needed again. WILLIAM waiting for call back. Bety Shah LINE DANCER, CENTER DIRECTOR LEAD TEACHER
--- NOTE | 2018-11-25 13:44 | CASEMGMT ---
RN CM Assessment Introduced role of RN CM to patient and patient Christin at bedside.? Patient is alert, oriented and able?to participate in RN CM Assessment. ?Care providers, pharmacy, and demographics verified. Presentation: Sent by TCU for bleeding from Rectum this AM, no BM x3 days. Admit Dx: Stable LGIB Re-Admit: No, OBS 10/27-10/27/18 for R/o CVA, Lt side Weakness Barriers/Issues: States that he needs a new WC d/t it is broken, states current WC was from [facility] in 2003. PCP: Vladislav Colunga Specialists: None Preferred Pharmacy: [facility] [place] Insurance: [employer] PPO Rx Benefit:?Yes LNOK: Christin Crocker LW/HPOA: Yes both-states on file at [facility], HPOA- Christin Crocker Living Arrangements:?Lives with his in a Ranch home, Ramp to enter ADL?s: Prior to last admission/illness patient could ambulate with walker but had been using WC d/t weakness. Was receiving PT at TCU. Prior patient was Independent with ADLs until illness/last admission was needing assistance by with all ADL's Transportation: Patient normally drives, upon DC DME: Walker, WC, Glucometer, Shower Chair, BS [place] HHC: Past SNF: [facility] in past, Current at TCU Goal: Return to TCU for PT DC PLAN: TCU. Fritz Williamson RNCM
--- NOTE | 2018-11-25 14:03 | CASEMGMT ---
Social Work Note WILLIAM met with pt, introduced self and role at [facility]. Pt is alert and orientated x3. WILLIAM confirms that he came from TCU to the ED and states that his plan is to return to TCU. WILLIAM informed pt that this worker has a call out to TCU to confirm if pt will need pre-cert again or not to return. WILLIAM placed a call to Alaina in TCU. Alaina states that if pt is in observation status and returns to TCU within 24 hours pt doesn't need new pre-cert to return. WILLIAM informed Alaina that pt checked into ED at 9:46am and admission order was in at 11:30am. Alaina states that pt will have to be back at TCU before 9:46am as pt can't be off TCU floor for longer than 24 hours. RN CM, Charge Nurse and physician updated. Plan: Return to TCU tomorrow morning before 9:46am if medically cleared Bety Shah HAND II TUBE BENDER, ACTIVITY AID
--- NOTE | 2018-11-25 14:28 | CON.PCM_ITS ---
Problem List (1) Lower GI bleed Status: Acute Reason for Consult Date of Consultation: 11/25/18 Reason for Consultation: Lower GI bleed. Constipation. History of Present Illness: The patient is a 63 year old M who presented with single episode of rectal bleeding. Patient was in TCU rehab following 3 day hospitalization for TIA symptoms back in October. Patient noted he was discharged to TCU on 10/30. Patient states he was progressing very well and was getting ready to be discharged to home. Patient denies previous rectal bleeding, diarrhea. He noted intermittent constipation. Patient also noted abdominal cramping prior to the bowel movement/bleeding episode. Patient himself did not see the bloody BM. He notes having strawberry pie yesterday. He denies shortness of breath, dizziness and lightheadedness. He notes his last colonoscopy was approximately 10 years ago. He notes having previous upper scopes on a yearly basis with Dr. Tadeo for esophageal varices. Patient states he used to be an alcoholic. He has been sober for 4 years now. He notes also having stage 3 cirrhosis and stage 3 renal disease. Patient denies taking blood thinners. He is on an iron supplement daily. Patient had a previous right lower extremity amputation in 2003 secondary to peripheral arterial disease. Patient's hgb was 11.8 on admission. Patient's hgb has decreased approximately 1.0 point since 10/28 which was 12.8. Past Medical History Past Medical History (Chronic Problems): Chronic Problems (Last Reviewed 11/25/18 @ 15:45 by Lynette Schmitz PA-C) Chronic disease anemia (Chronic) Iron deficiency (Chronic) Peripheral neuropathy (Chronic) BPH (benign prostatic hyperplasia) (Chronic) Carotid stenosis (Chronic) Aortic stenosis (Chronic) HLD (hyperlipidemia) (Chronic) Anxiety (Chronic) HTN (hypertension) (Chronic) Benzodiazepine dependence (Chronic) Opioid dependence (Chronic) Diabetic polyneuropathy (Chronic) Depression (Chronic) PAOD (peripheral arterial occlusive disease) (Chronic) Stage III chronic kidney disease (Chronic) Status post above knee amputation of right lower extremity (Chronic) COPD (chronic obstructive pulmonary disease) (Chronic) TIA (transient ischemic attack) (Chronic) GERD (gastroesophageal reflux disease) (Chronic) Alcoholic liver disease (Chronic) cirrhosis Portal hypertension esophageal varices stage III DM type 2 (diabetes mellitus, type 2) (Chronic) Alcohol abuse (Chronic) 6-12 drinks/day Hypothyroidism (Chronic) Chronic blood loss anemia (Chronic) required 3 units of PRBC's- prior workup for this showed no etiology Medical History: Medical History (Last Reviewed 11/25/18 @ 15:45 by Lynette Schmitz PA-C) Troponin I above reference range (Acute) R74.8 Iron deficiency (Chronic) E61.1 Peripheral neuropathy (Chronic) G62.9 Carotid stenosis (Chronic) I65.29 Aortic stenosis (Chronic) I35.0 HLD (hyperlipidemia) (Chronic) E78.5 HTN (hypertension) (Chronic) I10 Left hemiparesis (Acute) G81.94 Benzodiazepine dependence (Chronic) F13.20 Opioid dependence (Chronic) F11.20 Diabetic polyneuropathy (Chronic) E11.42 PAOD (peripheral arterial occlusive disease) (Chronic) I77.9 Stage III chronic kidney disease (Chronic) N18.3 COPD (chronic obstructive pulmonary disease) (Chronic) J44.9 GERD (gastroesophageal reflux disease) (Chronic) K21.9 Alcoholic liver disease (Chronic) K70.9 cirrhosis Portal hypertension esophageal varices stage III DM type 2 (diabetes mellitus, type 2) (Chronic) E11.9 Alcohol abuse (Chronic) F10.10 6-12 drinks/day Hypothyroidism (Chronic) E03.9 Chronic blood loss anemia (Chronic) D50.0 required 3 units of PRBC's- prior workup for this showed no etiology Allergies codeine Allergy (Verified 11/25/18 09:48) Hives hydrocodone Allergy (Verified 11/25/18 09:48) Hives hydromorphone HCl [From Dilaudid] Allergy (Verified 11/25/18 09:48) Itching oxycodone [From Percocet] Allergy (Verified 11/25/18 09:48) Rash atorvastatin [From Lipitor] Adverse Reaction (Severe, Verified 11/25/18 09:48) RHABDOMYALYSIS Home Medications: Ambulatory Orders Medication Instructions Recorded Amlodipine [Norvasc] 10 mg PO DAILY 06/13/14 Bisacodyl [Dulcolax] 10 mg RECTAL DAILY PRN PRN 09/11/16 Rifampin [Rifadin] 150 mg PO BID 09/11/16 Levothyroxine [Synthroid] 300 mcg PO DAILY 03/03/17 Docusate Sodium [Colace] 100 mg PO BID PRN PRN 10/27/18 Ferrous Sulfate [High Potency Iron] 27 mg PO DAILY 10/27/18 Pantoprazole Sodium [Protonix] 40 mg PO BID 10/27/18 Promethazine HCl 25 mg PO TID PRN 10/27/18 Sertraline HCl 100 mg PO DAILY 10/27/18 Tamsulosin HCl 0.4 mg PO DAILY 10/27/18 Albuterol Aerosols [Ventolin 2.5 mg INHALATION Q2H PRN PRN 10/30/18 Aerosols] vial.neb. Glucerna Shake 120 ml PO 4X/DAY 10/30/18 Ipratropium/Albuterol Sulfate 3 ml INHALATION Q6H.RT 10/30/18 [Duoneb] Lactulose [Chronulac] 20 gm PO BID 10/30/18 insulin glargine (U-100) 100 20 unit SC DAILY 11/17/18 unit/mL (3 mL) subcutaneous pen insulin lispro (U- 100) 100 13 unit SC .before meals ml 11/17/18 unit/mL subcutaneous pen pregabalin 50 mg capsule 50 mg PO TID 11/17/18 Surgical History: Surgical History (Last Reviewed 11/25/18 @ 15:46 by Lynette Schmitz PA-C) Status post above knee amputation of right lower extremity (Chronic) Z89.611 Surgical History: tonsillectomy, - - Right above-knee amputation secondary to peripheral vascular disease 2003, knee surgery secondary to torn meniscus Lives: Spouse/ Significant Other Smoking Status: Current every day smoker Tobacco Use: Cigarettes Alcohol: Heavy - None while in TCU. Patient states he has been sober for 4 years Drugs: None - *Family History Maternal History Items: No pertinent history Sibling History Items: No pertinent history Paternal History Items: Stroke Review of Systems Constitutional: Denies: Chills, Fever, Weight Change HEENT: Denies: Head Aches, Sinus Congestion, Sinus Drainage Cardiovascular: Denies: Chest Pain, Palpitations Respiratory: Denies: Cough, Shortness of breath at rest, Sputum production Gastrointestinal: Reports: Abdominal Pain, Hematochezia Genitourinary: Denies: Dysuria Musculoskeletal: Denies: Joint Pain, Joint Tenderness Skin: Denies: Rash, Wounds Neurological: Denies: Numbness, Tingling, Focal weakness Psychiatric: Denies: Anxiety, Depression, Homicidal Ideations, Suicidal Ideations Hematologic/ Lymphatic: Reports: Anemia. Denies: Hx of blood clot Patient Problems: Active and Suspected Problems (Last Reviewed 11/25/18 @ 15:45 by Lynette Schmitz PA-C) Lower GI bleed (Acute) Renal insufficiency (Acute) Left hemiparesis (Acute) Neuropathy of left peroneal nerve (Acute) - Physical Exam General: Alert, Oriented x3, Cooperative HEENT: Atraumatic, PERRLA, EOMI, Normocephalic Neck: Supple, No JVD, Negative Carotid Bruits Lungs: Wheezes - bilaterally Cardiovascular: Murmur Abdomen: Bowel Sounds Present, Soft, Non Tender, Non-Distended, Obese Extremities: No edema, Capillary Refill Less than 3 Seconds, - - Right above the knee amputation Skin: No rashes, No breakdown Musculoskeletal: No Tenderness to Palpation of Joints or Extremities Neurological: Neuro grossly intact Psych/Mental Status: Normal Affect, Appropriate Vital Signs Temp Pulse Resp BP Pulse Ox 98.3 F 63 18 138/76 H 98 11/25/18 12:25 11/25/18 12:25 11/25/18 12:25 11/25/18 12:25 11/25/18 12:25 Oxygen Delivery Method Room Air Weight: 160 lb 0.889 oz Body Mass Index (BMI) 22.9 Finger Stick Blood Glucose 310 Laboratory Tests Past 24 Hrs 11/25/18 11/25/18 11/25/18 09:58 09:58 09:58 WBC 3.6 L RBC 3.62 L Hgb 11.8 L Hct 34.7 L MCV 95.9 H MCH 32.6 H MCHC 34.0 RDW 14.5 RDW Differential 50.5 H Plt Count 72 L MPV 10.8 Immature Gran % (Auto) 0.000 Neut % (Auto) 74.0 H Lymph % (Auto) 11.6 L [place] % (Auto) 8.0 Eos % (Auto) 5.8 H Baso % (Auto) 0.6 Absolute Neuts (auto) 2.7 Absolute Lymphs (auto) 0.42 L Total Counted Not Reportable PT 16.3 H INR 1.3 APTT 33.2 Sodium 142 Potassium 4.0 Chloride 112 H Carbon Dioxide 26.0 Anion Gap 4 L BUN 48 H Creatinine 1.42 H Estim Creat Clear Calc 54.26 Est GFR (MDRD) Af Amer 64 Est GFR (MDRD) Non-Af 53 L BUN/Creatinine Ratio 33.8 H Glucose 244 H Calcium 9.1 Blood Type Antibody Screen Crossmatch 11/25/18 11/25/18 09:58 09:58 WBC RBC Hgb Hct MCV MCH MCHC RDW RDW Differential Plt Count MPV Immature Gran % (Auto) Neut % (Auto) Lymph % (Auto) [place] % (Auto) Eos % (Auto) Baso % (Auto) Absolute Neuts (auto) Absolute Lymphs (auto) Total Counted PT INR APTT Sodium Potassium Chloride Carbon Dioxide Anion Gap BUN Creatinine Estim Creat Clear Calc Est GFR (MDRD) Af Amer Est GFR (MDRD) Non-Af BUN/Creatinine Ratio Glucose Calcium Blood Type A POSITIVE Antibody Screen NEGATIVE Crossmatch See Detail Assessment/Plan All Active Problems (Last Reviewed 11/25/18 @ 15:45 by Lynette Schmitz PA-C) Lower GI bleed (Acute) Renal insufficiency (Acute) Troponin I above reference range (Acute) TIA (transient ischemic attack) (Ruled-out) Left hemiparesis (Acute) Neuropathy of left peroneal nerve (Acute) I have been consulted in conjunction with Dr. Jackson Impression: Lower GI bleed unknown source Plan: Patient was discussed with Dr. Jackson. Recommend Dulcolax suppository. If Hgb remains stable, patient will have an elective outpatient colonoscopy. Patient has had the opportunity to ask and have question answered. Patient verbally understands and agrees with the plan. Patient would like to return to TCU today. Thank you for allowing us to participate in this patient's care. Code Visit Office Visits / Consults: [id number] IP Consult L3
[2018-11-25] MEDS: Docusate Sodium 100 MG Capsule PO (15:54)
[2018-11-25] MEDS: Insulin Lispro 100 UNIT/ML INSULN.PEN SQ ×2 (15:56→21:17)
[2018-11-25 16:01] LABS: Bedside Glucose 160 mg/dL (70-110)
[2018-11-25] MEDS: rifAMPin 300 MG Capsule PO (17:36)
[2018-11-25] MEDS: Bisacodyl 10 MG Suppository RECTAL (17:51)
[2018-11-25] MEDS: Polyethylene Glycol 3350 17 GM PACKET PO (19:12)
[2018-11-25] MEDS: Lactulose 20 GM/30 ML UDC PO (21:19)
[2018-11-25] MEDS: Pantoprazole Sodium 40 MG Tablet PO (21:24)
[2018-11-25] MEDS: Pregabalin 50 MG Capsule PO (21:24)
[2018-11-25 21:31] LABS: Bedside Glucose 186 mg/dL (70-110)
[2018-11-25] MEDS: ALPRAZolam 0.5 MG Tablet PO (23:55)
[2018-11-26 04:16] VITALS: BP 153/73; PULSE 62; RESP 18; TEMP 36.8; O2SAT 94
[2018-11-26] MEDS: Levothyroxine 150 MCG Tablet 300 MCG PO (05:55)
[2018-11-26] MEDS: Pregabalin 50 MG Capsule PO (05:55)
[2018-11-26 06:10] LABS: Absolute Neutrophil Count 2.1 X10^3/uL (2.0-7.7); Basophil# 0.03 X10^3/uL; Basophil% 0.9 % (0-1); Differential Indicated SCAN CRITERIA MET; Eosinophil# 0.25 X10^3/uL; Eosinophils% 7.6 % (0-5); Hematocrit 34.1 % (40-54); Hemoglobin 11.2 g/dl (13.0-16.5); Lymphocyte % 18.1 % (19-41); Mean Corp Hgb Conc 32.8 g/gl (32-36); Mean Corpuscular Hgb 31.6 pg (27.0-32.0); Mean Corpuscular Volume 96.3 fL (80-94); Mean Platelet Vol. 10.7 fl (6.2-12.0); Monocyte# 0.36 X10^3/uL; Monocyte% 10.9 % (0-10); Neutrophil # 2.07 X10^3/uL (2.7-7.7); Neutrophil % 62.5 % (47-70); POSITIVE COUNT NO; POSITIVE DIFFERENTIAL YES; POSITIVE MORPHOLOGY NO; Platelet Count 69 K/mm3 (150-450); RBC Distribution Width CV 14.4 % (11.6-14.6); RBC Distribution Width SD 47.8 fl (35.1-43.9); Red Blood Count 3.54 M/mm3 (4.6-6.2); White Blood Count 3.3 K/mm3 (4.4-11.0)
[2018-11-26 06:11] LABS: Anion Gap 7 (5-15); BUN 33 mg/dL (7-18); BUN/Creat Ratio 31.1 RATIO (10-20); Chloride 113 mmol/L (98-107); Creatinine, Serum 1.06 mg/dL (0.70-1.30); EST Glomerular Filtration Rate 75 mL/min (>60); Est Glom Filt Rate - Afr Amer 90 mL/min (>60); Glucose 120 mg/dL (74-106); Potassium 3.6 mmol/L (3.5-5.1); Sodium Level 145 mmol/L (136-145)
[2018-11-26 06:38] LABS: Differential Comment SCANNED; Platelet Estimate SLT DEC (ADEQ)
[2018-11-26 06:45] LABS: Bedside Glucose 126 mg/dL (70-110)
--- NOTE | 2018-11-26 07:12 | PCM.TXEXTCAR ---
- Diet 11/25/18 12:12 Diet: Clear Liquid Food consistency:: N/A - Liquid only Liquid Consistency:: Regular/Thin - Routine Orders/Code Status Routine Lab Work: CBC - Wound(s) COCCYX Wound Type: Skin Tear left heel Wound Type: Pressure Injury - Therapies Physical Therapy: Eval and Treat Occupational Therapy: Eval and Treat - Problem/Diagnosis (1) Lower GI bleed Status: Acute Current Visit: Yes (2) Chronic disease anemia Status: Chronic Current Visit: Yes (3) Renal insufficiency Status: Acute Current Visit: Yes (4) Iron deficiency Status: Chronic Current Visit: No (5) Peripheral neuropathy Status: Chronic Current Visit: No (6) BPH (benign prostatic hyperplasia) Status: Chronic Current Visit: No (7) Carotid stenosis Status: Chronic Current Visit: No (8) HLD (hyperlipidemia) Status: Chronic Current Visit: No (9) Anxiety Status: Chronic Current Visit: No (10) HTN (hypertension) Status: Chronic Current Visit: No (11) TIA (transient ischemic attack) Status: Ruled-out Current Visit: No (12) TIA (transient ischemic attack) Status: Chronic Current Visit: No (13) GERD (gastroesophageal reflux disease) Status: Chronic Current Visit: No (14) Alcoholic liver disease Status: Chronic Comment: cirrhosis Portal hypertension esophageal varices stage III Current Visit: No (15) DM type 2 (diabetes mellitus, type 2) Status: Chronic Current Visit: No (16) Hypothyroidism Status: Chronic Current Visit: No - Allergies/Procedures Done in Hospital Allergies/Adverse Reactions: Allergies codeine Allergy (Verified 11/25/18 09:48) Hives hydrocodone Allergy (Verified 11/25/18 09:48) Hives hydromorphone HCl [From Dilaudid] Allergy (Verified 11/25/18 09:48) Itching oxycodone [From Percocet] Allergy (Verified 11/25/18 09:48) Rash atorvastatin [From Lipitor] Adverse Reaction (Severe, Verified 11/25/18 09:48) RHABDOMYALYSIS - Type of Care/Length of Stay Estimated LOS: Convalescent Care Less Than 30 days Type of Care Needed: Skilled Rehab Potential: Good Prognosis: Good - Additional Orders/Day of Discharge Day of Discharge: 11/26/18 - Follow Up Care Primary Care Physician: Keanu,Vladislav, DO [Primary Care Provider] - Please follow up with your Primary Care Physician in: 3-5 days
[2018-11-26 07:34] VITALS: BP 147/74; PULSE 65; RESP 18; TEMP 36.7; O2SAT 97
--- NOTE | 2018-11-26 07:39 | PCM.DC.SUM ---
Discharge Date and Diagnosis - Problem List Patient Problems: Active and Suspected Problems (Last Reviewed 11/25/18 @ 15:45 by Lynette Schmitz PA-C) Lower GI bleed (Acute) Renal insufficiency (Acute) Left hemiparesis (Acute) Neuropathy of left peroneal nerve (Acute) Date of Admission: 11/25/18 Date of Discharge: 11/26/18 - Primary Discharge Diagnosis Active and Suspected Problems (Last Reviewed 11/25/18 @ 15:45 by Lynette Schmitz PA-C) Lower GI bleed (Acute) Renal insufficiency (Acute) Left hemiparesis (Acute) Neuropathy of left peroneal nerve (Acute) - Secondary Discharge Diagnosis Chronic Problems (Last Reviewed 11/25/18 @ 15:45 by Lynette Schmitz PA-C) Chronic disease anemia (Chronic) Iron deficiency (Chronic) Peripheral neuropathy (Chronic) BPH (benign prostatic hyperplasia) (Chronic) Carotid stenosis (Chronic) Aortic stenosis (Chronic) HLD (hyperlipidemia) (Chronic) Anxiety (Chronic) HTN (hypertension) (Chronic) Benzodiazepine dependence (Chronic) Opioid dependence (Chronic) Diabetic polyneuropathy (Chronic) Depression (Chronic) PAOD (peripheral arterial occlusive disease) (Chronic) Stage III chronic kidney disease (Chronic) Status post above knee amputation of right lower extremity (Chronic) COPD (chronic obstructive pulmonary disease) (Chronic) TIA (transient ischemic attack) (Chronic) GERD (gastroesophageal reflux disease) (Chronic) Alcoholic liver disease (Chronic) cirrhosis Portal hypertension esophageal varices stage III DM type 2 (diabetes mellitus, type 2) (Chronic) Alcohol abuse (Chronic) 6-12 drinks/day Hypothyroidism (Chronic) Chronic blood loss anemia (Chronic) required 3 units of PRBC's- prior workup for this showed no etiology Hospital Course and Treatment Imaging Results: KUB: IMPRESSION: Thickening of the haustral markings of the transverse colon. Colitis should be ruled out. Consults: General Surgery Operations: None Procedures: None Summary of Care Provided: Per HPI: The patient is a 63 year old M with a PMH as below who presents from the TCU with bright red blood per rectum. He is completely asymptomatic, has not had any lightheadedness or dizziness and was told that he had blood in his stool today. He denies any abdominal pain or fevers and chills. No recent illnesses. In the ER his hemoglobin was actually 11.8 which is 0.1 higher than yesterday. Vital signs were unremarkable and he had no change to his baseline labs. He is on no anticoagulants denies even noticing that he had had a bowel movement. Per report from the TCU he had also had blood clots and blood was pouring out of his rectum. Hospital Course: 1. Lower GI bleed/chronic abevyk-78-biot-old male who is at TCU currently after having a TIA/strokelike symptoms earlier in October, presented to the ER because he had an episode of bright red blood per rectum yesterday. He was completely asymptomatic with no lightheadedness or dizziness. However in the ER the checked his hemoglobin which was 11.8, the day prior to admission was 1.7, however they felt that that hemoglobin necessitated admission and therefore he was brought in for observation. He had a single recheck of his hemoglobin the following morning and it was 11.2 and therefore he was discharged back to TCU so that way he would still have a bed and not have to undergo creaser. General surgery can plan on doing a colonoscopy as an outpatient. It was felt that this was likely secondary to ulceration from constipation and therefore would recommend that he also be started on MiraLAX twice daily to clean him out. Of note his last colonoscopy was 8 to 10 years ago and therefore he is not due for colonoscopy regardless. He is not on any anticoagulants or antiplatelets. On the day of discharge he felt great, denied any lightheadedness or dizziness and he did not have any abdominal pain to palpation to indicate a colitis therefore nor further imaging was obtained regardless of what the KUB was read as. He also did have a white count or fever. I discussed this plan with him and he was in agreement. 2. His other medical diagnoses were evaluated and his home medications were continued where appropriate Patient Problems: Active and Suspected Problems (Last Reviewed 11/25/18 @ 15:45 by Lynette Schmitz PA-C) Lower GI bleed (Acute) Renal insufficiency (Acute) Left hemiparesis (Acute) Neuropathy of left peroneal nerve (Acute) Objective: General: Alert, Oriented x3, Cooperative, No apparent distress HEENT: Atraumatic, PERRLA, EOMI, Normocephalic Oral: Moist Mucosa Neck: Supple, No JVD Lungs: Clear to auscultation, Normal air movement, No rhonchi, No wheeze, No rales, Diminished Cardiovascular: Regular rate, Regular Rhythm, Normal S1, Normal S2, Murmur - 3 out of 6 right upper sternal border centimeters Abdomen: Soft, Non Tender, Distended, - - Ascites Extremities: No edema, Capillary Refill Less than 3 Seconds Skin: No rashes, No breakdown Neurological: Neuro grossly intact, Sensory exam intact to light touch and pain Psych/Mental Status: Normal Affect, Appropriate - Physical Exam Vital Signs Temp Pulse Resp BP Pulse Ox 98.3 F 62 18 153/73 H 94 11/26/18 04:16 11/26/18 04:16 11/26/18 04:16 11/26/18 04:16 11/26/18 04:16 Oxygen Delivery Method Room Air Weight: 160 lb 0.889 oz Body Mass Index (BMI) 22.9 Finger Stick Blood Glucose 310 Intake and Output for Last 24 Hours 11/24/18 11/25/18 11/26/18 23:59 23:59 23:59 Intake Total 200 / 200 100 / 100 Output Total 400 / 400 350 / 350 Balance -200 / -200 -250 / -250 Laboratory Tests Past 24 Hrs 11/25/18 11/25/18 11/25/18 09:58 09:58 09:58 WBC 3.6 L RBC 3.62 L Hgb 11.8 L Hct 34.7 L MCV 95.9 H MCH 32.6 H MCHC 34.0 RDW 14.5 RDW Differential 50.5 H Plt Count 72 L MPV 10.8 Immature Gran % (Auto) 0.000 Neut % (Auto) 74.0 H Lymph % (Auto) 11.6 L [place] % (Auto) 8.0 Eos % (Auto) 5.8 H Baso % (Auto) 0.6 Absolute Neuts (auto) 2.7 Absolute Lymphs (auto) 0.42 L Total Counted Not Reportable Differential Comment Diff Path Review Platelet Estimate PT 16.3 H INR 1.3 APTT 33.2 Sodium 142 Potassium 4.0 Chloride 112 H Carbon Dioxide 26.0 Anion Gap 4 L BUN 48 H Creatinine 1.42 H Estim Creat Clear Calc 54.26 Est GFR (MDRD) Af Amer 64 Est GFR (MDRD) Non-Af 53 L BUN/Creatinine Ratio 33.8 H Glucose 244 H Calcium 9.1 Blood Type Antibody Screen Crossmatch 11/25/18 11/25/18 11/26/18 09:58 09:58 05:24 WBC RBC Hgb Hct MCV MCH MCHC RDW RDW Differential Plt Count MPV Immature Gran % (Auto) Neut % (Auto) Lymph % (Auto) [place] % (Auto) Eos % (Auto) Baso % (Auto) Absolute Neuts (auto) Absolute Lymphs (auto) Total Counted Differential Comment Diff Path Review Platelet Estimate PT INR APTT Sodium 145 Potassium 3.6 Chloride 113 H Carbon Dioxide 25.0 Anion Gap 7 BUN 33 H Creatinine 1.06 Estim Creat Clear Calc 72.30 Est GFR (MDRD) Af Amer 90 Est GFR (MDRD) Non-Af 75 BUN/Creatinine Ratio 31.1 H Glucose 120 H Calcium 9.0 Blood Type A POSITIVE Antibody Screen NEGATIVE Crossmatch See Detail 11/26/18 05:24 WBC 3.3 L RBC 3.54 L Hgb 11.2 L Hct 34.1 L MCV 96.3 H MCH 31.6 MCHC 32.8 RDW 14.4 RDW Differential 47.8 H Plt Count 69 L MPV 10.7 Immature Gran % (Auto) 0.000 Neut % (Auto) 62.5 Lymph % (Auto) 18.1 L [place] % (Auto) 10.9 H Eos % (Auto) 7.6 H Baso % (Auto) 0.9 Absolute Neuts (auto) 2.1 Absolute Lymphs (auto) 0.60 L Total Counted Not Reportable Differential Comment SCANNED Diff Path Review May foll Platelet Estimate SLT DEC PT INR APTT Sodium Potassium Chloride Carbon Dioxide Anion Gap BUN Creatinine Estim Creat Clear Calc Est GFR (MDRD) Af Amer Est GFR (MDRD) Non-Af BUN/Creatinine Ratio Glucose Calcium Blood Type Antibody Screen Crossmatch POC Glucose 11/26/18 11/25/18 11/25/18 06:32 21:16 15:52 POC Glucose 126 H 186 H 160 H Home Medications: Medications to take at Discharge Amlodipine [Norvasc] 10 mg PO DAILY 06/13/14 Bisacodyl [Dulcolax] 10 mg RECTAL DAILY PRN PRN 09/11/16 Rifampin [Rifadin] 150 mg PO BID 09/11/16 Levothyroxine [Synthroid] 300 mcg PO DAILY 03/03/17 Docusate Sodium [Colace] 100 mg PO BID PRN PRN 10/27/18 Ferrous Sulfate [High Potency Iron] 27 mg PO DAILY 10/27/18 Pantoprazole Sodium [Protonix] 40 mg PO BID 10/27/18 Promethazine HCl 25 mg PO TID PRN 10/27/18 Sertraline HCl 100 mg PO DAILY 10/27/18 Tamsulosin HCl 0.4 mg PO DAILY 10/27/18 Albuterol Aerosols [Ventolin Aerosols] 2.5 mg INHALATION Q2H PRN PRN vial.neb. 10/30/18 Glucerna Shake 120 ml PO 4X/DAY 10/30/18 Ipratropium/Albuterol Sulfate [Duoneb] 3 ml INHALATION Q6H.RT 10/30/18 Lactulose [Chronulac] 20 gm PO BID 10/30/18 insulin glargine (U-100) 100 unit/mL (3 mL) subcutaneous pen 20 unit SC DAILY 11/17/18 insulin lispro (U- 100) 100 unit/mL subcutaneous pen 13 unit SC .before meals ml 11/17/18 pregabalin 50 mg capsule 50 mg PO TID 11/17/18 Primary Care Physician: Vladislav Colunga DO [Primary Care Provider] - Please follow up with your Primary Care Physician in: 3-5 days Disposition: Senior Living facility Minutes spent on discharge:: 35 Patient Condition:: Stable Medical Necessity - Tobacco Use Smoking Status: Current every day smoker Tobacco Use: Cigarettes Meaningful Use Info Meaningful Use Diagnoses (Choose all that apply): None applicable Code Visit OBSV E&M: 85209 Observation care discharge
--- NOTE | 2018-11-26 08:05 | NURSING ---
report called to [facility] and pt transferred via bed.
--- NOTE | 2018-11-26 08:38 | PCM.PN.SRG ---
Patient Problems: Active and Suspected Problems (Last Reviewed 11/25/18 @ 15:45 by Lynette Schmitz PA-C) Lower GI bleed (Acute) Renal insufficiency (Acute) Left hemiparesis (Acute) Neuropathy of left peroneal nerve (Acute) Subjective: Patient's vital signs remained stable, patient did have multiple bowel movements with no blood overnight and yesterday. Hemoglobin has remained fairly stable. - Physical Exam General: Alert, Oriented x3, Cooperative, No apparent distress Lungs: Normal air movement Cardiovascular: Regular rate Abdomen: Soft, Non Tender, Non-Distended Extremities: - - Right typel-[id number]-jqck amputation Vital Signs Temp Pulse Resp BP Pulse Ox 98.1 F 65 18 147/74 H 97 11/26/18 07:34 11/26/18 07:34 11/26/18 07:34 11/26/18 07:34 11/26/18 07:34 Oxygen Delivery Method Room Air Weight: 160 lb 0.889 oz Body Mass Index (BMI) 22.9 Finger Stick Blood Glucose 310 Intake and Output for Last 24 Hours 11/24/18 11/25/18 11/26/18 23:59 23:59 23:59 Intake Total 200 / 200 100 / 100 Output Total 400 / 400 350 / 350 Balance -200 / -200 -250 / -250 Laboratory Tests Past 24 Hrs 11/25/18 11/25/18 11/25/18 09:58 09:58 09:58 WBC 3.6 L RBC 3.62 L Hgb 11.8 L Hct 34.7 L MCV 95.9 H MCH 32.6 H MCHC 34.0 RDW 14.5 RDW Differential 50.5 H Plt Count 72 L MPV 10.8 Immature Gran % (Auto) 0.000 Neut % (Auto) 74.0 H Lymph % (Auto) 11.6 L Finney % (Auto) 8.0 Eos % (Auto) 5.8 H Baso % (Auto) 0.6 Absolute Neuts (auto) 2.7 Absolute Lymphs (auto) 0.42 L Total Counted Not Reportable Differential Comment Diff Path Review Platelet Estimate PT 16.3 H INR 1.3 APTT 33.2 Sodium 142 Potassium 4.0 Chloride 112 H Carbon Dioxide 26.0 Anion Gap 4 L BUN 48 H Creatinine 1.42 H Estim Creat Clear Calc 54.26 Est GFR (MDRD) Af Amer 64 Est GFR (MDRD) Non-Af 53 L BUN/Creatinine Ratio 33.8 H Glucose 244 H Calcium 9.1 Blood Type Antibody Screen Crossmatch 11/25/18 11/25/18 11/26/18 09:58 09:58 05:24 WBC RBC Hgb Hct MCV MCH MCHC RDW RDW Differential Plt Count MPV Immature Gran % (Auto) Neut % (Auto) Lymph % (Auto) Finney % (Auto) Eos % (Auto) Baso % (Auto) Absolute Neuts (auto) Absolute Lymphs (auto) Total Counted Differential Comment Diff Path Review Platelet Estimate PT INR APTT Sodium 145 Potassium 3.6 Chloride 113 H Carbon Dioxide 25.0 Anion Gap 7 BUN 33 H Creatinine 1.06 Estim Creat Clear Calc 72.30 Est GFR (MDRD) Af Amer 90 Est GFR (MDRD) Non-Af 75 BUN/Creatinine Ratio 31.1 H Glucose 120 H Calcium 9.0 Blood Type A POSITIVE Antibody Screen NEGATIVE Crossmatch See Detail 11/26/18 05:24 WBC 3.3 L RBC 3.54 L Hgb 11.2 L Hct 34.1 L MCV 96.3 H MCH 31.6 MCHC 32.8 RDW 14.4 RDW Differential 47.8 H Plt Count 69 L MPV 10.7 Immature Gran % (Auto) 0.000 Neut % (Auto) 62.5 Lymph % (Auto) 18.1 L Finney % (Auto) 10.9 H Eos % (Auto) 7.6 H Baso % (Auto) 0.9 Absolute Neuts (auto) 2.1 Absolute Lymphs (auto) 0.60 L Total Counted Not Reportable Differential Comment SCANNED Diff Path Review May foll Platelet Estimate SLT DEC PT INR APTT Sodium Potassium Chloride Carbon Dioxide Anion Gap BUN Creatinine Estim Creat Clear Calc Est GFR (MDRD) Af Amer Est GFR (MDRD) Non-Af BUN/Creatinine Ratio Glucose Calcium Blood Type Antibody Screen Crossmatch POC Glucose 11/26/18 11/25/18 11/25/18 06:32 21:16 15:52 POC Glucose 126 H 186 H 160 H Medical Necessity - Tobacco Use Smoking Status: Current every day smoker Tobacco Use: Cigarettes Assessment/Plan All Active Problems (Last Reviewed 11/25/18 @ 15:45 by Lynette Schmitz, PA-C) Lower GI bleed (Acute) Renal insufficiency (Acute) Troponin I above reference range (Acute) TIA (transient ischemic attack) (Ruled-out) Left hemiparesis (Acute) Neuropathy of left peroneal nerve (Acute) Okay to go back to TCU. Patient can follow-up with me and have an outpatient colonoscopy. Try to obtain records of patient's last colonoscopy, when I talked to patient he was unsure if he is ever had one before but he did tell Dr. Ibrahim status may be 8 or 10 years ago. Patient was agreeable with plan. Liz Jackson M.D. Pager: [phone] [facility] [address] [place] [address], [facility] [address] [place] [address] Office: [phone] Code Visit Inpatient E&M: 49464 Subs Hosp L1
--- NOTE | 2018-11-26 08:41 | PN.SURG_ITS ---
Patient Problems: Active and Suspected Problems (Last Reviewed 11/25/18 @ 15:45 by Lynette Schmitz PA-C) Lower GI bleed (Acute) Renal insufficiency (Acute) Left hemiparesis (Acute) Neuropathy of left peroneal nerve (Acute) Subjective: Patient's vital signs remained stable, patient did have multiple bowel movements with no blood overnight and yesterday. Hemoglobin has remained fairly stable. - Physical Exam General: Alert, Oriented x3, Cooperative, No apparent distress Lungs: Normal air movement Cardiovascular: Regular rate Abdomen: Soft, Non Tender, Non-Distended Extremities: - - Right mktge-gmq-[id number] amputation Vital Signs Temp Pulse Resp BP Pulse Ox 98.1 F 65 18 147/74 H 97 11/26/18 07:34 11/26/18 07:34 11/26/18 07:34 11/26/18 07:34 11/26/18 07:34 Oxygen Delivery Method Room Air Weight: 160 lb 0.889 oz Body Mass Index (BMI) 22.9 Finger Stick Blood Glucose 310 Intake and Output for Last 24 Hours 11/24/18 11/25/18 11/26/18 23:59 23:59 23:59 Intake Total 200 / 200 100 / 100 Output Total 400 / 400 350 / 350 Balance -200 / -200 -250 / -250 Laboratory Tests Past 24 Hrs 11/25/18 11/25/18 11/25/18 09:58 09:58 09:58 WBC 3.6 L RBC 3.62 L Hgb 11.8 L Hct 34.7 L MCV 95.9 H MCH 32.6 H MCHC 34.0 RDW 14.5 RDW Differential 50.5 H Plt Count 72 L MPV 10.8 Immature Gran % (Auto) 0.000 Neut % (Auto) 74.0 H Lymph % (Auto) 11.6 L Refugio % (Auto) 8.0 Eos % (Auto) 5.8 H Baso % (Auto) 0.6 Absolute Neuts (auto) 2.7 Absolute Lymphs (auto) 0.42 L Total Counted Not Reportable Differential Comment Diff Path Review Platelet Estimate PT 16.3 H INR 1.3 APTT 33.2 Sodium 142 Potassium 4.0 Chloride 112 H Carbon Dioxide 26.0 Anion Gap 4 L BUN 48 H Creatinine 1.42 H Estim Creat Clear Calc 54.26 Est GFR (MDRD) Af Amer 64 Est GFR (MDRD) Non-Af 53 L BUN/Creatinine Ratio 33.8 H Glucose 244 H Calcium 9.1 Blood Type Antibody Screen Crossmatch 11/25/18 11/25/18 11/26/18 09:58 09:58 05:24 WBC RBC Hgb Hct MCV MCH MCHC RDW RDW Differential Plt Count MPV Immature Gran % (Auto) Neut % (Auto) Lymph % (Auto) Refugio % (Auto) Eos % (Auto) Baso % (Auto) Absolute Neuts (auto) Absolute Lymphs (auto) Total Counted Differential Comment Diff Path Review Platelet Estimate PT INR APTT Sodium 145 Potassium 3.6 Chloride 113 H Carbon Dioxide 25.0 Anion Gap 7 BUN 33 H Creatinine 1.06 Estim Creat Clear Calc 72.30 Est GFR (MDRD) Af Amer 90 Est GFR (MDRD) Non-Af 75 BUN/Creatinine Ratio 31.1 H Glucose 120 H Calcium 9.0 Blood Type A POSITIVE Antibody Screen NEGATIVE Crossmatch See Detail 11/26/18 05:24 WBC 3.3 L RBC 3.54 L Hgb 11.2 L Hct 34.1 L MCV 96.3 H MCH 31.6 MCHC 32.8 RDW 14.4 RDW Differential 47.8 H Plt Count 69 L MPV 10.7 Immature Gran % (Auto) 0.000 Neut % (Auto) 62.5 Lymph % (Auto) 18.1 L Refugio % (Auto) 10.9 H Eos % (Auto) 7.6 H Baso % (Auto) 0.9 Absolute Neuts (auto) 2.1 Absolute Lymphs (auto) 0.60 L Total Counted Not Reportable Differential Comment SCANNED Diff Path Review May foll Platelet Estimate SLT DEC PT INR APTT Sodium Potassium Chloride Carbon Dioxide Anion Gap BUN Creatinine Estim Creat Clear Calc Est GFR (MDRD) Af Amer Est GFR (MDRD) Non-Af BUN/Creatinine Ratio Glucose Calcium Blood Type Antibody Screen Crossmatch POC Glucose 11/26/18 11/25/18 11/25/18 06:32 21:16 15:52 POC Glucose 126 H 186 H 160 H Medical Necessity - Tobacco Use Smoking Status: Current every day smoker Tobacco Use: Cigarettes Assessment/Plan All Active Problems (Last Reviewed 11/25/18 @ 15:45 by Lynette Schmitz, PA-C) Lower GI bleed (Acute) Renal insufficiency (Acute) Troponin I above reference range (Acute) TIA (transient ischemic attack) (Ruled-out) Left hemiparesis (Acute) Neuropathy of left peroneal nerve (Acute) Okay to go back to TCU. Patient can follow-up with me and have an outpatient colonoscopy. Try to obtain records of patient's last colonoscopy, when I talked to patient he was unsure if he is ever had one before but he did tell Dr. Ibrahim status may be 8 or 10 years ago. Patient was agreeable with plan. Liz Jackson M.D. Pager: [phone] [facility] [address] [place] [address], [facility] [address] [place] [address] Office: [phone] Code Visit Inpatient E&M: [id number] Subs Hosp L1
[2018-11-26 13:29] LABS: Pathologist Review Reviewed
== END 2018-11-26 08:43 | disposition skilled nursing facility (03) ==
LOC: ED 11:14 → MS3 11:58
PROVIDERS: Admitting Provider Family Medicine; Emergency Provider Emergency Medicine; Family Provider Family Medicine; PCP Family Medicine; Visit Provider Family Medicine
DX: K92.2 Gastrointestinal hemorrhage, unspecified (principal); N18.3 Chronic kidney disease, stage 3 (moderate); G81.94 Hemiplegia, unspecified affecting left nondominant side; K70.9 Alcoholic liver disease, unspecified; D63.8 Anemia in other chronic diseases classified elsewhere; E78.5 Hyperlipidemia, unspecified; N40.0 Benign prostatic hyperplasia without lower urinary tract symptoms; K21.9 Gastro-esophageal reflux disease without esophagitis; E11.22 Type 2 diabetes mellitus with diabetic chronic kidney disease; I12.9 Hypertensive chronic kidney disease with stage 1 through stage 4 chronic kidney disease, or unspecified chronic kidney disease; E11.42 Type 2 diabetes mellitus with diabetic polyneuropathy; F41.9 Anxiety disorder, unspecified; E03.9 Hypothyroidism, unspecified; J44.9 Chronic obstructive pulmonary disease, unspecified; F13.20 Sedative, hypnotic or anxiolytic dependence, uncomplicated; F11.20 Opioid dependence, uncomplicated; E11.51 Type 2 diabetes mellitus with diabetic peripheral angiopathy without gangrene; F32.9 Major depressive disorder, single episode, unspecified; D50.0 Iron deficiency anemia secondary to blood loss (chronic); K76.6 Portal hypertension; F17.210 Nicotine dependence, cigarettes, uncomplicated; K74.60 Unspecified cirrhosis of liver; K59.00 Constipation, unspecified; Z79.899 Other long term (current) drug therapy; Z79.4 Long term (current) use of insulin; Z89.611 Acquired absence of right leg above knee
CPT/HCPCS: 36415; 74018; 80048; 82962; 85025; 85610; 85730; 86850; 86900; 86902; 86920; 86922; 93005; 99218; 99284; 99406; A4216; G0378

== ENCOUNTER → 2019-01-25 11:07 | Outpatient (CLI) | payer MEDICARE, SELFPAY ==
[2018-11-25 12:25] VITALS: BMI 22.9
[2019-01-25 15:34] LABS: Hemoglobin A1c 5.9 % (4.2-6.3)
[2019-01-25 15:37] LABS: ALB/GLOB Ratio 0.6 RATIO (0.9-2.4); AST(SGOT) 16 U/L (15-37); Alanine Aminotransfer ALT/SGPT 15 U/L (16-61); Albumin, Serum 2.8 g/dL (3.2-5.0); Alkaline Phosphatase 118 U/L (45-117); Anion Gap 8 (5-15); BUN 25 mg/dL (7-18); BUN/Creat Ratio 19.8 RATIO (10-20); Calcium,Total 8.6 mg/dL (8.5-10.1); Chloride 110 mmol/L (98-107); Creatinine, Serum 1.26 mg/dL (0.70-1.30); EST Glomerular Filtration Rate 61 mL/min (>60); Est Glom Filt Rate - Afr Amer 74 mL/min (>60); Glucose 168 mg/dL (74-106); PSA,Total - Annual Screen 0.23 ng/mL (0.00-4.00); Protein, Total 7.8 g/dL (6.4-8.2); Sodium Level 141 mmol/L (136-145); T4 Free Direct 1.51 ng/dL (0.76-1.46); Thyroid Stim Hormone (TSH) 0.11 uIU/mL (0.358-3.74)
== END ==
PROVIDERS: PCP Family Medicine; Visit Provider Family Medicine
DX: E11.49 Type 2 diabetes mellitus with other diabetic neurological complication (principal); E11.65 Type 2 diabetes mellitus with hyperglycemia; E03.9 Hypothyroidism, unspecified; Z12.5 Encounter for screening for malignant neoplasm of prostate
CPT/HCPCS: 36415; 80053; 83036; 84153; 84439; 84443; 97110; G0103

== ENCOUNTER 2019-02-23 14:17 | Emergency (ER) | payer MEDICARE, SELFPAY ==
[2018-11-25 12:25] VITALS: BMI 22.9
[2019-02-23] VITALS (8 sets, daily range): BP systolic 141–180; BP diastolic 69–120; PULSE 83–95; RESP 12–21; TEMP 36.8–37; O2SAT 92–97; BMI 25.0
--- NOTE | 2019-02-23 14:34 | ED.RN ---
EMESIS X1 NO COFFEE GROUNDS OR BLACK. BLACK STOOL YESTERDAY NORMAL DARK BROWN THIS AM. EMESIS X1 BRIGHT READ TODAY.
--- NOTE | 2019-02-23 14:46 | EKG12_ITS ---
Test Reason : GI BLEED Blood Pressure : / mmHG Vent. Rate : 089 BPM Atrial Rate : 089 BPM P-R Int : 164 ms QRS Dur : 104 ms QT Int : 384 ms P-R-T Axes : 036 -17 036 degrees QTc Int : 467 ms Normal sinus rhythm Incomplete right bundle branch block Borderline ECG Confirmed by ALEM DUDLEY ([id number]), legal editor DENNYS GRACIA ([id number]) on 03/01/2019 2:25:37 PM Referred By: JANIE Confirmed By:ALEM DUDLEY
--- NOTE | 2019-02-23 15:18 | ED.VIS.GEN ---
History of Present Illness Chief Complaint: GI Bleed Informant: Patient Onset: Yesterday Context: Sudden Onset Timing: Intermittent Current Severity: Mild Maximum Severity: Moderate Narrative: The patient presents with hematemesis which is since resolved. Patient states he was in his normal state of health. He states yesterday, he started to get nauseated after eating. He states he then vomited. He states the last emesis had bright red blood. He states he threw up again today, and there was no red blood. The patient does have a history of alcoholic liver disease. He is been sober for 4 years. He does have history of esophageal varices and has been banded in the past, the last time greater than a year ago. He denies taking anticoagulants. He states he is otherwise been in his normal state of health. He denies any fevers or chills. He denies any recent antibiotics. Prior similar symptoms: Yes Recent Illness/Hospitalization: Yes Past Medical History - Allergies and Home Meds Allergies/Adverse Reactions: Allergies codeine Allergy (Verified 02/23/19 14:35) Hives hydrocodone Allergy (Verified 02/23/19 14:35) Hives hydromorphone HCl [From Dilaudid] Allergy (Verified 02/23/19 14:35) Itching oxycodone [From Percocet] Allergy (Verified 02/23/19 14:35) Rash atorvastatin [From Lipitor] Adverse Reaction (Severe, Verified 02/23/19 14:35) RHABDOMYALYSIS Primary Care Physician: Vladislav Colunga [Primary Care Provider] - Prior records reviewed: Yes Past Medical History: - - Esophageal varices with banding, alcoholic liver disease Surgical History: tonsillectomy, - - Right above-knee amputation secondary to peripheral vascular disease 2003, knee surgery secondary to torn meniscus Smoking Status: Current every day smoker - Family History Maternal Family History: Reports: No pertinent history Sibling Family History: Reports: No pertinent history Paternal Family History: Reports: Stroke Review of Systems General: Denies: Chills, Fever, Sweats Eyes: Denies: Visual changes - bilaterally, Diplopia ENT: Denies: Rhinorrhea, Sore throat Cardiovascular: Denies: Chest pain, Palpitations Respiratory: Denies: Dyspnea, Cough, Dyspnea on exertion Gastrointestinal: Reports: Abdominal pain, Nausea, Vomiting. Denies: Diarrhea, Melena, Hematochezia Genitourinary: Denies: Dysuria, Hematuria, Frequency Musculoskeletal: Denies: Back pain, Extremity Pain Skin: Denies: Rash, Wounds Neurological: Denies: Headache, Weakness, Numbness Physical Exam Vital Signs/Narrative: Vital Signs Temp Pulse Resp BP Pulse Ox 02/23/19 14:18 98.2 F 89 16 157/81 H 97 Inital Vital Signs reviewed: Yes General: Well nourished, Well developed, No Acute Distress Head: Normocephalic, Atraumatic Eyes: Perrl, EOMI ENT: Moist mucous membranes, No rhinorrhea Neck: Supple, Nontender Cardiovascular: Regular rate, Regular rhythm, No murmurs Respiratory: No distress, CTA bilaterally, Chest nontender Abdomen: Soft, Nontender, Nondistended, Normal bowel sounds Back: Nontender, Normal Inspection Extremities: Nontender, No edema Skin: Normal color, No rash Neurological: Alert, Oriented x3, Cranial nerves II-XII grossly intact, Normal Strength, Normal Sensation Psychological: Normal affect, Normal Mood Diagnostic/Tx/Re-eval Abnormal Lab Results 02/23/19 02/23/19 02/23/19 15:10 15:10 15:10 WBC 4.8 RBC 2.65 L Hgb 7.5 L Hct 24.2 L MCV 91.3 MCH 28.3 MCHC 31.0 L RDW Std Deviation 52.0 H RDW Coeff of Roxy 15.7 H Plt Count 108 L MPV 10.8 Immature Gran % (Auto) 0.600 Neut % (Auto) 70.9 H Lymph % (Auto) 15.3 L [place] % (Auto) 9.2 Eos % (Auto) 3.6 Baso % (Auto) 0.4 Absolute Neuts (auto) 3.4 Absolute Lymphs (auto) 0.73 L Nucleated RBC % 0 PT 16.0 H INR 1.3 APTT 33.4 Sodium 144 Potassium 4.4 Chloride 112 H Carbon Dioxide 24.0 Anion Gap 8 BUN 42 H Creatinine 1.66 H Estim Creat Clear Calc 45.81 Est GFR (MDRD) Af Amer 54 L Est GFR (MDRD) Non-Af 44 L BUN/Creatinine Ratio 25.3 H Glucose 169 H Lactic Acid Calcium 8.3 L Total Bilirubin 0.70 AST 21 ALT 13 L Alkaline Phosphatase 100 Troponin I < 0.015 Total Protein 7.6 Albumin 2.5 L Globulin 5.1 H Albumin/Globulin Ratio 0.5 L Ethyl Alcohol 02/23/19 02/23/19 15:10 15:10 WBC RBC Hgb Hct MCV MCH MCHC RDW Std Deviation RDW Coeff of Roxy Plt Count MPV Immature Gran % (Auto) Neut % (Auto) Lymph % (Auto) [place] % (Auto) Eos % (Auto) Baso % (Auto) Absolute Neuts (auto) Absolute Lymphs (auto) Nucleated RBC % PT INR APTT Sodium Potassium Chloride Carbon Dioxide Anion Gap BUN Creatinine Estim Creat Clear Calc Est GFR (MDRD) Af Amer Est GFR (MDRD) Non-Af BUN/Creatinine Ratio Glucose Lactic Acid 1.8 Calcium Total Bilirubin AST ALT Alkaline Phosphatase Troponin I Total Protein Albumin Globulin Albumin/Globulin Ratio Ethyl Alcohol 15.0 - Rhythm Strip Rhythm Strip: Sinus Rhythm Rate: 90 Ectopy: None - EKG Initial EKG Interpretation: Sinus Rhythm, RBBB Prior: Unchanged - Medical Decision Making The patient presents to the emergency department with GI bleeding. The patient does have history of varices. He states he did have an episode of vomiting today without any bleeding. IV was established. The patient was started on octreotide, Protonix, and given Rocephin. Screening labs do show anemia. His BUN is also elevated. However, his lactic acid is normal. The patient is going to need transfer to a higher level of care as he is likely going to need GI intervention. He does not appear as if he is actively bleeding. He is not tachycardic. He has negative orthostatics. He had no further emesis. The patient initially requested transfer to [place], however they have no beds available. The patient was discussed with the [facility] transfer line. He was consented for blood transfusion. He will be transferred for further work-up of his upper GI bleed. Impression 1. Upper GI bleed with history of varices ED Disposition - Plan for ED Patient: Referrals: Vladislav Colunga [Primary Care Provider] -
[2019-02-23 15:21] LABS: Absolute Lymphocyte Count 0.73 X10^3/uL (0.83-4.51); Absolute Neutrophil Count 3.4 X10^3/uL (2.0-7.7); Basophil# 0.02 X10^3/uL; Basophil% 0.4 % (0-1); Eosinophil# 0.17 X10^3/uL; Eosinophils% 3.6 % (0-5); Hematocrit 24.2 % (40-54); Hemoglobin 7.5 g/dL (13.0-16.5); Lymphocyte # 0.73 X10^3/ul (4.0); Lymphocyte % 15.3 % (19-41); Mean Corpuscular Hgb 28.3 pg (27.0-32.0); Mean Corpuscular Volume 91.3 fL (80-94); Mean Platelet Vol. 10.8 fl (6.2-12.0); Monocyte# 0.44 X10^3/uL; Monocyte% 9.2 % (0-10); NRBC Flagged by Analyzer 0 % (0-5); Neutrophil # 3.37 X10^3/uL (2.7-7.7); Neutrophil % 70.9 % (47-70); Platelet Count 108 K/mm3 (150-450); RBC Distribution Width CV 15.7 % (11.6-14.6); Red Blood Count 2.65 M/mm3 (4.6-6.2); White Blood Count 4.8 K/mm3 (4.4-11.0)
[2019-02-23 15:33] LABS: International Normalized Ratio 1.3; Partial Thromboplast Time 33.4 Seconds (24.1-36.2)
[2019-02-23 15:39] LABS: ALB/GLOB Ratio 0.5 RATIO (0.9-2.4); AST(SGOT) 21 U/L (15-37); Alanine Aminotransfer ALT/SGPT 13 U/L (16-61); Albumin, Serum 2.5 g/dL (3.2-5.0); Alkaline Phosphatase 100 U/L (45-117); Anion Gap 8 (5-15); BUN 42 mg/dL (7-18); BUN/Creat Ratio 25.3 RATIO (10-20); Calcium,Total 8.3 mg/dL (8.5-10.1); Chloride 112 mmol/L (98-107); Creatinine, Serum 1.66 mg/dL (0.70-1.30); EST Glomerular Filtration Rate 44 mL/min (>60); Est Glom Filt Rate - Afr Amer 54 mL/min (>60); Estimated Creatinine Clearance 45.81 ml/min; Globulin 5.1 g/dL (2.2-4.2); Glucose 169 mg/dL (74-106); Potassium 4.4 mmol/L (3.5-5.1); Protein, Total 7.6 g/dL (6.4-8.2); Sodium Level 144 mmol/L (136-145)
[2019-02-23] MEDS: Ondansetron 4 MG/2 ML Vial IV (15:39)
[2019-02-23 15:52] LABS: Lactic Acid 1.8 mmol/L (0.4-2.0)
--- NOTE | 2019-02-23 16:04 | NURSING ---
CALLED [facility] FOR TRANSFER. TALKED TO JONO. SHE'S TALKING TO DR LIMA
--- NOTE | 2019-02-23 16:31 | ED.RN ---
IV PULLED OUT ACIDENTALLY BY PT. INFUSION PAUSED AND NEW LINE TO BE INTIATED.
[2019-02-23] MEDS: Ceftriaxone 1 GM/50 ML BAG IV (16:41)
[2019-02-23] MEDS: LORazepam 2 MG/ML Syringe 1 MG IV (16:59)
--- NOTE | 2019-02-23 18:15 | NURSING ---
CALLED [facility], TALKED TO RANGEL. THEY HAVE A BED, BUT IT NEEDS CLEANED. SHE WILL CALL US THEN
--- NOTE | 2019-02-23 20:34 | ED.RN ---
SPOKE WITH RJ AND GAVE HER FLOOR PHONE # AND ROOM NUMBER. VERBALIZED UNDERSTANDING.
--- NOTE | 2019-02-23 20:44 | ED.RN ---
BLOOD INFUSION CONTINUED WITH TRANSPORT WITH [facility].
== END 2019-02-23 20:45 | disposition short-term general hospital (02) ==
LOC: ED 14:46
PROVIDERS: Emergency Provider Emergency Medicine; Family Provider Family Medicine; PCP Family Medicine
DX: K92.2 Gastrointestinal hemorrhage, unspecified (principal); I73.9 Peripheral vascular disease, unspecified; F17.200 Nicotine dependence, unspecified, uncomplicated; Z88.5 Allergy status to narcotic agent; Z89.611 Acquired absence of right leg above knee; Z79.899 Other long term (current) drug therapy
CPT/HCPCS: 36430; 80053; 80320; 83605; 84484; 85025; 85610; 85730; 86850; 86900; 86901; 86902; 86920; 86922; 93005; 99285; J7050; P9016; A4216; G0480; J2405; J3490

== ENCOUNTER 2019-03-31 14:00 | Outpatient (RCR) | payer MEDICARE, SELFPAY ==
[2018-11-25 12:25] VITALS: BMI 22.9
--- NOTE | 2019-01-13 15:58 | HP.PTEVAL ---
Patient's Visit Information FERNIE DOVE is a 64 year old M referred to Physical Therapy by Vladislav Colunga with a diagnosis of HEMIPLEGIA LEFT SIDE. Date of Evaluation: 01/13/19 Physical Therapist: Alex Esposito, PT, Cert MDT, OCS - Visit Plan Frequency: 3x /Week Duration: 3 Weeks Plan: PT INTERVETIONS BALANCE TRAINING,ENDURANCE PROGRAM BKA AND LEFT LE STRENGTHENING,TANNSFER TRAINING,PROGRESS TO BEING ABLE TO DON PROTHESIS - Subjective Findings: This 64 y/o male presensts to physical therapy with hemiplegia left side Patient had TIA affecting left side ,October 27 admiited to hospital [facility] . Pateint placed prothesis but unble to walk. Patient had MRI/CATSCAN showed TIA. When patient became medical stable transferred to TCU at [facility] for rehab. Then patient was d/c to home with HomeHealth 12/02/18.Patient had HHC until 01/06/19. Patient has mutliple comorbities witH Right AKA,DM Left torn RTC. Ranch with ramp. Patient sponge bath and able to dress self. Patient is unable to walk even with prothesis ,at this point patient is w/c level. Pateint has limitations with ADL'S ,unable to stand without assist. Patient does pivit transfer. Pateint uses bedside commode. Patient c/o parathesia. Patient conditions impairs function unable to walk. Patient weakness affects QOL.DME W/C bedside commode. PRIOR LEVEL OF FUNCTION: Ambulated with fww with prothesis. SOCIAL: . VOCATION: DISBALITY - Pain Left Shoulder Pain Intensity (Out of 10): 5 Pain Intensity Range: 10 - Objective POSTURE: posterior pelvic tilt,rounded shoulders head foward. NEURO:c/o parathesia /tingling hands light touck intact. TONE : WFL. SITTING: balance good-. STANDING : poor static. TRANSFERS: sit -stand max assist in ll bars. PIVOT TRANSFER: SBA. BED MOBILITY: supine-sit mid Independant. GAIT: unable. MOBLITY: w/c level. AROM: right hip flexion 100 degrees,hip abd 30 degrees ,left WFL. MMT: hip flexion 3+/5,abduction 3/5,hip extension 3/5,right hip flexion 3+/5,abd 3-/5,quads/hams 3+/5,dorsiflexion 2/5 - Goals Goal 1:: Independant with HEP. Goal Time Frame: 6-8 Weeks Goal 2:: Patient tranfers sit-stand with min assisit. Goal Time Frame: 6-8 Weeks Goal 3:: Patient improve strength right hip AKA flexors/abductors 4-/5,left hip/knee 4-/5 ankle 3-/5 to improve function gait. Goal Time Frame: 6-8 Weeks Goal 4:: Patient to improve ability to don prothesisi to prepare for gait in standing postion. Goal Time Frame: 6-8 Weeks Goal 5:: Patient to LFES score by score by 10 points to improve QOL. Goal Time Frame: 6-8 Weeks Goal 6:: Patient to improve ADL'S and self hygine with min limiations. Goal Time Frame: 4-6 Weeks - Rehabilitation Potential Physical Therapy Diagnosis: Patient has multiple comrbities to include RIGHT AKA and most recent hospitalized with TIA with CVA like symptoms for extended hospital stay to include TCU rehab . Patient has deficits with weakness ,balance,unable to ambulate with prothesis ,max assisit with sit-stand thus benifit from skilled PT. Rehabilitation Potential: Fair - Anticipated Interventions Patient/Client Instruction: Educate patient on: Condition, Plan of Care For the Purpose of:: To improve muscle performance and motor function, To improve ability to perform ADL's, To increase tolerance to activity/condition/position, To improve performance and independence with ADL's, To improve ability of physical actions for home/community/work/leisure, To improve gait and locomotor functions, To increase flexibility/ROM, To improve endurance, To improve balance, To improve safety with gait, To assume or resume ADL's, To improve ability to perform tasks related to life management Therapeutic Exercise to Include: Strength training, Endurance training, Balance training, Flexibilty training, Gait and locomotor training For the Purpose of:: To improve muscle performance and motor function, To improve ability to perform ADL's, To increase tolerance to activity/condition/position, To improve performance and independence with ADL's, To decrease level of supervision to perform tasks, To improve ability of physical actions for home/community/work/leisure, To improve gait and locomotor functions, To increase flexibility/ROM, To improve endurance, To improve balance, To improve safety with gait, To assume or resume ADL's, To improve ability to perform tasks related to life management Thank you for the opportunity to evaluate your patient. For Medicare and Medicare HMO plans, please review the plan of care and approve it. It will need to be FAXED BACK to us at [phone] for Medicare purposes. For Medicare only, by signing this I certify the plan of care. Please let me know if there are questions or concerns regarding this plan of care. Physician Signature: Date:
--- NOTE | 2019-02-10 13:51 | HP.PTREVAL_ITS ---
Vladislav Clounga, It has been my pleasure to treat FERNIE DOVE over the last 8 visits for HEMIPLEGIA LEFT SIDE. Please see the progress note below for an update on the physical therapy plan of care! Subjective: Plan to see . Prothetist next wk. Patient is able almost able to done prothetist Objective/Function: TRANSFERS: SIT -STAND ll bars CGA. W/C-MAT SBA. MMT: quads/hams LEFT 4-/5 ,hip abd 3-/5,right hip abd 3/5. BED MOBLITY: SBA supine- sit Plan Plan: CONT 2X/WK FOR 4WKS PT INTERVETIONS BALANCE TRAINING,ENDURANCE PROGRAM BKA AND LEFT LE STRENGTHENING,TANNSFER TRAINING,PROGRESS TO BEING ABLE TO DON PROTHESIS Goals Goal 1:: Independant with HEP. Goal Time Frame: 6-8 Weeks Goal Progress: Progressing Goal 2:: Patient tranfers sit-stand with min assisit. Goal Time Frame: 6-8 Weeks Goal Progress: Goal Met Goal 3:: Patient improve strength right hip AKA flexors/abductors 4-/5,left hip/knee 4-/5 ankle 3-/5 to improve function gait. Goal Time Frame: 6-8 Weeks Goal Progress: Progressing Goal 4:: Patient to improve ability to don prothesis to prepare for gait in standing postion. Goal Time Frame: 6-8 Weeks Goal Progress: Not Progressing Goal 5:: Patient to LFES score by score by 10 points to improve QOL. Goal Time Frame: 6-8 Weeks Goal Progress: Not Progressing Goal 6:: Patient to improve ADL'S and self hygine with min limiations. Goal Time Frame: 4-6 Weeks Goal Progress: Not Progressing Anticipated Interventions Patient/Client Instruction: Educate patient on: Condition, Plan of Care For the Purpose of:: To improve muscle performance and motor function, To improve ability to perform ADL's, To increase tolerance to activity/condition/position, To improve performance and independence with ADL's, To improve ability of physical actions for home/community/work/leisure, To improve gait and locomotor functions, To increase flexibility/ROM, To improve endurance, To improve balance, To improve safety with gait, To assume or resume ADL's, To improve ability to perform tasks related to life management Therapeutic Exercise to Include: Strength training, Endurance training, Balance training, Flexibilty training, Gait and locomotor training For the Purpose of:: To improve muscle performance and motor function, To improve ability to perform ADL's, To increase tolerance to activi ty/condition/position, To improve performance and independence with ADL's, To decrease level of supervision to perform tasks, To improve ability of physical actions for home/community/work/leisure, To improve gait and locomotor functions, To increase flexibility/ROM, To improve endurance, To improve balance, To improve safety with gait, To assume or resume ADL's, To improve ability to perform tasks related to life management Please do not hesitate to contact me at [phone] by phone or if you have questions or concerns regarding this new plan of care! Sincerely, Alex Esposito PT, Cert MDT, OCS
--- NOTE | 2019-05-26 16:05 | HP.PTDCNRP_ITS ---
HP - Discharge Summary (1) - Patient Information FERNIE DOVE was seen in my office for initial evaluation on 01/13/19. The following Plan of Care was established for this patient: Initial Frequency: 3x /Week Initial Duration: 3 Weeks - Anticipated Interventions Patient/Client Instruction: Educate patient on: Condition, Plan of Care For the Purpose of:: To improve muscle performance and motor function, To impr ove ability to perform ADL's, To increase tolerance to activity/condition/position, To improve performance and independence with ADL's, To improve ability of physical actions for home/community/work/leisure, To improve gait and locomotor functions, To increase flexibility/ROM, To improve endurance, To improve balance, To improve safety with gait, To assume or resume ADL's, To improve ability to perform tasks related to life management Therapeutic Exercise to Include: Strength training, Endurance training, Balance training, Flexibilty training, Gait and locomotor training For the Purpose of:: To improve muscle performance and motor function, To improve ability to perform ADL's, To increase tolerance to activity/condition/position, To improve performance and independence with ADL's, To decrease level of supervision to perform tasks, To improve ability of physical actions for home/community/work/leisure, To improve gait and locomotor functions, To increase flexibility/ROM, To improve endurance, To improve balance, To improve safety with gait, To assume or resume ADL's, To improve ability to perform tasks related to life management This patient was last seen in our office . Pertinent comments regarding their Physical therapy will appear below: Patient seen for PT for BKA for strengthening,balance,gait and endurance training. Patient was unble to use prothesis leg. Patient d/c to multiple medical problems . At this point I will be discontinuing this patient from physical therapy. I would be happy to see this patient again in the future if found appropriate by the physician. Thank you! Alex Esposito, PT, Cert MDT, OCS
== END 2019-03-31 19:00 | disposition home or self-care (01) ==
LOC: PT 14:00
PROVIDERS: Family Provider Family Medicine; PCP Family Medicine; Referring Provider Family Medicine; Visit Provider Family Medicine
DX: G81.94 Hemiplegia, unspecified affecting left nondominant side (principal)
CPT/HCPCS: 97110; 97163

== ENCOUNTER → 2019-05-31 14:32 | Outpatient (CLI) | payer MEDICARE, SELFPAY ==
[2019-02-23 14:18] VITALS: BMI 25.0
[2019-05-31 17:05] LABS: Absolute Lymphocyte Count 0.44 X10^3/uL (0.83-4.51); Absolute Neutrophil Count 1.8 X10^3/uL (2.0-7.7); Basophil# 0.02 X10^3/uL; Basophil% 0.7 % (0-1); Eosinophil# 0.17 X10^3/uL; Eosinophils% 6.4 % (0-5); Hematocrit 22.3 % (40-54); Hemoglobin 6.1 g/dL (13.0-16.5); Lymphocyte # 0.44 X10^3/ul (4.0); Lymphocyte % 16.5 % (19-41); Mean Corp Hgb Conc 27.4 g/dL (32-36); Mean Corpuscular Hgb 23.3 pg (27.0-32.0); Mean Corpuscular Volume 85.1 fL (80-94); Mean Platelet Vol. 11.2 fl (6.2-12.0); Monocyte# 0.27 X10^3/uL; Monocyte% 10.1 % (0-10); NRBC Flagged by Analyzer 0 % (0-5); Neutrophil # 1.76 X10^3/uL (2.7-7.7); Neutrophil % 65.9 % (47-70); POSITIVE COUNT YES; POSITIVE DIFFERENTIAL YES; Platelet Count 90 K/mm3 (150-450); RBC Distribution Width CV 17.3 % (11.6-14.6); RBC Distribution Width SD 54.7 fl (35.1-43.9); Red Blood Count 2.62 M/mm3 (4.6-6.2); White Blood Count 2.7 K/mm3 (4.4-11.0)
[2019-05-31 17:12] LABS: Differential Indicated SCAN CRITERIA MET
[2019-05-31 17:24] LABS: ALB/GLOB Ratio 0.4 RATIO (0.9-2.4); AST(SGOT) 13 U/L (15-37); Alanine Aminotransfer ALT/SGPT 10 U/L (16-61); Albumin, Serum 2.5 g/dL (3.2-5.0); Alkaline Phosphatase 94 U/L (45-117); Anion Gap 9 (5-15); BUN 40 mg/dL (7-18); BUN/Creat Ratio 18.2 RATIO (10-20); Calcium,Total 8.1 mg/dL (8.5-10.1); Chloride 109 mmol/L (98-107); EST Glomerular Filtration Rate 32 mL/min (>60); Est Glom Filt Rate - Afr Amer 39 mL/min (>60); Ferritin 12 ng/mL (26-388); Globulin 5.7 g/dL (2.2-4.2); Glucose 128 mg/dL (74-106); Iron 17 ug/dL (65-175); Protein, Total 8.2 g/dL (6.4-8.2); Sodium Level 139 mmol/L (136-145)
[2019-05-31 17:29] LABS: BNP,B-Type NATRIURETIC PEPTIDE 292.3 pg/mL (0-100)
[2019-05-31 17:59] LABS: Differential Comment SCANNED
[2019-05-31 18:00] LABS: Anisocytosis 2+; Hypochromasia 2+; Platelet Estimate MOD DEC (ADEQ)
[2019-06-01 12:03] LABS: Pathologist Review Reviewed
== END ==
PROVIDERS: Family Provider Family Medicine; PCP Family Medicine; Visit Provider Family Medicine
DX: D64.9 Anemia, unspecified (principal); K74.60 Unspecified cirrhosis of liver; R06.01 Orthopnea
CPT/HCPCS: 36415; 80053; 82728; 83540; 83880; 85025

== ENCOUNTER 2019-06-02 13:42 | Inpatient (IN) | payer MEDICARE, SELFPAY ==
[2019-02-23 14:18] VITALS: BMI 25.0
[2019-06-02] VITALS (16 sets, daily range): BP systolic 94–119; BP diastolic 52–74; PULSE 95–108; RESP 12–22; TEMP 36.4–36.8; O2SAT 92–100; BMI 28.7; BMI 28.8; BMI 27.5
--- NOTE | 2019-06-02 13:48 | EKG12_ITS ---
Test Reason : SOB Blood Pressure : / mmHG Vent. Rate : 097 BPM Atrial Rate : 097 BPM P-R Int : 158 ms QRS Dur : 098 ms QT Int : 356 ms P-R-T Axes : 044 -09 093 degrees QTc Int : 452 ms Normal sinus rhythm Nonspecific ST and T wave abnormality Abnormal ECG Confirmed by INGRID OVALLE, JENNYFER ([id number]), acquisition editor MALI MARES ([id number]) on 06/07/2019 11:43:49 AM Referred By: Cody Chapa Confirmed By:CARLYLE QUINTERO MD
--- NOTE | 2019-06-02 13:57 | RAD_ITS ---
STUDY: X-RAY CHEST REASON FOR EXAM: Male, 64 years old. Shortness of breath. TECHNIQUE: Single AP portable view of the chest. COMPARISON: Comparison is made with prior study dated November 10, 2018. FINDINGS: EKG electrodes are seen. Hyperinflation. Mild increased markings at the lung bases suggesting mild scarring. There has been no change. There is no demonstrated pleural abnormality. Normal size heart. Normal mediastinum and douglas. Normal visualized pulmonary arteries. Normal visualized aortic arch and descending thoracic aorta. There are diffuse degenerative changes of the visualized thoracic spine. Normal visualized ribs, clavicles, and shoulders. There is no demonstrated abnormality of the visualized soft tissue structures of the upper abdomen. RAD/Chest 1 View (Portable) IMPRESSION: Findings suggestive of mild bibasilar scarring. Electronically Signed: Boby Rose, at 14:45 EST , Service support ,
[2019-06-02] MEDS: Ipratropium/Albuterol Sulfate 3 ML AMPUL.NEB INHALATION ×2 (14:03→18:57)
[2019-06-02 14:11] LABS: Absolute Lymphocyte Count 0.34 X10^3/uL (0.83-4.51); Absolute Neutrophil Count 2.6 X10^3/uL (2.0-7.7); Basophil# 0.02 X10^3/uL; Basophil% 0.6 % (0-1); Eosinophil# 0.04 X10^3/uL; Eosinophils% 1.2 % (0-5); Hematocrit 19.9 % (40-54); Lymphocyte # 0.34 X10^3/ul (4.0); Mean Corp Hgb Conc 27.6 g/dL (32-36); Mean Corpuscular Hgb 23.1 pg (27.0-32.0); Mean Corpuscular Volume 83.6 fL (80-94); Mean Platelet Vol. 11.5 fl (6.2-12.0); Monocyte# 0.36 X10^3/uL; Monocyte% 10.6 % (0-10); NRBC Flagged by Analyzer 0 % (0-5); Neutrophil # 2.63 X10^3/uL (2.7-7.7); Neutrophil % 77.3 % (47-70); POSITIVE COUNT YES; POSITIVE DIFFERENTIAL YES; Platelet Count 75 K/mm3 (150-450); RBC Distribution Width CV 17.2 % (11.6-14.6); RBC Distribution Width SD 52.8 fl (35.1-43.9); Red Blood Count 2.38 M/mm3 (4.6-6.2); White Blood Count 3.4 K/mm3 (4.4-11.0)
[2019-06-02 14:13] LABS: Differential Indicated SCAN CRITERIA MET; Hemoglobin 5.5 g/dL (13.0-16.5)
[2019-06-02 14:31] LABS: Anion Gap 9 (5-15); BUN 47 mg/dL (7-18); BUN/Creat Ratio 18.1 RATIO (10-20); Calcium,Total 7.9 mg/dL (8.5-10.1); Chloride 106 mmol/L (98-107); EST Glomerular Filtration Rate 26 mL/min (>60); Est Glom Filt Rate - Afr Amer 32 mL/min (>60); Estimated Creatinine Clearance 29.25 ml/min; Glucose 304 mg/dL (74-106); Potassium 4.5 mmol/L (3.5-5.1); Sodium Level 137 mmol/L (136-145)
--- NOTE | 2019-06-02 14:34 | ED.RN ---
per pt at triage. pt told this nurse when asked about safety at home that he has felt suicidal and knows exactly how he would do it. pt states that he would take an overdose of his insulin and just go to sleep. pt is very frustrated with his health and doesnt feel like he can take it anymore
--- NOTE | 2019-06-02 14:57 | ECHOD_ITS ---
Reason For Study: CHEST [AIN Procedure This was a 2D Doppler, Color Flow transthoracic echocardiogram. Exam performed portable in ED. Left Ventricle Mild concentric left ventricular hypertrophy. Moderately dilated left ventricle. The estimated ejection fraction is 35-40 %. Stage 1 diastolic dysfunction. There is moderate to severe global hypokinesis of the left ventricle. Right Ventricle Severely dilated right ventricle. Moderately severe global right ventricular systolic dysfunction. Atria The left atrium is mildly enlarged. Normal right atrium. Normal atrial septum. Mitral Valve Mild diffuse mitral valve thickening. Mild (1+) mitral valve insufficiency. Tricuspid Valve Normal tricuspid valve. Mild (1+) tricuspid valve insufficiency. Right ventricular systolic pressure estimated to be 52 mmHg. Moderate pulmonary hypertension. Aortic Valve Trisinus/trileaflet aortic valve. Moderate diffuse aortic valve thickening. Moderate restriction of the aortic valve. Mild to moderate aortic stenosis. Peak aortic valve gradient 29 mmHg. Mean aortic valve gradient 16 mmHg. Calculated aortic valve area (continuity equation) is 1.2 cm2. Pulmonic Valve Normal pulmonic valve. Trivial pulmonic valve insufficiency. Great Vessels Normal aortic root. Normal arch. The inferior vena cava is dilated. Pericardium/Pleural No pericardial effusion. MMode/2D Measurements & Calculations LVIDd: 5.4 cm IVSd: 1.2 cm LVOT diam: 2.0 cm LVIDs: 4.4 cm LVPWd: 1.2 cm LVOT area: 3.2 cm2 RVDd: 5.0 cm FS: 18.6 % LAV(MOD-bp): 77.2 ml LVAd ap4: 59.9 cm2 SV(MOD-sp4): 93.8 ml LAV(MOD-sp2): 90.8 ml EDV(MOD-sp4): 255.1 ml LAV(MOD-sp4): 64.3 ml EDV(sp4-el): 272.7 ml LVAs ap4: 44.4 cm2 ESV(MOD-sp4): 161.4 ml ESV(sp4-el): 174.3 ml EF(MOD-sp4): 36.8 % EF(sp4-el): 36.1 % SV(sp4-el): 98.4 ml LA A4 area: 21.4 cm2 RA A4 area: 17.1 cm2 Time Measurements MV dec time: 0.21 sec Doppler Measurements & Calculations MV E max foster: 96.7 cm/sec Lat Peak E' Foster: 6.4 cm/sec Med Peak E' Foster: 6.1 cm/sec MV A max foster: 112.6 cm/sec E/E' lat: 15.2 E/E' med: 15.8 MV E/A: 0.86 Ao V2 max: 271.1 cm/sec LV V1 max: 110.4 cm/sec SV(LVOT): 62.1 ml Ao max P.4 mmHg LV V1 max P.9 mmHg Ao V2 mean: 186.2 cm/sec LV V1 mean P.0 mmHg Ao mean P.5 mmHg LV V1 mean: 65.6 cm/sec Ao V2 VTI: 49.8 cm LV V1 VTI: 19.6 cm SADIA(I,D): 1.2 cm2 SADIA(V,D): 1.3 cm2 PA V2 max: 117.9 cm/sec TR max foster: 323.0 cm/sec TR max P.9 mmHg Interpretation Summary Mild concentric left ventricular hypertrophy. Moderately dilated left ventricle. The estimated ejection fraction is 35-40 %. Stage 1 diastolic dysfunction. There is moderate to severe global hypokinesis of the left ventricle. Severely dilated right ventricle. Moderately severe global right ventricular systolic dysfunction. The left atrium is mildly enlarged. Mild (1+) mitral valve insufficiency. Mild (1+) tricuspid valve insufficiency. Right ventricular systolic pressure estimated to be 52 mmHg. Moderate pulmonary hypertension. Mild to moderate aortic stenosis. Peak aortic valve gradient 29 mmHg. Mean aortic valve gradient 16 mmHg. Calculated aortic valve area (continuity equation) is 1.2 cm2. The inferior vena cava is dilated Compared to echo report dated 10/28/2018, LV function has decreased from 75% to 35-40%, aortic stenosis gradient has remained about the same. Ordering Physician: Everton Black Referring Physician: JOSE ELIAS MAIN Performed By: Yessi Marino, DEVEN, RVT
[2019-06-02 14:58] LABS: BNP,B-Type NATRIURETIC PEPTIDE 670.3 pg/mL (0-100)
--- NOTE | 2019-06-02 15:06 | ED.DCSUM_ITS ---
History of Present Illness Chief Complaint: Shortness of Breath Informant: Patient Onset: Days Narrative: Presents complaining of chest pain shortness of breath cough worsening ascites for many days, he indicates is a chronic condition for him where he has episodes where he develops the symptoms, he believes is related to the fact that he needs to have a paracentesis, he is also had intermittent chronic anemia, he has a right AKA related to peripheral vascular disease, he does not believe he is ever had an MD PE or DVT, he indicates he was seen by his physicians yesterday he is scheduled for transfusion tomorrow for a low hemoglobin, and a paracentesis Friday Indicates he simply does not wish to wait that long for these tests as he has trouble getting around because of all the above and he comes to the emergency room asking that he get the blood transfusion and paracentesis today Past Medical History - Allergies and Home Meds Allergies/Adverse Reactions: Allergies codeine Allergy (Verified 02/23/19 14:35) Hives hydrocodone Allergy (Verified 02/23/19 14:35) Hives hydromorphone HCl [From Dilaudid] Allergy (Verified 02/23/19 14:35) Itching oxycodone [From Percocet] Allergy (Verified 02/23/19 14:35) Rash atorvastatin [From Lipitor] Adverse Reaction (Severe, Verified 02/23/19 14:35) RHABDOMYALYSIS Primary Care Physician: Vladislav Colunga [Primary Care Provider] - Past Medical History: - - Including as above Surgical History: tonsillectomy, - - Right above-knee amputation secondary to p eripheral vascular disease 2003, knee surgery secondary to torn meniscus Smoking Status: Current every day smoker - Family History Maternal Family History: Reports: No pertinent history Sibling Family History: Reports: No pertinent history Paternal Family History: Reports: Stroke Review of Systems General: Denies: Chills, Fever, Sweats Eyes: Denies: Visual changes - bilaterally, Diplopia ENT: Denies: Rhinorrhea, Sore throat Cardiovascular: Reports: Chest pain. Denies: Palpitations Respiratory: Reports: Dyspnea, Cough. Denies: Dyspnea on exertion Gastrointestinal: Denies: Abdominal pain, Nausea, Vomiting, Diarrhea, Melena, Hematochezia Genitourinary: Denies: Dysuria, Hematuria, Frequency Musculoskeletal: Denies: Back pain, Extremity Pain Skin: Denies: Rash, Wounds Neurological: Denies: Headache, Weakness, Numbness Physical Exam Vital Signs/Narrative: Vital Signs Temp Pulse Resp BP Pulse Ox 06/02/19 15:00 95 18 103/62 99 06/02/19 14:47 98 16 101/61 98 06/02/19 14:03 98.0 F 103 H 12 105/64 98 06/02/19 13:43 98.0 F 99 22 H 105/64 97 General: Well nourished, Well developed, No Acute Distress Head: Normocephalic, Atraumatic Eyes: Perrl, EOMI ENT: Moist mucous membranes, No rhinorrhea Neck: Supple, Nontender Cardiovascular: Regular rate, Regular rhythm, No murmurs Respiratory: No distress, Rales, Wheezing, Decreased Air Movement Abdomen: Soft, Nontender, Normal bowel sounds, - - He has a distended abdomen nontender Back: Nontender, Normal Inspection Extremities: Nontender, No edema, - - Right AKA Skin: Normal color, No rash Neurological: Alert, Oriented x3, Cranial nerves II-XII grossly intact, Normal Strength, Normal Sensation Psychological: Normal affect, Normal Mood Diagnostic/Tx/Re-eval - Medical Decision Making Patient's EKG shows sinus rhythm around 100 no acute injury pattern appreciated, his hemoglobin returns at about 5, troponin 7 At this time he is resting comfortably in the bed he is expressing frustration about all of the above he verbalized to staff the concept he had been thinking about suicide he will not share that information with me or provide me any sense of he has a plan I have asked family welfare social work professor to see him and assess him for risk of suicidal ideation attempt, in addition we spoke with the hospitalist cardiology who are coming down to see him for further management and admission Admit stable Final impression chest pain non-STEMI, elevated troponin, liver failure cirrhosis ascites anemia, under evaluation for suicidal ideation ED Disposition - Plan for ED Patient: Diagnosis: Non-STEMI (non-ST elevated myocardial infarction), COPD (chronic obstructive pulmonary disease), DM type 2 (diabetes mellitus, type 2) Referrals: Vladislav Colunga [Primary Care Provider] -
--- NOTE | 2019-06-02 15:31 | PCM.HP.STD ---
<Fred Otero - Last Filed: 06/02/19 16:05> Problem List (1) Acute on chronic anemia Status: Chronic (2) CEASAR (acute kidney injury) Status: Acute (3) Esophageal varices Status: Chronic (4) Chronic disease anemia Status: Chronic (5) Non-STEMI (non-ST elevated myocardial infarction) Status: Chronic (6) Iron deficiency Status: Chronic (7) BPH (benign prostatic hyperplasia) Status: Chronic (8) Carotid stenosis Status: Chronic (9) Aortic stenosis Status: Chronic (10) HLD (hyperlipidemia) Status: Chronic (11) Anxiety Status: Chronic (12) HTN (hypertension) Status: Chronic (13) Diabetic polyneuropathy Status: Chronic (14) Depression Status: Chronic (15) PAOD (peripheral arterial occlusive disease) Status: Chronic (16) Stage III chronic kidney disease Status: Chronic (17) Status post above knee amputation of right lower extremity Status: Chronic (18) COPD (chronic obstructive pulmonary disease) Status: Chronic (19) GERD (gastroesophageal reflux disease) Status: Chronic (20) Alcoholic liver disease Status: Chronic Comment: cirrhosis Portal hypertension esophageal varices stage III (21) DM type 2 (diabetes mellitus, type 2) Status: Chronic (22) Hypothyroidism Status: Chronic History of Present Illness Date of Admission: 06/02/19 Chief Complaint: SOB The patient is a 64 year old M with complicated PMHx including alcoholic cirrhosis, CKDIII, aortic stenosis, COPD still smoking, DMt2, PAD with prior Right AKA, GERD, chronic anemia, esophageal varices, prior stroke, who presents to the ER with increased SOB. He has been progressively more SOB the last few days and attributes this to his increasing ascites. He has severe abdominal distention and LLE edema. He planned to have an outpatient paracentesis on Friday. In the ER several problems were revealed including elevated troponin (denies chest pain), CEASAR (having good output with lasix), elevated BNP (has LE edema/SOB), severe anemia (no recent bloody or black stools). He denies recent illness or infection. He also made a suicidal statement in the ER stating he was going to intentionally overdose with insulin to kill himself. He is reluctant to stay in the hospital despite all this and wants to go home. He is reluctantly agreeable to admission.[] Past Medical History Past Medical History (Chronic Problems): Chronic Problems (Last Reviewed 11/25/18 @ 15:45 by Lynette Schmitz PA-C) Chronic disease anemia (Chronic) Non-STEMI (non-ST elevated myocardial infarction) (Chronic) Acute on chronic anemia (Chronic) Esophageal varices (Chronic) Iron deficiency (Chronic) Peripheral neuropathy (Chronic) BPH (benign prostatic hyperplasia) (Chronic) Carotid stenosis (Chronic) Aortic stenosis (Chronic) HLD (hyperlipidemia) (Chronic) Anxiety (Chronic) HTN (hypertension) (Chronic) Benzodiazepine dependence (Chronic) Opioid dependence (Chronic) Diabetic polyneuropathy (Chronic) Depression (Chronic) PAOD (peripheral arterial occlusive disease) (Chronic) Stage III chronic kidney disease (Chronic) Status post above knee amputation of right lower extremity (Chronic) COPD (chronic obstructive pulmonary disease) (Chronic) TIA (transient ischemic attack) (Chronic) GERD (gastroesophageal reflux disease) (Chronic) Alcoholic liver disease (Chronic) cirrhosis Portal hypertension esophageal varices stage III DM type 2 (diabetes mellitus, type 2) (Chronic) Alcohol abuse (Chronic) 6-12 drinks/day Hypothyroidism (Chronic) Chronic blood loss anemia (Chronic) required 3 units of PRBC's- prior workup for this showed no etiology Medical History: Medical History (Last Reviewed 11/25/18 @ 15:45 by Lynette Schmitz PA-C) Troponin I above reference range (Acute) R74.8 Iron deficiency (Chronic) E61.1 Peripheral neuropathy (Chronic) G62.9 Carotid stenosis (Chronic) I65.29 Aortic stenosis (Chronic) I35.0 HLD (hyperlipidemia) (Chronic) E78.5 HTN (hypertension) (Chronic) I10 Left hemiparesis (Acute) G81.94 Benzodiazepine dependence (Chronic) F13.20 Opioid dependence (Chronic) F11.20 Diabetic polyneuropathy (Chronic) E11.42 PAOD (peripheral arterial occlusive disease) (Chronic) I77.9 Stage III chronic kidney disease (Chronic) N18.3 COPD (chronic obstructive pulmonary disease) (Chronic) J44.9 GERD (gastroesophageal reflux disease) (Chronic) K21.9 Alcoholic liver disease (Chronic) K70.9 cirrhosis Portal hypertension esophageal varices stage III DM type 2 (diabetes mellitus, type 2) (Chronic) E11.9 Alcohol abuse (Chronic) F10.10 6-12 drinks/day Hypothyroidism (Chronic) E03.9 Chronic blood loss anemia (Chronic) D50.0 required 3 units of PRBC's- prior workup for this showed no etiology Allergies codeine Allergy (Verified 02/23/19 14:35) Hives hydrocodone Allergy (Verified 02/23/19 14:35) Hives hydromorphone HCl [From Dilaudid] Allergy (Verified 02/23/19 14:35) Itching oxycodone [From Percocet] Allergy (Verified 02/23/19 14:35) Rash atorvastatin [From Lipitor] Adverse Reaction (Severe, Verified 02/23/19 14:35) RHABDOMYALYSIS Home Medications: Ambulatory Orders Medication Instructions Recorded Amlodipine [Norvasc] 10 mg PO DAILY 06/13/14 Rifampin [Rifadin] 150 mg PO BID 09/11/16 Pantoprazole Sodium [Protonix] 40 mg PO BID 10/27/18 Sertraline HCl 100 mg PO DAILY 10/27/18 ALPRAZolam [Xanax] 0.5 mg PO TID PRN PRN #21 tab 11/27/18 Acetaminophen [Tylenol] 1,000 mg PO Q8H PRN PRN tablet 11/27/18 Albuterol Sulfate [Albuterol 2 puff INHALATION Q4H PRN PRN 06/02/19 Sulfate Hfa] Insulin Aspart [Novolog Flexpen] 30 - 60 units SQ TID 06/02/19 Iron Polysaccharide Complex 150 mg PO DAILYCM 06/02/19 [Ferrex 150] Levothyroxine Sodium 300 mcg PO DAILY 06/02/19 Pregabalin 100 mg PO BID 06/02/19 Tamsulosin HCl 0.4 mg PO DAILY 06/02/19 Umeclidinium Brm/Vilanterol Tr 1 puff INHALATION DAILY 06/02/19 [Anoro Ellipta 62.5-25 Mcg INH] Surgical History: Surgical History (Last Reviewed 11/25/18 @ 15:46 by Lynette Schmitz PA-C) Status post above knee amputation of right lower extremity (Chronic) Z89.611 Surgical History: tonsillectomy, - - Right above-knee amputation secondary to peripheral vascular disease 2003, knee surgery secondary to torn meniscus. Esophageal banding. Psychiatric History: Depression Smoking Status: Current every day smoker Tobacco Use: Cigarettes Alcohol: Sober Drugs: None - *Family History Maternal History Items: Cancer - breast Sibling History Items: No pertinent history Paternal History Items: Stroke Review of Systems Constitutional: Reports: Malaise, Weakness, Fatigue. Denies: Chills, Fever, Weight Change HEENT: Denies: Head Aches, Sinus Congestion, Sinus Drainage Cardiovascular: Reports: Edema. Denies: Chest Pain, Palpitations Respiratory: Reports: Shortness of Breath, Shortness of breath at rest, Shortness of breath upon exertion. Denies: Cough, Sputum production Gastrointestinal: Reports: Abdominal Pain, Nausea, -. Denies: Vomiting Genitourinary: Denies: Dysuria Musculoskeletal: Denies: Joint Pain, Joint Tenderness Skin: Denies: Rash, Wounds Neurological: Denies: Numbness, Tingling, Focal weakness Psychiatric: Denies: Anxiety, Depression, Homicidal Ideations, Suicidal Ideations Hematologic/ Lymphatic: Denies: Easy Bruising, Easy Bleeding VTE Information - Inpt Only VTE Present on Admission: No VTE Mechan Device Prophylaxis: None VTE Pharm Prophylaxis ordered?: Yes Patient Problems: Active and Suspected Problems (Last Reviewed 11/25/18 @ 15:45 by Lynette Schmitz PA-C) CEASAR (acute kidney injury) (Acute) LV dysfunction (Acute) Pulmonary hypertension (Acute) - Physical Exam Vitals/I&O's: Vital Signs Temp Pulse Resp BP Pulse Ox 98.0 F 99 17 110/67 97 06/02/19 14:03 06/02/19 15:16 06/02/19 15:16 06/02/19 15:16 06/02/19 15:16 Oxygen Delivery Method Room Air Weight: 200 lb 6.403 oz Body Mass Index (BMI) 28.7 Finger Stick Blood Glucose 310 General: Alert, Oriented x3, Cooperative HEENT: Atraumatic, PERRLA, EOMI, Normocephalic Neck: Supple, No JVD, Negative Carotid Bruits Lungs: No wheeze, Rales Cardiovascular: Regular rate, Murmur - 3/6 holosytolic murmur heard throughout chest Abdomen: Distended, Tender - RUQ, - - prominent veins Extremities: Capillary Refill Less than 3 Seconds, Edema - 2+ pitting edema LLE at ankle. Skin: No rashes, No breakdown Musculoskeletal: No Tenderness to Palpation of Joints or Extremities, - - right AKA Neurological: Cranial nerves II-XII grossly intact Psych/Mental Status: Suicidal, Alert and oriented to time, place, person, mood and affect Laboratory Results 06/02/19 13:50: WBC 3.4 L, RBC 2.38 L, Hgb 5.5 L*, Hct 19.9 L, MCV 83.6, MCH 23.1 L, MCHC 27.6 L, RDW Std Deviation 52.8 H, RDW Coeff of Roxy 17.2 H, Plt Count 75 L, MPV 11.5, Immature Gran % (Auto) 0.300, Neut % (Auto) 77.3 H, Lymph % (Auto) 10.0 L, [place] % (Auto) 10.6 H, Eos % (Auto) 1.2, Baso % (Auto) 0.6, Absolute Neuts (auto) 2.6, Absolute Lymphs (auto) 0.34 L, Nucleated RBC % 0, Differential Comment COMMENT, Diff Path Review October06/02/19 13:50: Sodium 137, Potassium 4.5, Chloride 106, Carbon Dioxide 22.0, Anion Gap 9, BUN 47 H, Creatinine 2.60 H, Estim Creat Clear Calc 29.25, Est GFR (MDRD) Af Amer 32 L, Est GFR (MDRD) Non-Af 26 L, BUN/Creatinine Ratio 18.1, Glucose 304 H, Calcium 7.9 L, Troponin I 6.980 H* 06/02/19 13:50: B-Natriuretic Peptide 670.3 H 06/02/19 13:50: PT Pending, INR Pending 06/02/19 13:50: Blood Type Pending, Antibody Screen Pending, Crossmatch See Detail Assessment/Plan All Active Problems (Last Reviewed 11/25/18 @ 15:45 by Lynette Schmitz PA-C) Lower GI bleed (Acute) Renal insufficiency (Acute) CEASAR (acute kidney injury) (Acute) LV dysfunction (Acute) Pulmonary hypertension (Acute) Troponin I above reference range (Acute) TIA (transient ischemic attack) (Ruled-out) Left hemiparesis (Acute) Neuropathy of left peroneal nerve (Acute) 1. SOB 2/2 suspected Acute diastolic CHF - last echo EF 75%. Complicated by severe aortic stenosis. Repeat echo pending. Fluid/sodium restrict. Strict I/Os. IV lasix. BNP 670.3. CXR with bibasilar scarring. rales/wheezing on exam. 2. NSTEMI - nonspecific EKG changes. Cardiology following. Echo pending. Cycle enzymes. AM EKG. Troponin initially 6.980 in ER. ?Asa with low platelets, anemia. Cant have atorvastatin due to rhabdo hx, cirrhosis. 3. Severe ascites 2/2 alcoholic cirrhosis - plan for paracentesis. Liver profile/inr pending. Check ammonia. Pt of Dr. Tadeo. 4. CEASAR on CKDIV - will see if this improves with IV lasix. Hold nephrotoxic agents. Consult Dr. Monroe. 5. Acute on chronic anemia, hx iron deficiency - check hemoccult. hx esophageal varices - T&C 2 units. IV protonix. Check iron/tibc/ferritin 6. Pancytopenia 2/2 cirrhosis - trend. Will complicate care with need for antiplatelets. 7. COPD - duonebs, prn albuterol 8. PAD - prior right AKA. 9. GERD / Esophageal varices - iv PPI. 10. Hypothyroidism - check tsh 11. Aortic stenosis - as above. repeat echo. 12. BPH - flomax 13. Suicidal ideations, hx of Anxiety/depression - crisis eval. Pt stated he planned to kill himself by overdosing on insulin. 14. DMt2 - continue home insulin + SSI. DVT ppx: hold for severe anemia DC planning: pt/ot/crisis evals This patient was seen by Fred Otero PA-C under the supervision of Dr. Chapa. <Cody Chapa - Last Filed: 06/02/19 17:33> History of Present Illness The patient is a 64 year old M with multiple comorbidities including alcoholic cirrhosis decompensated with ascites status post paracentesis in the past, esophageal varices, hepatic encephalopathy, history of drinking alcohol about 20 years, COPD currently smoking, 1 pack/day for last 30 years quit for about 60 years and then resumed, diabetes mellitus type 2, peripheral arterial disease with history of angiogram came to ER with shortness of breath, abdominal distention with ascites and cough. Patient has chronic cough. Patient denies fever [] Patient PCP set up date for paracentesis on coming Friday but he came to ER for increasing shortness of breath. As per the triage note and ER physician patient was also found suicidal ideation from multiple medical issues which believes mainly because of frustration. In ED, patient was found to have troponin 6.98, BNP 670, INR 1.6, H&H 5.5/20 with low MCV and MCH, severe thrombocytopenia 75,000. BUN/creatinine 47/2.6 with history of CKD. Previous BUN/creatinine on , 42/1.66 and is November 2018 it was normal 1.0. EKG normal sinus rhythm with nonspecific ST-T changes with old anterior infarct and slight ST elevation in V2 and V3. Past Medical History Medical History: Medical History (Last Reviewed 11/25/18 @ 15:45 by Lynette Schmitz PA-C) Troponin I above reference range (Acute) R74.8 Iron deficiency (Chronic) E61.1 Peripheral neuropathy (Chronic) G62.9 Carotid stenosis (Chronic) I65.29 Aortic stenosis (Chronic) I35.0 HLD (hyperlipidemia) (Chronic) E78.5 HTN (hypertension) (Chronic) I10 Left hemiparesis (Acute) G81.94 Benzodiazepine dependence (Chronic) F13.20 Opioid dependence (Chronic) F11.20 Diabetic polyneuropathy (Chronic) E11.42 PAOD (peripheral arterial occlusive disease) (Chronic) I77.9 Stage III chronic kidney disease (Chronic) N18.3 COPD (chronic obstructive pulmonary disease) (Chronic) J44.9 GERD (gastroesophageal reflux disease) (Chronic) K21.9 Alcoholic liver disease (Chronic) K70.9 cirrhosis Portal hypertension esophageal varices stage III DM type 2 (diabetes mellitus, type 2) (Chronic) E11.9 Alcohol abuse (Chronic) F10.10 6-12 drinks/day Hypothyroidism (Chronic) E03.9 Chronic blood loss anemia (Chronic) D50.0 required 3 units of PRBC's- prior workup for this showed no etiology Allergies codeine Allergy (Verified 02/23/19 14:35) Hives hydrocodone Allergy (Verified 02/23/19 14:35) Hives hydromorphone HCl [From Dilaudid] Allergy (Verified 02/23/19 14:35) Itching oxycodone [From Percocet] Allergy (Verified 02/23/19 14:35) Rash atorvastatin [From Lipitor] Adverse Reaction (Severe, Verified 02/23/19 14:35) RHABDOMYALYSIS Surgical History: Surgical History (Last Reviewed 11/25/18 @ 15:46 by Lynette Schmitz PA-C) Status post above knee amputation of right lower extremity (Chronic) Z89.611 Review of Systems Constitutional: Reports: Malaise, Weakness, Fatigue. Denies: Chills, Fever HEENT: Denies: Head Aches, Sinus Congestion, Sinus Drainage Cardiovascular: Reports: Edema. Denies: Chest Pain, Orthopnea, Palpitations, Syncope Respiratory: Reports: Cough - Chronic cough most probably COPD, Shortness of Breath, Shortness of breath upon exertion. Denies: Shortness of breath at rest, Sputum production Gastrointestinal: Reports: - - History of variceal band ligation in November 2018 at [facility].. Denies: Abdominal Pain, Nausea, Vomiting Genitourinary: Reports: Incontinence - Occasionally today. Denies: Dysuria, Frequency, Hematuria, Hesitancy Musculoskeletal: Denies: Joint Pain, Joint Tenderness Skin: Denies: Rash, Wounds Neurological: Reports: Balance problems. Denies: Focal weakness, Numbness, Tingling Psychiatric: Denies: Anxiety, Depression, Homicidal Ideations, Suicidal Ideations Hematologic/ Lymphatic: Denies: Easy Bruising, Easy Bleeding VTE Information - Inpt Only VTE Present on Admission: No VTE Mechan Device Prophylaxis: SCD's VTE Pharm Prophylaxis ordered?: No Reason prophylaxis not ordered:: Medical Contraindication - Physical Exam Vitals/I&O's: Vital Signs Temp Pulse Resp BP Pulse Ox 97.8 F 96 12 114/74 100 06/02/19 16:44 06/02/19 16:44 06/02/19 16:44 06/02/19 16:44 06/02/19 16:44 Oxygen Delivery Method Room Air Weight: 192 lb 0.362 oz Body Mass Index (BMI) 27.5 Finger Stick Blood Glucose 310 General: Alert, Oriented x3, Cooperative HEENT: Atraumatic, PERRLA, EOMI, Normocephalic Neck: Supple, No JVD, Negative Carotid Bruits Lungs: Clear to auscultation, Normal air movement, No wheeze Cardiovascular: Regular rate, Normal S1, Normal S2, Murmur - 3/6 holosytolic murmur heard throughout chest Pansystolic murmur 3/6 over aortic area, left lower sternal border and cardiac apex. Abdomen: Bowel Sounds Present, Soft, Non Tender, Tender - RUQ Moderate to severe ascites. Shifting dullness present Extremities: Capillary Refill Less than 3 Seconds, Edema Skin: No rashes, No breakdown Musculoskeletal: No Tenderness to Palpation of Joints or Extremities, Arthritic Changes, Muscle Wasting, - Neurological: Cranial nerves II-XII grossly intact, Neuro grossly intact, - - Decreased muscle strength of left lower extremity Psych/Mental Status: Normal Affect, Appropriate Laboratory Results 06/02/19 13:50: WBC 3.4 L, RBC 2.38 L, Hgb 5.5 L*, Hct 19.9 L, MCV 83.6, MCH 23.1 L, MCHC 27.6 L, RDW Std Deviation 52.8 H, RDW Coeff of Roxy 17.2 H, Plt Count 75 L, MPV 11.5, Immature Gran % (Auto) 0.300, Neut % (Auto) 77.3 H, Lymph % (Auto) 10.0 L, [place] % (Auto) 10.6 H, Eos % (Auto) 1.2, Baso % (Auto) 0.6, Absolute Neuts (auto) 2.6, Absolute Lymphs (auto) 0.34 L, Nucleated RBC % 0, Differential Comment COMMENT, Diff Path Review October06/02/19 13:50: Sodium 137, Potassium 4.5, Chloride 106, Carbon Dioxide 22.0, Anion Gap 9, BUN 47 H, Creatinine 2.60 H, Estim Creat Clear Calc 29.25, Est GFR (MDRD) Af Amer 32 L, Est GFR (MDRD) Non-Af 26 L, BUN/Creatinine Ratio 18.1, Glucose 304 H, Calcium 7.9 L, Troponin I 6.980 H* 06/02/19 13:50: B-Natriuretic Peptide 670.3 H 06/02/19 13:50: PT 19.0 H, INR 1.6 06/02/19 13:50: Blood Type Pending, Antibody Screen Pending, Crossmatch See Detail 06/02/19 13:50: Total Bilirubin 0.50, Direct Bilirubin 0.26, AST 26, ALT 12 L, Alkaline Phosphatase 91, Total Protein 7.8, Albumin 2.5 L, Globulin 5.3 H 06/02/19 13:50: Magnesium Pending, TSH Pending 06/02/19 16:50: Troponin I Pending 06/02/19 16:59: POC Glucose 277 H Current Medications Albuterol Sulfate (Ventolin Aerosols) 2.5 mg INHALATION Q6H PRN PRN PRN Reason: SOB &/OR WHEEZING Albuterol/Ipratropium (Duoneb) 3 ml INHALATION Q6HWA.RT TORRIE Alprazolam (Xanax) 0.5 mg PO TID PRN PRN PRN Reason: ANXIETY Amlodipine Besylate (Norvasc) 10 mg PO DAILY T[place] Furosemide (Lasix) 40 mg IV BID@1000,1800 [facility] Pantoprazole Sodium 40 mg/ (Sodium Chloride) 110 mls @ 330 mls/hr IV Q12 [facility] Insulin Human Lispro (Humalog Kwikpen (Bkc)) 0 unit SC ACHS TORRIE; Protocol Non-Formulary Medication (Rifampin) 150 mg PO BID [facility] Non-Formulary Medication (Insulin Aspart [Novolog Flexpen]) 30 - 60 units SQ TID [facility]RI[facility] Non-Formulary Medication (Levothyroxine Sodium) 300 mcg PO DAILY [facility] Non-Formulary Medication (Pregabalin) 100 mg PO BID [facility] Polysaccharide Iron Complex (Ferrex 150) 150 mg PO DAILYCM [facility] Sertraline HCl (Zoloft) 100 mg PO DAILY [facility] Tamsulosin HCl (Flomax) 0.4 mg PO DAILY [facility] Assessment/Plan This patient was seen in conjunction with Fred FIGUEROA. I have independently interviewed and examined the patient and reviewed pertinent history, examination findings, laboratory and plan of management. I have reviewed the note and agree with the documented findings with the few additional points. In brief, patient is admitted for multiple active medical problems including shortness of breath mostly secondary to ascites and acute on chronic systolic and diastolic heart failure, possible non-STEMI. Echo was done in ER today and reported EF 35 to 40% with moderately dilated LV, mild concentric LVH and stage I diastolic dysfunction. Moderate to severe global hypokinesis of LV. Severely dilated RV. LA mildly enlarged. Mild MR, mild TR, RVSP 52 mmHg suggestive of moderate pulmonary hypertension. Mild to moderate with AV area 1.2 cm?. Last echo in August 2018 reported as EF 75% with stage I diastolic dysfunction. Patient troponin suggestive of non-STEMI with nonspecific EKG changes. Cycle cardiac enzymes. Lasix started, 40 mg IV twice daily. Patient has severe anemia, thrombocytopenia and acute kidney injury on CKD stage III therefore not stable for cardiac cath now. Acute on chronic anemia mostly iron deficiency probably secondary to chronic alcohol use: Occult blood ordered. Alcoholic decompensated cirrhosis with history of esophageal varices, coagulopathy INR 1.6 and thrombocytopenia. Patient also has history of esophageal varices and had last banding done in September 2018. Follow[address] Dr. Tadeo as an outpatient. LFT shows ALT 12, AST 26, total bili normal. Albumin 2.5, globulin 5.3. Alk phos 91. Started on lactulose. On Xifaxan. Therapeutic paracentesis after coagulopathy is corrected or INR less than 1.5 Patient alert, including COPD, peripheral arterial disease status post right above-knee amputation, hypothyroidism. Echo and clinical findings suggested multiple valvular disease including MR, TR and mild to moderate aortic stenosis. I have discussed my assessment with Fred FIGUEROA and orders have been reviewed. Code Visit Inpatient E&M: 38131 Init Hosp L3
[2019-06-02 15:39] LABS: International Normalized Ratio 1.6
--- NOTE | 2019-06-02 16:00 | CON.PCM_ITS ---
Problem List (1) LV dysfunction Status: Acute (2) Pulmonary hypertension Status: Acute (3) Non-STEMI (non-ST elevated myocardial infarction) Status: Chronic (4) Troponin I above reference range Status: Acute (5) Aortic stenosis Status: Chronic (6) HLD (hyperlipidemia) Status: Chronic (7) HTN (hypertension) Status: Chronic Reason for Consult Date of Consultation: 06/02/19 Reason for Consultation: Abnormal troponin, LV dysfunction, pulmonary pretension, aortic stenosis, peripheral vascular disease, hypertension, diabetes, tobacco abuse History of Present Illness: Details: The patient is a 64 year old M previously seen by me in November 2018, with diabetes, current smoker 1 pack of cigarettes per day, overall [id number] smoker, quit for 16 years but then resumed a couple years ago, previous alcoholic for about 15 years after the loss of his right lower extremity quit alcohol about 4 years ago with subsequent stage IV liver failure, and ascites. He also has chronic renal insufficiency of stage III. He also is a vasculopath requiring several surgeries of his right lower extremity finally giving way to right lower extremity amputation. The patient notes that he has had progressively worsening left lower extremity weakness over the 2 weeks prior to admission to [facility] on 10/28/18, getting to the point where his was unable to adequately transfer him from chair to chair. Patient previously walked with a walker, but has difficulty doing so now. He sought medical attention at [facility] ER for possible TIA/CVA. At the time of his visit in October 2018 in the emergency room his EKG showed normal sinus rhythm with right bundle branch block and possible old inferior wall myocardial infarction. For some reason, despite him not having any cardiac symptoms, a troponin was obtained as part of his work-up which was found to be 0.156. At no time has the patient had any chest pain, angina, shortness of breath or dyspnea although his mobility is somewhat limited given his amputation and weakened left leg. No stress test was done as an inpatient given his neurological presentation. On further history the patient is known for a while that he has had a heart murmur, an echocardiogram done 10/27/18 showed hyperdynamic LV function with an EF of 75%, mild LVH, and at least moderate aortic stenosis with an estimated aortic valve area of around 1.3 to 1.4 cm?. On further history he denies any positional leg tenderness, dizziness, presyncope or syncope. Patient has end-stage cirrhosis, and recently underwent variceal banding in February 2019, and follows up with Dr. Tadeo. He is required paracenteses in the past. Over the last several days patient has had noticed worsening shortness of breath, dyspnea on exertion, orthopnea, and abdominal bloating. He was scheduled to undergo a elective paracentesis this upcoming Friday, but his situation deteriorated requiring him to be brought to the ER by his daughter. In the emergency room he was found to have significant ascites, and a hemoglobin of 5.5, and platelets of 75. In addition his creatinine was found to be 2.6, and a troponin of 7.0. A stat bedside echo preliminarily showed moderate LV dysfunction with an EF around 45%, and an RVSP elevated to be around 50 mmHg. In addition the patient was found to have at least moderate aortic stenosis. Final results are pending. His EKG demonstrates normal sinus rhythm with evidence of old inferior wall and old anteroseptal wall myocardial infarction, subtle ST depression in V1 only, no ST elevation noted. From a review of systems standpoint, the patient denies any presyncope, syncope, lightheadedness or dizziness, fevers, chills, but does complain of a dry cough. [] Past Medical History Allergies/Adverse Reactions: Allergies codeine Allergy (Verified 02/23/19 14:35) Hives hydrocodone Allergy (Verified 02/23/19 14:35) Hives hydromorphone HCl [From Dilaudid] Allergy (Verified 02/23/19 14:35) Itching oxycodone [From Percocet] Allergy (Verified 02/23/19 14:35) Rash atorvastatin [From Lipitor] Adverse Reaction (Severe, Verified 02/23/19 14:35) RHABDOMYALYSIS Home Medications: Ambulatory Orders Medication Instructions Recorded Amlodipine [Norvasc] 10 mg PO DAILY 06/13/14 Rifampin [Rifadin] 150 mg PO BID 09/11/16 Pantoprazole Sodium [Protonix] 40 mg PO BID 10/27/18 Sertraline HCl 100 mg PO DAILY 10/27/18 ALPRAZolam [Xanax] 0.5 mg PO TID PRN PRN #21 tab 11/27/18 Acetaminophen [Tylenol] 1,000 mg PO Q8H PRN PRN tablet 11/27/18 Albuterol Sulfate [Albuterol 2 puff INHALATION Q4H PRN PRN 06/02/19 Sulfate Hfa] Insulin Aspart [Novolog Flexpen] 30 - 60 units SQ TID 06/02/19 Iron Polysaccharide Complex 150 mg PO DAILYCM 06/02/19 [Ferrex 150] Levothyroxine Sodium 300 mcg PO DAILY 06/02/19 Pregabalin 100 mg PO BID 06/02/19 Tamsulosin HCl 0.4 mg PO DAILY 06/02/19 Umeclidinium Brm/Vilanterol Tr 1 puff INHALATION DAILY 06/02/19 [Anoro Ellipta 62.5-25 Mcg INH] Past Medical History (Chronic Problems): Chronic Problems (Last Reviewed 11/25/18 @ 15:45 by Lynette Schmitz PA-C) Chronic disease anemia (Chronic) Non-STEMI (non-ST elevated myocardial infarction) (Chronic) Acute on chronic anemia (Chronic) Esophageal varices (Chronic) Iron deficiency (Chronic) Peripheral neuropathy (Chronic) BPH (benign prostatic hyperplasia) (Chronic) Carotid stenosis (Chronic) Aortic stenosis (Chronic) HLD (hyperlipidemia) (Chronic) Anxiety (Chronic) HTN (hypertension) (Chronic) Benzodiazepine dependence (Chronic) Opioid dependence (Chronic) Diabetic polyneuropathy (Chronic) Depression (Chronic) PAOD (peripheral arterial occlusive disease) (Chronic) Stage III chronic kidney disease (Chronic) Status post above knee amputation of right lower extremity (Chronic) COPD (chronic obstructive pulmonary disease) (Chronic) TIA (transient ischemic attack) (Chronic) GERD (gastroesophageal reflux disease) (Chronic) Alcoholic liver disease (Chronic) cirrhosis Portal hypertension esophageal varices stage III DM type 2 (diabetes mellitus, type 2) (Chronic) Alcohol abuse (Chronic) 6-12 drinks/day Hypothyroidism (Chronic) Chronic blood loss anemia (Chronic) required 3 units of PRBC's- prior workup for this showed no etiology Surgical History: tonsillectomy, - - Right above-knee amputation secondary to peripheral vascular disease 2003, knee surgery secondary to torn meniscus. Esophageal banding. Psychiatric History: Depression - *Family History Maternal History Items: Cancer - breast Sibling History Items: No pertinent history Paternal History Items: Stroke Smoking Status: Current every day smoker Tobacco Use: Cigarettes Alcohol: Sober Drugs: None Review of Systems - Review of Systems General: Denies: Fever, Night Sweats, Fatigue Cardiovascular: Reports: Chest Discomfort at Rest, Shortness of Breath, Shortness of Breath at Rest, Peripheral Edema. Denies: Chest Discomfort, Orthopnea, PND, Palpitations, Lightheadedness, Dizziness, Near Syncope, Syncope Respiratory: Denies: Cough, Sputum Production, Hemoptysis Gastrointestinal: Denies: Hematemesis, Hematochezia, Melena Genitourinary: Denies: Dysuria, Hematuria Skin: Denies: Rash Subjectve: Patient resting comfortably at a 45 degree angle, unable to lay flat. No acute distress. Hemodynamically stable. Daughter at the bedside. Objective: Vital Signs Temp Pulse Resp BP Pulse Ox 98.0 F 99 17 110/67 97 06/02/19 14:03 06/02/19 15:16 06/02/19 15:16 06/02/19 15:16 06/02/19 15:16 Oxygen Delivery Method Room Air Weight: 200 lb 6.403 oz Body Mass Index (BMI) 28.7 Finger Stick Blood Glucose 310 General: Awake, Alert, Oriented x 3 HEENT: PERRL, EOMI, Sclera Non Icteric Neck: Supple, Good ROM, No Lymph Node Enlargement Lungs: Diminished Adriel Bases Cardiovascular: Regular Rhythm, Normal S2, No Rubs, No Gallops Murmur Murmur: Grade 3/6, Crescendo-Decrescendo Vascular: No Carotid Bruits, Normal Femoral Pulses, Normal Radial Pulses, Normal Dorsalis Pedal Pulse, Normal Posterior Tibial Pulses Abdomen: Bowel Sounds Present, Soft, Non Tender, No HSM, No Organomegaly Extremities: No Cyanosis, No Clubbing, No edema Neurological: No Focal Motor or Sensory Deficit 06/02/19 13:50: WBC 3.4 L, RBC 2.38 L, Hgb 5.5 L*, Hct 19.9 L, MCV 83.6, MCH 23.1 L, MCHC 27.6 L, Plt Count 75 L, MPV 11.5, Immature Gran % (Auto) 0.300, Neut % (Auto) 77.3 H, Lymph % (Auto) 10.0 L, [place] % (Auto) 10.6 H, Eos % (Auto) 1.2, Baso % (Auto) 0.6, Absolute Neuts (auto) 2.6, Nucleated RBC % 0 06/02/19 13:50: Sodium 137, Potassium 4.5, Chloride 106, Carbon Dioxide 22.0, Anion Gap 9, BUN 47 H, Creatinine 2.60 H, Est GFR (MDRD) Af Amer 32 L, Est GFR (MDRD) Non-Af 26 L, BUN/Creatinine Ratio 18.1, Glucose 304 H, Calcium 7.9 L, Troponin I 6.980 H* 06/02/19 13:50: B-Natriuretic Peptide 670.3 H 06/02/19 13:50: PT 19.0 H, INR 1.6 Rhythm: EKG: As above ECHO: Pending Stress Test: Cardiac Cath: PCI: CT Surgery: Holter monitor: EPS: PPM: CXR: Chest CT Scan: Assessment/Plan 1. Abnormal troponin: Patient has several risk factors for coronary occlusive disease including diabetes, age, hypertension, hypercholesterolemia, peripheral vascular disease, LV dysfunction and aortic stenosis. His bedside echocardiogram shows what appears to be a significant deterioration of his LV function since October 2018 at which time his echocardiogram showed normal LV function. He also has known moderate aortic stenosis as well. I recommended the patient be admitted to the PCU/telemetry unit. Given the patient's low platelets, severely low anemia, I would not recommend baby aspirin or Plavix at this time. I would recommend transfusing the patient to get his hemoglobin above at least 8.0 and preferably 10.0 if possible. Given the patient's LV dysfunction and pulmonary pressures he will require Lasix 40 mg IV after each unit to avoid pulmonary edema. Would also recommend starting Lasix 40 mg IV twice daily until his edema has resolved. In addition, the patient has evidence of mild auto anticoagulation with an INR 1.6 most likely secondary to his end-stage liver disease. I would not recommend heparin at this time particularly given his hemoglobin/anemia, and the need for a therapeutic paracentesis in the near future. I would not recommend Lovenox either as the patient has chronic renal insufficiency which may make adjustment of his Lovenox problematic. Once the patient's hemoglobin has been stabilized and assuming there is no evidence of acute bleeding, we will then consider antiplatelet therapy with either baby aspirin or Plavix. My suspicion is the patient will require future paracenteses for therapeutic reasons, so I would not recommend long-term oral anticoagulation at this time. The patient may require repeat EGD to evaluate for possible bleeding and esophageal varices. The patient does not admit to significant bright red blood per rectum, hematochezia or black tarry stools. The patient's overall condition is somewhat guarded given his multitude of organ system problems. He is not a candidate for TAVR. In addition I would not recommend catheterization at this time given his low platelets, anemia, inability to use dual antiplatelet therapy should he require intervention. I believe are only viable option is medical management at this time. Hold off on considering anti-statin medications given his cirrhosis. 2. Discussed with the patient and daughter, and patient agrees to be admitted for therapeutic paracentesis at this time. Consideration may want to be made for adjusting his CODE STATUS and considering hospice. 3. Thank you very much for the opportunity to participate in the cardiac care of your patient. Consultation time took place between 3 PM and 3:30 PM. Code Visit Inpatient E&M: 98340 Init Hosp L3
[2019-06-02 16:12] LABS: AST(SGOT) 26 U/L (15-37); Alanine Aminotransfer ALT/SGPT 12 U/L (16-61); Albumin, Serum 2.5 g/dL (3.2-5.0); Alkaline Phosphatase 91 U/L (45-117); Bilirubin, Direct 0.26 mg/dL (0.00-0.30); Globulin 5.3 g/dL (2.2-4.2); Protein, Total 7.8 g/dL (6.4-8.2)
--- NOTE | 2019-06-02 16:27 | ED.RN ---
per Moe from social work pt is not in need of a sitter. pt will follow up with behavioral health as an outpt. giovanny on PCU aware.
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
--- NOTE | 2019-06-02 17:05 | CM.ED ---
SOCIAL WORK CALL TO GOLDY WITH [facility]. UPDATED ON REFERRAL AND REQUESTED CONSTRUCTION TRENCH DIGGER FROM BEHAVIORAL HEALTH COME MEET WITH PATIENT DURING ADMISSION. GOLDY STATES SOMEONE ABLE TO COME IN TOMORROW, 06/03/19. ROLA WISE, LEANA.
[2019-06-02 17:10] LABS: Bedside Glucose 277 mg/dL (70-110)
[2019-06-02 17:55] LABS: Magnesium 2.3 mg/dL (1.6-2.6); Thyroid Stim Hormone (TSH) 0.85 uIU/mL (0.358-3.74)
[2019-06-02] MEDS: Furosemide 40 MG/4 ML Vial IV (18:27)
[2019-06-02] MEDS: 0.9% Saline Lock 10 ML Syringe IV ×2 (18:27→22:16)
[2019-06-02] MEDS: Insulin Lispro 100 UNIT/ML INSULN.PEN SC ×2 (18:37→21:29)
[2019-06-02] MEDS: Pregabalin 50 MG Capsule 100 MG PO (21:19)
[2019-06-02] MEDS: ALPRAZolam 0.5 MG Tablet PO (21:21)
[2019-06-02] MEDS: Furosemide 20 MG/2 ML VIAL IV (22:16)
[2019-06-02 23:31] LABS: Bedside Glucose 315 mg/dL (70-110)
[2019-06-03] VITALS (20 sets, daily range): BP systolic 97–139; BP diastolic 57–84; PULSE 102–113; RESP 17–20; TEMP 36.6–37.3; O2SAT 92–99
[2019-06-03] MEDS: Ipratropium/Albuterol Sulfate 3 ML AMPUL.NEB INHALATION ×2 (01:30→06:44)
--- NOTE | 2019-06-03 01:40 | NURSING ---
Pt placed as stepdown pt. per verbal report from offgoing bina Meneses and chargemaster specialist Alex from days 06/[address] Chapa wanted pt as a pcu step down on admission.
[2019-06-03] MEDS: Levothyroxine 150 MCG Tablet 300 MCG PO (05:44)
--- NOTE | 2019-06-03 05:55 | EKG12_ITS ---
Test Reason : AM EKG Blood Pressure : / mmHG Vent. Rate : 106 BPM Atrial Rate : 106 BPM P-R Int : 148 ms QRS Dur : 104 ms QT Int : 362 ms P-R-T Axes : 047 -25 084 degrees QTc Int : 480 ms Sinus tachycardia with Premature supraventricular complexes Otherwise normal ECG When compared with ECG of 02-JUN-2019 13:58, MANUAL COMPARISON REQUIRED, DATA IS UNCONFIRMED Confirmed by INGRID OVALLE, JENNYFER ([id number]), development editor DENNYS GRACIA ([id number] on 06/07/2019 12:51:17 PM Referred By: Cody Chapa Confirmed By:CARLYLE QUINTERO MD
[2019-06-03 06:06] LABS: International Normalized Ratio 1.6; Prothrombin Time (Protime)PT. 18.8 SECONDS (11.7-14.9)
[2019-06-03 06:07] LABS: Absolute Lymphocyte Count 0.46 X10^3/uL (0.83-4.51); Absolute Neutrophil Count 3.5 X10^3/uL (2.0-7.7); Basophil# 0.04 X10^3/uL; Basophil% 0.9 % (0-1); Eosinophil# 0.16 X10^3/uL; Eosinophils% 3.4 % (0-5); Hematocrit 20.9 % (40-54); Hemoglobin 6.3 g/dL (13.0-16.5); Lymphocyte # 0.46 X10^3/ul (4.0); Lymphocyte % 9.9 % (19-41); Mean Corp Hgb Conc 30.1 g/dL (32-36); Mean Corpuscular Hgb 25.1 pg (27.0-32.0); Mean Corpuscular Volume 83.3 fL (80-94); Monocyte# 0.45 X10^3/uL; Monocyte% 9.6 % (0-10); NRBC Flagged by Analyzer 0 % (0-5); Neutrophil # 3.54 X10^3/uL (2.7-7.7); Neutrophil % 75.8 % (47-70); POSITIVE COUNT YES; POSITIVE DIFFERENTIAL YES; Partial Thromboplast Time 36.8 Seconds (24.1-36.2); Platelet Count 81 K/mm3 (150-450); RBC Distribution Width CV 16.2 % (11.6-14.6); RBC Distribution Width SD 49.8 fl (35.1-43.9); Red Blood Count 2.51 M/mm3 (4.6-6.2); White Blood Count 4.7 K/mm3 (4.4-11.0)
[2019-06-03 06:19] LABS: Differential Indicated SCAN CRITERIA MET
[2019-06-03 06:39] LABS: ALB/GLOB Ratio 0.4 RATIO (0.9-2.4); AST(SGOT) 43 U/L (15-37); Alanine Aminotransfer ALT/SGPT 15 U/L (16-61); Albumin, Serum 2.2 g/dL (3.2-5.0); Alkaline Phosphatase 80 U/L (45-117); Anion Gap 6 (5-15); BUN 59 mg/dL (7-18); BUN/Creat Ratio 22.6 RATIO (10-20); Calcium,Total 7.7 mg/dL (8.5-10.1); Chloride 111 mmol/L (98-107); Creatinine, Serum 2.61 mg/dL (0.70-1.30); EST Glomerular Filtration Rate 26 mL/min (>60); Est Glom Filt Rate - Afr Amer 32 mL/min (>60); Estimated Creatinine Clearance 29.13 ml/min; Globulin 5.2 g/dL (2.2-4.2); Glucose 247 mg/dL (74-106); Potassium 4.6 mmol/L (3.5-5.1); Protein, Total 7.4 g/dL (6.4-8.2); Sodium Level 141 mmol/L (136-145)
[2019-06-03 08:41] LABS: Bedside Glucose 235 mg/dL (70-110)
--- NOTE | 2019-06-03 08:45 | PCM.PN.CARD ---
Subjectve: Patient received 2 units of PRBCs last evening and feels marginally better but still not well. Hemoglobin came up to ask 0.3, and troponin increased to 24.0. Telemetry showed normal sinus rhythm with rare ventricular bigeminy. The patient denies any chest pain or anginal symptoms. Objective: Vital Signs Temp Pulse Resp BP Pulse Ox 98.1 F 108 H 18 97/57 L 94 06/03/19 08:00 06/03/19 08:00 06/03/19 08:00 06/03/19 08:00 06/03/19 08:00 Oxygen Flow Rate (L/min) 2 Oxygen Delivery Method Nasal Cannula Weight: 192 lb 0.362 oz Body Mass Index (BMI) 27.5 Finger Stick Blood Glucose 310 Intake and Output for Last 24 Hours 06/01/19 06/02/19 06/03/19 23:59 23:59 23:59 Intake Total 750 / 750 520 / 520 Output Total 225 / 225 475 / 475 Balance 525 / 525 45 / 45 General: Awake, Alert, Oriented x 3 HEENT: PERRL, EOMI, Sclera Non Icteric Neck: Supple, Good ROM, No Lymph Node Enlargement Lungs: Clear to auscultation Cardiovascular: Regular Rhythm, Normal S2, No Rubs, No Gallops Murmur Murmur: Grade 3/6, Crescendo-Decrescendo Vascular: No Carotid Bruits, Normal Femoral Pulses, Normal Radial Pulses, Normal Dorsalis Pedal Pulse, Normal Posterior Tibial Pulses Abdomen: Bowel Sounds Present, Soft, Non Tender, No HSM, No Organomegaly Extremities: No Cyanosis, No Clubbing, No edema, Mild LLE Edema Neurological: No Focal Motor or Sensory Deficit 06/02/19 13:50: WBC 3.4 L, RBC 2.38 L, Hgb 5.5 L*, Hct 19.9 L, MCV 83.6, MCH 23.1 L, MCHC 27.6 L, Plt Count 75 L, MPV 11.5, Immature Gran % (Auto) 0.300, Neut % (Auto) 77.3 H, Lymph % (Auto) 10.0 L, [place] % (Auto) 10.6 H, Eos % (Auto) 1.2, Baso % (Auto) 0.6, Absolute Neuts (auto) 2.6, Nucleated RBC % 0 06/02/19 13:50: Sodium 137, Potassium 4.5, Chloride 106, Carbon Dioxide 22.0, Anion Gap 9, BUN 47 H, Creatinine 2.60 H, Est GFR (MDRD) Af Amer 32 L, Est GFR (MDRD) Non-Af 26 L, BUN/Creatinine Ratio 18.1, Glucose 304 H, Calcium 7.9 L, Troponin I 6.980 H* 06/02/19 13:50: B-Natriuretic Peptide 670.3 H 06/02/19 13:50: PT 19.0 H, INR 1.6 06/02/19 13:50: Total Bilirubin 0.50, Direct Bilirubin 0.26 06/02/19 13:50: Magnesium 2.3 06/02/19 16:50: Troponin I 14.300 H* 06/02/19 20:20: Troponin I 17.800 H* 06/03/19 00:19: Troponin I 18.800 H* 06/03/19 05:40: WBC 4.7, RBC 2.51 L, Hgb 6.3 L, Hct 20.9 L, MCV 83.3, MCH 25.1 L, MCHC 30.1 L, Plt Count 81 L, MPV 12.0, Immature Gran % (Auto) 0.400, Neut % (Auto) 75.8 H, Lymph % (Auto) 9.9 L, [place] % (Auto) 9.6, Eos % (Auto) 3.4, Baso % (Auto) 0.9, Absolute Neuts (auto) 3.5, Nucleated RBC % 0 06/03/19 05:40: PT 18.8 H, INR 1.6, APTT 36.8 H 06/03/19 05:40: Sodium 141, Potassium 4.6, Chloride 111 H, Carbon Dioxide 24.0, Anion Gap 6, BUN 59 H, Creatinine 2.61 H, Est GFR (MDRD) Af Amer 32 L, Est GFR (MDRD) Non-Af 26 L, BUN/Creatinine Ratio 22.6 H, Glucose 247 H, Calcium 7.7 L, Total Bilirubin 0.70, Troponin I 24.000 H* Rhythm: EKG: ECHO: Stress Test: Cardiac Cath: PCI: CT Surgery: Holter monitor: EPS: PPM: CXR: Chest CT Scan: Medical Necessity - Tobacco Use Smoking Status: Current every day smoker Tobacco Use: Cigarettes Assessment/Plan 1. Abnormal troponin: Patient has several risk factors for coronary occlusive disease including diabetes, age, hypertension, hypercholesterolemia, peripheral vascular disease, LV dysfunction and aortic stenosis. His bedside echocardiogram shows what appears to be a significant deterioration of his LV function since October 2018 at which time his echocardiogram showed normal LV function. He also has known moderate aortic stenosis as well. I recommended the patient be admitted to the PCU/telemetry unit. Patient's peak troponin thus far is 24 but he remains asymptomatic. Echocardiogram performed yesterday demonstrated moderate LV dysfunction with an EF of 35 to 40%, and an RVSP of 52 mmHg. Given the patient's low platelets, severely low anemia, we did not initially not recommend baby aspirin or Plavix. Now that his platelets have improved, and he has no overt GI bleeding, although he does have occult positive stools, I would recommend loading him with 4 baby aspirin's, and starting baby aspirin 81 mg p.o. daily. I would recommend transfusing the patient to get his hemoglobin above at least 8.0 and preferably 10.0 if possible. He received 2 units of PRBCs yesterday which increased his hemoglobin is 6.3, and he apparently has another unit pending now. Given the patient's LV dysfunction and pulmonary pressures he will require Lasix 40 mg IV after each unit to avoid pulmonary edema. Would also recommend starting Lasix 40 mg IV twice daily until his edema has resolved. He is not a good candidate for beta-blockers at this time given his hypotension. Perhaps once his hemoglobin is been replenished, we can consider low-dose Coreg 3.125 mg p.o. twice daily as this is not renally excreted and metabolized in the serum. In addition, the patient has evidence of mild auto anticoagulation with an INR 1.6 most likely secondary to his end-stage liver disease and perhaps poor p.o. intake and malnutrition. I would not recommend heparin at this time particularly given his hemoglobin/anemia, and the need for a therapeutic paracentesis in the near future. I would not recommend Lovenox either as the patient has chronic renal insufficiency which may make adjustment of his Lovenox problematic. My suspicion is the patient will require future paracenteses for therapeutic reasons, so I would not recommend long-term oral anticoagulation at this time. The patient may require repeat EGD to evaluate for possible bleeding and esophageal varices. The patient does not admit to significant bright red blood per rectum, hematochezia or black tarry stools. The patient's overall condition is somewhat guarded given his multitude of organ system problems. He is not a candidate for TAVR as he has mild to moderate aortic stenosis. In addition I would not recommend catheterization at this time given his low platelets, anemia, chronic renal insufficiency, inability to use dual antiplatelet therapy should he require intervention. I believe are only viable option is medical management at this time. Hold off on considering anti-statin medications given his cirrhosis. 2. Discussed with the patient and daughter, and patient agrees to be admitted for therapeutic paracentesis at this time. Consideration may want to be made for adjusting his CODE STATUS and considering hospice. 3. Thank you very much for the opportunity to participate in the cardiac care of your patient. Code Visit Inpatient E&M: 81964 Subs Hosp L2
[2019-06-03] MEDS: Insulin Lispro 100 UNIT/ML INSULN.PEN SC ×2 (08:50→10:53)
[2019-06-03] MEDS: Pregabalin 50 MG Capsule 100 MG PO (08:57)
[2019-06-03] MEDS: Iron Polysaccharide Complex 150 MG CAPSULE PO (08:58)
[2019-06-03] MEDS: Tamsulosin HCl 0.4 MG Capsule PO (08:58)
[2019-06-03] MEDS: Sertraline 100 MG Tablet PO (08:58)
[2019-06-03] MEDS: Furosemide 40 MG/4 ML Vial IV (08:58)
[2019-06-03] MEDS: amLODIPine 10 MG Tablet PO (08:58)
[2019-06-03] MEDS: Ondansetron 4 MG/2 ML Vial IV (10:15)
[2019-06-03] MEDS: 0.9% Saline Lock 10 ML Syringe IV (10:15)
[2019-06-03] MEDS: RIFAMPIN 150 MG CAPSULE PO (10:55)
--- NOTE | 2019-06-03 10:55 | CASEMGMT ---
According to the [facility] website, the following are in-network tertiary facilities: [facility], [facility], [facility], [facility], [facility], [facility], [place], [facility], and . Edy SHEPPARD CM
[2019-06-03 11:10] LABS: Bedside Glucose 237 mg/dL (70-110)
[2019-06-03] MEDS: Albuterol 2.5 MG/3 ML VIAL.NEB. INHALATION (12:03)
--- NOTE | 2019-06-03 12:10 | NURSING ---
[This RN called report to Mariel White nurse VALARIE Larose.
[2019-06-03 14:17] LABS: Pathologist Review Reviewed
--- NOTE | 2019-06-04 17:42 | PCM.DC.SUM ---
Discharge Date and Diagnosis Date of Admission: 06/02/19 Date of Discharge: 06/03/19 - Primary Discharge Diagnosis #1 acute non-STEMI #2 acute upper GI bleed probably from bleeding esophageal varices #3 acute blood loss anemia requiring blood transfusion-suspected to be secondary to bleeding esophageal varices #4 alcoholic cirrhosis #5 acute diastolic CHF #6 severe ascites #7 chronic obstructive pulmonary disease #8 pulmonary hypertension - Secondary Discharge Diagnosis Chronic Problems (Last Reviewed 11/25/18 @ 15:45 by Lynette Schmitz PA-C) Chronic disease anemia (Chronic) Non-STEMI (non-ST elevated myocardial infarction) (Chronic) Acute on chronic anemia (Chronic) Esophageal varices (Chronic) Iron deficiency (Chronic) Peripheral neuropathy (Chronic) BPH (benign prostatic hyperplasia) (Chronic) Carotid stenosis (Chronic) Aortic stenosis (Chronic) HLD (hyperlipidemia) (Chronic) Anxiety (Chronic) HTN (hypertension) (Chronic) Benzodiazepine dependence (Chronic) Opioid dependence (Chronic) Diabetic polyneuropathy (Chronic) Depression (Chronic) PAOD (peripheral arterial occlusive disease) (Chronic) Stage III chronic kidney disease (Chronic) Status post above knee amputation of right lower extremity (Chronic) COPD (chronic obstructive pulmonary disease) (Chronic) TIA (transient ischemic attack) (Chronic) GERD (gastroesophageal reflux disease) (Chronic) Alcoholic liver disease (Chronic) cirrhosis Portal hypertension esophageal varices stage III DM type 2 (diabetes mellitus, type 2) (Chronic) Alcohol abuse (Chronic) 6-12 drinks/day Hypothyroidism (Chronic) Chronic blood loss anemia (Chronic) required 3 units of PRBC's- prior workup for this showed no etiology Hospital Course and Treatment Operations: None Procedures: 2-D Echocardiogram, Blood transfusion Summary of Care Provided: The patient is a 64 year old M seen in the emergency room at [facility] with a chief complaint of shortness of breath and cough and worsening abdominal distention from ascites times several days. Patient stated that he had been set up for an outpatient paracentesis and blood transfusion. Labs obtained in the emergency room revealed his white blood cell count to be low at 3.4, hemoglobin was 5.5, troponin was elevated at 6.98, and at 2.6, and patient required oxygen at 2 L/min to maintain his pulse ox above 90%. Patient was admitted to PCU, he was given a blood transfusion, and seen in consultation by cardiology. Cardiology did not recommend proceeding with a cardiac catheterization or giving the patient antiplatelet drugs or heparin due to the patient's severe anemia and propensity for GI bleeding. On 06/02/2019, patient was seen and examined by myself, I felt that his medical status was too tenuous to have the patient remain at this facility. We have no GI coverage and it was evident that the patient was losing blood from an unknown source most likely an esophageal varices. Patient agreed to transfer to a tertiary facility, [facility] accepted the patient. On 06/02/2019, patient was seen and examined: On examination he appeared unwell and ill. Vital signs as documented. Skin warm and dry and without overt rashes. Neck without JVD. Lungs clear. Heart exam notable for regular rhythm, normal sounds and absence of murmurs, rubs or gallops. Abdomen-abdomen was distended with evidence of ascites. Neuro: Cranial nerves II through XII are grossly intact, no focal motor deficits were noted, sensation to light touch and pinprick intact. Psych: Patient is alert and oriented x3, he does not appear anxious or depressed On 06/02/2019, patient was seen and examined felt to be in stable condition for transport to [facility] for further care. - Physical Exam Vitals/I&O's: Vital Signs Temp Pulse Resp BP Pulse Ox 97.9 F 113 H 18 115/73 96 06/03/19 12:58 06/03/19 12:58 06/03/19 12:58 06/03/19 12:58 06/03/19 12:58 Oxygen Flow Rate (L/min) 2 Oxygen Delivery Method Nasal Cannula Weight: 87.1 kg Body Mass Index (BMI) 27.5 Finger Stick Blood Glucose 310 Intake and Output for Last 24 Hours 06/02/19 06/03/19 06/04/19 23:59 23:59 23:59 Intake Total 750 / 750 1050 / 1050 Output Total 225 / 225 1075 / 1075 Balance 525 / 525 -25 / -25 Microbiology Past 72 Hours 06/03/19 06:40 Stool Stool Occult Blood (YOGI) - Final Occult Blood Positive Laboratory Results 06/02/19 13:50: Crossmatch See Detail Home Medications: Medications to take at Discharge Amlodipine [Norvasc] 10 mg PO DAILY 06/13/14 Rifampin [Rifadin] 150 mg PO BID 09/11/16 Pantoprazole Sodium [Protonix] 40 mg PO BID 10/27/18 Sertraline HCl 100 mg PO DAILY 10/27/18 ALPRAZolam [Xanax] 0.5 mg PO TID PRN PRN #21 tab 11/27/18 Acetaminophen [Tylenol] 1,000 mg PO Q8H PRN PRN tablet 11/27/18 Albuterol Sulfate [Albuterol Sulfate Hfa] 2 puff INHALATION Q4H PRN PRN 06/02/19 Insulin Aspart [Novolog Flexpen] 30 - 60 units SQ TID 06/02/19 Iron Polysaccharide Complex [Ferrex 150] 150 mg PO DAILYCM 06/02/19 Levothyroxine Sodium 300 mcg PO DAILY 06/02/19 Pregabalin 100 mg PO BID 06/02/19 Tamsulosin HCl 0.4 mg PO DAILY 06/02/19 Umeclidinium Brm/Vilanterol Tr [Anoro Ellipta 62.5-25 Mcg INH] 1 puff INHALATION DAILY 06/02/19 Primary Care Physician: Vladislav Colunga [Primary Care Provider] - Disposition: Acute care Hospital Minutes spent on discharge:: 35 Patient Condition:: Stable Medical Necessity - Tobacco Use Smoking Status: Current every day smoker Tobacco Use: Cigarettes Meaningful Use Info Meaningful Use Diagnoses (Choose all that apply): AMI - AMI Aspirin given w/in 24hrs of arrival?: No Reason no aspirin w/in 24hrs of arrival?: Upper GI bleed ASA at discharge?: No Reason ASA not ordered:: Allergy - Upper GI bleed Statins at discharge?: No Reason statins not ordered:: Allergy - Upper GI bleed Lalit/ARB at discharge?: No Reason Lalit/ARB not ordered:: Allergy - Upper GI bleed Beta Christopher at discharge?: No Reason Beta Christopher not ordered:: Allergy - Upper GI bleed Done w/ Acute TN measure.: Yes Documented LVEF (%): 35 Code Visit Inpatient E&M: 04254 Disch Hosp
== END 2019-06-03 13:16 | disposition short-term general hospital (02) | DRG 280 ==
LOC: ED 14:35 → PCU 15:52
PROVIDERS: Hospitalist; Physician Assistant; Admitting Provider Internal Medicine; Emergency Provider Emergency Medicine; Family Provider Family Medicine; PCP Family Medicine; Referring Provider Internal Medicine; Visit Provider Internal Medicine
DX: I21.4 Non-ST elevation (NSTEMI) myocardial infarction (principal); I85.11 Secondary esophageal varices with bleeding; I50.31 Acute diastolic (congestive) heart failure; N18.4 Chronic kidney disease, stage 4 (severe); N17.9 Acute kidney failure, unspecified; D61.818 Other pancytopenia; R45.851 Suicidal ideations; D62 Acute posthemorrhagic anemia; I13.0 Hypertensive heart and chronic kidney disease with heart failure and stage 1 through stage 4 chronic kidney disease, or unspecified chronic kidney disease; K76.6 Portal hypertension; F11.20 Opioid dependence, uncomplicated; F13.20 Sedative, hypnotic or anxiolytic dependence, uncomplicated; N18.3 Chronic kidney disease, stage 3 (moderate); I35.0 Nonrheumatic aortic (valve) stenosis; E11.51 Type 2 diabetes mellitus with diabetic peripheral angiopathy without gangrene; F17.210 Nicotine dependence, cigarettes, uncomplicated; K70.31 Alcoholic cirrhosis of liver with ascites; E11.22 Type 2 diabetes mellitus with diabetic chronic kidney disease; J44.9 Chronic obstructive pulmonary disease, unspecified; N40.0 Benign prostatic hyperplasia without lower urinary tract symptoms; Z89.611 Acquired absence of right leg above knee; Z79.4 Long term (current) use of insulin; I27.20 Pulmonary hypertension, unspecified; F41.9 Anxiety disorder, unspecified; E78.5 Hyperlipidemia, unspecified; E03.9 Hypothyroidism, unspecified; F10.10 Alcohol abuse, uncomplicated; K21.9 Gastro-esophageal reflux disease without esophagitis; Z86.73 Personal history of transient ischemic attack (TIA), and cerebral infarction without residual deficits; F32.9 Major depressive disorder, single episode, unspecified; D64.9 Anemia, unspecified; K74.60 Unspecified cirrhosis of liver; R06.01 Orthopnea
CPT/HCPCS: 36415; 71045; 80048; 80053; 80076; 82274; 82728; 82962; 83540; 83735; 83880; 84443; 84484; 85025; 85610; 85730; 86850; 86900; 86901; 86902; 86920; 86922; 93005; 93306; 94640; 97802; 99251; 99285; 99406; J7040; P9016; A4216; G0463; J1940; J2405

== ENCOUNTER 2019-07-04 11:49 | Emergency (ER) | payer MEDICARE, SELFPAY ==
[2019-06-02 15:51] VITALS: BMI 27.5
[2019-07-04] VITALS (8 sets, daily range): BP systolic 105–133; BP diastolic 55–73; PULSE 80–95; RESP 12–20; TEMP 36.4–36.9; O2SAT 97–100; BMI 25.1
--- NOTE | 2019-07-04 12:21 | EKG12_ITS ---
Test Reason : GI BLEED Blood Pressure : / mmHG Vent. Rate : 093 BPM Atrial Rate : 093 BPM P-R Int : 146 ms QRS Dur : 092 ms QT Int : 384 ms P-R-T Axes : 025 -17 065 degrees QTc Int : 477 ms Sinus rhythm with Premature atrial complexes Nonspecific ST and T wave abnormality Abnormal ECG Confirmed by MISTY OVALLE, FAUSTO ([id number]), editor farm journal BLAKE FLAHERTY ([id number]) on 07/06/2019 11:26:38 AM Referred By: JORGE Confirmed By:FAUSTO JAY MD
[2019-07-04] MEDS: 0.9% Normal Saline 1,000 ML 1000 ML IV (12:28)
[2019-07-04] MEDS: Ondansetron 4 MG/2 ML Vial IV (12:28)
[2019-07-04 12:35] LABS: Absolute Lymphocyte Count 0.38 X10^3/uL (0.83-4.51); Absolute Neutrophil Count 3.2 X10^3/uL (2.0-7.7); Differential Indicated SCAN CRITERIA MET; Hematocrit 21.6 % (40-54); Hemoglobin 6.1 g/dL (13.0-16.5); Lymphocyte # 0.38 X10^3/ul (4.0); Lymphocyte % 10.1 % (19-41); Mean Corp Hgb Conc 28.2 g/dL (32-36); Mean Corpuscular Hgb 25.3 pg (27.0-32.0); Mean Corpuscular Volume 89.6 fL (80-94); Monocyte% 5.3 % (0-10); NRBC Flagged by Analyzer 0 % (0-5); Neutrophil # 3.16 X10^3/uL (2.7-7.7); Neutrophil % 83.8 % (47-70); POSITIVE DIFFERENTIAL YES; POSITIVE MORPHOLOGY YES; Platelet Count 123 K/mm3 (150-450); RBC Distribution Width CV 21.4 % (11.6-14.6); RBC Distribution Width SD 69.7 fl (35.1-43.9); Red Blood Count 2.41 M/mm3 (4.6-6.2); White Blood Count 3.8 K/mm3 (4.4-11.0)
[2019-07-04] MEDS: Morphine 4 MG/ML Syringe IV (12:36)
[2019-07-04 12:40] LABS: AST(SGOT) 17 U/L (15-37); Alanine Aminotransfer ALT/SGPT 19 U/L (16-61); Albumin, Serum 2.1 g/dL (3.2-5.0); Alkaline Phosphatase 75 U/L (45-117); Anion Gap 6 (5-15); BUN 66 mg/dL (7-18); BUN/Creat Ratio 29.5 RATIO (10-20); Bilirubin, Direct 0.35 mg/dL (0.00-0.30); Calcium,Total 8.3 mg/dL (8.5-10.1); Chloride 112 mmol/L (98-107); Creatinine, Serum 2.24 mg/dL (0.70-1.30); EST Glomerular Filtration Rate 31 mL/min (>60); Est Glom Filt Rate - Afr Amer 38 mL/min (>60); Estimated Creatinine Clearance 33.95 ml/min; Globulin 4.9 g/dL (2.2-4.2); Glucose 252 mg/dL (74-106); International Normalized Ratio 1.4; Potassium 5.4 mmol/L (3.5-5.1); Prothrombin Time (Protime)PT. 17.4 SECONDS (11.7-14.9); Sodium Level 143 mmol/L (136-145)
[2019-07-04 12:41] LABS: Partial Thromboplast Time 29.2 Seconds (24.1-36.2)
[2019-07-04 12:56] LABS: Anisocytosis 1+; Hypochromasia 3+; Microcytosis 1+; Ovalocyte 1+; Platelet Estimate SLT DEC (ADEQ); Schistocytes RARE
--- NOTE | 2019-07-04 13:15 | NURSING ---
CALLING [facility] FOR TRANSFER
--- NOTE | 2019-07-04 13:16 | NURSING ---
LEFT MESSAGE FOR TRANSFER
--- NOTE | 2019-07-04 13:24 | NURSING ---
[facility] NOT ACCEPTING GI PATIENTS. DR JORGE BEAN
--- NOTE | 2019-07-04 13:50 | NURSING ---
DR PAM PATEL
--- NOTE | 2019-07-04 13:56 | ED.VISSUMM ---
- ER Visit Summary Date of Service: 07/04/19 Chief Complaint: Vomiting blood History of Present Illness: The patient is a 64 M presenting after vomiting blood. Family states patient has vomited several times today bright red blood. He has a history of esophageal varices and cirrhosis. He had a similar episode and was treated at [facility] in May. He was there for approximately 2 weeks. He was discharged to rehab. He was just discharged home from rehab on Friday. The vomiting blood started again this morning. He has mild diffuse abdominal pain. He denies other complaints. Physical Examination: Vitals are stable. Patient is afebrile. Alert no acute distress. HEENT exam is unremarkable. Neck is supple. Lungs are clear and equal bilaterally. Heart is regular rate and rhythm. Abdomen is soft distended, mild diffuse tenderness with no guarding or rebound Extremities right AKA Skin is warm and dry. Pallor No focal neurologic deficit. Remainder of exam is unremarkable. Emergency Department Course and Treatment: CBC shows white count 3.8, hemoglobin 6.1, platelet 123. Chemistries show potassium 5.4, glucose 252, BUN 66, creatinine 2.24. INR 1.4. Troponin 0.019. Ammonia 125. EKG is sinus rate of 93 similar to previous. Stool is occult positive. He was ordered 2 units packed red blood cells. Patient refuses NG tube. While in the ED patient is having difficulty urinating and refuses French catheter. He refuses lactulose for his elevated ammonia level. Patient states he wishes to be a full code. He had hospice consultation while at [facility] and has refused hospice care. He refuses to go back to [facility]. Discussed with [facility] for transfer. Disposition: Transfer [facility] Impression: Upper GI bleed This note was generated with Swiftpage dictation software. It may contain incorrect words, spelling, and punctuation that were not noted in review of the chart prior to signing ED Disposition - Plan for ED Patient: Referrals: Vladislav Colunga [Primary Care Provider] -
--- NOTE | 2019-07-04 15:11 | NURSING ---
MEME AYALA [id number] NURSE TO NURSE [phone]
--- NOTE | 2019-07-04 15:28 | NURSING ---
[facility] CALLED FOR TRANSPORT. ETA IS 1.5 HRS
--- NOTE | 2019-07-04 15:57 | NURSING ---
attempted to call report, informed they will call back
--- NOTE | 2019-07-04 17:56 | NURSING ---
blood continued upon transport
[2019-07-05 14:18] LABS: Pathologist Review Reviewed
== END 2019-07-04 17:56 | disposition short-term general hospital (02) ==
PROVIDERS: Emergency Provider Emergency Medicine; PCP Family Medicine
DX: K92.0 Hematemesis (principal); J44.9 Chronic obstructive pulmonary disease, unspecified; E11.9 Type 2 diabetes mellitus without complications; I10 Essential (primary) hypertension; K21.9 Gastro-esophageal reflux disease without esophagitis; Z86.73 Personal history of transient ischemic attack (TIA), and cerebral infarction without residual deficits; Z79.4 Long term (current) use of insulin; Z79.51 Long term (current) use of inhaled steroids; Z79.899 Other long term (current) drug therapy
CPT/HCPCS: 36430; 80048; 80076; 82140; 82274; 84484; 85025; 85610; 85730; 86850; 86870; 86900; 86901; 86902; 86920; 86922; 93005; 96361; 96374; 96375; 99285; J7040; P9016; A4216; J2405

== ENCOUNTER 2019-07-14 18:11 | Inpatient (IN) | payer MEDICARE, SELFPAY ==
[2019-07-04 11:51] VITALS: BMI 25.1
[2019-07-14] VITALS (7 sets, daily range): BP systolic 96–117; BP diastolic 51–65; PULSE 85–92; RESP 16–20; TEMP 36.6–37.3; O2SAT 98–100; BMI 23.1; BMI 22.0
--- NOTE | 2019-07-14 18:42 | EKG12_ITS ---
Test Reason : WEAKNESS Blood Pressure : / mmHG Vent. Rate : 087 BPM Atrial Rate : 087 BPM P-R Int : 162 ms QRS Dur : 104 ms QT Int : 366 ms P-R-T Axes : 036 -09 090 degrees QTc Int : 440 ms Normal sinus rhythm Nonspecific T wave abnormality Abnormal ECG Confirmed by INGRID OVALLE, JENNYFER ([id number]), news copy editor BLAKE FLAHERTY ([id number]) on 07/16/2019 1:13:43 PM Referred By: FRANCESCA Confirmed By:CARLYLE QUINTERO MD
--- NOTE | 2019-07-14 18:48 | ED.DCSUM_ITS ---
History of Present Illness Chief Complaint: Weakness Detail of Chief Complaint: Also uncontrolled bowel movement, decreased intake Informant: Patient, Significant Other Onset: Days Timing: Continuous Quality: Uncontrolled bowel movement. Generalized weakness Location: Vague Current Severity: Moderate Maximum Severity: Severe Worsened by: Unknown Relieved by: Nothing Associated Symptoms: Loss of appetite and pain at the paracentesis site Narrative: Patient is a 64-year-old male with history of alcoholic cirrhosis who was seen at [facility] last week and had a paracentesis. states the area of the procedure continued to leak. She applied new skin. The fluid stopped leaking. There is been no documented fever. Nausea without vomiting. The last bowel movement was watery. The for prior were not. There is no blood or mucus in the stool. He has multiple medical problems. He is unable to stand. According to paramedics he was hypotensive and weak. They reported diarrhea, which is inaccurate. Patient appears much older than age. Clinically he appears dehydrated. He is cachectic. He is not a good informant. Prior similar symptoms: No Recent Illness/Hospitalization: Yes - Past Medical History (1) Left hemiparesis Status: Acute (2) Neuropathy of left peroneal nerve Status: Acute (3) Pulmonary hypertension Status: Acute (4) Renal insufficiency Status: Acute (5) Alcoholic liver disease Status: Chronic Comment: cirrhosis Portal hypertension esophageal varices stage III (6) Aortic stenosis Status: Chronic (7) BPH (benign prostatic hyperplasia) Status: Chronic (8) COPD (chronic obstructive pulmonary disease) Status: Chronic (9) Chronic disease anemia Status: Chronic (10) DM type 2 (diabetes mellitus, type 2) Status: Chronic (11) Depression Status: Chronic (12) Diabetic polyneuropathy Status: Chronic (13) Esophageal varices Status: Chronic (14) HLD (hyperlipidemia) Status: Chronic (15) HTN (hypertension) Status: Chronic (16) Hypothyroidism Status: Chronic (17) Non-STEMI (non-ST elevated myocardial infarction) Status: Chronic (18) PAOD (peripheral arterial occlusive disease) Status: Chronic (19) Status post above knee amputation of right lower extremity Status: Chronic (20) TIA (transient ischemic attack) Status: Chronic Past Medical History - Allergies and Home Meds Allergies/Adverse Reactions: Allergies codeine Allergy (Verified 07/14/19 18:18) Hives hydrocodone Allergy (Verified 07/14/19 18:18) Hives hydromorphone HCl [From Dilaudid] Allergy (Verified 07/14/19 18:18) Itching oxycodone [From Percocet] Allergy (Verified 07/14/19 18:18) Rash atorvastatin [From Lipitor] Adverse Reaction (Severe, Verified 07/14/19 18:18) RHABDOMYALYSIS Primary Care Physician: Vladislav Colunga [Primary Care Provider] - Prior records reviewed: Yes Surgical History: tonsillectomy, - - Right above-knee amputation secondary to peripheral vascular disease 2003, knee surgery secondary to torn meniscus. Eso phageal banding. Lives: Spouse/ Significant Other Smoking Status: Former smoker Alcohol: Sober Drugs: None - Family History Maternal Family History: Reports: Cancer - breast Sibling Family History: Reports: No pertinent history Paternal Family History: Reports: Stroke Review of Systems General: Reports: Malaise, Weight loss. Denies: Chills, Fever, Subjective, Sweats, - Eyes: Denies: Visual changes - bilaterally, Blurred Vision - bilaterally ENT: Denies: Rhinorrhea, Sore throat Cardiovascular: Denies: Chest pain, Palpitations Respiratory: Denies: Dyspnea, Cough, Dyspnea on exertion, Orthopnea Gastrointestinal: Reports: Abdominal pain, Nausea, Diarrhea. Denies: Vomiting, Constipation, Melena, Hematochezia Genitourinary: Denies: Dysuria, Hematuria, Frequency Musculoskeletal: Denies: Myalgias, Arthralgias, Neck pain, Back pain, Swelling, Extremity Pain, -, - Skin: Denies: Rash, Wounds Neurological: Reports: Weakness, Parasthesia Psych: Reports: Depression Hematologic: Denies: Easy bruising, Easy bleeding Physical Exam Vital Signs/Narrative: Vital Signs Temp Pulse Resp BP Pulse Ox 07/14/19 18:12 97.8 F 86 20 H 96/58 L 98 Inital Vital Signs reviewed: Yes General: Cachectic, Acute Distress Head: Normocephalic, Atraumatic Eyes: Perrl, EOMI, Scleral icterus. Negative for: Pale conjunctiva ENT: No rhinorrhea, TM's clear, Dry mucous membranes Neck: Supple, Nontender, No lymphadenopathy, No JVD Cardiovascular: Regular rate, Regular rhythm, No murmurs, Normal S1, Normal S2 Respiratory: CTA bilaterally, Chest nontender, Decreased Air Movement Abdomen: Soft, Nontender - Is over paracentesis site. No evidence of cellulitis., No masses. Negative for: Nondistended, Normal bowel sounds, Hepatomegaly, Splenomegaly, Pulsatile mass Back: Nontender, Normal Inspection Extremities: Nontender, No edema Skin: Jaundice, Rash - Dry skin. Negative for: Normal color, Cyanosis, Diaphoresis Neurological: Alert, Oriented x3, Cranial nerves II-XII grossly intact, Normal Strength, Normal Sensation. Negative for: Normal Gait Psychological: Depressed Diagnostic/Tx/Re-eval Chest X-Ray - ED: 1 View, Read by Radiologist, Normal, Heart, Bony Structures, No Acute Disease, Chronic Changes Impressions Chest X-Ray 07/14/19 19:30 IMPRESSION: Normal x-ray examination of the chest. Electronically Signed: Gopi Olvera DO at 19:49 EST Tel [phone], Service support , 07/14/19 19:30 CXR [Chest 1 View] [RAD] Stat Laboratory Results 07/14/19 07/14/19 07/14/19 18:19 18:19 18:19 WBC 9.0 RBC 3.34 L Hgb 9.2 L Hct 30.8 L MCV 92.2 MCH 27.5 MCHC 29.9 L RDW Std Deviation 64.4 H RDW Coeff of Roxy 18.9 H Plt Count 111 L MPV 12.7 H Immature Gran % (Auto) 0.300 Neut % (Auto) 85.7 H Lymph % (Auto) 7.9 L [place] % (Auto) 5.8 Eos % (Auto) 0.1 Baso % (Auto) 0.2 Absolute Neuts (auto) 7.7 Absolute Lymphs (auto) 0.71 L Nucleated RBC % 0 Differential Comment SCANNED PT INR Sodium 142 Potassium 4.9 Chloride 113 H Carbon Dioxide 20.0 L Anion Gap 9 BUN 52 H Creatinine 3.00 H Estim Creat Clear Calc 26.15 Est GFR (MDRD) Af Amer 27 L Est GFR (MDRD) Non-Af 22 L BUN/Creatinine Ratio 17.3 Glucose 162 H Lactic Acid 5.1 H* Calcium 8.3 L Total Bilirubin 1.00 AST 27 ALT 16 Alkaline Phosphatase 57 Ammonia Total Protein 6.7 Albumin 2.2 L Globulin 4.5 H Albumin/Globulin Ratio 0.5 L Urine Color Urine Clarity Urine pH Ur Specific [place] Urine Protein Urine Glucose (UA) Urine Ketones Urine Occult Blood Urine Nitrite Urine Bilirubin Urine Urobilinogen Ur Leukocyte Esterase Urine RBC Urine WBC Ur Squamous Epith Cells Urine Bacteria Urine Mucus 07/14/19 07/14/19 07/14/19 19:30 19:30 20:00 WBC RBC Hgb Hct MCV MCH MCHC RDW Std Deviation RDW Coeff of Roxy Plt Count MPV Immature Gran % (Auto) Neut % (Auto) Lymph % (Auto) [place] % (Auto) Eos % (Auto) Baso % (Auto) Absolute Neuts (auto) Absolute Lymphs (auto) Nucleated RBC % Differential Comment PT 17.8 H INR 1.5 Sodium Potassium Chloride Carbon Dioxide Anion Gap BUN Creatinine Estim Creat Clear Calc Est GFR (MDRD) Af Amer Est GFR (MDRD) Non-Af BUN/Creatinine Ratio Glucose Lactic Acid Calcium Total Bilirubin AST ALT Alkaline Phosphatase Ammonia 15.0 Total Protein Albumin Globulin Albumin/Globulin Ratio Urine Color Yellow Urine Clarity Clear Urine pH 5.0 Ur Specific [place] 1.015 Urine Protein 30 H Urine Glucose (UA) 100 H Urine Ketones 5 H Urine Occult Blood Negative Urine Nitrite Negative Urine Bilirubin Negative Urine Urobilinogen Normal Ur Leukocyte Esterase Negative Urine RBC 0 SEEN Urine WBC 0 SEEN Ur Squamous Epith Cells 0-5 SEEN Urine Bacteria 0 SEEN Urine Mucus 0 SEEN - Rhythm Strip Rhythm Strip: Sinus Rhythm Ectopy: None - EKG Initial EKG Interpretation: Sinus Rhythm - Sinus rhythm with a ventricular rate 87. HI interval is under 62 ms. QS duration 104 ms. - Medical Decision Making Patient does not look well. He appears dehydrated. Concern for renal dysfunction. He has multiple areas of bleeding. Concern for coagulopathy. Appropriate blood work was ordered to assess liver function, liver enzymes, CBC, H&H and renal function. He did receive 1 L of normal saline wide open. He is hypotensive. He was informed that he will require admission to the hospital. Case elevated 5.1. H&H is improved from 10 days ago. Creatinine is increased from 2.2-3.0. BUN is elevated as well. French was placed for accurate I's and O's and to obtain urine specimen. White count is normal. AST and ALT are normal. Reviewing prior records indicates patient had hepatic encephalopathy. An ammonia level was added. Chest x-ray feels no evidence of pneumonia. Urine reveals no evidence of infec tion. Ammonia level is normal. Went to reassess patient at 2110. Systolic blood pressure 81. Second liter of normal saline was ordered. Hospitalist was paged for admission. ED Disposition - Plan for ED Patient: Disposition: Acute Care Hospital [facility] Diagnosis: Hypotension, Lactic acidosis, Acute on chronic renal failure Referrals: Vladislav Colunga [Primary Care Provider] -
[2019-07-14 18:56] LABS: Absolute Lymphocyte Count 0.71 X10^3/uL (0.83-4.51); Absolute Neutrophil Count 7.7 X10^3/uL (2.0-7.7); Basophil# 0.02 X10^3/uL; Basophil% 0.2 % (0-1); Eosinophil# 0.01 X10^3/uL; Eosinophils% 0.1 % (0-5); Hematocrit 30.8 % (40-54); Hemoglobin 9.2 g/dL (13.0-16.5); Lymphocyte # 0.71 X10^3/ul (4.0); Lymphocyte % 7.9 % (19-41); Mean Corp Hgb Conc 29.9 g/dL (32-36); Mean Corpuscular Hgb 27.5 pg (27.0-32.0); Mean Corpuscular Volume 92.2 fL (80-94); Mean Platelet Vol. 12.7 fl (6.2-12.0); Monocyte# 0.52 X10^3/uL; Monocyte% 5.8 % (0-10); NRBC Flagged by Analyzer 0 % (0-5); Neutrophil # 7.67 X10^3/uL (2.7-7.7); Neutrophil % 85.7 % (47-70); POSITIVE MORPHOLOGY YES; Platelet Count 111 K/mm3 (150-450); RBC Distribution Width CV 18.9 % (11.6-14.6); RBC Distribution Width SD 64.4 fl (35.1-43.9); Red Blood Count 3.34 M/mm3 (4.6-6.2)
[2019-07-14 19:00] LABS: Differential Indicated SCAN CRITERIA MET
[2019-07-14 19:08] LABS: ALB/GLOB Ratio 0.5 RATIO (0.9-2.4); AST(SGOT) 27 U/L (15-37); Alanine Aminotransfer ALT/SGPT 16 U/L (16-61); Albumin, Serum 2.2 g/dL (3.2-5.0); Alkaline Phosphatase 57 U/L (45-117); Anion Gap 9 (5-15); BUN 52 mg/dL (7-18); BUN/Creat Ratio 17.3 RATIO (10-20); Calcium,Total 8.3 mg/dL (8.5-10.1); Chloride 113 mmol/L (98-107); EST Glomerular Filtration Rate 22 mL/min (>60); Est Glom Filt Rate - Afr Amer 27 mL/min (>60); Estimated Creatinine Clearance 26.15 ml/min; Globulin 4.5 g/dL (2.2-4.2); Glucose 162 mg/dL (74-106); Potassium 4.9 mmol/L (3.5-5.1); Protein, Total 6.7 g/dL (6.4-8.2); Sodium Level 142 mmol/L (136-145)
[2019-07-14 19:13] LABS: Lactic Acid 5.1 mmol/L (0.4-1.9)
[2019-07-14] MEDS: 0.9% Normal Saline 1,000 ML 1000 ML IV ×2 (19:22→21:53)
--- NOTE | 2019-07-14 19:30 | RAD_ITS ---
STUDY: X-RAY CHEST REASON FOR EXAM: Male, 64 years old. Weakness TECHNIQUE: Frontal view COMPARISON: June 02, 2019 FINDINGS: The lungs are clear and expanded. There is no demonstrated pleural abnormality. Normal size heart. Normal mediastinum and douglas. Normal visualized pulmonary arteries. Normal visualized aortic arch and descending thoracic aorta. Degenerative changes of the thoracic spine. Normal visualized ribs, clavicles, and shoulders. There is no demonstrated abnormality of the visualized soft tissue structures of the upper abdomen. RAD/Chest 1 View IMPRESSION: Normal x-ray examination of the chest. Electronically Signed: Gopi Olvera DO at 19:49 EST Tel [phone], Service support ,
[2019-07-14 19:32] LABS: Differential Comment SCANNED
[2019-07-14 19:47] LABS: International Normalized Ratio 1.5; Prothrombin Time (Protime)PT. 17.8 SECONDS (11.7-14.9)
[2019-07-14 20:04] LABS: Bacteria 0 SEEN /hpf (None Seen); Mucous, Urine 0 SEEN /hpf (<or=2+); Red Blood Cells-Urine 0 SEEN /hpf (0-5); White Blood Cells 0 SEEN /hpf (0-5)
[2019-07-14 20:41] LABS: Color, Urine Yellow (Yellow); Glucose, Dipstick 100 mg/dl (Normal); Ketone-Dipstick 5 mg/dl (Negative); Leukocyte Esterase-Dipstick Negative /ul (Negative); Nitrite-Dipstick Negative (Negative); Occult Blood-Urine Negative /ul (Negative); Protein-Dipstick 30 mg/dl (Negative); Specific Gravity, Urine 1.015 (1.002-1.030); Urine Bilirubin Dipstick Negative (Negative); Urine Clarity Clear (Clear); Urine Urobilinogen Normal (Normal)
[2019-07-14 20:53] LABS: Squamous Epithelial Cells - UA 0-5 SEEN /hpf (0-5)
--- NOTE | 2019-07-14 21:42 | HP.PCM_ITS ---
Problem List (1) Chronic disease anemia Status: Chronic (2) Esophageal varices Status: Chronic (3) Pulmonary hypertension Status: Chronic (4) Hypotension Status: Acute (5) Lactic acidosis Status: Acute (6) BPH (benign prostatic hyperplasia) Status: Chronic (7) HLD (hyperlipidemia) Status: Chronic (8) HTN (hypertension) Status: Chronic (9) Depression Status: Chronic (10) Stage III chronic kidney disease Status: Chronic (11) Status post above knee amputation of right lower extremity Status: Chronic (12) COPD (chronic obstructive pulmonary disease) Status: Chronic (13) GERD (gastroesophageal reflux disease) Status: Chronic (14) Alcoholic liver disease Status: Chronic Comment: cirrhosis Portal hypertension esophageal varices stage III (15) DM type 2 (diabetes mellitus, type 2) Status: Chronic (16) Alcohol abuse Status: Chronic Comment: 6-12 drinks/day (17) Hypothyroidism Status: Chronic History of Present Illness Date of Admission: 07/14/19 Chief Complaint: Weakness. The patient is a 64 year old M patient with multiple medical comorbidities as mentioned above presented to the emergency room because of weakness. The patient himself is a very poor informant and was not able to provide detailed significant history. He was able to answer simple questions. No family members at the bedside. The ER physician spoke with the patient's who is not here at this time. Reportedly, patient presented to the emergency room because of weakness which has been going on for several days with decreased oral intake and he has been having diarrhea and patient cannot control his stool. Reportedly, patient had paracentesis at [facility] last week and according to the patient, 12 L was taken out from his belly. mentioned that after the procedure, he started having ascitic fluid leak which stopped after applying a gauze on it. Patient denied any fever or chills. He denied abdominal pain. He reported nausea without vomiting. He has history of alcoholic liver cirrhosis with esophageal varices and he has been on propranolol and rifampin. At this time, his ammonia level is normal and no evidence of hepatic encephalopathy. He has history of type 2 diabetes mellitus and he has been on insulin, hemoglobin A1c was 5.9% on January,. He has history of stage III chronic kidney disease with baseline creatinine of about 1.6 to 2.4 mg/dL, admission creatinine is 3 mg/dL which is up from his baseline. He has history of peripheral vascular disease and he had above right knee amputation due to ischemic limb. In the emergency department, patient was hypotensive, other vital signs are stable. His routine blood work was remarkable for chronic anemia, chronic thrombocytopenia, BUN of 52 and creatinine of 3.0. Lactic acid was 5.1. LFT was unremarkable except for serum albumin of 2.2 and globulin of 4.5.. Ammonia was normal at 15. Urinalysis showed no evidence of acute infection. Chest x-ray showed no acute findings. EKG revealed normal sinus rhythm without evidence of acute segment changes or cardiac arrhythmias. He is being admitted for hypotension likely due to hypovolemia, acute kidney injury on top of stage III chronic kidney disease and lactic acidosis. Past Medical History Past Medical History (Chronic Problems): Chronic Problems (Last Updated 07/14/19 @ 21:42 by Parth Tejada MD) Chronic disease anemia (Chronic) Non-STEMI (non-ST elevated myocardial infarction) (Chronic) Esophageal varices (Chronic) Pulmonary hypertension (Chronic) Iron deficiency (Chronic) Peripheral neuropathy (Chronic) BPH (benign prostatic hyperplasia) (Chronic) Carotid stenosis (Chronic) Aortic stenosis (Chronic) HLD (hyperlipidemia) (Chronic) Anxiety (Chronic) HTN (hypertension) (Chronic) Benzodiazepine dependence (Chronic) Opioid dependence (Chronic) Diabetic polyneuropathy (Chronic) Depression (Chronic) PAOD (peripheral arterial occlusive disease) (Chronic) Stage III chronic kidney disease (Chronic) Status post above knee amputation of right lower extremity (Chronic) COPD (chronic obstructive pulmonary disease) (Chronic) TIA (transient ischemic attack) (Chronic) GERD (gastroesophageal reflux disease) (Chronic) Alcoholic liver disease (Chronic) cirrhosis Portal hypertension esophageal varices stage III DM type 2 (diabetes mellitus, type 2) (Chronic) Alcohol abuse (Chronic) 6-12 drinks/day Hypothyroidism (Chronic) Medical History: Medical History (Last Updated 07/14/19 @ 21:42 by Parth Tejada MD) Iron deficiency (Chronic) E61.1 Peripheral neuropathy (Chronic) G62.9 Carotid stenosis (Chronic) I65.29 Aortic stenosis (Chronic) I35.0 HLD (hyperlipidemia) (Chronic) E78.5 HTN (hypertension) (Chronic) I10 Benzodiazepine dependence (Chronic) F13.20 Opioid dependence (Chronic) F11.20 Diabetic polyneuropathy (Chronic) E11.42 PAOD (peripheral arterial occlusive disease) (Chronic) I77.9 Stage III chronic kidney disease (Chronic) N18.3 COPD (chronic obstructive pulmonary disease) (Chronic) J44.9 GERD (gastroesophageal reflux disease) (Chronic) K21.9 Alcoholic liver disease (Chronic) K70.9 cirrhosis Portal hypertension esophageal varices stage III DM type 2 (diabetes mellitus, type 2) (Chronic) E11.9 Alcohol abuse (Chronic) F10.10 6-12 drinks/day Hypothyroidism (Chronic) E03.9 Allergies codeine Allergy (Verified 07/14/19 18:18) Hives hydrocodone Allergy (Verified 07/14/19 18:18) Hives hydromorphone HCl [From Dilaudid] Allergy (Verified 07/14/19 18:18) Itching oxycodone [From Percocet] Allergy (Verified 07/14/19 18:18) Rash atorvastatin [From Lipitor] Adverse Reaction (Severe, Verified 07/14/19 18:18) RHABDOMYALYSIS Home Medications: Ambulatory Orders Medication Instructions Recorded Rifampin [Rifadin] 150 mg PO BID 09/11/16 Pantoprazole Sodium [Protonix] 40 mg PO BID 10/27/18 Sertraline HCl 100 mg PO DAILY 10/27/18 Acetaminophen [Tylenol] 1,000 mg PO Q8H PRN PRN tab 11/27/18 Albuterol Sulfate [Albuterol 2 puff INHALATION Q4H PRN PRN 06/02/19 Sulfate Hfa] Insulin Aspart [Novolog Flexpen] 15 units SQ TIDCM 06/02/19 Iron Polysaccharide Complex 150 mg PO DAILYCM 06/02/19 [Ferrex 150] Levothyroxine Sodium 250 mcg PO DAILY 06/02/19 Pregabalin 100 mg PO BID 06/02/19 Tamsulosin HCl 0.4 mg PO DAILY 06/02/19 Umeclidinium Brm/Vilanterol Tr 1 puff INHALATION DAILY 06/02/19 [Anoro Ellipta 62.5-25 Mcg INH] ALPRAZolam [Xanax] 0.5 mg PO BID PRN 07/14/19 Propranolol HCl 10 mg PO DAILY 07/14/19 Rifaximin 07/14/19 Surgical History: Surgical History (Last Reviewed 06/14/19 @ 17:58 by Elaine Rangel) Status post above knee amputation of right lower extremity (Chronic) Z89.611 Surgical History: tonsillectomy, - - Right above-knee amputation secondary to peripheral vascular disease 2003, knee surgery secondary to torn meniscus. Esophageal banding. Psychiatric History: Depression Lives: Spouse/ Significant Other Smoking Status: Former smoker Alcohol: Sober Drugs: None - *Family History Maternal History Items: Cancer - breast Paternal History Items: Stroke Sibling History Items: No pertinent history Review of Systems Constitutional: Reports: Anorexia, Weakness, Fatigue. Denies: Chills, Fever Eyes: Denies: Blurred vision, Double vision, Drainage, Redness HEENT: Denies: Difficulty Hearing, Ear Pain, Eye Pain, Nasal Congestion, Sore Throat Cardiovascular: Denies: Chest Pain, Chest Pressure, Edema, Heaviness, Palpitations, Syncope Respiratory: Denies: Cough, Hemoptysis, Pleuritic Pain, Shortness of Breath, Sputum production Gastrointestinal: Reports: Diarrhea, Nausea. Denies: Abdominal Pain, Constipation, Vomiting Genitourinary: Reports: - - Dark urine.. Denies: Dysuria, Frequency, Hematuria Musculoskeletal: Denies: Arm Pain, Back Pain, Foot Pain Skin: Reports: Dryness. Denies: Rash Neurological: Denies: Balance problems, Blurred vision, Change in Speech, Slurred speech, Confusion, Headaches, Numbness, Tingling Psychiatric: Reports: Depression. Denies: Anxiety Endocrine: Denies: Change in Body Habitus, Polydipsia, Polyuria VTE Information - Inpt Only VTE Present on Admission: No VTE Mechan Device Prophylaxis: None VTE Pharm Prophylaxis ordered?: No Patient Problems: Active and Suspected Problems (Last Updated 07/14/19 @ 21:42 by Parth Tejada MD) Hypotension (Acute) Lactic acidosis (Acute) - Physical Exam Vitals/I&O's: Vital Signs Temp Pulse Resp BP Pulse Ox 97.8 F 89 18 96/64 99 07/14/19 18:12 07/14/19 20:07 07/14/19 20:07 07/14/19 19:47 07/14/19 20:07 Oxygen Delivery Method Room Air Weight: 166 lb 0.129 oz Body Mass Index (BMI) 23.1 Finger Stick Blood Glucose 310 General: Alert, Oriented x3, Cooperative, No apparent distress, - - Malnourished, cachectic. HEENT: Atraumatic, PERRLA, EOMI, Normocephalic Oral: Moist Mucosa, No Gingival or Mucosal Lesions/ Ulcerations Neck: Supple, No JVD, Negative Carotid Bruits, Trachea Midline, Thyroid Normal Size and Texture Lungs: Clear to auscultation, Normal air movement, No rhonchi, No wheeze, No rales, Diminished Cardiovascular: Regular rate, Regular Rhythm, Normal S1, Normal S2, PMI Normal Abdomen: Bowel Sounds Present, Soft, Non-Distended, No Hepato-splenomegaly, Distended Extremities: No clubbing, No cyanosis, No edema, - - Status post above right knee amputation. Lymphatic: No Cervical, Supraclavicular, or Inguinal Adenopathy Neurological: Cranial nerves II-XII grossly intact, Motor Exam 5/5 strength throughout Psych/Mental Status: Normal Affect, Appropriate, Alert and oriented to time, place, person, mood and affect Laboratory Results 07/14/19 18:19: WBC 9.0, RBC 3.34 L, Hgb 9.2 L, Hct 30.8 L, MCV 92.2, MCH 27.5, MCHC 29.9 L, RDW Std Deviation 64.4 H, RDW Coeff of Roxy 18.9 H, Plt Count 111 L, MPV 12.7 H, Immature Gran % (Auto) 0.300, Neut % (Auto) 85.7 H, Lymph % (Auto) 7.9 L, [place] % (Auto) 5.8, Eos % (Auto) 0.1, Baso % (Auto) 0.2, Absolute Neuts (auto) 7.7, Absolute Lymphs (auto) 0.71 L, Nucleated RBC % 0, Differential Comment SCANNED 07/14/19 18:19: Sodium 142, Potassium 4.9, Chloride 113 H, Carbon Dioxide 20.0 L , Anion Gap 9, BUN 52 H, Creatinine 3.00 H, Estim Creat Clear Calc 26.15, Est GFR (MDRD) Af Amer 27 L, Est GFR (MDRD) Non-Af 22 L, BUN/Creatinine Ratio 17.3, Glucose 162 H, Calcium 8.3 L, Total Bilirubin 1.00, AST 27, ALT 16, Alkaline Phosphatase 57, Total Protein 6.7, Albumin 2.2 L, Globulin 4.5 H, Albumin/Globulin Ratio 0.5 L 07/14/19 18:19: Lactic Acid 5.1 H* 07/14/19 19:30: PT 17.8 H, INR 1.5 07/14/19 19:30: Ammonia 15.0 07/14/19 20:00: Urine Color Yellow, Urine Clarity Clear, Urine pH 5.0, Ur Specific [place] 1.015, Urine Protein 30 H, Urine Glucose (UA) 100 H, Urine Ketones 5 H, Urine Occult Blood Negative, Urine Nitrite Negative, Urine Bilirubin Negative, Urine Urobilinogen Normal, Ur Leukocyte Esterase Negative, Urine RBC 0 SEEN, Urine WBC 0 SEEN, Ur Squamous Epith Cells 0-5 SEEN, Urine Bacteria 0 SEEN, Urine Mucus 0 SEEN Clinical Impression(s) from Imaging Studies Chest X-Ray 07/14/19 19:30 IMPRESSION: Normal x-ray examination of the chest. Electronically Signed: Gopi Olvera DO at 19:49 EST Tel [phone], Service support , Current Medications Sodium Chloride () 1,000 mls @ 1,000 mls/hr IV .Q1H ONE Stop: 07/14/19 22:13 Assessment/Plan All Active Problems (Last Updated 07/14/19 @ 21:42 by Parth Tejada MD) Hypotension (Acute) Lactic acidosis (Acute) This is a 64 years old male patient presented to the emergency room because of weakness and poor oral intake as well as reported diarrhea and he was found to have hypotension attributed to hypovolemia and acute kidney injury on top of stage III chronic kidney disease as well as lactic acidosis. #1 hypotension: Probably due to hypovolemia as patient went for paracentesis around 1 week ago and according to him, 12 L of ascitic fluid was taken out. Could be exaggerated by poor oral intake, diarrhea and diuretics as patient mentioned that he takes Lasix at home. Blood pressure improved after IV fluid bolus. No evidence of infection, sepsis or severe sepsis. Plan: Admit to PCU, cardiac monitoring, IV fluids with Ringer's lactate, will give IV albumin 25 g x 1, hold diuretics if any, input output chart, repeat CBC and CMP tomorrow morning, PT OT evaluation and treatment. #2 acute kidney injury on top of stage III chronic kidney disease: Secondary to hypovolemia. Baseline creatinine has been around 1.3 up to 2.4 mg/dL. Admission creatinine is 3 mg/dL. Plan: IV fluids as above, input output chart, avoid nephrotoxic drugs, repeat CMP tomorrow morning. #3 lactic acidosis: This is probably due to hypotension and tissue perfusion. Patient has been afebrile, no leukocytosis. Chest x-ray and urinalysis were unremarkable. Plan for IV fluids as above, repeat lactic acid in 3 hours. #4 alcoholic liver cirrhosis/esophageal varices: Status post paracentesis last week, 12 L taken out. Ammonia level is normal. No evidence of encephalopathy. Patient has been having diarrhea. Continue rifampin, rifaximin and propranolol. #5 chronic anemia/chronic thrombocytopenia: Upon revision of his chart, patient received 1 unit of packed RBCs on July 04, 2019. On that day, hemoglobin was 6.3 g/dL. At this time, patient denied any active bleeding. Admission hemoglobin is 9.2 g/dL which is probably elevated because of dehydration. He does have chronic thrombocytopenia because of chronic upper disease, platelet count is 111,000, stable at baseline. Plan to repeat CBC tomorrow morning, continue iron supplement, I expect hemoglobin to drop after IV fluids. He may need transfusion if hemoglobin drops significantly. #6 type 2 diabetes mellitus: ADA diet, Accu-Cheks, insulin sliding scale, continue NovoLog insulin 3 times daily. #7 benign prostatic hypertrophy: He does have a French catheter, continue Flomax. #8 COPD: Clinically stable, pulse ox is maintained on room air. Plan for DuoNeb every 6 hours, albuterol PRN. #9 peripheral vascular disease: Status post above right knee amputation for ischemic limb. Stable otherwise. #10 hypothyroidism: Stable, continue levothyroxine. #11 anxiety/depression: Continue Xanax as needed and sertraline. #12 DVT prophylaxis: No chemical prophylaxis, INR is 1.5, patient has chronic thrombocytopenia. This note was generated with [employer] software. It may contain incorrect words, spelling, and punctuation that were not noted in checking the note before signing. Code Visit Inpatient E&M: 46203 Init Hosp L3
[2019-07-14 22:52] LABS: Reflex Lactate? Y
[2019-07-14 23:25] LABS: Lactic Acid 3.7 mmol/L (0.4-1.9)
[2019-07-14] MEDS: Albumin Human 25% (100 mL) 25 GM/100 ML BAG IV (23:31)
[2019-07-14] MEDS: rifAXIMin 550 MG Tablet PO (23:32)
[2019-07-14] MEDS: Pantoprazole Sodium 40 MG Tablet PO (23:32)
[2019-07-15] VITALS (11 sets, daily range): BP systolic 87–111; BP diastolic 44–51; PULSE 84–91; RESP 16–21; TEMP 36.6–38.2; O2SAT 94–99
[2019-07-15 00:31] LABS: Bedside Glucose 134 mg/dL (70-110)
[2019-07-15] MEDS: Acetaminophen 325 MG Tablet 650 MG PO (01:15)
[2019-07-15] MEDS: Lactated Ringers 1,000 ML 100 ML IV ×2 (01:16→10:03)
[2019-07-15] MEDS: 0.9% Saline Lock 10 ML Syringe IV (01:16)
[2019-07-15] MEDS: Levothyroxine 100 MCG Tablet 250 MCG PO (05:04)
[2019-07-15 05:55] LABS: Absolute Lymphocyte Count 0.56 X10^3/uL (0.83-4.51); Absolute Neutrophil Count 4.4 X10^3/uL (2.0-7.7); Basophil# 0.01 X10^3/uL; Basophil% 0.2 % (0-1); Eosinophil# 0.07 X10^3/uL; Eosinophils% 1.2 % (0-5); Hematocrit 22.9 % (40-54); Lymphocyte # 0.56 X10^3/ul (4.0); Lymphocyte % 9.8 % (19-41); Mean Corp Hgb Conc 30.6 g/dL (32-36); Mean Corpuscular Hgb 27.9 pg (27.0-32.0); Mean Corpuscular Volume 91.2 fL (80-94); Monocyte# 0.64 X10^3/uL; Monocyte% 11.2 % (0-10); NRBC Flagged by Analyzer 0 % (0-5); Neutrophil % 77.1 % (47-70); POSITIVE COUNT YES; POSITIVE DIFFERENTIAL YES; POSITIVE MORPHOLOGY YES; Platelet Count 66 K/mm3 (150-450); RBC Distribution Width CV 18.4 % (11.6-14.6); RBC Distribution Width SD 61.3 fl (35.1-43.9); Red Blood Count 2.51 M/mm3 (4.6-6.2); White Blood Count 5.7 K/mm3 (4.4-11.0)
[2019-07-15 05:57] LABS: Differential Indicated SCAN CRITERIA MET
[2019-07-15 06:37] LABS: ALB/GLOB Ratio 0.6 RATIO (0.9-2.4); AST(SGOT) 18 U/L (15-37); Alanine Aminotransfer ALT/SGPT 14 U/L (16-61); Albumin, Serum 2.2 g/dL (3.2-5.0); Alkaline Phosphatase 45 U/L (45-117); Anion Gap 8 (5-15); BUN 57 mg/dL (7-18); BUN/Creat Ratio 20.5 RATIO (10-20); Chloride 111 mmol/L (98-107); Creatinine, Serum 2.78 mg/dL (0.70-1.30); EST Glomerular Filtration Rate 25 mL/min (>60); Est Glom Filt Rate - Afr Amer 30 mL/min (>60); Estimated Creatinine Clearance 26.87 ml/min; Globulin 3.8 g/dL (2.2-4.2); Glucose 128 mg/dL (74-106); Potassium 4.5 mmol/L (3.5-5.1); Sodium Level 139 mmol/L (136-145)
[2019-07-15] MEDS: Ipratropium/Albuterol Sulfate 3 ML AMPUL.NEB INHALATION ×2 (06:59→13:17)
[2019-07-15 08:31] LABS: Bedside Glucose 120 mg/dL (70-110)
--- NOTE | 2019-07-15 08:58 | CASEMGMT ---
Living Will and Healthcare POA forms are scanned into summary tab of Christin dempsey is pt's medical POA. XIANG Hillman
[2019-07-15] MEDS: Pregabalin 50 MG Capsule 100 MG PO (09:14)
[2019-07-15] MEDS: Propranolol 10 MG Tablet PO (09:15)
[2019-07-15] MEDS: Sertraline 100 MG Tablet PO (09:15)
[2019-07-15] MEDS: Tamsulosin HCl 0.4 MG Capsule PO (09:15)
[2019-07-15] MEDS: Pantoprazole Sodium 40 MG Tablet PO (09:15)
[2019-07-15] MEDS: rifAXIMin 550 MG Tablet PO (09:15)
[2019-07-15] MEDS: Iron Polysaccharide Complex 150 MG CAPSULE PO (09:15)
[2019-07-15] MEDS: Insulin Lispro 100 UNIT/ML INSULN.PEN 15 UNIT SC ×2 (09:16→12:26)
--- NOTE | 2019-07-15 09:30 | CASEMGMT ---
WILLIAM received a call from Noa at Hospice and she said she had an appt to meet with patient and his today at 10am. Patient's left a voice mail letting them know he is in the hospital, but they want to keep this appt. Noa will be at [facility] at 10am to talk with patient and his . WILLIAM notified RN, kiln charger, and physician. Katja CANELA
--- NOTE | 2019-07-15 10:05 | CASEMGMT ---
Noa from Hospice is here to talk with patient. Katja AMARO HOUSING ASSISTANT PROPERTY MANAGER
[2019-07-15 10:21] LABS: Lactic Acid 2.9 mmol/L (0.4-1.9)
--- NOTE | 2019-07-15 11:34 | CASEMGMT ---
Per Noa at Hospice patient signed Hospice papers. He will be discharged home with Hospice when ready. Katja AMARO MSW
[2019-07-15 11:50] LABS: Bedside Glucose 137 mg/dL (70-110)
--- NOTE | 2019-07-15 11:53 | CASEMGMT ---
Addendum entered by Katja Irby 07/15/19 15:02: WILLIAM spoke with Noa after she spoke with patient's again. She went over things with her again. Patient's decided to think about it and have Noa call her back tomorrow. Katja CANELA Original Note: Physician spoke with patient and his . They do not want him to go home and . They do not want Hospice. They thought Hospice would help provide care at home. SW called Noa at Hospice and let her know this information. She will follow up with patient's . Katja CANELA
[2019-07-15 13:45] LABS: Reflex Lactate? Y
--- NOTE | 2019-07-15 14:14 | PN_ITS ---
Patient Problems: Active and Suspected Problems (Last Updated 07/14/19 @ 21:42 by Parth Tejada MD) Hypotension (Acute) Lactic acidosis (Acute) Subjective: Patient was admitted on 07/14/2019 through the ED with a complaint of weakness. He has been having decreased oral intake as well as diarrhea for the past couple of days prior to admission. According to his , patient had paracentesis at [facility] 1 week ago with about 12 L of fluid removed from his abdomen. They do not think that he received any albumin after removal of the fluids. Subsequently he was having an ascitic fluid leak which stopped after a few days after gauze was applied to the area. He had no fever chills or abdominal pain and had no vomiting but did have nausea. On admission he was found to be hypotensive with elevated lactic acid of 5.1 and also CEASAR on CKD. He was hydrated with IV fluids and given IV albumin 25 g once. Patient seen and examined. Is very frail. He however denied any fever or chills, any nausea or vomiting, any chest pain, any abdominal pain, any diarrhea or vomiting. expressed concern that his blood pressure had been running low. He said his usual blood pressures in the 120s systolic but has been in the 80s and 90s at home. Upon further discussion, it turns out that states she called his PCP yesterday because patient was having frequent diarrhea and she kept on cleaning up after him and got tired. PCP suggested hospice and so they set up an appointment for today. However they had to come to the hospital so hospice is to see patients today. Hospice did review patient and I was informed that patient and had agreed the patient could go home on home hospice. I went to speak extensively to patient and family to clarify their goals of care and CODE STATUS. told me that she did not know that going on hospice meant that she is at the end of her life. stated that she did not want patient to go home and and wanted to continue his current medical treatment for him to get as well as he could be. I informed her that it did not seem that her goals were in line with what hospice entailed as hospice involved end of care life. expressed that she did not know that is what hospice involved and does know what she wanted. She started crying and tearfully expressed I just need some help! and explained that she felt overwhelmed with caring for him and needed some wrist bite. I then discussed CODE STATUS with and patient and he stated that he did not want any intubation or CPR but would want to be treated for any medical condition, meaning he was DNR CCA. I informed that it seemed like she would benefit from home health care and palliative care not hospice. She was in agreement and case management will discuss with her further about home health care options. Vitals/I&O's: Vital Signs Temp Pulse Resp BP Pulse Ox 99.5 F H 84 21 H 92/51 L 95 07/15/19 14:10 07/15/19 14:10 07/15/19 14:10 07/15/19 14:10 07/15/19 14:10 Oxygen Delivery Method Room Air Weight: 158 lb 1.143 oz Body Mass Index (BMI) 22.0 Finger Stick Blood Glucose 310 Intake and Output for Last 24 Hours 07/13/19 07/14/19 07/15/19 23:59 23:59 23:59 Intake Total 2484 / 2484 1470.00 / 1470.00 Output Total 175 / 175 75 / 75 Balance 2309 / 2309 1395.00 / 1395.00 General: Alert, Oriented x3, Cooperative, Lethargic, - - very frail HEENT: Atraumatic, PERRLA, EOMI, Normocephalic Oral: Dry Mucosa Neck: Supple, No JVD, Negative Carotid Bruits Lungs: - - decreased breath sounds bibasally, no wheezes or crackles. on room air. Cardiovascular: Regular rate, Regular Rhythm, Normal S1, Normal S2, No murmurs Abdomen: Bowel Sounds Present, Soft, - - distended, positive fluid thrill. minimal tenderness on examination. no guarding or rebound tenderness Extremities: No clubbing, No cyanosis, No edema, Capillary Refill Less than 3 Seconds Skin: No rashes, No breakdown Musculoskeletal: No Tenderness to Palpation of Joints or Extremities Lymphatic: No Cervical, Supraclavicular, or Inguinal Adenopathy Neurological: Cranial nerves II-XII grossly intact, Neuro grossly intact, Motor Exam 5/5 strength throughout Psych/Mental Status: Flat Affect Microbiology Past 72 Hours 07/15/19 01:00 Stool C. difficile DNA Amplification - Final Laboratory Results 07/14/19 18:19: WBC 9.0, RBC 3.34 L, Hgb 9.2 L, Hct 30.8 L, MCV 92.2, MCH 27.5, MCHC 29.9 L, RDW Std Deviation 64.4 H, RDW Coeff of Roxy 18.9 H, Plt Count 111 L, MPV 12.7 H, Immature Gran % (Auto) 0.300, Neut % (Auto) 85.7 H, Lymph % (Auto) 7.9 L, [place] % (Auto) 5.8, Eos % (Auto) 0.1, Baso % (Auto) 0.2, Absolute Neuts (auto) 7.7, Absolute Lymphs (auto) 0.71 L, Nucleated RBC % 0, Differential Comment SCANNED 07/14/19 18:19: Sodium 142, Potassium 4.9, Chloride 113 H, Carbon Dioxide 20.0 L , Anion Gap 9, BUN 52 H, Creatinine 3.00 H, Estim Creat Clear Calc 26.15, Est GFR (MDRD) Af Amer 27 L, Est GFR (MDRD) Non-Af 22 L, BUN/Creatinine Ratio 17.3, Glucose 162 H, Calcium 8.3 L, Total Bilirubin 1.00, AST 27, ALT 16, Alkaline Phosphatase 57, Total Protein 6.7, Albumin 2.2 L, Globulin 4.5 H, Albumin/Globulin Ratio 0.5 L 07/14/19 18:19: Lactic Acid 5.1 H* 07/14/19 18:19: Prealbumin 10.0 L 07/14/19 19:30: PT 17.8 H, INR 1.5 07/14/19 19:30: Ammonia 15.0 07/14/19 20:00: Urine Color Yellow, Urine Clarity Clear, Urine pH 5.0, Ur Specific [place] 1.015, Urine Protein 30 H, Urine Glucose (UA) 100 H, Urine Ketones 5 H, Urine Occult Blood Negative, Urine Nitrite Negative, Urine Bilirubin Negative, Urine Urobilinogen Normal, Ur Leukocyte Esterase Negative, Urine RBC 0 SEEN, Urine WBC 0 SEEN, Ur Squamous Epith Cells 0-5 SEEN, Urine Bacteria 0 SEEN, Urine Mucus 0 SEEN 07/14/19 22:52: Lactic Acid 3.7 H* 07/14/19 23:36: POC Glucose 134 H 07/15/19 05:30: WBC 5.7, RBC 2.51 L, Hgb 7.0 L, Hct 22.9 L, MCV 91.2, MCH 27.9, MCHC 30.6 L, RDW Std Deviation 61.3 H, RDW Coeff of Roxy 18.4 H, Plt Count 66 L, MPV 12.0, Immature Gran % (Auto) 0.500, Neut % (Auto) 77.1 H, Lymph % (Auto) 9.8 L, [place] % (Auto) 11.2 H, Eos % (Auto) 1.2, Baso % (Auto) 0.2, Absolute Neuts (auto) 4.4, Absolute Lymphs (auto) 0.56 L, Nucleated RBC % 0, Differential Comment 07/15/19 05:30: Sodium 139, Potassium 4.5, Chloride 111 H, Carbon Dioxide 20.0 L , Anion Gap 8, BUN 57 H, Creatinine 2.78 H, Estim Creat Clear Calc 26.87, Est GFR (MDRD) Af Amer 30 L, Est GFR (MDRD) Non-Af 25 L, BUN/Creatinine Ratio 20.5 H , Glucose 128 H, Calcium 8.0 L, Total Bilirubin 1.40 H, AST 18, ALT 14 L, Alkaline Phosphatase 45, Total Protein 6.0 L, Albumin 2.2 L, Globulin 3.8, Albumin/Globulin Ratio 0.6 L 07/15/19 08:25: POC Glucose 120 H 07/15/19 09:40: Lactic Acid 2.9 H* 07/15/19 11:45: POC Glucose 137 H Diagnostic Data Chest X-Ray 07/14/19 19:30 IMPRESSION: Normal x-ray examination of the chest. Electronically Signed: Gopi Olvera DO at 19:49 EST Tel [phone], Service support , Current Medications Acetaminophen (Tylenol) 650 mg PO Q6H PRN PRN PRN Reason: Pain Score 1-10/Temp > 100.7 F Last Admin: 07/15/19 01:15 Dose: 650 mg Documented by: Albuterol Sulfate (Ventolin Aerosols) 2.5 mg INHALATION Q4H PRN PRN PRN Reason: Shortness of breath, wheezing Albuterol/Ipratropium (Duoneb) 3 ml INHALATION Q6H.RT PENDING SALE TO [facility] Last Admin: 07/15/19 13:17 Dose: 3 ml Documented by: Alprazolam (Xanax) 0.5 mg PO BID PRN PRN Reason: ANXIETY Glucagon () 1 mg IM .X1 PRN PRN Reason: Hypoglycemia Sodium Chloride () 250 mls @ 15 mls/hr IV .[id number] PRN PRN Reason: Saline Flush Sodium Chloride () 250 mls @ 15 mls/hr IV .[id number] PRN PRN Reason: Additional IVPB Infusion Dextrose (Dextrose 10%-Water) 250 mls @ 999 mls/hr IV .Q16M PRN; Protocol PRN Reason: HYPOGLYCEMIA Albumin Human () 25 gm in 100 mls @ 60 mls/hr IV X1 ONE Stop: 07/15/19 15:39 Insulin Human Lispro (Humalog Kwikpen (Bkc)) 0 unit SC ACHS PENDING SALE TO [facility]; Protocol Last Admin: 07/15/19 11:51 Dose: Not Given Documented by: Insulin Human Lispro (Humalog Kwikpen (Bkc)) 15 unit SC 0800,1200,1700 PENDING SALE TO [facility] Last Admin: 07/15/19 12:26 Dose: 15 u Documented by: Levothyroxine Sodium (Synthroid) 250 mcg PO DAILY@0600 PENDING SALE TO [facility] Last Admin: 07/15/19 05:04 Dose: 250 mcg Documented by: Nutritional Formula (Lactose Free) (Ensure Enlive) 120 ml PO 4X/DAY PENDING SALE TO [facility] Last Admin: 07/15/19 09:15 Dose: Not Given Documented by: Ondansetron HCl (Zofran) 4 mg IV Q8H PRN PRN PRN Reason: NAUSEA/VOMITING Pantoprazole Sodium (Protonix) 40 mg PO BID PENDING SALE TO [facility] Last Admin: 07/15/19 09:15 Dose: 40 mg Documented by: Polysaccharide Iron Complex (Ferrex 150) 150 mg PO DAILYCM PENDING SALE TO [facility] Last Admin: 07/15/19 09:15 Dose: 150 mg Documented by: Pregabalin (Lyrica) 100 mg PO BID PENDING SALE TO [facility] Last Admin: 07/15/19 09:14 Dose: 100 mg Documented by: Propranolol HCl (Inderal) 10 mg PO 4X/DAY PENDING SALE TO [facility] Last Admin: 07/15/19 09:15 Dose: 10 mg Documented by: Rifaximin (Xifaxan) 550 mg PO BID PENDING SALE TO [facility] Last Admin: 07/15/19 09:15 Dose: 550 mg Documented by: Sertraline HCl (Zoloft) 100 mg PO DAILY PENDING SALE TO [facility] Last Admin: 07/15/19 09:15 Dose: 100 mg Documented by: Sodium Chloride () 10 - 40 ml IV UD PRN PRN Reason: SALINE FLUSH Last Admin: 07/15/19 01:16 Dose: 10 ml Documented by: Tamsulosin HCl (Flomax) 0.4 mg PO DAILY PENDING SALE TO [facility] Last Admin: 07/15/19 09:15 Dose: 0.4 mg Documented by: STROKE Vital Signs/Narrative: Vital Signs Temp Pulse Resp BP BP Pulse Ox 07/15/19 14:10 99.5 F H 84 21 H 92/51 L 92/51 L 95 07/15/19 13:17 85 16 Medical Necessity - Tobacco Use Smoking Status: Former smoker Tobacco Use: Non-smoker Assessment/Plan All Active Problems (Last Updated 07/14/19 @ 21:42 by Parth Tejada MD) Hypotension (Acute) Lactic acidosis (Acute) 1. Hypotension * likely due to hypolemia as he had paracentesis 1 week ago with removal of 12L of fluid * he says he doesn't remember being given albumin afterwards * has also been having diarrhea and taking diuretics which may have potentiated the hypotension * received IVF on admission. Now dc'd IVF due to risk of third spacing with cirrhosis * was given 25gram of IV albumin on admission. Will give another 25gram * monitor intake output chart * 2. CEASAR on CKD 3 * likely prerenal due to hypovolemia. * Creatinine was 3 on admission and is now down to 2.78. Baseline creatinine is around 1.26 from January 2019 though he has been between 2.2 and 2.6 in May. * Was being hydrated gently with IV fluids. Received IV albumin also. * Will monitor. * 3. Lactic acidosis: Lactic acid was 5.1 on admission and this is likely due to hypotension. Has trended down to 2.9. Will monitor. 4. Liver cirrhosis and esophageal varices: * Due to alcohol abuse. * Had paracentesis last week with 12 L removed. * He is also having diarrhea. * On rifaximin and propranolol. * Rifampin on hold as is not in our formulary. * 5. Chronic anemia and thrombocytopenia * Globin was 9.2 on admission is down to 7. All cell lines of falling drastically is on thinking this may be hemodilution all from IV fluids he received. * He is chronically anemic with hemoglobin in February been down to around 7.5. Though from October to November was around 12, has not been around that level since then it was as low as 5.5 in May 2019. * Platelets were 111 on admission to have dropped to 66. Does have chronic thrombocytopenia. * Monitor closely. If hemoglobin drops tomorrow, will transfuse. * 6. Type 2 diabetes mellitus: On insulin sliding scale. Accu-Cheks AC at bedtime. 7. COPD: Stable. On breathing treatments with bronchodilators. 8. Peripheral vascular disease status post right above-knee amputation. Stable. 9. Hypothyroidism: On Synthroid. 10. BPH: On Flomax. 11. Anxiety depression: On Xanax and sertraline DVT prophylaxis: SCDs CODE STATUS: DNR CCA * Patient and counseled extensively about different types of CODE STATUS including full code, DNR CCA and DNR CCA. Patient elects to be DNRCCA. Total [id number] time 17 minutes. * Family opted not to go for home with home hospice, as it did nt seem like fully appreciated that hospice meant end of life care; she wanted him to get as well as he could and go back home. After extensive discussion to clarify code status and goals of care, says she needs help with taking care of him at home, but he doesnt want to go into a fpc. Patient will therefore benefit from home health services. Case management informed. 4:52pm Patient's repeat lactic acid came back at 4. He had trended up from 2.9-4. In light of patient's troponins hemoglobin, worsening lactic acid and a complaint of mild abdominal pain, I think it is prudent to transfer patient to tertiary facility where he will have access to GI evaluation. Patient accepted at [facility] to the telemetry floor under Dr. Sid Zavaleta. Code Visit Inpatient E&M: 05320 [facility] L3
[2019-07-15] MEDS: Albumin Human 25% (100 mL) 25 GM/100 ML BAG IV (14:23)
--- NOTE | 2019-07-15 16:53 | DCINST_ITS ---
- Discharge Diagnoses Current Active Problems: Current Active and Chronic Problems (Last Updated 07/14/19 @ 21:42 by Parth Tejada MD) Acute on chronic renal failure (Chronic) Hypotension (Acute) Lactic acidosis (Acute) You will use the following diet at home:: Cardiac Allergies/Adverse Reactions: Allergies codeine Allergy (Verified 07/14/19 18:18) Hives hydrocodone Allergy (Verified 07/14/19 18:18) Hives hydromorphone HCl [From Dilaudid] Allergy (Verified 07/14/19 18:18) Itching oxycodone [From Percocet] Allergy (Verified 07/14/19 18:18) Rash atorvastatin [From Lipitor] Adverse Reaction (Severe, Verified 07/14/19 18:18) RHABDOMYALYSIS Medications to take at Discharge Rifampin [Rifadin] 150 mg PO BID 09/11/16 Pantoprazole Sodium [Protonix] 40 mg PO BID 10/27/18 Sertraline HCl 100 mg PO DAILY 10/27/18 Acetaminophen [Tylenol] 1,000 mg PO Q8H PRN PRN tab 11/27/18 Albuterol Sulfate [Albuterol Sulfate Hfa] 2 puff INHALATION Q4H PRN PRN 06/02/19 Insulin Aspart [Novolog Flexpen] 15 units SQ TIDCM 06/02/19 Iron Polysaccharide Complex [Ferrex 150] 150 mg PO DAILYCM 06/02/19 Levothyroxine Sodium 250 mcg PO DAILY 06/02/19 Pregabalin 100 mg PO BID 06/02/19 Tamsulosin HCl 0.4 mg PO DAILY 06/02/19 Umeclidinium Brm/Vilanterol Tr [Anoro Ellipta 62.5-25 Mcg INH] 1 puff INHALATION DAILY 06/02/19 ALPRAZolam [Xanax] 0.5 mg PO BID PRN 07/14/19 Propranolol HCl 10 mg PO DAILY 07/14/19 Rifaximin 07/14/19 Primary Care Physician: Vladislav Colunga [Primary Care Provider] - Please follow up with your Primary Care Physician in: 1-2 weeks after dc from [facility] Test Results: Test results from this visit will be discussed in further detail at your follow- up appointment, if applicable. Proposed Discharge Date: 07/15/19
[2019-07-15 16:56] LABS: Bedside Glucose 164 mg/dL (70-110)
--- NOTE | 2019-07-15 17:37 | NURSING ---
Report given to Sarai at [facility].
--- NOTE | 2019-07-15 17:43 | NURSING ---
transferred by jean camacho to [facility]
--- NOTE | 2019-07-16 14:36 | PCM.DC.SUM ---
Discharge Date and Diagnosis Date of Admission: 07/14/19 Date of Discharge: 07/16/19 - Primary Discharge Diagnosis hypotension CEASAR on CKD 3 lactic acidosis - Secondary Discharge Diagnosis Chronic Problems (Last Updated 07/14/19 @ 21:42 by Parth Tejada MD) Acute on chronic renal failure (Chronic) Chronic disease anemia (Chronic) Non-STEMI (non-ST elevated myocardial infarction) (Chronic) Esophageal varices (Chronic) Pulmonary hypertension (Chronic) Iron deficiency (Chronic) Peripheral neuropathy (Chronic) BPH (benign prostatic hyperplasia) (Chronic) Carotid stenosis (Chronic) Aortic stenosis (Chronic) HLD (hyperlipidemia) (Chronic) Anxiety (Chronic) HTN (hypertension) (Chronic) Benzodiazepine dependence (Chronic) Opioid dependence (Chronic) Diabetic polyneuropathy (Chronic) Depression (Chronic) PAOD (peripheral arterial occlusive disease) (Chronic) Stage III chronic kidney disease (Chronic) Status post above knee amputation of right lower extremity (Chronic) COPD (chronic obstructive pulmonary disease) (Chronic) TIA (transient ischemic attack) (Chronic) GERD (gastroesophageal reflux disease) (Chronic) Alcoholic liver disease (Chronic) cirrhosis Portal hypertension esophageal varices stage III DM type 2 (diabetes mellitus, type 2) (Chronic) Alcohol abuse (Chronic) 6-12 drinks/day Hypothyroidism (Chronic) Hospital Course and Treatment Imaging Results: Diagnostic Data Chest X-Ray 07/14/19 19:30 IMPRESSION: Normal x-ray examination of the chest. Electronically Signed: Gopi Olvera DO at 19:49 EST Tel [phone], Service support , Operations: None Procedures: None Summary of Care Provided: Patient is a 64-year-old male with an extensive past medical history as listed was admitted through the ED on 07/14/2019 with a complaint of weakness. Patient has been having decreased oral intake as well as diarrhea. He had had paracentesis at [facility] week before admission and he said 12 L was taken out of his abdomen but he could not tell whether he received albumin or not and was also not sure whether he received such. He had assisted nausea but denied any abdominal pain. He had had some ascitic leak whilst at home after he had the paracentesis. On admission, he was found to be chronically anemic with chronic thrombocytopenia. Creatinine was 3 with a baseline of around 1.6. In the ED he was also found to be hypotensive with a lactic acid of 5.1. Ammonia level was 15 and UA showed no evidence of infection. Chest x-ray showed no acute cardiopulmonary process and EKG showed no acute ST changes. He was admitted to be managed for hypotension likely due to hypovolemia from decreased intake and diarrhea and paracentesis with 12 L of fluid removed as well as CEASAR on CKD and lactic acidosis. He was hydrated with IV fluids and given 1 dose of albumin 25 g initially. Patient's blood pressure transiently improved and lactic acid also trended down to a jose of 2.9. Hospital course was complicated by patient being reviewed by hospice at 's request. It turned out that while patient was having diarrhea, had called her primary care doctor because she was having difficulty coping with cleaning up after him repeatedly. According to her, primary care doctor suggested hospice, and they were suppsed to meet with hospice at home but had to come to the hospital. Hospice then followed up with him in the hospital and patient and his agreed for patient to go home on home hospice. However, after hospitalist discussed extensively with patient about hospice, stated that she did not know that hospice meant the patient's life expectancy was 6 months or less as she did not want him to go home and . She did not know that going on hospice meant that the patient was at the end of his life and she wanted him to get as well as he could. and patient were counseled that the goals of care were not in line with what hospice entailed and it seems like they wanted palliative care. started crying at that point and tearfully expressed, I just need some help! SHe expressed that she had been taking care of him for 15 years with the cirrhosis and felt overwhelmed. CODE STATUS was also discussed with and patient and they wanted him to be DNR CCA. Patient's condition subsequently deteriorated at his same hemoglobin dropped to 7 and also his lactic acid trended up back to 4 even though he had received 2 units of 25 g of albumin and was also been hydrated with IV fluids. Decision was made to transfer patient to [facility] as we did not have a s iron worker present at [facility] and he was to 10 was to be managed here. and family agreed to transfer and patient was transferred to the care of Dr. Sid Zavaleta at [facility] on 07/16/2019. Patient was seen and examined prior to discharge. He was alert and oriented but very lethargic and frail. He had no active complaints apart from feeling very weak. 12 point review of stems otherwise negative. Labs and vitals reviewed. o/e: Vital Signs Height 5 ft 11 in Weight: 158 lb 1.143 oz Weight in Pounds 158.1 lbs Pulse Ox 96 Temperature 100.7 F Pulse Rate 87 Respiratory Rate 20 Blood Pressure [BP] 92/51 Blood Pressure 100/48 Blood Pressure Position [BP] Semi-Fowlers Blood Pressure Position Semi-Fowlers General: Alert, Oriented x3, Cooperative, Lethargic, - - very frail HEENT: Atraumatic, PERRLA, EOMI, Normocephalic Oral: Dry Mucosa Neck: Supple, No JVD, Negative Carotid Bruits Lungs: - - decreased breath sounds bibasally, no wheezes or crackles. on room air. Cardiovascular: Regular rate, Regular Rhythm, Normal S1, Normal S2, No murmurs Abdomen: Bowel Sounds Present, Soft, - - distended, positive fluid thrill. minimal tenderness on examination. no guarding or rebound tenderness Extremities: No clubbing, No cyanosis, No edema, Capillary Refill Less than 3 Seconds Skin: No rashes, No breakdown Musculoskeletal: No Tenderness to Palpation of Joints or Extremities Lymphatic: No Cervical, Supraclavicular, or Inguinal Adenopathy Neurological: Cranial nerves II-XII grossly intact, Neuro grossly intact, Motor Exam 5/5 strength throughout Psych/Mental Status: Flat Affect Patient transferred to [facility]. Patient and counseled to follow-up with your primary care doctor after discharge from [facility] and discuss goals of care and referral for palliative care with primary care doctor. - Physical Exam Vitals/I&O's: Vital Signs Temp Pulse Resp BP Pulse Ox 100.7 F H 87 20 H 100/48 L 96 07/15/19 16:20 07/15/19 16:20 07/15/19 16:20 07/15/19 16:20 07/15/19 16:20 Oxygen Delivery Method Room Air Weight: 158 lb 1.143 oz Body Mass Index (BMI) 22.0 Finger Stick Blood Glucose 310 Intake and Output for Last 24 Hours 07/14/19 07/15/19 07/16/19 23:59 23:59 23:59 Intake Total 2484 / 2484 2320.00 / 2320.00 Output Total 175 / 175 200 / 200 Balance 2309 / 2309 2120.00 / 2120.00 Microbiology Past 72 Hours 07/15/19 01:00 Stool C. difficile DNA Amplification - Final Laboratory Results 07/15/19 14:05: Lactic Acid 4.0 H* 07/15/19 16:29: POC Glucose 164 H Home Medications: Medications to take at Discharge Rifampin [Rifadin] 150 mg PO BID 09/11/16 Pantoprazole Sodium [Protonix] 40 mg PO BID 10/27/18 Sertraline HCl 100 mg PO DAILY 10/27/18 Acetaminophen [Tylenol] 1,000 mg PO Q8H PRN PRN tab 11/27/18 Albuterol Sulfate [Albuterol Sulfate Hfa] 2 puff INHALATION Q4H PRN PRN 06/02/19 Insulin Aspart [Novolog Flexpen] 15 units SQ TIDCM 06/02/19 Iron Polysaccharide Complex [Ferrex 150] 150 mg PO DAILYCM 06/02/19 Levothyroxine Sodium 250 mcg PO DAILY 06/02/19 Pregabalin 100 mg PO BID 06/02/19 Tamsulosin HCl 0.4 mg PO DAILY 06/02/19 Umeclidinium Brm/Vilanterol Tr [Anoro Ellipta 62.5-25 Mcg INH] 1 puff INHALATION DAILY 06/02/19 ALPRAZolam [Xanax] 0.5 mg PO BID PRN 07/14/19 Propranolol HCl 10 mg PO DAILY 07/14/19 Rifaximin 07/14/19 Primary Care Physician: Vladislav Colunga [Primary Care Provider] - Please follow up with your Primary Care Physician in: 1-2 weeks after dc from [facility] Disposition: Acute care Hospital Minutes spent on discharge:: 50 Patient Condition:: Poor Medical Necessity - Tobacco Use Smoking Status: Former smoker Tobacco Use: Non-smoker Meaningful Use Info Meaningful Use Diagnoses (Choose all that apply): None applicable Code Visit Inpatient E&M: 41441 Disch Hosp
== END 2019-07-15 17:45 | disposition short-term general hospital (02) | DRG 683 ==
LOC: ED 21:13 → PCU 23:13
PROVIDERS: Admitting Provider Hospitalist; Emergency Provider Emergency Medicine; PCP Family Medicine; Visit Provider Student in an Organized Health Care Education/Training Program
DX: N17.9 Acute kidney failure, unspecified (principal); E87.2 Acidosis; K76.6 Portal hypertension; I85.10 Secondary esophageal varices without bleeding; N18.3 Chronic kidney disease, stage 3 (moderate); K70.31 Alcoholic cirrhosis of liver with ascites; D63.1 Anemia in chronic kidney disease; I25.2 Old myocardial infarction; I27.20 Pulmonary hypertension, unspecified; E61.1 Iron deficiency; E78.5 Hyperlipidemia, unspecified; I12.9 Hypertensive chronic kidney disease with stage 1 through stage 4 chronic kidney disease, or unspecified chronic kidney disease; E11.42 Type 2 diabetes mellitus with diabetic polyneuropathy; E11.22 Type 2 diabetes mellitus with diabetic chronic kidney disease; J44.9 Chronic obstructive pulmonary disease, unspecified; Z86.73 Personal history of transient ischemic attack (TIA), and cerebral infarction without residual deficits; K21.9 Gastro-esophageal reflux disease without esophagitis; E03.9 Hypothyroidism, unspecified; E11.51 Type 2 diabetes mellitus with diabetic peripheral angiopathy without gangrene; Z87.891 Personal history of nicotine dependence; Z79.899 Other long term (current) drug therapy; Z79.4 Long term (current) use of insulin; D69.6 Thrombocytopenia, unspecified; N40.0 Benign prostatic hyperplasia without lower urinary tract symptoms; Z89.611 Acquired absence of right leg above knee; F41.9 Anxiety disorder, unspecified; F32.9 Major depressive disorder, single episode, unspecified; Z66 Do not resuscitate
CPT/HCPCS: 36415; 51702; 71045; 80053; 81001; 82140; 82962; 83605; 84134; 85025; 85610; 87040; 87493; 93005; 94640; 97163; 97167; 99251; 99285; 99406; J7030; J7040; J7120; P9047; A4216; G0463